=== PATIENT | female | born 1960 | race Caucasian/White ===

== ENCOUNTER 2023-08-23 16:18 | Observation (INO) ==
--- NOTE | 2023-08-23 17:57 | Emergency Department Note ---
Impression & Plan Weakness, Upper back pain, Nausea ED Provider Note NAME: CHRISTIANO HORN AGE: 62 SEX: Female INFORMANT: Patient ED PROVIDER(S): Sriram Sanchez MD CHIEF COMPLAINT: Weakness PLAN: Disposition: Admitted Outpatient prescription management: none Referral: None MEDICAL DECISION MAKING: Patient presented because of feeling weak but she also noted discomfort in her back and nausea. That reminded her of her prior cardiac event. Patient had unremarkable CBC and chemistry panel. Her ECG showed a sinus rhythm. Cardiac troponin was negative. Patient had already received aspirin prehospital. She has a nonfocal neurologic examination. I do have concerns as this could be a primary cardiac event. Patient states that she believes there may be something neurologic going on she has had some balance issues for many months but this leg weakness and constellation of other symptoms was new today. Further management the hospital is felt to be appropriate. [facility] Patient was evaluated in the ER and admitted for further management Care/management discussed with: Discussed with editorial manager Level of care consideration(s): After review of the information above and other included data, I feel the patient requires escalation of care to admission. Triage Nursing notes: reviewed and agree them. Vital Signs: reviewed and remarkable for no significant abnormalities Additional History obtained from: Patient significant other Chronic Medical/Social Conditions affecting care: CAD Prior/ Outside/ External records reviewed: none Differential Diagnosis: ACS, Infection, dehydration, metabolic abnormality, hypo/hyperglycemia, electrolyte disturbance, anemia, hypoxia, cardiac sources, intracerebral event, toxicologic, neurologic, as well as other pathologies. Diagnostics, independently interpreted by me: ECG: Twelve-lead ECG rhythm normal sinus rhythm at [address] elevation or depression. Cardiac Monitoring: Cardiac monitoring ordered by me: The patient was placed on continuous cardiac monitoring and observed. It revealed a normal sinus rhythm at 67 beats per minute without ectopy or evidence of dysrhythmia. Medical decision rules: none Imaging studies: Chest x-ray. Findings: A chest x-ray was performed and revealed no pneumothorax, effusion, infiltrate, pulmonary edema, free air under the diaphragm, or wide mediastinum. Impression: No acute disease. HPI: 62 year old Female arrives for evaluation of lower leg weakness. Noted feeling normally all day. Was walking out of the football game and suddenly felt weak in the entire lower legs. [place] like she couldn't stand by herself. Been dealing with nausea since the symptoms started. Noted slight back pain between shoulder blades. No vertigo. No lower back pain. Was given aspirin by EMS. Pt denies trauma, LOC, headache, neck pain, fevers, chills, malaise, night sweats, weight loss, history of malignancy, chest pain, breathing difficulties, abdominal pain, saddle parasthesias, bowel or bladder dysfunction, numbness, urinary symptoms, or other complaints. PAST MEDICAL HISTORY: See Below, heart disease, MS Nov 2022. PAST SURGICAL HISTORY: See Below, no cath SOCIAL HISTORY: See Below, HOME MEDICATIONS: See Below ALLERGIES: See Below VITALS: See Below PHYSICAL EXAMINATION: GENERAL: Awake, alert, well-appearing, in no distress HENT: Normocephalic, atraumatic. Oropharynx unremarkable. EYES: Normal conjunctiva. Sclera non-icteric. NECK: Inspection normal. Non-tender. Supple. No nuchal rigidity. FROM. No masses. RESPIRATORY: Clear to auscultation. No wheezes. No rales. Normal respiratory effort. CARDIAC: Normal rate. Irregular rhythm. No murmurs. No rubs. Extremities warm and well perfused. Pulses equal. No JVD. GI: Soft, non-distended. No tenderness to palpation. No rebound or guarding. No masses. RECTAL: Deferred. MUSCULOSKELETAL: Atraumatic. Chest examination reveals no tenderness. The back is symmetrical on inspection without obvious abnormality. There is no CVA tenderness to palpation. No joint edema. LOWER EXTREMITIES: Calves are equal size bilaterally and non-tender. No edema. No discoloration. NEURO: Normal sensorium. No sensory or motor deficits noted. SKIN: No rash or jaundice noted. PROCEDURES: none CRITICAL CARE: none OBSERVATION NOTE: none Past Med/Surg History Social History Smoking Status: Never smoker Preferred Language: Upper Sorbian Feels Safe at Home: Yes Allergies Allergies Allergy/AdvReac Type Severity Reaction Status Date / Time Penicillins Allergy Severe Unconscious Verified 08/24/23 00:52 polyethylene glycol 3350 Allergy Severe Unconscious Verified 08/24/23 00:52 [From Miralax] prednisone Allergy Severe Unconscious Verified 08/24/23 00:52 Home Meds Home Medications Medication Instructions Recorded Confirmed bupropion HCl 300 mg 24 hr tablet, 300 mg PO QAM 08/23/23 08/23/23 extended release dulaglutide 0.75 mg/0.5 mL 0.75 mg subcut WK 08/23/23 08/23/23 subcutaneous pen injector (Trulicity) evolocumab 420 mg/3.5 mL 420 mg subcut MONTHLY 08/23/23 08/23/23 subcutaneous wearable injector (Repatha Pushtronex) fluoxetine 80 mg PO DAILY 08/23/23 08/23/23 gabapentin 300 mg capsule 300 mg PO HS 08/23/23 08/23/23 metoprolol succinate 25 mg 25 mg PO DAILY 08/23/23 08/23/23 tablet,extended release 24 hr omeprazole 40 mg capsule,delayed 40 mg PO BID 08/23/23 08/23/23 release rosuvastatin 20 mg tablet 20 mg PO DAILY 08/23/23 08/23/23 trazodone 50 mg tablet 50 mg PO HS 08/23/23 08/23/23 Results & Data (ED) Vital Signs Vital Signs - 24 hr 08/23/23 16:27 08/23/23 18:25 08/23/23 18:35 Temperature 36.8 C Temperature Source Temporal Artery Scan Pulse Rate 79 65 Pulse Rate [Right Finger] 62 Pulse Rhythm [Right Finger] Regular Pulse Strength [Right Finger] Normal Respiratory Rate 18 20 Respiratory Effort / Characteristics Non-Labored Spontaneous Non-Labored Respiratory Depth Normal Normal Respiratory Pattern Regular Blood Pressure 129/90 Blood Pressure [Left Arm] 123/57 L Blood Pressure Mean 103 Blood Pressure Mean [Left Arm] 79 Blood Pressure Position [Left Arm] Lying Pulse Oximetry 99 96 Oxygen Delivery Method Room Air Room Air Sepsis Recent Fever Within 48 Hours No Sepsis New/Unexplained Change in Mental Status No Sepsis Action Taken by Nursing No Action Required 08/23/23 20:14 Temperature Temperature Source Pulse Rate Pulse Rate [Right Finger] 62 Pulse Rhythm [Right Finger] Regular Pulse Strength [Right Finger] Normal Respiratory Rate 20 Respiratory Effort / Characteristics Non-Labored Spontaneous Respiratory Depth Normal Respiratory Pattern Blood Pressure Blood Pressure [Left Arm] 107/59 L Blood Pressure Mean Blood Pressure Mean [Left Arm] 75 Blood Pressure Position [Left Arm] Sitting Pulse Oximetry 97 Oxygen Delivery Method Room Air Sepsis Recent Fever Within 48 Hours Sepsis New/Unexplained Change in Mental Status Sepsis Action Taken by Nursing Laboratory Data 08/23/23 18:27 08/23/23 18:27 Lab Results 08/23/23 Range/Units 18:27 WBC 5.46 (4.8-10.8) K/ul RBC 4.11 L (4.20-5.40) M/uL Hgb 12.2 (12.0-16.0) g/dl Hct 36.2 L (37.0-47.0) % MCV 88.1 (80.0-100.0) fL MCH 29.7 (25.0-34.0) pg MCHC 33.7 (32.0-36.0) g/dL RDW Std Deviation 40.6 (36.4-46.3) fL RDW Coeff of Alix 12.7 (11.5-14.5) % Plt Count 191 (130-400) K/uL MPV 9.6 (9.4-12.4) fL Immature Gran % (Auto) 0.5 % Neut % (Auto) 55.0 % Lymph % (Auto) 33.0 % [place] % (Auto) 8.4 % Eos % (Auto) 2.4 % Baso % (Auto) 0.7 % Neut # (Auto) 3.00 (1.40-6.50) K/uL Lymph # (Auto) 1.80 (1.20-3.40) K/uL [place] # (Auto) 0.46 (0.11-0.59) K/uL Eos # (Auto) 0.13 (0.00-0.50) K/uL Baso # (Auto) 0.04 (0.00-0.20) K/uL Immature Gran # (Auto) 0.03 (0.01-0.20) K/uL Sodium 138 (136-145) mmol/L Potassium 3.8 (3.5-5.1) mmol/L Chloride 105 (98-107) mmol/L Carbon Dioxide 29 (21-32) mmol/L Anion Gap 4 (3-11) BUN 17 (6-23) mg/dl Creatinine 1.11 (0.6-1.2) mg/dl Est Cr Clr Drug Dosing Not Reportable Est GFR ( Amer) 60.8 ml/min Est GFR (Non-Af Amer) 52.4 ml/min BUN/Creatinine Ratio 15.3 (10-20) Glucose 116 H (70-99(Fasting)) mg/dl Calcium 9.6 (8.6-10.3) mg/dl Magnesium 2.0 (1.7-2.4) mg/dl Total Bilirubin 0.4 (0.2-1.0) mg/dl AST 35 (13-39) U/L ALT 45 (7-52) U/L Alkaline Phosphatase 56 (34-104) U/L Troponin I High Sens 6.7 (0-14) pg/ml Total Protein 7.4 (6.0-8.3) gm/dl Albumin 4.3 (3.4-5.0) gm/dl Globulin 3.1 (2.5-4.0) gm/dl Albumin/Globulin Ratio 1.4 (0.9-2) TSH 3.689 (0.300-4.500) uIu/ml SARS-CoV-2, RNA, NAAT NEGATIVE (NEGATIVE) Imaging Data Radiologist's Impression: Chest X-Ray 08/23/23 17:58 XR chest 1V portable HISTORY: weakness COMPARISON: None. FINDINGS: The cardiac silhouette is borderline enlarged. No pleural effusions. No pneumothorax. No focal lung consolidations to suggest a pneumonia. No evidence for pulmonary edema. No acute fractures. IMPRESSION: Borderline enlargement of the cardiac silhouette. Otherwise, no acute process within the chest. ACT 112: Negative or not required by law. Electronically signed by: Cas Aguilar M.D. 08/23/2023 10:56 PM Discharge Plan Visit Data Chief Complaint: Back Injury/Pain Stated Complaint: LOW BACK PAIN, LOSS OF BALANCE, NO FALLS/INJURIES ED Provider: Sriram Sanchez Discharge Problem: Weakness, Upper back pain, Nausea Patient Disposition: Admitted As Inpatient Discharge Instructions Interventions: ED Discharge Assessment Last Done: 08/24/23 00:44
[2023-08-23 18:53] LABS: Basophils # (auto) 0.04 K/uL (0.00-0.20); Basophils % (auto) 0.7 %; Eosinophils # (auto) 0.13 K/uL (0.00-0.50); Eosinophils % (auto) 2.4 %; Hematocrit (blood only) 36.2 % (37.0-47.0); Hemoglobin 12.2 g/dl (12.0-16.0); Immature Granulocytes # (auto) 0.03 K/uL (0.01-0.20); Immature Granulocytes % (auto) 0.5 %; Mean Corpuscular Hemoglobin 29.7 pg (25.0-34.0); Mean Corpuscular Hgb Conc 33.7 g/dL (32.0-36.0); Mean Corpuscular Volume 88.1 fL (80.0-100.0); Mean Platelet Volume 9.6 fL (9.4-12.4); Monocytes # (auto) 0.46 K/uL (0.11-0.59); Monocytes % (auto) 8.4 %; Platelet Count 191 K/uL (130-400); RDW Coefficient of Variation 12.7 % (11.5-14.5); RDW Standard Deviation 40.6 fL (36.4-46.3); Red Blood Count 4.11 M/uL (4.20-5.40); White Blood Count 5.46 K/ul (4.8-10.8)
[2023-08-23 19:09] LABS: Alanine Aminotransferase 45 U/L (7-52); Albumin Globulin Ratio 1.4 (0.9-2); Albumin Level 4.3 gm/dl (3.4-5.0); Alkaline Phosphatase 56 U/L (34-104); Anion Gap 4 (3-11); Aspartate Aminotransferase 35 U/L (13-39); BUN Creatinine Ratio 15.3 (10-20); Bilirubin,Total 0.4 mg/dl (0.2-1.0); Blood Urea Nitrogen 17 mg/dl (6-23); Calcium 9.6 mg/dl (8.6-10.3); Carbon Dioxide 29 mmol/L (21-32); Chloride 105 mmol/L (98-107); Est GFR (African American) 60.8 ml/min; Est GFR (Non-African American) 52.4 ml/min; Globulin 3.1 gm/dl (2.5-4.0); Glucose 116 mg/dl (70-99(Fasting)); Potassium 3.8 mmol/L (3.5-5.1); Sodium 138 mmol/L (136-145); Total Protein 7.4 gm/dl (6.0-8.3)
[2023-08-23 19:11] LABS: Troponin I High Sensitivity 6.7 pg/ml (0-14)
[2023-08-23 19:18] LABS: Thyroid Stimulating Hormone 3.689 uIu/ml (0.300-4.500)
--- NOTE | 2023-08-23 21:10 | History & Physical Report ---
Date of Service August 23, 2023 Assessment & Plan (1) Chest pain: Plan: 62-year-old female with past med history significant for type 2 diabetes, dyslipidemia, diabetic peripheral neuropathy, history of stress-induced non-ST elevated FL, mild aortic stenosis, GERD, morbid obesity, obstructive sleep apnea, CKD stage III, depression with anxiety, history of transient global amnesia, who was at football match today and after the match was walking on the level ground she suddenly felt shaky in the legs and almost fall fell backwards but was held by her and son and she was laid down to sit on the curb and at the time for short brief time she had a pain in the between the back of the shoulder blades. Pain subsided in the ambulance. She thinks it is from anxiety. Possible chest pain Initial work-up unremarkable History of stress-induced or non-ST elevated FL in November On aspirin, statin and beta-milton We will follow serial cardiac enzymes and echo N.p.o. for now Monitor in telemetry Cardiology consult in a.m. Weakness in the legs History of peripheral neuropathy Ambulatory dysfunction We will get CT of the head Exam seems benign If any concern will get MRI and neuro consult Type 2 diabetes On trulicity We will place on insulin sliding scale Follow blood sugars and HbA1c levels Obstructive sleep apnea On CPAP nightly Depression and anxiety Continue home meds DVT prophylaxis SCDs Disposition observation med/telemetry Full code History of Present Illness Chief Complaint: Pain in the back of the shoulder blades and weakness in the legs Primary Care Provider: Mango Tamez MD 62-year-old female with past med history significant for type 2 diabetes, dyslipidemia, diabetic peripheral neuropathy, history of stress-induced non-ST elevated FL, mild aortic stenosis, GERD, morbid obesity, obstructive sleep apnea, CKD stage III, depression with anxiety, history of transient global amnesia, who was at football match today and after the match was walking on the level ground she suddenly felt shaky in the legs and almost l fell backwards but was held by her and son and she was laid down to sit on the curb and at the time for short time she had a pain in the between the back of the shoulder blades. Pain subsided in the ambulance. She thinks it is from anxiety. Yesterday also when she was at a when she was walking uphill she could not walk and she needed assistance. Currently resting comfortably and hemodynamically stable. Lying in the bed she can flex and move her legs okay. Denies any headache. Vision is okay. Has some runny nose. No cough. Eating and drinking okay. Currently no chest pain or shortness of breath. During the during the episode she felt nauseous. No abdominal pain. Normal bowel and bladder movements. In November of this year she was admitted to [facility] with altered mental status and evaluated by psychiatry for psychosis after having COVID and her SSRI was increased. At the time she was also treated as a non-ST elevated FL likely stress-induced vasospasm. At that time stress test showed normal EF without wall motion abnormality or evidence of ischemia and was started on aspirin, statin and beta-milton.. Past medical history. As mentioned above Past surgical history. Breast biopsy. Colonoscopy. EGD. EGD with endoscopic ultrasound. Ligation of oviducts. Liver biopsy. Hemorrhoid surgery. Bladder tack up. Removal of ovaries. Cholecystectomy. Total abdominal hysterectomy with removal of tubes. Social history. . Quit smoking 2006. Alcohol rarely. No drug use. Family history. Paternal aunt had breast cancer. Father had prostate cancer. Skin cancer. Mother has dementia. Diabetes. Hyperlipidemia. Thyroid disorder. Skin cancer. Sister has epilepsy, multiple sclerosis. Allergies Allergy/AdvReac Type Severity Reaction Status Date / Time Penicillins Allergy Severe Unconscious Verified 08/24/23 00:52 polyethylene glycol 3350 Allergy Severe Unconscious Verified 08/24/23 00:52 [From Miralax] prednisone Allergy Severe Unconscious Verified 08/24/23 00:52 Home Medications Medication Instructions Recorded Confirmed Type bupropion HCl 300 mg 24 hr tablet, 300 mg PO QAM 08/23/23 08/23/23 History extended release dulaglutide 0.75 mg/0.5 mL 0.75 mg subcut WK 08/23/23 08/23/23 History subcutaneous pen injector (Trulicity) evolocumab 420 mg/3.5 mL 420 mg subcut MONTHLY 08/23/23 08/23/23 History subcutaneous wearable injector (Repatha Pushtronex) fluoxetine 80 mg PO DAILY 08/23/23 08/23/23 History gabapentin 300 mg capsule 300 mg PO HS 08/23/23 08/23/23 History metoprolol succinate 25 mg 25 mg PO DAILY 08/23/23 08/23/23 History tablet,extended release 24 hr omeprazole 40 mg capsule,delayed 40 mg PO BID 08/23/23 08/23/23 History release rosuvastatin 20 mg tablet 20 mg PO DAILY 08/23/23 08/23/23 History trazodone 50 mg tablet 50 mg PO HS 08/23/23 08/23/23 History Past Med/Surg History Social History Smoking Status: Never smoker Do You Dip or Chew Tobacco: No; Hx Alcohol Use: Yes Alcohol type: beer and wine Hx Substance Use: No Preferred Language: Arabic Communication Ability: Effective Gizzard Peeler Required: No Beliefs That Will Affect Care: None Current Living Situation: Spouse Current Living Situation Comment: home with spouse Other Information That Helps Us Care for You: No Feels Safe at Home: Yes Safety Concerns: Feels Safe At This Time Assistive Devices: Glasses and Hearing Aid - Bilateral Review of Systems Review of Systems: All systems reviewed & are unremarkable except as noted in HPI & below Physical Exam Physical Exam: General- Not in distress Head- atraumatic Eyes- PERRL. ENT- oropharynx clear Neck- supple, no JVD. Lungs- clear to auscultation, no wheezing or crackles. Heart- regular rhythm; no murmur, no gallop. Abdomen- normal bowel sounds, soft, nontender, no distension. maculopapular lesion seen on the stomach Extremities- no pretibial edema, no erythema seen. Neuro- alert, oriented x 3; PERRL, no facial palsy; no dysarthria; motor 5/5 bilaterally; sensations intact, position sense intact Results & Data Results & Data Vital Signs (Past 12 Hours) Vital Signs Temp Pulse Pulse Resp BP BP Pulse Ox 08/23/23 20:14 62 20 107/59 L 97 08/23/23 18:35 62 20 123/57 L 96 08/23/23 18:25 65 08/23/23 16:27 36.8 C 79 18 129/90 99 O2 Del Method 08/23/23 20:14 Room Air 08/23/23 18:35 Room Air 08/23/23 18:25 08/23/23 16:27 Room Air Diagnostic Findings Laboratory Results WBC 5.46 K/ul (4.8-10.8) 08/23/23 18:27 RBC 4.11 M/uL (4.20-5.40) L 08/23/23: Hgb 12.2 g/dl (12.0-16.0) 08/23/23: Hct 36.2 % (37.0-47.0) L 08/23/23 MCV 88.1 fL (80.0-100.0) 08/23/23 MCH 29.7 pg (25.0-34.0) 08/23/23 MCHC 33.7 g/dL (32.0-36.0) 08/23/23 RDW Std Deviation 40.6 fL (36.4-46.3) 08/23/23 RDW Coeff of Alix 12.7 % (11.5-14.5) 08/23/23 Plt Count 191 K/uL (130-400) 08/23/23 MPV 9.6 fL (9.4-12.4) 08/23/23 Immature Gran % (Auto) 0.5 % 08/23/23 Neut % (Auto) 55.0 % 08/23/23 Lymph % (Auto) 33.0 % 08/23/23 [place] % (Auto) 8.4 % 08/23/23 Eos % (Auto) 2.4 % 08/23/23 Baso % (Auto) 0.7 % 08/23/23 Neut # (Auto) 3.00 K/uL (1.40-6.50) 08/23/23 Lymph # (Auto) 1.80 K/uL (1.20-3.40) 08/23/23 [place] # (Auto) 0.46 K/uL (0.11-0.59) 08/23/23 Eos # (Auto) 0.13 K/uL (0.00-0.50) 08/23/23 Baso # (Auto) 0.04 K/uL (0.00-0.20) 08/23/23 Immature Gran # (Auto) 0.03 K/uL (0.01-0.20) 08/23/23 18 Sodium 138 mmol/L (136-145) 08/23/23 18:27 Potassium 3.8 mmol/L (3.5-5.1) 08/23/23 18: Chloride 105 mmol/L (98-107) 08/23/23 18:27 Carbon Dioxide 29 mmol/L (21-32) 08/23/23 18: Anion Gap 4 (3-11) 08/23/23 18:27 BUN 17 mg/dl (6-23) 08/23/23 18: Creatinine 1.11 mg/dl (0.6-1.2) 08/23/23 18: Est Cr Clr Drug Dosing Not Reportable 08/23/23 18: Est GFR ( Amer) 60.8 ml/min 08/23/23 18: Est GFR (Non-Af Amer) 52.4 ml/min 08/23/23 18: BUN/Creatinine Ratio 15.3 (10-20) 08/23/23 18: Glucose 116 mg/dl (70-99(Fasting)) H 08/23/23 18: Calcium 9.6 mg/dl (8.6-10.3) 08/23/23 18: Magnesium 2.0 mg/dl (1.7-2.4) 08/23/23 18: Total Bilirubin 0.4 mg/dl (0.2-1.0) 08/23/23 18:27 AST 35 U/L (13-39) 08/23/23 18:27 ALT 45 U/L (7-52) 08/23/23 18: Alkaline Phosphatase 56 U/L (34-104) 08/23/23 18: Troponin I High Sens 6.7 pg/ml (0-14) 08/23/23 18: Total Protein 7.4 gm/dl (6.0-8.3) 08/23/23 18: Albumin 4.3 gm/dl (3.4-5.0) 08/23/23 18: Globulin 3.1 gm/dl (2.5-4.0) 08/23/23 18: Albumin/Globulin Ratio 1.4 (0.9-2) 08/23/23 18: TSH 3.689 uIu/ml (0.300-4.500) 08/23/23 18:27 SARS-CoV-2, RNA, NAAT NEGATIVE (NEGATIVE) 08/23/23 18:27 ECG Additional Comments: ECG. Normal sinus rhythm with rate of 63. No acute ST changes seen. Code Status & VTE Plan VTE Prophylaxis Plan VTE Prophylaxis will be ordered: Yes
[2023-08-23 22:36] LABS: Appearance Urine Clear (Clear); Bacteria Urine Automated Negative (Negative); Bilirubin Urine Negative (Negative); Blood Urine Negative (Negative); Color Urine Yellow; Epithelial Cell Urine Auto >30 /lpf (0-5); Glucose Urine UA Negative (Negative); Ketones Urine Negative (Negative); Leukocyte Esterase Urine Trace (Negative); Nitrite Urine Negative (Negative); Protein Urine Negative (Negative); RBC Urine Automated 0-4 /hpf (0-4); Specific Gravity Urine 1.021 (1.000-1.030); Urobilinogen Urine Negative (Negative); pH Urine 5.5 (4.5-7.5)
--- NOTE | 2023-08-23 22:58 | XRay Report ---
XR chest 1V portable HISTORY: weakness COMPARISON: None. FINDINGS: The cardiac silhouette is borderline enlarged. No pleural effusions. No pneumothorax. No fo carlos lung consolidations to suggest a pneumonia. No evidence for pulmonary edema. No acute fractures. IMPRESSION: Borderline enlargement of the cardiac silhouette. Otherwise, no acute process within the chest. ACT 112: Negative or not required by law. Electronically signed by: Cas Aguilar M.D. 08/23/2023 10:56 PM
[2023-08-24] MEDS ORDERED: GLUCAGON FOR INJ 1 MG VIAL SQ PRN (00:32)
[2023-08-24] MEDS ORDERED: NITROGLYCERIN SL 0.4 MG/TAB TAB SL PRN (00:32)
[2023-08-24] MEDS ORDERED: ACETAMINOPHEN 325 MG TAB PO PRN (00:32)
[2023-08-24] MEDS ORDERED: DEXTROSE 50% 50 ML SYRINGE IV PRN (00:32)
[2023-08-24] MEDS ORDERED: GLUCOSE 10 TAB/TUBE PO PRN (00:32)
[2023-08-24] MEDS ORDERED: GABAPENTIN 300 MG CAP PO SCH (00:32)
[2023-08-24] MEDS ORDERED: CARBOHYDRATES FOR HYPOGLYCEMIA PO PRN (00:32)
[2023-08-24] MEDS ORDERED: traZODone HCL 50 MG TAB PO SCH (00:32)
[2023-08-24] MEDS ORDERED: GLUCOSE 40% GEL 15 GM TUBE PO PRN (00:32)
[2023-08-24] MEDS: PANTOprazole 40 MG TAB PO SCH ×2 (01:32→08:33)
[2023-08-24] MEDS: INSULIN ASPART PER UNIT CHARGE SC SCH ×3 (02:10→12:17)
--- NOTE | 2023-08-24 03:58 | CT Scan Report ---
Exam(s): CT HEAD Without Contrast EXAM: CT Head Without Intravenous Contrast CLINICAL HISTORY: Reason for exam: b/l leg weakness. TECHNIQUE: Axial computed tomography images of the head/brain without intravenous contrast. CTDI is 37.95 mGy and DLP is 624.41 mGy-cm. Automated exposure control was utilized for the study. A dose lowering technique was utilized adhering to the principles of ALARA. COMPARISON: No relevant prior studies available. FINDINGS: Brain: Unremarkable. No hemorrhage. No significant white matter disease. No edema. Ventricles: Unremarkable. No ventriculomegaly. Bones/joints: Unremarkable. No acute fracture. Soft tissues: Unremarkable. Sinuses: Unremarkable as visualized. No acute sinusitis. Mastoid air cells: Unremarkable as visualized. No mastoid effusion. IMPRESSION: No evidence of acute intracranial pathology. Electronically signed by: Mar Gross MD 08/24/23 03:57 AM
[2023-08-24 06:49] LABS: Basophils # (auto) 0.03 K/uL (0.00-0.20); Basophils % (auto) 0.5 %; Eosinophils # (auto) 0.17 K/uL (0.00-0.50); Eosinophils % (auto) 3.1 %; Hematocrit (blood only) 36.1 % (37.0-47.0); Hemoglobin 12.1 g/dl (12.0-16.0); Immature Granulocytes # (auto) 0.02 K/uL (0.01-0.20); Immature Granulocytes % (auto) 0.4 %; Lymphocytes # (auto) 1.81 K/uL (1.20-3.40); Lymphocytes % (auto) 32.7 %; Mean Corpuscular Hemoglobin 29.5 pg (25.0-34.0); Mean Corpuscular Hgb Conc 33.5 g/dL (32.0-36.0); Neutrophils % (auto) 54.3 %; Platelet Count 176 K/uL (130-400); RDW Coefficient of Variation 12.7 % (11.5-14.5); RDW Standard Deviation 40.6 fL (36.4-46.3); White Blood Count 5.53 K/ul (4.8-10.8)
[2023-08-24 06:52] LABS: BUN Creatinine Ratio 16.8 (10-20); Calcium 9.5 mg/dl (8.6-10.3); Creatinine Clr Calc Pharmacy 65.5 ml/min; Est GFR (African American) 73.4 ml/min; Est GFR (Non-African American) 63.3 ml/min
[2023-08-24 07:02] LABS: Troponin I High Sensitivity 4.6 pg/ml (0-14)
[2023-08-24 07:21] LABS: Lyme Ab IgG w/WB Rflx Negative (Negative); Lyme Ab IgM w/WB Rflx Negative (Negative)
[2023-08-24] MEDS ORDERED: METOPROLOL SUCC 25MG EXT REL TAB PO SCH (09:00)
[2023-08-24] MEDS ORDERED: FLUoxetine HCL 20 MG CAP PO SCH (09:00)
[2023-08-24] MEDS ORDERED: ROSUVASTATIN CALCIUM 20 MG TAB PO SCH (09:00)
[2023-08-24] MEDS ORDERED: buPROPion XL 300 MG TABCR PO SCH (09:00)
--- NOTE | 2023-08-24 11:37 | Cardiology Consultation ---
Date of Consultation August 24, 2023 Assessment & Plan (1) Chest pain: Cardiac work-up performed is felt to be reassuring with negative high sensitive troponin x3, normal EKG x2, and stable findings on echocardiogram. Although her echocardiogram as performed at [facility] in November, describes mild aortic stenosis, there is only a very subtle change in the transvalvular velocities noted on the echocardiogram today that meets criteria for moderate aortic stenosis. I do not think this was the cause of her symptoms. I question if her symptoms were related to anxiety, she states that she was in a high anxiety state. No further cardiac work-up is felt to be indicated at present. Continue her routine outpatient cardiology follow-up as planned. Continue outpatient medications including metoprolol and rosuvastatin. Recommended further work-up for ambulatory dysfunction. Cardiology to sign off. Please call with questions or concerns. History of Present Illness Attending Physician: David Bowers MD History of Present Illness Clary Leonardo is a 62 year old female seen in cardiology consultation per the request of Dr Sal for chest discomfort. Patient [place] the [place] [employer] [place] yesterday. She states that her seat was in the top part of the stadium. When she was leaving the stadium, by the time she appr oached the first parking lot she felt like her legs gave out on her. She had difficulty with her equilibrium, and felt wobbly. She had to sit down on a curb for a while, but even after that she had difficulty walking. She had similar issues with difficulty walking up an incline at a about 8 days ago. When she was struggling to walk, she had a transient spell of fleeting chest discomfort. She states that she was very anxious when that occurred. She has had no recurrent chest discomfort and at present she feels well from a cardiac perspective, but she has ongoing concerns that she just does not feel right in her legs. The patient is followed with cardiology at [facility]. 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 She had chest pain and pain between her shoulder blades and was diagnosed with a non-ST segment elevation myocardial infarction while at [facility] in November,. Per review of records, her high-sensitivity troponin peaked at 240 PG per mL on 11/27/2022. An echocardiogram performed that day revealed subtle inferior, inferolateral hypokinesis with an ejection fraction of 60% and mild aortic stenosis, peak continuous-wave Doppler velocity across aortic valve at that time 2.9 m/s. At that time it was felt that there was perhaps a stress mediated component of her presentation. She underwent a nuclear stress test on 11/29/2022 with normal perfusion and she has interim been treated medically in the interim. With regards to her chest pain this time around. The patient states that once again came on at a time of high anxiety. EKG reveals no ischemia, and high sensitive troponin has been negative on serial measurements at 6.7, 4.6, and 3.5 PG per mL. She has had a resting echocardiogram performed today which reveals normal left ventricular systolic function, normal LVEF. Moderate aortic stenosis was pre sent with velocity just slightly higher than what was noted back in November, this time just over 3 m/s consistent with moderate rather than mild aortic stenosis. Allergies Allergy/AdvReac Type Severity Reaction Status Date / Time Penicillins Allergy Severe Unconscious Verified 08/24/23 00:52 polyethylene glycol 3350 Allergy Severe Unconscious Verified 08/24/23 00:52 [From Miralax] prednisone Allergy Severe Unconscious Verified 08/24/23 00:52 Home Medications Medication Instructions Recorded Confirmed Type bupropion HCl 300 mg 24 hr tablet, 300 mg PO QAM 08/23/23 08/23/23 History extended release dulaglutide 0.75 mg/0.5 mL 0.75 mg subcut WK 08/23/23 08/23/23 History subcutaneous pen injector (Trulicity) evolocumab 420 mg/3.5 mL 420 mg subcut MONTHLY 08/23/23 08/23/23 History subcutaneous wearable injector (Repatha Pushtronex) fluoxetine 80 mg PO DAILY 08/23/23 08/23/23 History gabapentin 300 mg capsule 300 mg PO HS 08/23/23 08/23/23 History metoprolol succinate 25 mg 25 mg PO DAILY 08/23/23 08/23/23 History tablet,extended release 24 hr omeprazole 40 mg capsule,delayed 40 mg PO BID 08/23/23 08/23/23 History release rosuvastatin 20 mg tablet 20 mg PO DAILY 08/23/23 08/23/23 History trazodone 50 mg tablet 50 mg PO HS 08/23/23 08/23/23 History Patient History Social History Smoking Status: Never smoker Do You Dip or Chew Tobacco: No; Hx Alcohol Use: Yes Alcohol type: beer and wine Hx Substance Use: No Preferred Language: Marshallese Communication Ability: Effective Hip Hop Artist Required: No Beliefs That Will Affect Care: None Current Living Situation: Spouse Current Living Situation Comment: home with spouse Other Information That Helps Us Care for You: No Feels Safe at Home: Yes Safety Concerns: Feels Safe At This Time Assistive Devices: Glasses and Hearing Aid - Bilateral Review of Systems Review of Systems: All systems reviewed & are unremarkable except as noted in HPI & below Physical Exam Constitutional: WD/WN, vitals as above Respiratory: normal respiratory effort, lungs clear to auscultation Cardiovascular: Rate/Rhythm: regular rate Heart Sounds: + murmur (2/6 systolic murmur) Extremities: no edema Gastrointestinal (Abdomen): normal bowel sounds, soft, nontender, no hepatosplenomegaly Neurologic: No focal deficit on limited exam Results & Data Vital Signs (Past 12 Hours) Vital Signs Temp Pulse Pulse Resp BP Pulse Ox O2 Del Method 08/24/23 11:17 36.9 C 64 18 117/68 96 Room Air 08/24/23 07:55 Room Air 08/24/23 07:36 37.1 C 68 18 139/72 94 Room Air 08/24/23 06:32 64 08/24/23 02:00 65 08/24/23 02:00 36.4 C L 68 14 115/61 95 Room Air 08/23/23 23:53 67 20 95 Room Air FiO2 08/24/23 11:17 08/24/23 07:55 08/24/23 07:36 08/24/23 06:32 08/24/23 02:00 08/24/23 02:00 21 08/23/23 23:53 Laboratory Results Cardiac Enzymes 08/23/23 08/24/23 08/24/23 Range/Units 18:27 05:33 10:42 AST 35 (13-39) U/L Troponin I High Sens 6.7 4.6 3.5 (0-14) pg/ml CBC 08/23/23 08/24/23 Range/Units 18:27 05:33 WBC 5.46 5.53 (4.8-10.8) K/ul RBC 4.11 L 4.10 L (4.20-5.40) M/uL Hgb 12.2 12.1 (12.0-16.0) g/dl Hct 36.2 L 36.1 L (37.0-47.0) % Plt Count 191 176 (130-400) K/uL Neut # (Auto) 3.00 3.00 (1.40-6.50) K/uL Lymph # (Auto) 1.80 1.81 (1.20-3.40) K/uL [place] # (Auto) 0.46 0.50 (0.11-0.59) K/uL Eos # (Auto) 0.13 0.17 (0.00-0.50) K/uL Baso # (Auto) 0.04 0.03 (0.00-0.20) K/uL Comprehensive Metabolic Panel 08/23/23 08/24/23 Range/Units 18:27 05:33 Sodium 138 140 (136-145) mmol/L Potassium 3.8 4.0 (3.5-5.1) mmol/L Chloride 105 106 (98-107) mmol/L Carbon Dioxide 29 28 (21-32) mmol/L BUN 17 16 (6-23) mg/dl Creatinine 1.11 0.95 (0.6-1.2) mg/dl Glucose 116 H 118 H (70-99(Fasting)) mg/dl Calcium 9.6 9.5 (8.6-10.3) mg/dl AST 35 (13-39) U/L ALT 45 (7-52) U/L Alkaline Phosphatase 56 (34-104) U/L Total Protein 7.4 (6.0-8.3) gm/dl Albumin 4.3 (3.4-5.0) gm/dl Intake and Output 08/23/23 08/24/23 08/24/23 22:59 06:59 14:59 Other: Other Intake Source NPO Weight 100.7 kg 98.3 kg Weight Measurement Method Built in Bedscale Standing Scale Diagnostic Findings EKG performed 08/23/2023 at 1821 revealed normal sinus rhythm, normal ST segments. Normal tracing. Repeat tracing performed at 720 this morning revealed sinus rhythm with normal ST segments. (1) Chest pain Chest pain type: unspecified Qualified Code(s): R07.9 - Chest pain, unspecified
--- NOTE | 2023-08-24 12:40 | Discharge Summary ---
Date of Service August 24, 2023 Admission HPI Per Admitting Provider 62-year-old female with past med history significant for type 2 diabetes, dyslipidemia, diabetic peripheral neuropathy, history of stress-induced non-ST elevated [place], mild aortic stenosis, GERD, morbid obesity, obstructive sleep apnea, CKD stage III, depression with anxiety, history of transient global amnesia, who was at football match today and after the match was walking on the level ground she suddenly felt shaky in the legs and almost l fell backwards but was held by her and son and she was laid down to sit on the curb and at the time for short time she had a pain in the between the back of the shoulder blades. Pain subsided in the ambulance. She thinks it is from anxiety. Yesterday also when she was at a when she was walking uphill she could not walk and she needed assistance. Currently resting comfortably and hemodynamically stable. Lying in the bed she can flex and move her legs okay. Denies any headache. Vision is okay. Has some runny nose. No cough. Eating and drinking okay. Currently no chest pain or shortness of breath. During the during the episode she felt nauseous. No abdominal pain. Normal bowel and bladder movements. In November of this year she was admitted to [facility] with altered mental status and evaluated by psychiatry for psychosis after having COVID and her SSRI was increased. At the time she was also treated as a non-ST elevated KY likely stress-induced vasospasm. At that time stress test showed normal EF without wall motion abnormality or evidence of ischemia and was started on aspirin, statin and beta-milton.. Past medical history. As mentioned above Past surgical history. Breast biopsy. Colonoscopy. EGD. EGD with endoscopic ultrasound. Ligation of oviducts. Liver biopsy. Hemorrhoid surgery. Bladder tack up. Removal of ovaries. Cholecystectomy. Total abdominal hysterectomy with removal of tubes. Social history. . Quit smoking 2006. Alcohol rarely. No drug use. Family history. Paternal aunt had breast cancer. Father had prostate cancer. Skin cancer. Mother has dementia. Diabetes. Hyperlipidemia. Thyroid disorder. Skin cancer. Sister has epilepsy, multiple sclerosis. Admission Exam Per Admitting Provider General- Not in distress Head- atraumatic Eyes- PERRL. ENT- oropharynx clear Neck- supple, no JVD. Lungs- clear to auscultation, no wheezing or crackles. Heart- regular rhythm; no murmur, no gallop. Abdomen- normal bowel sounds, soft, nontender, no distension. maculopapular lesion seen on the stomach Extremities- no pretibial edema, no erythema seen. Neuro- alert, oriented x 3; PERRL, no facial palsy; no dysarthria; motor 5/5 bilaterally; sensations intact, position sense intact Principal Diagnosis Ambulatory dysfunction Chest pain, ACS ruled out Discharge Exam Constitutional: WD/WN, vitals as above, NAD, sitting up in bed, pleasant, conversing easily Respiratory: normal respiratory effort, lungs clear to auscultation, no wheeze, rales, rhonchi. Normal insp/exp effort, no accessory muscle use Cardiovascular: RRR, no murmur, no edema Vessels: no JVD or carotid bruit Chest: normal inspection of chest Abdomen: normal bowel sounds, soft, nontender, no hepatosplenomegaly Musculoskeletal: no cyanosis or clubbing, extremities motor strength 5/5 Skin: no rashes, warm and dry normal turgor Neurologic: PERRL, EOMI, accommodation nl, no face palsy, no dysarthria CN's II- XI intact bilaterally and moves all extremities Psychiatric: A+Ox3, euthymic affect Discharge Data Allergies Allergy/AdvReac Type Severity Reaction Status Date / Time Penicillins Allergy Severe Unconscious Verified 08/24/23 00:52 polyethylene glycol 3350 Allergy Severe Unconscious Verified 08/24/23 00:52 [From Miralax] prednisone Allergy Severe Unconscious Verified 08/24/23 00:52 Consultations 08/23/23 20:06 ED Decision to Admit Stat 08/24/23 08:00 Consult Cardiology Routine Ordered Studies 08/24/23 00:32 CT head/brain wo con Urgent Hospital Course (1) Chest pain: 62-year-old female with past med history significant for type 2 diabetes, dyslipidemia, diabetic peripheral neuropathy, history of stress-induced non-ST elevated [place], mild aortic stenosis, GERD, morbid obesity, obstructive sleep apnea, CKD stage III, depression with anxiety, history of transient global amnesia, who was at football match presented to the hospital with ambulatory dysfunction. On presentation to the ED, patient was afebrile, normotensive and saturating well on room air. EKG showed normal sinus rhythm; no acute abnormality. High sensitive troponin negative CT head without contrast did not show any acute abnormality. Cardiology was consulted for concern of chest pain. Echocardiogram was done; EF of 55 to 60%, moderately calcified aortic valve. Patient was ambulating independently without any issues at discharge. Patient to follow-up with primary care doctor and obtain neurology referral as outpatient. Please note the above document was generated using voice recognition software. It may contain grammatical, syntax or spelling errors. Any formal questions or concerns about the content, text or information contained within the body of this dictation should be directly addressed to the provider for clarification Total Time Total Time Spent Total Time Spent (In Minutes): 35 Total Time Includes: Examination of the Patient, Discharge Planning, Medication Reconciliation, Communication With Other Providers and Other Discharge Plan Discharge Items Patient Disposition: Home - Self-Care Reason For Visit: CHEST PAIN? AMBULATORY DYSFUNCTION Discharge Diagnosis: Ambulatory dysfunction Moderate aortic stenosis Activity: Resume your previous activity Non-emergency contact: Primary Care Provider Call non-emergency contact if: you have any medication questions and your symptoms worsen Follow-up/Referrals: Mango Tamez MD [Primary Care Provider] - Diet: Regular Addtl Attending Provider Instructions: You were admitted to the hospital due to ambulatory dysfunction. CT of the head was done which did not show any acute findings. Please follow-up with your primary care doctor as scheduled. Please obtain referral with neurology to assess for ambulatory dysfunction and memory issues. You were also evaluated by cardiology during the hospitalization. Echocardiogram was done which showed normal heart function. It also showed moderate aortic stenosis. You need follow-up echocardiogram in 1 year to assess the severity of the aortic stenosis. Pending Studies at Discharge: No Stand-Alone Forms: [facility], Smoking Cessation Medications and DC Order Prescriptions: Continued trazodone 50 mg Tablet 50 mg PO HS omeprazole 40 mg Capsule,Delayed Release(Dr/Ec) 40 mg PO BID rosuvastatin 20 mg Tablet 20 mg PO DAILY bupropion HCl 300 mg Tablet Extended Release 24 Hr 300 mg PO QAM Trulicity 0.75 mg/0.5 mL Pen Injector 0.75 mg SUBCUT WK Repatha Pushtronex 420 mg/3.5 mL Wearable Injector 420 mg SUBCUT MONTHLY fluoxetine 80 mg PO DAILY gabapentin 300 mg capsule 300 mg PO HS metoprolol succinate 25 mg tablet extended release 24 hr 25 mg PO DAILY Discharge Orders: Discharge Order (Routine); Ordered 08/24/23 Ordered By: David Bowers Admission Data Admit Date/Time: 08/23/23 21:02 Attending Provider: David Bowers Admit Provider: Matt Sal Primary Care Provider: Mango Tamez Other Providers: Matt Sal; [place] Nu[place]ez Other Interventions: Discharge Summary Assessment (RN) Last Done: 08/24/23 12:21
--- NOTE | 2023-08-25 05:53 | Electrocardiogram Report ---
Test Reason : Blood Pressure : / mmHG Vent. Rate : 063 BPM Atrial Rate : 063 BPM P-R Int : 154 ms QRS Dur : 082 ms QT Int : 448 ms P-R-T Axes : 060 062 061 degrees QTc Int : 458 ms Normal sinus rhythm Normal ECG No previous ECGs available Confirmed by Broderick Villafuerte ([id number]) on 08/25/2023 5:53:44 AM Referred By: REFERRED SELF Confirmed By:Broderick Villafuerte
--- NOTE | 2023-08-25 06:11 | Electrocardiogram Report ---
Test Reason : Blood Pressure : / mmHG Vent. Rate : 067 BPM Atrial Rate : 067 BPM P-R Int : 144 ms QRS Dur : 078 ms QT Int : 452 ms P-R-T Axes : 078 071 056 degrees QTc Int : 477 ms Poor data quality, interpretation may be adversely affected Normal sinus rhythm Normal ECG When compared with ECG of 23-AUG-2023 18:21, (unconfirmed) No significant change was found Confirmed by Broderick Villafuerte ([id number]) on 08/25/2023 6:10:56 AM Referred By: REFERRED SELF Confirmed By:Broderick Villafuerte
[2023-08-25 08:47] LABS: Estimated Average Glucose 120 mg/dl; Hemoglobin A1C 5.8 % (4.5-5.6)
--- OUTSIDE RECORDS SUMMARY | 2023-08-26 22:53 | External Medical Summary | Summary of Care ---
Author Name Unknown Organization [facility] Address [address] [facility] [place] [address] Phone [phone] Care Team Providers Care Bituminous Paving Machine Operator Name Role Phone Mango Tamez MD Primary Care Provider [phone] Reason for Visit * Reason Onset Date Comments Advice 08/20/2023 Encounter Details Date Type Department Care Team (Late st Contact Info) Description 08/20/2023 Telephone Gastroenterology, [address] [address] Mykel Posada, DO [address] [place] [address] Advice Allergies Active Allergy Reactions Criticality Noted Date Comments Duloxetine Hcl 02/14/2014 hives Doxycycline Medium 05/31/2022 Advised not to take d/t psychosis episode and unsure if it created the episode or not Cephalexin Hives 02/14/2014 Lorazepam Hives Medium 07/04/2010 Polyethylene Glycol Other (Please comment) High 12/25/2018 Severe N&V, felt like her whole body was shutting down Penicillins Hives Medium 03/13/2006 Pt was told to never take, Prednisone High 05/31/2022 Psychosis episode Carbamazepine Hives Medium 07/04/2010 Valacyclovir Hcl Hives 02/14/2014 Zyprexa Hives Medium 07/04/2010 documented as of this encounter (statuses as of 08/20/2023) Medications Medication Sig Dispensed Refills Start Date End Date Status CPAP every night at bedtime. 0 Active Aspirin 81 MG Oral Tablet Chewable Take 1 Tablet by mouth in the morning. 30 Tablet 0 12/03/2022 Active Metoprolol Succinate ER 25 MG Oral Tablet Extended Release 24 Hour (toPROL XL) Take 1 Tablet by mouth in the morning. 90 Tablet 3 12/26/2022 Active Gabapentin 300 MG Oral Capsule (Neurontin)Indicat ions:DM type 2 with diabetic peripheral neuropathy (HCC) Take 1 Capsule by mouth at bedtime. 90 Capsule 1 03/31/2023 Active busPIRone HCl 10 MG Oral Tablet (Buspar) Take 1 Tablet by mouth in the morning and 1 Tablet at noon and 1 Tablet before bedtime. 90 Tablet 2 05/06/2023 Active Additional Information Patient taking differently:10 mg OralTID PRN, Reported on 07/21/2023 traZODone HCl 50 MG Oral Tablet (Desyrel)Indicatio ns:Insomnia, unspecified type Take 1 Tablet by mouth at bedtime. 30 Tablet 2 05/06/2023 Active FLUoxetine HCl 60 MG Oral TabletIndications: Recurrent major depressive disorder, remission status unspecified (HCC) Take 1 Tablet by mouth in the morning. 30 Tablet 2 05/06/2023 Active Omeprazole 40 MG Oral Capsule Delayed Release (PriLOSEC)Indicati ons:Gastroesophage al reflux disease, unspecified whether esophagitis present TAKE ONE CAPSULE TWICE A DAY 180 Capsule 3 06/30/2023 Active FreeStyle Que 14 Day [place] DeviceIndications: Hypoglycemia USE DIRECTED. 1 Each 0 07/01/2023 Active FLUoxetine HCl 20 MG Oral Capsule (PROzac)Indication s:Moderate episode of recurrent major depressive disorder (HCC) Take 1 Capsule by mouth in the morning. 0 07/17/2023 Active Repatha Pushtronex System 420 MG/3.5ML Subcutaneous Solution Cartridge (Evolocumab with Infusor)Indication s:Dyslipidemia, goal LDL below 70 Inject 420 mg under the skin every month. Administer over 5 minutes. Remove from refrigerator 45 minutes prior to injection. 10.5 mL 5 07/22/2023 Active buPROPion HCl ER (XL) 300 MG Oral Tablet Extended Release 24 Hour (Wellbutrin XL)Indications:Mod erate episode of recurrent major depressive disorder (HCC) Take 1 Tablet by mouth in the morning. 90 Tablet 0 07/21/2023 Active Azelastine HCl 0.1 % Nasal Solution (Astelin)Indicatio ns:Dysfunction of right eustachian tube Administer 1 [place] into nostril in the morning and 1 [place] before bedtime. 30 mL 12 07/21/2023 Active FreeStyle Que 2 SensorIndications: Hypoglycemia use every 2 weeks as directed 1 Each 1 07/22/2023 Active Trulicity 0.75 MG/0.5ML Subcutaneous Solution Pen-injector (Dulaglutide) Inject 0.75 mg under the skin once a week. 2 mL 5 07/22/2023 Active Rosuvastatin Calcium 20 MG Oral Tablet (Crestor)Indicatio ns:Dyslipidemia Take 1 Tablet by mouth every night at bedtime. 90 Tablet 3 08/14/2023 Active linaCLOtide 145 MCG Oral Capsule (Linzess) Take 1 Capsule by mouth daily before breakfast. 90 Capsule 0 08/20/2023 Active documented as of this encounter (statuses as of 08/20/2023) Active Problems Problem Noted Date Diagnosed Date Recurrent major depressive disorder 12/26/2022 Recurrent major depressive disorder 12/26/2022 Type 2 diabetes mellitus wit h diabetic chronic kidney disease 12/03/2022 Mild aortic stenosis 12/03/2022 Amnesia, global, transient 11/27/2022 NSTEMI (non-ST elevated myocardial infarction) 0 11/27/2022 Stage 3a chronic kidney disease 08/21/2020 Overview: Per CKD protocol - - DM type 2 with diabetic peripheral neuropathy Morbid obesity due to excess calories 11/22/2019 Dyslipidemia 04/30/2018 Fatty liver 04/21/2017 Type 2 diabetes mellitus wit h hemoglobin A1c goal of less than 7.0% 09/05/2014 Overview: ICD-10 update of inactive term Other seborrheic keratosis 07/06/2013 Atypical melanocytic Proliferation L low Back Overview: CF [id number] Skin, left lower back: Atypical predominantly junctional melanocytic proliferation. See comment. COMMENT: A dysplastic nevus with severe atypia was considered, as there is no confluence. However, there is cytologic atypia throughout and focal pagetoid scatter, therefore superficially invasive malignant melanoma to a depth of 0.27 mm is favored. There is no ulceration, regression, satellitosis, neutropism, or angiolymphatic invasion identified. There are no obvious mitoses in the sparse dermal cells. The lesion is not identified at a margin in these planes of section. History skin cancer nos nose/173.3 ADVANCE DIRECTIVE INFORMATION 03/13/2006 Overview: No, Advance Directive brochure given to patient. DM type 2 with diabetic dyslipidemia Depression with anxiety Esophageal reflux documented as of this encounter (statuses as of 08/20/2023) Resolved Problems Problem Noted Date Diagnosed Date Resolved Date Chest pain 11/27/2022 12/03/2022 COVID-19 virus infection 05/21/2022 Elevated troponin 05/21/2022 12/03/2022 Heart murmur 03/02/2021 12/03/2022 Body mass index (BMI) of 40. 0 to 44.9 in adult 01/18/2019 11/22/2019 Overview: Per Obesity protocol #1 Kidney disease, chronic, sta ge III (GFR 30-59 ml/min) 05/26/2018 08/24/2020 Overview: Per CKD protocol #1 - Body mass index (BMI) of 40. 0 to 44.9 in adult 05/27/2017 11/05/2018 Overview: ICD-10 update of inactive term Elevated liver enzymes 04/21/201712/03 HX-SKIN MALIGNANCY NEC 03/13/200609/20 Overview: History skin cancer Nose/173.3 History atypical melanocytic proliferation on left lower back/D48.5 Anxiety state 11/22/2019 documented as of this encounter (statuses as of 08/20/2023) Immunizations Name Administration Dates Next Due HEP A - Hepatitis A (Adult > 18 yrs) 02/08/2004 Hepatitis B, 20+ yrs 11/05/2004,03/13/2004,02/07 Pneumococcal Polysaccharide PPV23 (Pneumovax) 12/22/2013 SEASONAL INFLUENZA, PF, 6 M & Above, IM , (FLULAVAL or FLUZONE) 07/21/2023 Seasonal Influenza, Quadriva lent, No Preserve, IM 08/17/2021,08/13/2020,08/19/2019,08/13,08/15/2017 Seasonal Influenza, Quadriva lent, No Preserve, Peds 08/06/2022 Seasonal Influenza, Split, I IV3, With Preserve, Inj 08/15/2017,07/22/2016,08/29/2014,09/27 TDAP (age 11 and older)(Adacel) 12/22/2013 documented as of this encounter Social History Tobacco Use Types Packs/Day Years Used Date Smoking Tobacco: Former Cigarettes 1 Q uit: 05/13/2007 Smokeless Tobacco: Never Comments:05/19 Alcohol Use Standard Drinks/Week Comments Yes 0 (1 standard drink = 0.6 oz pur e alcohol) RARELY PHQ-2 Answer Date Recorded PHQ Adult Total Score 24 07/21/2023 Hunger Vital Sign Answer Date Recorded Within the past 12 months, y ou worried that your food would run out before you got the money to buy more. Never true 07/21/20 23 Within the past 12 months, t he food you bought just didn't last and you didn't have money to get more. Never true 07/21/2023 Sex and Gender Information Value Date Recorded Sex Assigned at Female 01/14/2019 1:58 PM EDT Gender Identity Female 01/14/2019 1:58 PM EDT Sexual Orientation Straight 01/14/2019 1: 58 PM EDT Job Start Date Occupation Industry Not on file Not on file Not on file documented as of this encounter Functional Status Functional Status Response Date of Assess ment Are you deaf or do you have serious difficulty h earing? No 11/27/2022 Are you blind or do you have serious difficulty seeing, even when wearing glasses? No 11/27/2022 Do you have serious difficul ty walking or climbing stairs? (5 years old or older) No 11/27/2022 Do you have difficulty dress ing or bathing? (5 years old or older) No 11/27/2022 Because of a physical, menta l, or emotional condition, do you have difficulty doing errands alone such as visiting a doctor s office or shopping? (15 years old or older) No 11/27/19 23 Cognitive Status Response Date of Assessm ent Because of a physical, menta l, or emotional condition, do you have serious difficulty concentrating, remembering, or making decisions? (5 years old or older No 11/27/2022 documented as of this encounter Miscellaneous Notes * Addendum Note - Mykel Posada DO - 08/20/2023 1:28 PM ESTAddended by: MYKEL POSADA on: 08/20/2023 01:28 PM Modules accepted: Orders * Telephone Encounter - Mykel Posada DO - 08/20/2023 1:27 PM EST The patient's symptoms are most likely result of 1 of her medications or perhaps a combination. Trulicity, trazodone, gabapentin are all known to cause bowel habit changes. I believe we would seen the patient for colon polyp surveillance but not an office setting. Perhaps we could have her see 1 of the OFFICE AIDE or PAs in the next 4-6 weeks. In the meantime we can have her try use Linzess 145 mcg daily. * Telephone Encounter - Arlene Doss RN - 08/20/2023 1:11 PM EST Called pt. States colonoscopy on 08/06/23 she has not been able to get her bowels to move well. 4 days after procedure had the urge to go but unable. She was impacted, so much that was bulging between rectum and vagina. Daughter who is a nurse had to disimpact pt and hemorrhoids bled a lot. Started Colace 2 tablets at night. Today has the urge to go again, and feels like she is impacted again. Last BM was Friday, states stools are HUGE in size. States she is allergic to Miralax and doesn't know what to do Abdominal cramping and pain today. Pt states prior to colonoscopy her bowels moved daily like clockwork. * Telephone Encounter - Jazmin Diaz OSA - 08/20/2023 12:57 PM EST Pt calling in and is still having issues following her colonoscopy in July. She would like a nurse to call her back. documented in this encounter Plan of Treatment Upcoming Encounters Date Type Department Care Team (Late st Contact Info) Description 08/26/2023 8:00 AM EST Office Visit [facility], [place] [address] [facility] [place] [address] Dann Pena DO 21 [facility] [place] [address] 10/08/2023 8:00 AM EST Laboratory Laboratory, [place] [address] [facility] [address] [place] [address] [place], Lab [address] [place] [address] [place] [address] 10/10/2023 9:40 AM EST Office Visit [facility], [place] 27 [facility] [place] [address] Mango Tamez MD 27 [facility] [place] [address] 11/26/2023 10:30 AM EST Telemedicine Cardiovascular Genetics, Axel Parekh [address] [place] [address] Re [place]dez, [place] [address] [place] [address] 02/20/2024 8:20 AM EDT Office Visit Dermatology, Erich Mercer [address] [place] [address] Dariana Oquendo PA-C [address] [place] [address] 06/15/2024 9:30 AM EDT Office Visit Cardiology Erich Alfaro [address] [place] [address] Tali Chen CRNP [address] [place] [address] Scheduled Procedures Name Priority Associated Diagnoses Date/Ti me COLONOSCOPY FLEXIBLE PROXIMAL DIAGNOSTIC Recall History of colon polyps Health Maintenance Due Date Last Done Comments DXA Scan 1960 COVID-19 Vaccine (#1) 05/14/1961 Pneumococcal Vaccine: Pediatrics (0 to 5 Years) and At-Risk Patients (6 to 64 Years) (2 - PCV) 12/22/2014 12/22/2013 Depression, Most Recent Score >= 10 (will fire each visit until score < 10) 07/22/2023 07/21/2023 Zoster Vaccines (1 of 2) 11/13/2023 Pos tponed from 2008 (Patient Declined After Education) Albumin/Creatinine Ratio 12/03/2023 023, 11/22/2021, 06/25/2021, Additional history exists Diabetic Foot Exam 12/03/2023 12/03/2022, 0 05/28/2021, 05/29/2020, Additional history exists DTaP,Tdap,and Td Vaccines (2 - Td or Tdap) 12/23/2023 12/22/2013 GFR 01/20/2024 07/21/2023, 03/13, 12/03/2022, Additional history exists HbA1c 01/20/2024 07/21/2023, 03/13, 12/03/2022, Additional history exists Mammogram 02/12/2024 02/11/2023, 01/11, 07/10/2020, Additional history exists CKD PHOS USE SMARTSET 61663 03/28/202403/13, 05/31/2022, 03/02/2021, Additional history exists Diabetic Eye Exam 07/07/2024 07/07/2023, , 01/04/2021, Additional history exists CKD HGB USE SMARTSET 46171 07/21/202407/21, 07/21/2023, 11/29/2022, Additional history exists COLONOSCOPY-EVERY 3 YRS AGES 18-100 08/06/2026 08/06/2023, 08/06/2023, 11/26/2018, Additional history exists Lipid Panel 08/14/2028 08/14/2023, 03/13, 11/27/2022, Additional history exists Hepatitis B Completed 11/05/2004, 10/2003, 02/08/2004 Influenza Vaccine (FLU shot) Completed 07/21/2023, 08/06/2022, 08/17/2021, Additional history exists GARDASIL-HPV IMMUNIZATION SERIES Aged Out No longer eligible based on patient's age to complete this topic MENINGOCOCCAL (MENACTRA/MENVEO) Aged Out No longer eligible based on patient's age to complete this topic documented as of this encounter Medical Devices Not on filedocumented as of this encounter Advance Directives Latest Code Status on File Code Status Date Activated Date Inactivated Comments Full Code 11/27/2022 11:53 AM 11/30/2022 2:40 PM This order reflects the patients wishes and were consensually agreed upon. Question Answer Comments Discussion of Advance Directives occurred with: Patient Code Status History Code Status Date Activated Date Inactivated Comments Full Code 05/21/2022 5:05 PM 05/22/2022 7:42 PM This o rder reflects the patients wishes and were consensually agreed upon. Question Answer Comments Discussion of Advance Directives occurred with: Patient Care Teams Bituminous Paving Machine Operator Relationship Specialty Start Date End Date Mango Tamez MD [address] [facility] [address] [place] [address] PCP - General Family Medicine 05/28/21 documented as of this encounter
--- OUTSIDE RECORDS SUMMARY | 2023-08-26 22:53 | External Medical Summary | Summary of Care ---
Author Name Unknown Organization [facility] Address [address] [facility] [place] [address] Phone [phone] Care Team Providers Care Cyber Special Agent Name Role Phone Mango Tamez MD Primary Care Provider [phone] Reason for Visit * Reason Onset Date Comments Advice 08/20/2023 Encounter Details Date Type Department Care Team (Late st Contact Info) Description 08/20/2023 Telephone Gastroenterology, [address] [address] Daisha Pierson, DO [address] [place] [address] Advice Allergies Active Allergy Reactions Criticality Noted [...] 3 06/30/2023 Active FreeStyle Que 14 Day [place] DeviceIndications: Hypoglycemia USE DIRECTED. 1 Each 0 [...] ns:Dysfunction of right eustachian tube Administer 1 [place] into nostril in the morning and 1 [place] before bedtime. 30 mL 12 07/21/2023 Active [...] at bedtime. 90 Tablet 3 08/14/2023 Active documented as of this encounter (statuses [...] melanocytic Proliferation L low Back Overview: CF [id number] Skin, left lower back: Atypical predominantly junctional [...] 18 yrs) 02/08/2004 Hepatitis B, 20+ yrs 11/05/2004,03/13/2004,04/28 /2004 Pneumococcal Polysaccharide PPV23 (Pneumovax) 12/22/2013 SEASONAL INFLUENZA, [...] (15 years old or older) No 11/27/19 Cognitive Status Response Date of Assessm ent Because of a physical, menta l, or emotional condition, do you have serious difficulty concentrating, remembering, or making decisions? (5 years old or older No 11/27/2022 documented as of this encounter Miscellaneous Notes * Telephone Encounter - Arlene Doss RN [...] Description 08/26/2023 8:00 AM EST Office Visit [facility], [address] [place] [address] Dann Pena DO 21 [place] [address] 10/08/2023 8:00 AM EST Laboratory Laboratory, [address] [place] [address] Francoise Garcia [address] [place] [address] 10/10/2023 9:40 AM EST Office Visit Family Practice, [place] 27 [facility] [place] [address] Mango Tamez MD 27 [facility] [place] [address] 11/26/2023 10:30 AM EST Telemedicine Cardiovascular Genetics, [facility] 132 [facility] [place] [address] Re [place], [place] [address] [place] [address] 02/20/2024 8:20 AM EDT Office Visit Dermatology, Seda HansenErich [address] [facility] 140 [place] [address] Dariana Oquendo PA-C 27 [facility] 140 [place] [address] 06/15/2024 9:30 AM EDT Office Visit Cardiology Erich Alfaro [address] [place] [address] Tali Chen CRNP [facility] [address] Scheduled Procedures Name Priority Associated Diagnoses Date/Ti [...] Additional history exists CKD PHOS USE SMARTSET 93738 03/28/202403/13, 05/31/2022, 03/02/2021, Additional history exists Diabetic Eye Exam 07/07/2024 07/07/2023, , 01/04/2021, Additional history exists CKD HGB USE SMARTSET 94452 07/21/202407/21, 07/21/2023, 11/29/2022, Additional history exists COLONOSCOPY-EVERY [...] Advance Directives occurred with: Patient Care Teams Cyber Special Agent Relationship Specialty Start Date End Date Mango Tamez MD [address] [facility] [address] [place] [address] PCP - General Family Medicine 05/28/21 documented as of this encounter
--- OUTSIDE RECORDS SUMMARY | 2023-08-26 22:53 | External Medical Summary | Summary of Care ---
Author Name Unknown Organization [facility] Address [address] [facility] [place] [address] Phone [phone] Care Team Providers Care Research Epidemiologist Name Role Phone Mango Tamez MD Primary Care Provider [phone] Reason for Visit * Reason Onset Date Comments Advice 08/20/2023 Encounter Details Date Type Department Care Team (Late st Contact Info) Description 08/20/2023 Telephone Gastroenterology, [address] [address] Mykel Posada, DO [address] [place] [address] Advice Allergies Active Allergy Reactions Criticality Noted [...] 3 06/30/2023 Active FreeStyle Que 14 Day [place] DeviceIndications: Hypoglycemia USE DIRECTED. 1 Each 0 [...] ns:Dysfunction of right eustachian tube Administer 1 [place] into nostril in the morning and 1 [place] before bedtime. 30 mL 12 07/21/2023 Active [...] melanocytic Proliferation L low Back Overview: CF [id number] Skin, left lower back: Atypical predominantly junctional [...] Encounter - Arlene Doss RN - 08/20/2023 1:52 PM EST Called pt, she states she started Repatha at the same time and wondering if that could be the issue. All other medications she has been on for a long time. Willing to try Linzess. Transferred to schedulers to schedule OV. 10/07/23 with Mercedes. * Addendum Note - Mykel Posada DO [...] could have her see 1 of the ASSEMBLER TRIM or PAs in the next 4-6 weeks. [...] Office Visit [facility], [address] [place] [address] Dann Pena, 21 [facility] [place] [address] 10/07/2023 10:30 AM EST Office Visit Gastroenterology, [facility] [address] [place] [address] Marce Colón PA-C [address] [place] [address] [place] [address] 10/08/2023 8:00 AM EST Laboratory Laboratory, [place] [address] [facility] [address] [place] [address] [place] Lab 27 [facility] 4 [place] [address] 10/10/2023 9:40 AM EST Office Visit Family Practice, [place] [address] [place] [address] Mango Tamez MD 27 [facility] [place] [address] 11/26/2023 10:30 AM EST Telemedicine Cardiovascular Genetics, [facility] [place] [address] Re [place], [place] [facility] [place] [address] 02/20/2024 8:20 AM EDT Office Visit Dermatology, Seda Erich Hansen [address] [place] [address] Dariana Oquendo PA-C [address] [place] [address] 06/15/2024 9:30 AM EDT Office Visit Cardiology Erich Alfaro [address] [place] [address] Tali Chen CRNP 400 [facility] [place] [address] Scheduled Procedures Name Priority Associated Diagnoses Date/Ti [...] Additional history exists CKD PHOS USE SMARTSET 53127 03/28/202403/13, 05/31/2022, 03/02/2021, Additional history exists Diabetic Eye Exam 07/07/2024 07/07/2023, , 01/04/2021, Additional history exists CKD HGB USE SMARTSET 47564 07/21/202407/21, 07/21/2023, 11/29/2022, Additional history exists COLONOSCOPY-EVERY 3 YRS AGES 18-100 08/06/2026 08/06/2023, 08/06/2023, 11/26/2018, Additional history exists Lipid Panel 08/14/2028 08/14/2023, 03/13, 11/27/2022, Additional history exists Hepatitis B Completed 11/05/2004, 060 10/2003, 02/08/2004 Influenza Vaccine (FLU shot) Completed [...] Advance Directives occurred with: Patient Care Teams Research Epidemiologist Relationship Specialty Start Date End Date Mango Tamez MD 27 [facility] [place] [address] PCP - General Family Medicine 05/28/21 documented as of this encounter
--- OUTSIDE RECORDS SUMMARY | 2023-08-26 22:53 | External Medical Summary | Summary of Care ---
Author Name Unknown Organization [facility] Address [address] [facility] [place] [address] Phone [phone] Care Team Providers Care Olive Grower Name Role Phone Mango Tamez MD Primary Care Provider [phone] Reason for Visit * Reason Onset Date Comments Advice 08/20/2023 Encounter Details Date Type Department Care Team (Late st Contact Info) Description 08/20/2023 Telephone Gastroenterology, [address] [address] Mykel Posada, DO [address] [place] [address] Advice Allergies Active Allergy Reactions Criticality Noted [...] 3 06/30/2023 Active FreeStyle Que 14 Day [place] DeviceIndications: Hypoglycemia USE DIRECTED. 1 Each 0 [...] ns:Dysfunction of right eustachian tube Administer 1 [place] into nostril in the morning and 1 [place] before bedtime. 30 mL 12 07/21/2023 Active [...] melanocytic Proliferation L low Back Overview: CF [id number] Skin, left lower back: Atypical predominantly junctional [...] could have her see 1 of the CORPORATE TUTOR or PAs in the next 4-6 weeks. [...] Description 08/26/2023 8:00 AM EST Office Visit [facility], [place] 27 [facility] [place] [address] Dann Pena DO 21 [facility] [place] [address] 10/08/2023 8:00 AM EST Laboratory Laboratory, [place] 27 [facility] [address] [place] [address] [place], Lab [address] [place] [address] [place] [address] 10/10/2023 9:40 AM EST Office Visit [facility], [place] 27 [facility] [place] [address] Mango Tamez MD 27 [facility] [place] [address] 11/26/2023 10:30 AM EST Telemedicine Cardiovascular Genetics, Axel Parekh [address] [place] [address] [place], [place] [address] [place] [address] 02/20/2024 8:20 AM EDT Office Visit Dermatology, Erich Mercer [address] [place] [address] Dariana Oquendo PA-C [address] [place] [address] 06/15/2024 9:30 AM EDT Office Visit Cardiology Erich Alfaro [address] [place] [address] Tali Chen CRNP [address] [place] [address] Scheduled Procedures Name Priority Associated Diagnoses Date/Ti [...] Additional history exists CKD PHOS USE SMARTSET 74048 03/28/202403/13, 05/31/2022, 03/02/2021, Additional history exists Diabetic Eye Exam 07/07/2024 07/07/2023, , 01/04/2021, Additional history exists CKD HGB USE SMARTSET 09162 07/21/202407/21, 07/21/2023, 11/29/2022, Additional history exists COLONOSCOPY-EVERY [...] Advance Directives occurred with: Patient Care Teams Olive Grower Relationship Specialty Start Date End Date Mango Tamez MD [address] [facility] [address] [place] [address] PCP - General Family Medicine 05/28/21 documented as of this encounter
--- OUTSIDE RECORDS SUMMARY | 2023-08-26 22:54 | External Medical Summary | Summary of Care ---
Author Name Unknown Organization [facility] Address [address] [facility] [address] Phone [phone] Care Team Providers Care Director Of Health Education Name Role Phone Mango Tamez MD Primary Care Provider [phone] Reason for Visit * Reason Comments Outpatient Testing Encounter Details Date Type Department Care Team (Late st Contact Info) Description 08/14/2023 12:00 PM EDT Laboratory Laboratory, [place] [address] [facility] [address] [place] [phone] [place], Lab 27 [facility] [address] [place], [place] [phone] Dyslipidemia, goal LDL below 70 Allergies Active Allergy Reactions Criticality Noted Date [...] as of this encounter (statuses as of 08/14/2023) Medications Medication Sig Dispensed Refills Start Date [...] at bedtime. 90 Capsule 1 03/31/2023 Active Rosuvastatin Calcium 40 MG Oral Tablet (Crestor)Indicatio ns:Dyslipidemia Take 1 Tablet by mouth every night at bedtime. 90 Tablet 3 04/09/2023 Active busPIRone HCl 10 MG Oral Tablet [...] 3 06/30/2023 Active FreeStyle Que 14 Day [place] DeviceIndications: Hypoglycemia USE DIRECTED. 1 Each 0 [...] ns:Dysfunction of right eustachian tube Administer 1 [place] into nostril in the morning and 1 [place] before bedtime. 30 mL 12 07/21/2023 Active FreeStyle Que 2 SensorIndications: Hypoglycemia use every 2 weeks as directed 1 Each 1 07/22/2023 Active Trulicity 0.75 MG/0.5ML Subcutaneous Solution Pen-injector (Dulaglutide) Inject 0.75 mg under the skin once a week. 2 mL 5 07/22/2023 Active documented as of this encounter (statuses as of 08/14/2023) Active Problems Problem Noted Date Diagnosed Date [...] Atypical melanocytic Proliferation L low Back Overview: [id number] Skin, left lower back: Atypical predominantly junctional [...] as of this encounter (statuses as of 08/14/2023) Resolved Problems Problem Noted Date Diagnosed Date [...] as of this encounter (statuses as of 08/14/2023) Immunizations Name Administration Dates Next Due HEP [...] No 11/27/2022 documented as of this encounter Plan of Treatment Upcoming Encounters Date Type Department Care Team (Late st Contact Info) Description 08/26/2023 8:00 AM EST Office Visit Family [facility], [place] [address] [place] [address] Dann Pena DO 21 [facility] [place] [address] 10/08/2023 8:00 AM EST Laboratory Laboratory, [place] [address] [place] [phone] [place], Lab 27 [address] [place] [address] 10/10/2023 9:40 AM EST [facility] Visit [facility], [place] [address] [place] [address] Mango Tamez MD 27 [place] [address] 11/26/2023 10:30 AM EST Telemedicine Cardiovascular Genetics, [facility] [address] [place] [address] [place], [place] [address] [place] [address] 02/20/2024 8:20 AM EDT Office Visit Dermatology, Erich Mercer [address] [place] [address] Dariana Oquendo PA-C [address] [place] [address] 06/15/2024 9:30 AM EDT Office Visit Cardiology Erich Alfaro 400 [place] [phone] Tali Chen CRNP 400 [place] [id number] Pending Results Name Type Priority Associated Diagnoses Date /Time LIPID PANEL WITH DIRECT LDL IF TG IS HIGH Lab Routine Dyslipidemia, goal LDL below 70 08/14/2023 9:29 AM EDT Scheduled Procedures Name Priority Associated Diagnoses Date/Ti [...] Additional history exists CKD PHOS USE SMARTSET 97760 03/28/202403/13, 05/31/2022, 03/02/2021, Additional history exists Diabetic Eye Exam 07/07/2024 07/07/2023, , 01/04/2021, Additional history exists CKD HGB USE SMARTSET 55386 07/21/202407/21, 07/21/2023, 11/29/2022, Additional history exists COLONOSCOPY-EVERY 3 YRS AGES 18-100 08/06/2026 08/06/2023, 08/06/2023, 11/26/2018, Additional history exists Lipid Panel 03/28/2028 03/28/2023, 11/13, 11/22/2021, Additional history exists Hepatitis B Completed 11/05/2004, [...] Not on filedocumented as of this encounter Visit Diagnoses Diagnosis Dyslipidemia, goal LDL below 70 Other and unspecified hyperlipidemia documented in this encounter Advance Directives Latest Code Status [...] Advance Directives occurred with: Patient Care Teams Director Of Health Education Relationship Specialty Start Date End Date Mango Tamez MD [address] [facility] [address] [place] [address] PCP - General Family Medicine 05/28/21 documented as of this encounter
--- OUTSIDE RECORDS SUMMARY | 2023-08-26 22:54 | External Medical Summary | Summary of Care ---
Author Name Unknown Organization [facility] Address [address] [facility] [place] [address] Phone [phone] Care Team Providers Care Single Ending Machine Operator Name Role Phone Mango Tamez MD Primary Care Provider Reason for Visit * Reason Comments Dosage Adjustment Via Phone (anticoag Cl inic) Hypercholesterolemia Encounter Details Date Type Department Care Team (Late st Contact Info) Description 08/12/2023 9:00 AM EDT Telemedicine Cardiology [place] 400 [facility] [place] [address] [place], [facility] Cardiology [address] [place] [address] Dyslipidemia, goal LDL below 70* Allergies Active Allergy Reactions Criticality Noted Date [...] as of this encounter (statuses as of 08/12/2023) Medications Medication Sig Dispensed Refills Start Date [...] 3 06/30/2023 Active FreeStyle Que 14 Day [place] DeviceIndications: Hypoglycemia USE DIRECTED. 1 Each 0 [...] ns:Dysfunction of right eustachian tube Administer 1 [place] into nostril in the morning and 1 [place] before bedtime. 30 mL 12 07/21/2023 Active FreeStyle Que 2 SensorIndications: Hypoglycemia use every 2 weeks as directed 1 Each 1 07/22/2023 Active Trulicity 0.75 MG/0.5ML Subcutaneous Solution Pen-injector (Dulaglutide) Inject 0.75 mg under the skin once a week. 2 mL 5 07/22/2023 Active documented as of this encounter (statuses as of 08/12/2023) Active Problems Problem Noted Date Diagnosed Date [...] melanocytic Proliferation L low Back Overview: CF [id number] Skin, left lower back: Atypical predominantly junctional [...] as of this encounter (statuses as of 08/12/2023) Resolved Problems Problem Noted Date Diagnosed Date [...] as of this encounter (statuses as of 08/12/2023) Immunizations Name Administration Dates Next Due HEP [...] No 11/27/2022 documented as of this encounter Patient Instructions * Patient Instructions* Riki Gregory, PHARM Student - 08/12/2023 9:23 AM EDT Get updated lab work within the next week. documented in this encounter Progress Notes * Riki Gregory PHARM Student - 08/12/2023 9:00 AM EDT PHARMACY CHRONIC DISEASE MANAGEMENT - HYPERLIPIDEMIA Patient location: HOME. I was not in a hospital or clinic location. After connecting through [employer], patient was verified with two unique identifiers. 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 Methods to assure confidentiality were taken. Patient acknowledged consent and understanding of privacy and security of the Telemedicine visit. The patient agreed to participate. HPI: Clary Leonardo is a 62 year old year old female. Referred for HLD management by Tali FARFAN . Diet review: States she is doing better overall. Exercise review: Patient reports increased physical activity overall but notes less activity with recent cold weather. 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, E78.5 Depression with anxiety F41.8 Esophageal reflux K21.9 Type 2 diabetes mellitus with hemoglobin A1c goal of less than 7.0% (HCC) E11.9 Fatty liver K76.0 Dyslipidemia E78.5 DM type 2 with diabetic peripheral neuropathy (HCC) E11.42 Morbid obesity due to excess calories (HCC) E66.01 Stage 3a chronic kidney disease N18.31 Amnesia, global, transient G45.4 NSTEMI (non-ST elevated myocardial infarction) ([facility]) I21.4 Type 2 diabetes mellitus with diabetic chronic kidney disease ([facility]) E11.22 Mild aortic stenosis I35.0 Recurrent major depressive disorder ([facility]) F33.9 Recurrent major depressive disorder ([facility]) F33.9 Review of patient's allergies indicates: Allergen Reactions Miralax [Polyethylene Glycol] Other (Please comment) Severe N&V, felt like her whole body was shutting down Prednisone Psychosis episode Doxycycline Advised not to take d/t psychosis episode and unsure if it created the episode or not Lorazepam Hives Pcn [Penicillins] Hives Pt was told to never take, Tegretol [Carbamazepine] Hives Zyprexa Hives Cymbalta [Duloxetine Hcl] hives Keflex [Cephalexin] Hives Valacyclovir Hcl Hives Objective: Lab Results Component Value Date/Time LDL CHOLESTEROL (CALCULATED) - [facility] 205 (H) 03/28/2023 09:02 AM LDL CHOLESTEROL (CALCULATED) - [facility] 108 11/27/2022 10:37 AM LDL CHOLESTEROL (CALCULATED) - [facility] 104 11/22/2021 07:33 AM LDL CHOLESTEROL (CALCULATED) - [facility] 131 (H) 10/11/2020 08:18 AM LDL CHOLESTEROL (CALCULATED) - [facility] 85 11/22/2019 08:13 AM LDL CHOLESTEROL (CALCULATED) - [facility] 155 (H) 05/17/2019 08:23 AM LDL CHOLESTEROL (DIRECT MEASURE) - [facility] NOT APPLICABLE 10/11/2020 08:18 AM LDL CHOLESTEROL (DIRECT MEASURE) - [facility] NOT APPLICABLE 11/22/2019 08:13 AM Lab Results Component Value Date/Time AST - [facility] 36 (H) 07/21/2023 03:21 PM AST - [facility] 29 03/28/2023 09:02 AM AST - [facility] 31 11/27/2022 09:31 AM AST - [facility] 59 (H) 10/11/2020 08:18 AM AST - [facility] 51 (H) 06/22/2020 08:02 AM AST - [facility] 23 11/22/2019 08:13 AM Lab Results Component Value Date/Time ALT - [facility] 45 (H) 07/21/2023 03:21 PM ALT - [facility] 37 (H) 03/28/2023 09:02 AM ALT - [facility] 33 11/27/2022 09:31 AM ALT - [facility] 56 (H) 10/11/2020 08:18 AM ALT - [facility] 56 (H) 06/22/2020 08:02 AM ALT - [facility] 36 (H) 11/22/2019 08:13 AM Lab Results Component Value Date/Time CK - [facility] 69 04/12/2008 04:05 PM Lab Results Component Value Date/Time 25-HYDROXY VITAMIN D - [facility] 44 07/21/2023 03:21 PM Lab Results Component Value Date/Time TSH - [facility] 2.49 07/21/2023 03:21 PM TSH - [facility] 1.56 07/11/2020 08:48 AM No results found for: "T4" No results found for: "MICROALBUMIN" No components found for: "[id number]" Current Hyperlipidemia Medication(s): Crestor 20 mg tablet- Take 40 mg daily ASA 81 mg daily Metoprolol Er 25 mg daily Repatha 420 mg monthly - Started 04/09/23 Assessment & Plan: 1. Uncontrolled HLD -Target LDL <55 -lipid panel ordered today, patient plans to get labs on 08/14 -Continue current regimen Patient reports eating better overall and increased physical activity. Discussed finding ways to remain active as the weather begins to get colder. Regarding medications, patient reports tolerating current dose of Repatha with limited side effects. Notes she does get a runny nose but feels it is tolerable at this time. Endorses rotation of injection sites and compliance. If patient is still not at LDL goal despite current regimen will considerezetimibe for further LDL lowering. Patient was previously on ezetimibe and stopped for an unknown reason. Patient did not get updated lipid panel prior to today's appointment. Plans to present for labs on 08/14/23. Will reach out to patient with results and next steps after updated labs. 2. Hx NSTEMI 11/2022 -Suspected to be stress induced -Stress test showed normal EF without WMA or evidence of ischemia 3. Controlled Hypertension -Goal BP <130/80 4. Controlled Type 2 DM -Goal HbA1c <7% -Trulicity recently decreased due to controlled BG values 5. Mild aortic stenosis Medication changes: Crestor 20 mg tablet- Take 40 mg daily ASA 81 mg daily Metoprolol Er 25 mg daily Repatha 420 mg monthly Labs Due: Lipid panel due today (ordered) Follow up: 1 week Riki Gregory, PHARM Student Clinical Pharmacist 9:00 AM, 08/12/23 documented in this encounter Plan of Treatment Upcoming Encounters Date Type Department Care Team (Late st Contact Info) Description 08/26/2023 8:00 AM EST Office Visit [facility], [place] 27 [facility] [place] [address] Dann Pena DO [address] [place] [address] 10/08/2023 8:00 AM EST Laboratory Laboratory, [place] 27 [facility] [address] [place] [phone] [place], Lab 27 [facility] [address] [place] [address] 10/10/2023 9:40 AM EST Office Visit [facility], [place] 27 [facility] [place] [address] Mango Tamez MD 27 [facility] [place] [address] 02/20/2024 8:20 AM EDT Office Visit Dermatology, Erich Mercer [address] [place] [address] Dariana Oquendo PA-C [address] [place] [address] 06/15/2024 9:30 AM EDT Office Visit Cardiology Erich Alfaro [address] [place] [address] Tali Chen CRNP [address] [place] [address] Scheduled Procedures Name Priority Associated Diagnoses Date/Ti [...] Additional history exists CKD PHOS USE SMARTSET 36887 03/28/202403/13, 05/31/2022, 03/02/2021, Additional history exists Diabetic Eye Exam 07/07/2024 07/07/2023, , 01/04/2021, Additional history exists CKD HGB USE SMARTSET 57036 07/21/202407/21, 07/21/2023, 11/29/2022, Additional history exists COLONOSCOPY-EVERY 3 YRS AGES 18-100 08/06/2026 08/06/2023, 08/06/2023, 11/26/2018, Additional history exists Lipid Panel 03/28/2028 03/28/2023, 11/13, 11/22/2021, Additional history exists Hepatitis B Completed 11/05/2004, 06/0 10/2003, 02/08/2004 Influenza Vaccine (FLU shot) Completed [...] Visit Diagnoses Diagnosis Dyslipidemia, goal LDL below 70- Primary Other and unspecified hyperlipidemia documented in this [...] Advance Directives occurred with: Patient Care Teams Single Ending Machine Operator Relationship Specialty Start Date End Date Mango Tamez MD [address] [facility] [address] [place] [address] PCP - General Family Medicine 05/28/21 documented as of this encounter
--- OUTSIDE RECORDS SUMMARY | 2023-08-26 22:54 | External Medical Summary | Summary of Care ---
Author Name Unknown Organization [facility] Address [address] [facility] [place] [address] Phone [phone] Care Team Providers Care Pediatrics Hospitalist Name Role Phone Mango Tamez MD Primary Care Provider [phone] Reason for Visit * Reason Onset Date Comments FYI 08/04/2023 Encounter Details Date Type Department Care Team (Late st Contact Info) Description 08/04/2023 Telephone [facility] 27 [place] [address] Mango Tamez MD 27 [place] [address] FYI Allergies Active Allergy Reactions Criticality Noted Date [...] as of this encounter (statuses as of 08/05/2023) Medications Medication Sig Dispensed Refills Start Date [...] 3 06/30/2023 Active FreeStyle Que 14 Day [place] DeviceIndications: Hypoglycemia USE DIRECTED. 1 Each 0 [...] ns:Dysfunction of right eustachian tube Administer 1 [place] into nostril in the morning and 1 [place] before bedtime. 30 mL 12 07/21/2023 Active FreeStyle Que 2 SensorIndications: Hypoglycemia use every 2 weeks as directed 1 Each 1 07/22/2023 Active Trulicity 0.75 MG/0.5ML Subcutaneous Solution Pen-injector (Dulaglutide) Inject 0.75 mg under the skin once a week. 2 mL 5 07/22/2023 Active documented as of this encounter (statuses as of 08/05/2023) Active Problems Problem Noted Date Diagnosed Date [...] melanocytic Proliferation L low Back Overview: CF [id number] Skin, left lower back: Atypical predominantly junctional [...] as of this encounter (statuses as of 08/05/2023) Resolved Problems Problem Noted Date Diagnosed Date [...] as of this encounter (statuses as of 08/05/2023) Immunizations Name Administration Dates Next Due HEP [...] encounter Miscellaneous Notes * Telephone Encounter - SAMI Sibley - 08/05/2023 9:33 AM EDT Spoke to patient, she is prepping for colonoscopy, states she will not be able to come in today or tomorrow. She did squeeze and pop it, said there was a discharge and blood, its not as sore as it was just red. She will call to back to schedule after Friday is it gets worse. * Telephone Encounter - Mango Tamez MD - 08/05/2023 9:24 AM EDT Needs evaluated * Telephone Encounter - SAMI Carter - 08/04/2023 10:16 AM EDT Patient states she has a sore on her stomach that she squeezed with pus coming out. Now there is a ring around it the size of a nickel. She states there is still possibly an infection and would like to speak with only Dr. Tamez. She would not like to come in. She thinks it may be a boil. documented in this encounter Plan of Treatment Upcoming Encounters Date Type Department Care Team (Late st Contact Info) Description 08/06/2023 9:45 AM EDT Hospital Encounter ENDO [facility], Endoscopy [address] [place] [phone] Daisha Pierson, DO [address] [place] [address] 08/06/2023 9:45 AM EDT - 08/06/2023 10:15 AM EDT Surgery ENDO [facility], Endoscopy Suite [facility] 310 [facility] [place] [address] Daisha Pierson, DO [address] [place] [address] COLONOSCOPY FLEXIBLE PROXIMAL DIAGNOSTIC 08/12/2023 9:00 AM EDT Telemedicine Cardiology [facility] [place] [address] [facility] [place] [address] [facility] 400 [facility] [place] [address] 08/26/2023 8:00 AM EST Office Visit [facility], [place] 27 [facility] [place] [address] Dann Pena DO [address] [facility] [address] [place] [address] 10/08/2023 8:00 AM EST Laboratory Laboratory, [place] 27 [facility] [address] [place] [phone] [place], Lab 27 [facility] [address] [place] [address] 10/10/2023 9:40 AM EST Office Visit [facility], [place] 27 [facility] [place] [address] Mango Tamez MD 27 [facility] [place] [address] 02/20/2024 8:20 AM EDT Office Visit Dermatology, Erich Mercer [address] [place] [address] Dariana Oquendo PA-C [address] [place] [address] 06/15/2024 9:30 AM EDT Office Visit Cardiology Erich Alfaro 400 [place] [address] Tali Chen CRNP [address] [place] [place] [address] Scheduled Procedures Name Priority Associated Diagnoses Date/Ti me COLONOSCOPY FLEXIBLE PROXIMAL DIAGNOSTIC History of colonic polyps 08/06/2023 9:45 AM EDT Health Maintenance Due Date Last Done Comments DXA Scan 1960 COVID-19 Vaccine (#1) 05[birth year]14/1961 Pneumococcal Vaccine: Pediatrics (0 to 5 Years) and At-Risk Patients (6 to 64 Years) (2 - PCV) 12/22/2014 12/22/2013 COLONOSCOPY-EVERY 3 YRS AGES 18-100 11/26/2021 11/26/2018, 11/26/2018 Depression, Most Recent Score >= 10 (will [...] Additional history exists CKD PHOS USE SMARTSET 73661 03/28/202403/13, 05/31/2022, 03/02/2021, Additional history exists DIABETES-EYE EXAM 07/07/2024 07/07/2023, , 01/04/2021, Additional history exists CKD HGB USE SMARTSET 49793 07/21/202407/21, 07/21/2023, 11/29/2022, Additional history exists Lipid Panel 03/28/2028 03/28/2023, [...] Advance Directives occurred with: Patient Care Teams Pediatrics Hospitalist Relationship Specialty Start Date End Date Mango Tamez MD [address] [facility] [address] [place] [address] PCP - General Family Medicine 05/28/21 documented as of this encounter
--- OUTSIDE RECORDS SUMMARY | 2023-08-26 22:54 | External Medical Summary | Summary of Care ---
Author Name Unknown Organization [facility] Address [address] [facility] [address] Phone [phone] Care Team Providers Care Funeral Home Location Manager Name Role Phone Mango Tamez MD Primary Care Provider [phone] Encounter Details Date Type Department Care Team (Late st Contact Info) Description 08/20/2023 [facility] [address] Daisha Pierson, DO [address] [place] [phone] Allergies Active Allergy Reactions Criticality Noted Date [...] 3 06/30/2023 Active FreeStyle Que 14 Day [place] DeviceIndications: Hypoglycemia USE DIRECTED. 1 Each 0 [...] ns:Dysfunction of right eustachian tube Administer 1 [place] into nostril in the morning and 1 [place] before bedtime. 30 mL 12 07/21/2023 Active [...] Atypical melanocytic Proliferation L low Back Overview: [id number] Skin, left lower back: Atypical predominantly junctional [...] encounter Miscellaneous Notes * Telephone Encounter - Jazmin Diaz OSA - 08/20/2023 12:57 PM EST Pt calling in and is still having issues following her colonoscopy in July. She would like a nurse to call her back. documented in this encounter Plan of Treatment Upcoming Encounters Date Type Department Care Team (Late st Contact Info) Description 08/26/2023 8:00 AM EST Office Visit [facility], [place] 27 [facility] [place] [address] Dann Pena DO 21 [facility] [place] [address] 10/08/2023 8:00 AM EST Laboratory Laboratory, [place] 27 [facility] [address] [place] [phone] [place], Lab 27 [facility] 4 [place] [address] 10/10/2023 9:40 AM EST Office Visit [facility], [place] 27 [facility] [place] [address] Mango Tamez MD 27 [facility] [place] [address] 11/26/2023 10:30 AM EST Telemedicine Cardiovascular Genetics, [facility] 132 [facility] [place] [address] [place], [place] 132 [facility] [place] [address] 02/20/2024 8:20 AM EDT Office Visit Dermatology, Seda HansenErich [address] [place] [address] Dariana Oquendo PA-C [address] [place] [address] 06/15/2024 9:30 AM EDT Office Visit Cardiology Erich Alfaro [address] [place] [address] Tali Chen CRNP [address] [place] [address] Scheduled Procedures Name Priority Associated Diagnoses Date/Ti [...] Additional history exists CKD PHOS USE SMARTSET 81929 03/28/202403/13, 05/31/2022, 03/02/2021, Additional history exists Diabetic Eye Exam 07/07/2024 07/07/2023, , 01/04/2021, Additional history exists CKD HGB USE SMARTSET 02162 07/21/202407/21, 07/21/2023, 11/29/2022, Additional history exists COLONOSCOPY-EVERY [...] Advance Directives occurred with: Patient Care Teams Funeral Home Location Manager Relationship Specialty Start Date End Date Mango Tamez MD [address] [facility] [address] [place] [address] PCP - General Family Medicine 05/28/21 documented as of this encounter
--- OUTSIDE RECORDS SUMMARY | 2023-08-26 22:54 | External Medical Summary | Summary of Care ---
Author Name Unknown Organization [facility] Address [address] [facility] [place] [address] Phone [phone] Care Team Providers Care Wig Sales Consultant Name Role Phone Mango Tamez MD Primary Care Provider [phone] Reason for Visit * Reason Onset Date Comments FYI 08/04/2023 Encounter Details Date Type Department Care Team (Late st Contact Info) Description 08/04/[address] [facility] [address] [place] [address] Mango Tamez MD [address] [place] [address] FYI Allergies Active Allergy Reactions [...] 3 06/30/2023 Active FreeStyle Que 14 Day [place] DeviceIndications: Hypoglycemia USE DIRECTED. 1 Each 0 [...] ns:Dysfunction of right eustachian tube Administer 1 [place] into nostril in the morning and 1 [place] before bedtime. 30 mL 12 07/21/2023 Active [...] melanocytic Proliferation L low Back Overview: CF [id number] Skin, left lower back: Atypical predominantly junctional [...] EDT Hospital Encounter ENDO [facility], Endoscopy [address] [place] [phone] Daisha Pierson, DO [address] [place] [address] 08/06/2023 9:45 AM EDT - 08/06/2023 10:15 AM EDT Surgery ENDO [facility], Endoscopy Suite [facility] [address] [facility] [address] Daisha Pierson, DO [address] [place] [address] COLONOSCOPY FLEXIBLE PROXIMAL DIAGNOSTIC 08/12/2023 9:00 AM EDT Telemedicine Cardiology [facility] [address] [facility] [place] [address] [facility] [address] [facility] [place] [address] 08/26/2023 8:00 AM EST Office Visit [facility], [place] 27 [facility] [place] [address] Dann Pena DO [address] [place] [address] 10/08/2023 8:00 AM EST Laboratory Laboratory, [place] 27 [facility] [address] [place] [address] [place], Lab [address] [facility] [address] [place] [address] 10/10/2023 9:40 AM EST Office Visit [facility], [place] 27 [facility] [place] [address] Mango Tamez MD 27 [facility] [place] [address] 02/20/2024 8:20 AM EDT Office Visit Dermatology, [place] [address] [place] [address] Dariana Oquendo PA-C [address] [place] [address] 06/15/2024 9:30 AM EDT Office Visit Cardiology [place] 400 [place] [address] Tali Chen CRNP [address] [place] [address] Scheduled Procedures Name Priority Associated Diagnoses Date/Ti [...] Additional history exists CKD PHOS USE SMARTSET 39955 03/28/202403/13, 05/31/2022, 03/02/2021, Additional history exists DIABETES-EYE EXAM 07/07/2024 07/07/2023, , 01/04/2021, Additional history exists CKD HGB USE SMARTSET 89914 07/21/202407/21, 07/21/2023, 11/29/2022, Additional history exists Lipid [...] Advance Directives occurred with: Patient Care Teams Wig Sales Consultant Relationship Specialty Start Date End Date Mango Tamez MD [address] [facility] [address] [place] [address] PCP - General Family Medicine 05/28/21 documented as of this encounter
--- OUTSIDE RECORDS SUMMARY | 2023-08-26 22:54 | External Medical Summary | Summary of Care ---
Author Name Unknown Organization [facility] Address [address] [place] [facility] [place] [address] Phone [phone] Care Team Providers Care Setter Up Name Role Phone Mango Tamez MD Primary Care Provider [phone] Reason for Visit * Auth/Cert Specialty Diagnoses / Procedures Referred By Reena griffin Referred To Contact Diagnoses History of colonic polyps History of colonic polyps [Z86.010] Procedures COLONOSCOPY, DIAGNOSTIC (RECTUM) COLONOSCOPY FLEXIBLE PROXIMAL DIAGNOSTIC Referral ID Status Reason Start Date Expiration Date Visits Re quested Visits Authorized [id number] Encounter Details Date Type Department Care Team (Latest Contact Info) Description 08/06/2023 9:22 AM EDT - 08/06/2023 10:48 AM EDT Hospital Encounter ENDO [facility], Endoscopy [address] [address] Daisha Pierson, DO [address] [place] [address] Colonoscopy Discharge Disposition: Home - Self Care Allergies Active Allergy Reactions Criticality Noted Date [...] as of this encounter (statuses as of 08/06/2023) Medications Medication Sig Dispensed Refills Start Date [...] A DAY 180 Capsule 3 06/30/2023 Active FLUoxetine HCl 20 MG Oral Capsule [...] ns:Dysfunction of right eustachian tube Administer 1 [place] into nostril in the morning and 1 [place] before bedtime. 30 mL 12 07/21/2023 Active Trulicity 0.75 MG/0.5ML Subcutaneous Solution Pen-injector (Dulaglutide) Inject 0.75 mg under the skin once a week. 2 mL 5 07/22/2023 Active documented as of this encounter (statuses as of 08/06/2023) Active Problems Problem Noted Date Diagnosed Date [...] Atypical melanocytic Proliferation L low Back Overview: [id number] Skin, left lower back: Atypical predominantly junctional [...] as of this encounter (statuses as of 08/06/2023) Resolved Problems Problem Noted Date Diagnosed Date [...] as of this encounter (statuses as of 08/06/2023) Immunizations Name Administration Dates Next Due HEP [...] on file documented as of this encounter Last Filed Vital Signs Vital Sign Reading Time Taken Comments Blood Pressure 131/60 08/06/2023 10:41 AM EDT Pulse 63 08/06/2023 10:41 AM EDT Temperature 35.9 C (96.6 F) 08/06/2023 10:11 AM E DT Respiratory Rate 17 08/06/2023 10:41 AM EDT Oxygen Saturation 96% 08/06/2023 10:41 AM EDT Inhaled Oxygen Concentration - - Weight 99.3 kg (219 lb) 07/30/2023 10:17 AM EDT Height 157.5 cm (5' 2") 07/30/2023 10:17 AM EDT Body Mass Index 40.06 07/30/2023 10:17 AM EDT documented in this encounter Functional Status Functional Status Response [...] No 11/27/2022 documented as of this encounter H&P Notes * Daisha Pierson, - 08/06/2023 9:50 AM EDT Endoscopy Pre-Procedure Assessment Name: Clary Leonardo Date: 08/06/2023 Time: 9:50 AM Procedure(s): Colonoscopy; with Indication(s) of colon polyp surveillance Endoscopy Pre-Procedure Assessment: Prior to the procedure, the patient is identified. The patient's history, medications and allergieshave been reviewed. The patient is competent. The risks and benefits of the proposed procedure and the planned sedation have been discussed with the patient. All questions have been answered and informed consent for the procedure has been obtained. Prior to Admission medications Medication Sig Last Dose Discont. FreeStyle Que 2 Sensor use every 2 weeks as directed Repatha Pushtronex System 420 MG/3.5ML Subcutaneous Solution Cartridge (Evolocumab with Infusor) Inject 420 mg under the skin every month. Administer over 5 minutes. Remove from refrigerator 45 minutes prior to injection. Past Month Trulicity 0.75 MG/0.5ML Subcutaneous Solution Pen-injector (Dulaglutide) Inject 0.75 mg under the skin once a week. Past Week Azelastine HCl 0.1 % Nasal Solution (Astelin) Administer 1 [place] into nostril in the morning and 1 [place] before bedtime. 08/05/2023 buPROPion HCl ER (XL) 300 MG Oral Tablet Extended Release 24 Hour (Wellbutrin XL) Take 1 Tablet by mouth in the morning. 08/05/2023 FLUoxetine HCl 20 MG Oral Capsule (PROzac) Take 1 Capsule by mouth in the morning. 08/05/2023 Omeprazole 40 MG Oral Capsule Delayed Release (PriLOSEC) TAKE ONE CAPSULE TWICE A DAY 08/05/2023 busPIRone HCl 10 MG Oral Tablet (Buspar) Take 1 Tablet by mouth in the morning and 1 Tablet at noonand 1 Tablet before bedtime. Patient taking differently: Take 1 Tablet by mouth 3 times a day as needed. 08/05/2023 FLUoxetine HCl 60 MG Oral Tablet Take 1 Tablet by mouth in the morning. 08/05/2023 traZODone HCl 50 MG Oral Tablet (Desyrel) Take 1 Tablet by mouth at bedtime. 08/05/2023 Rosuvastatin Calcium 40 MG Oral Tablet (Crestor) Take 1 Tablet by mouth every night at bedtime. 08/05/2023 Gabapentin 300 MG Oral Capsule (Neurontin) Take 1 Capsule by mouth at bedtime. 08/05/2023 Metoprolol Succinate ER 25 MG Oral Tablet Extended Release 24 Hour (toPROL XL) Take 1 Tablet by mouth in the morning. 08/05/2023 Aspirin 81 MG Oral Tablet Chewable Take 1 Tablet by mouth in the morning. 08/05/2023 PEG 3120-TTh-GkFtz-NaCl-NaSulf 236 GM Oral Solution Reconstituted Take 4,000 mL by mouth once for 1dose. Follow instructions for colonoscopy prep. GotaCopy Que 14 Day [place] Device USE DIRECTED. CPAP every night at bedtime. Fluticasone Propionate 50 MCG/ACT Nasal Suspension (Flonase) ADMINISTER 2 SPRAYS INTO EACH NOSTRIL DAILY IN THE MORNING - DO NOT START BEFORE MAY 23, 2022 Patient taking differently: Administer 1 [place] into nostril daily as needed for Allergies. Review of patient's allergies indicates: Allergen Reactions [...] hives Keflex [Cephalexin] Hives Valacyclovir Hcl Hives BP 141/88 | Pulse 65 | Temp 35.7 C (96.3 F) (Temporal Artery) | Resp 17 | Ht 1.575 m (5' 2") | Wt 99.3 kg (219 lb) | SpO2 98% | BMI 40.06 kg/m | BSA 2.08 m Physical Exam: Mental Status Examination: alert and oriented. Airway Examination: normal oropharyngeal airway and neck mobility. Respiratory Examination: clear to auscultation. CV Examination: regular rate and rhythm. ASA Grade: III Abdomen: soft This patient has undergone a preprocedural evaluation. A determination has been made to proceed with the planned procedure under [facility] procedural guidelines and the [facility] Non-Emergent, Elective Medical Services and Treatment Recommendations (published on 01-18-20). The community and hospital prevalence of COVID-19 has been discussed as well as this patient's specific risks associated with SARS-CoV-19 infection. Based upon the clinical acuity and patient-specific care considerations, this procedure is deemed a Tier II - Intermediate acuity treatment or service with either progression or the threat of progressive disease related to the delay in treatment. Not providing the service has the potential for increasing morbidity or mortality. After reviewing the risks and benefits, the patient is deemed in satisfactory condition to undergo the procedure. The anesthesia plan is to use general anesthesia. I have discussed the risks of colonoscopy to include bleeding, infection, perforation, pain, missed polyps, and need for follow-up studies. Daisha Pierson DO 08/06/2023 documented in this encounter Procedure Notes * Mango Tamez MD - 08/06/2023 9:51 AM EDTAssociated Order(s): COLONOSCOPY [facility] Patient Name: Clary Leonardo Procedure Date: 08/06/2023 9:51 AM Date of : 1960 Admit Type: Outpatient Note Status: Finalized Date of : 1960 Admit Type: Outpatient Age: 62 Room: Endo 2 Gender: Female Note Status: Finalized Procedure: Colonoscopy Indications: High risk colon cancer surveillance: Personal history of colonic polyps, Last colonoscopy: November 2018 Providers: Daisha Pierosn DO (Doctor) Referring MD: Mango Tamez Medicines: General Anesthesia Complications: No immediate complications. Estimated blood loss: Minimal. Procedure: Pre-Anesthesia Assessment: - Prior to the procedure, a History and Physical was performed, and patient medications, allergies and sensitivities were reviewed. The patient's tolerance of previous anesthesia was reviewed. - The risks and benefits of the procedure and the sedation options and risks were discussed with the patient. All questions were answered and informed consent was obtained. - Patient identification and proposed procedure were verified prior to the procedure by the physician, the nurse and the can feeder. The procedure was verified in the procedure room. - Pre-procedure physical examination revealed no contraindications to sedation. - ASA Grade Assessment: III - A patient with severe systemic disease. - After reviewing the risks and benefits, the patient was deemed in satisfactory condition to undergo the procedure in an ambulatory setting. - The anesthesia plan was to use general anesthesia. - Immediately prior to administration of medications, the patient was re- assessed for adequacy to receive sedatives. - The heart rate, respiratory rate, oxygen saturations, blood pressure, adequacy of pulmonary ventilation, and response to care were monitored throughout the procedure. - The physical status of the patient was re-assessed after the procedure. After I obtained informed consent, the scope was passed under direct vision. All instruments were visually inspected immediately before and after removal from the patient to ensure they are fully intact. Throughout the procedure, the patient's blood pressure, pulse, and oxygen saturations were monitored continuously. The [id number] Colonoscope ([id number]) was introduced through the anus and advanced to the terminal ileum. The patient tolerated the procedure well. The quality of the bowel preparation was good. The colonoscopy was somewhat difficult due to the patient's body habitus. Successful completion of the procedure was aided by applying abdominal pressure. Findings & Specimens: Hemorrhoids were found on perianal exam. The terminal ileum appeared normal. A few small-mouthed diverticula were found in the sigmoid colon. Internal hemorrhoids were found during retroflexion. The hemorrhoids were moderate. The exam was otherwise without abnormality. Impression: - Hemorrhoids found on perianal exam. - The examined portion of the ileum was normal. - Mild diverticulosis in the sigmoid colon. - Internal hemorrhoids. - The examination was otherwise normal. - No specimens collected. Recommendation: - The patient will be observed post-procedure, until all discharge criteria are met. - Resume regular diet today. - Repeat colonoscopy in 5 years for surveillance. - Return to GI office PRN. Daisha Pierson DO 08/06/2023 10:14:16 AM This report has been signed electronically. Estimated Blood Loss: Estimated blood loss was minimal. documented in this encounter Nursing Notes * Andreina Caldwell RN - 08/06/2023 10:47 AM EDT Patient is discharged under the care of : family member Report called to N/A Means of transportation: ambulatory Discharge instructions reviewed by: Nurse Special discharge instructions given for: N/A Bronchoscopy: N/A Patient verbalized understanding of discharge instructions: YES * Andreina Caldwell RN - 08/06/2023 10:31 AM EDT Reviewed discharge instructions and procedure results with pt. Med list and discharge instructions given. Verbalizes understanding and denies any other questions or concerns. Sat up at side of stretcher. * Andreina Caldwell RN - 08/06/2023 10:[address] Pierson in to discuss procedure with patient. * Andreina Caldwell RN - 08/06/2023 10:18 AM EDT HOB up to 45 degrees, PO fluids given and tolerated. * Maria G Tanner RN - 08/06/2023 10:13 AM EDT Colonoscopy with belly pressure completed. Pt joaquin procedure well. Sedated by COOK CHILI. See anesthesia record for VS and medications given. Abd soft. Airway patent. Pt to recovery on L side with HOB elevated. Report to recovery room nurse. Bedside cleaning done. * Andreina Caldwell RN - 08/06/2023 10:11 AM EDT Pt received in recovery S/P colonoscopy. Pt awake and resting on left side. Pt denies pain. Abd soft Report received from Saumya Tanner RN. VSS. Airway patent. * Mei Houser LPN - 08/06/2023 9:44 AM EDT Nursing assessment completed. Declines needs at this time. Anesthesia aware patient ready to be seen. documented in this encounter Plan of Treatment Upcoming Encounters Date Type Department Care Team (Late st Contact Info) Description 08/12/2023 9:00 AM EDT Telemedicine [place] [address] [place] [address] [place] [facility] Cardiology 400 [place] [address] 08/26/2023 8:00 AM EST Office Visit [address] [place] [address] Dann Pena DO [address] [place] [address] 10/08/2023 8:00 AM EST Laboratory Laboratory, [place] 27 [facility] [address] [place] [phone] [place], Lab 27 [facility] [address] [place] [address] 10/10/2023 9:40 AM EST Office Visit Family Practice, [place] 27 [facility] [place] [address] Mango Tamez MD 27 [facility] [place] [address] 02/20/2024 8:20 AM EDT Office Visit Dermatology, [place] 27 [facility] 140 [place] [address] Dariana Oquendo PA-C 27 [facility] 140 [place] [address] 06/15/2024 9:30 AM EDT Office Visit Cardiology [place] [address] [place] [address] Tali Chen CRNP 400 [facility] [place] [id number] Scheduled Procedures Name Priority Associated Diagnoses Date/Ti me COLONOSCOPY FLEXIBLE PROXIMAL DIAGNOSTIC History of colonic polyps 08/06/2023 9:52 AM EDT COLONOSCOPY FLEXIBLE PROXIMAL DIAGNOSTIC Recall History of [...] Additional history exists CKD PHOS USE SMARTSET 14131 03/28/202403/13, 05/31/2022, 03/02/2021, Additional history exists DIABETES-EYE EXAM 07/07/2024 07/07/2023, , 01/04/2021, Additional history exists CKD HGB USE SMARTSET 46708 07/21/202407/21, 07/21/2023, 11/29/2022, Additional history exists COLONOSCOPY-EVERY 3 YRS AGES 18-100 08/06/2026 08/06/2023, 11/26/2018, 11/26/2018 Lipid Panel 03/28/2028 03/28/2023, 11/13, 11/22/2021, Additional [...] Not on filedocumented as of this encounter Procedures Procedure Name Priority Date/Time Associated Diagnosis Comments COLONOSCOPY 08/06/2023 9:51 AM EDT documented in this encounter Results * COLONOSCOPY (08/06/2023 9:51 AM EDT) 08/06/2023 9:51 AM EDT Narrative Procedure Note Mango Tamez MD - 08/06/2023 9:51 AM EDT [facility] Patient Name: Clary Leonardo Procedure Date: 08/06/2023 9:51 AM Date of : 1960 Admit Type: Outpatient Note Status:Finalized Date of : 1960 Admit Type: Outpatient Age: 62 Room: Endo 2 Gender: Female Note Status: Finalized Procedure: Colonoscopy Indications: High risk colon cancer surveillance: Personalhistory of colonic polyps, Last colonoscopy: November 2018 Providers: Daisha Pierson DO (Doctor) Referring MD: Mango Tamez Medicines: General Anesthesia Complications: No immediate complications. Estimated blood loss:Minimal. Procedure: Pre-Anesthesia Assessment: - Prior to the procedure, a History and Physicalwas performed, and patient medications, allergies and sensitivities werereviewed. The patient's tolerance of previous anesthesia was reviewed. - The risks and benefits of the procedure and thesedation options and risks were discussed with the patient. All questions wereanswered and informed consent was obtained. - Patient identification and proposed procedurewere verified prior to the procedure by the physician, the nurse and the can feeder.The procedure was verified in the procedure room. - Pre-procedure physical examination revealed nocontraindications to sedation. - ASA Grade Assessment: III - A patient with severesystemic disease. - After reviewing the risks and benefits, thepatient was deemed in satisfactory condition to undergo the procedure in an ambulatorysetting. - The anesthesia plan was to use generalanesthesia. - Immediately prior to administration ofmedications, the patient was re-assessed for adequacy to receive sedatives. - The heart rate, respiratory rate, oxygensaturations, blood pressure, adequacy of pulmonary ventilation, and response to care weremonitored throughout the procedure. - The physical status of the patient wasre-assessed after the procedure. After I obtained informed consent, the scope waspassed under direct vision. All instruments were visually inspected immediatelybefore and after removal from the patient to ensure they are fully intact. Throughout the procedure, the patient's bloodpressure, pulse, and oxygen saturations were monitored continuously. The [id number] ([id number]) was introduced through the anus and advanced to the terminalileum. The patient tolerated the procedure well. The quality of the bowelpreparation was good. The colonoscopy was somewhat difficult due to the patient's bodyhabitus. Successful completion of the procedure was aided by applying abdominalpressure. Findings & Specimens: Hemorrhoids were found on perianal exam. The terminal ileum appeared normal. A few small-mouthed diverticula were found in the sigmoid colon. Internal hemorrhoids were found during retroflexion. The hemorrhoidswere moderate. The exam was otherwise without abnormality. Impression: - Hemorrhoids found on perianal exam. - The examined portion of the ileum was normal. - Mild diverticulosis in the sigmoid colon. - Internal hemorrhoids. - The examination was otherwise normal. - No specimens collected. Recommendation: - The patient will be observed post-procedure,until all discharge criteria are met. - Resume regular diet today. - Repeat colonoscopy in 5 years for surveillance. - Return to GI office PRN. Daisha Pierson DO 08/06/2023 10:14:16 AM This report has been signed electronically. Estimated Blood Loss: Estimated blood loss was minimal. Mango Tamez MD [facility] documented in this encounter Administered Medications Inactive Administered Medications - up to 3 most recent administrations Medication Order MAR Action Action Date Dose Rate Site isolyte-S pH 7.4 infusion Intravenous, at 75 mL/hr, Plasma-LYTE 148, isolyte-S, and isolyte-S pH 7.4 are considered equivalent - including for MAR barcode scanning., CONTINUOUS, Starting on Fri08/06/23 at 1000, Until Fri08/06/23 at 1259, Pre-Op Restarted 08/06/2023 10:08 AM EDT Continue from Pre-Op 08/06/2023 9:52 AM EDT 75 mL/hr New Bag 08/06/2023 9:45 AM EDT 75 mL/hr documented in this encounter Active and Recently Administered Medications Times are shown in EDT. Continuous Medication Order 08/04/2023 08/05/2023 08/06/2023 isolyte-S pH 7.4 infusion Intravenous, at 75 mL/hr, Plasma-LYTE 148, isolyte-S, and isolyte-S pH 7.4 are considered equivalent - including for MAR barcode scanning., CONTINUOUS, Starting on Fri08/06/23 at 1000, Until Fri08/06/23 at 1259, Pre-Op 0945 (New Bag - Prov ider: Mei Houser LPN)0952 (Continue from Pre-Op - Provider: Jack Joy CRNA)1007 (Paused - Provider: Jack Joy CRNA - Comment: Switch to gravity)1008 (Restarted - Provider: Jack Joy CRNA)1448 (Due: Stopped) documented in this encounter Advance Directives Latest [...] Advance Directives occurred with: Patient Care Teams Setter Up Relationship Specialty Start Date End Date Mango Tamez MD [address] [facility] [address] [place] [address] PCP - General Family Medicine 05/28/21 documented as of this encounter
--- OUTSIDE RECORDS SUMMARY | 2023-08-26 22:54 | External Medical Summary ---
Author Name Unknown Address Unknown Organization K01:[place] [facility] [place] [address] [facility] [place] [address] Laboratory Report Ordering Provider Test Date Status ZAIRA GOETZ 08/14/2023 09:29:49 Final Observation Date Value Abnormality Reference (Units ) Status Triglyceride 08/14/2023 09:29:49 85 <=174 ( mg/dL) Final Triglyceride Reference Range s (mg/dL):
<150 Acceptable
150-174 Borderline high
175-499 High
>=500 Very high Cholesterol 08/14/2023 09:29:49 98 <200 (mg /dL) Final Total Cholesterol Reference Ranges (mg/dL):
<200 Desirable
200-239 Borderline high
>=240 High HDL 08/14/2023 09:29:49 67 >49 (mg/dL ) Final HDL Cholesterol Reference Ra nges (mg/dL):
>=60 High (Desirable)
<50 Low (Undesirable) For Females
<40 Low (Undesirable) For Males NON-HDL CHOLESTEROL 08/14/2023 09:29:49 31 <=159 (mg/dL) Final Non-HDL Cholesterol Referenc e Range (mg/dL):
<100 Target level for high risk ASCVD patient
<130 Optimal for general population
130-159 Near optimal for general population
160-189 Borderline High
190-219 High
>=220 Very High LDL, (calculated) 08/14/2023 09:29:49 14 <= 129 (mg/dL) Final LDL Cholesterol Reference Ra nges (mg/dL):
<70 Target level for high risk ASCVD patient
<100 Optimal for general population
100-129 Near optimal for general population
130-159 Borderline high
160-189 High
>=190 Very high Performing Location [place] [facility] [place] [address] [facility] [address]
--- OUTSIDE RECORDS SUMMARY | 2023-08-26 22:54 | External Medical Summary | Summary of Care ---
Author Name Unknown Organization [facility] Address [address] [facility] [address] Phone [phone] Care Team Providers Care Chief Clinical Dietitian Name Role Phone Mango Tamez MD Primary Care Provider [phone] Encounter Details Date Type Department Care Team (Late st Contact Info) Description 08/14/2023 Telephone Cardiology [place] Michelle [place] [address] [facility] [place] [address] [facility] [address] [facility] [place] [address] Allergies Active Allergy Reactions Criticality Noted Date [...] 12/26/2022 Active Gabapentin 300 MG Oral Capsule (Neurontin)Indica tions:DM type 2 with diabetic peripheral neuropathy (HCC) [...] 07/21/2023 traZODone HCl 50 MG Oral Tablet (Desyrel)Indicati ons:Insomnia, unspecified type Take 1 Tablet by mouth at bedtime. 30 Tablet 2 05/06/2023 Active FLUoxetine HCl 60 MG Oral TabletIndications :Recurrent major depressive disorder, remission status unspecified (HCC) Take 1 Tablet by mouth in the morning. 30 Tablet 2 05/06/2023 Active Omeprazole 40 MG Oral Capsule Delayed Release (PriLOSEC)Indicat ions:Gastroesopha geal reflux disease, unspecified whether esophagitis present TAKE ONE CAPSULE TWICE A DAY 180 Capsule 3 06/30/2023 Active FreeStyle Que 14 Day [place] DeviceIndications :Hypoglycemia USE DIRECTED. 1 Each 0 07/01/2023 Active FLUoxetine HCl 20 MG Oral Capsule (PROzac)Indicatio ns:Moderate episode of recurrent major depressive disorder (HCC) Take 1 Capsule by mouth in the morning. 0 07/17/2023 Active Repatha Pushtronex System 420 MG/3.5ML Subcutaneous Solution Cartridge (Evolocumab with Infusor)Indicatio ns:Dyslipidemia, goal LDL below 70 Inject 420 mg under the skin every month. Administer over 5 minutes. Remove from refrigerator 45 minutes prior to injection. 10.5 mL 5 07/22/2023 Active buPROPion HCl ER (XL) 300 MG Oral Tablet Extended Release 24 Hour (Wellbutrin XL)Indications:Mo derate episode of recurrent major depressive disorder (HCC) Take 1 Tablet by mouth in the morning. 90 Tablet 0 07/21/2023 Active Azelastine HCl 0.1 % Nasal Solution (Astelin)Indicati ons:Dysfunction of right eustachian tube Administer 1 [place] into nostril in the morning and 1 [place] before bedtime. 30 mL 12 07/21/2023 Active FreeStyle Que 2 SensorIndications :Hypoglycemia use every 2 weeks as directed 1 Each 1 07/22/2023 Active Trulicity 0.75 MG/0.5ML Subcutaneous Solution Pen-injector (Dulaglutide) Inject 0.75 mg under the skin once a week. 2 mL 5 07/22/2023 Active Rosuvastatin Calcium 20 MG Oral Tablet (Crestor)Indicati ons:Dyslipidemia Take 1 Tablet by mouth every night at bedtime. 90 Tablet 3 08/14/2023 Active Rosuvastatin Calcium 40 MG Oral Tablet (Crestor)Indicati ons:Dyslipidemia Take 1 Tablet by mouth every night at bedtime. 90 Tablet 3 04/09/2023 3 Discontinu ed(Refill) documented as of this encounter (statuses as [...] melanocytic Proliferation L low Back Overview: CF [id number] Skin, left lower back: Atypical predominantly junctional [...] encounter Miscellaneous Notes * Telephone Encounter - Martine Storm RPh - 08/14/2023 5:06 PM EDT Reduce cresor 20 mg daily as LDL is 14 Continue repatha Myg Sent to patient MTM will sign off Remind em sent for 1 year for labs documented in this encounter Plan of Treatment Upcoming Encounters Date Type Department Care Team (Late st Contact Info) Description 08/26/2023 8:00 AM EST Office Visit [facility], [place] [address] [facility] [place] [address] Dann Pena DO [address] [facility] [address] [place] [address] 10/08/2023 8:00 AM EST Laboratory Laboratory, [place] [address] [facility] [address] [place] [phone] [place], Lab 27 [facility] [address] [place] [address] 10/10/2023 9:40 AM EST Office Visit [facility], [place] 27 [facility] [place] [address] Mango Tamez MD [address] [facility] [place] [address] 11/26/2023 10:30 AM EST Telemedicine Cardiovascular Genetics, [facility] [address] [place] [address] [place], [place] [address] [place] [address] 02/20/2024 8:20 AM EDT Office Visit Dermatology, [place] [address] [place] [address] Dariana Oquendo PA-C [address] [place] [address] 06/15/2024 9:30 AM EDT Office Visit Cardiology Jeremy ChangErich m[place]ray [address] [place] [phone] Tali Chen CRNP [address] [place] [phone] Scheduled Procedures Name Priority Associated Diagnoses Date/Ti [...] Additional history exists CKD PHOS USE SMARTSET 79700 03/28/202403/13, 05/31/2022, 03/02/2021, Additional history exists Diabetic Eye Exam 07/07/2024 07/07/2023, , 01/04/2021, Additional history exists CKD HGB USE SMARTSET 01083 07/21/202407/21, 07/21/2023, 11/29/2022, Additional history exists COLONOSCOPY-EVERY [...] as of this encounter Visit Diagnoses Diagnosis Dyslipidemia Other and unspecified hyperlipidemia documented in this [...] Advance Directives occurred with: Patient Care Teams Chief Clinical Dietitian Relationship Specialty Start Date End Date Mango Tamez MD [address] [facility] [place] [address] PCP - General Family Medicine 05/28/21 documented as of this encounter
--- OUTSIDE RECORDS SUMMARY | 2023-08-26 22:54 | External Medical Summary | Summary of Care ---
Author Name Unknown Organization [facility] Address [address] [facility] [place] [address] Phone [phone] Care Team Providers Care Anime Designer Name Role Phone Mango Tamez MD Primary Care Provider [phone] Reason for Visit * Reason Onset Date Comments Med Request 07/21/2023 NANCIE Encounter Details Date Type Department Care Team (Late st Contact Info) Description 07/21/[address] [facility], [place] [address] [place] [address] Daisha Pierson, DO [address] [place] [phone] Med Request (NANCIE) Allergies Active Allergy Reactions Criticality Noted Date [...] Dispensed Refills Start Date End Date Status FreeStyle Que 14 Day SensorIndications :Hypoglycemia Apply new sensor every 14 days 2 Each 12 3 023 Discontinued CPAP every night at bedtime. 0 Suspended Aspirin 81 MG Oral Tablet Chewable Take 1 Tablet by mouth in the morning. 30 Tablet 0 3 Suspended Additional Information Metoprolol Succinate ER 25 MG Oral Tablet Extended Release 24 Hour (toPROL XL) Take 1 Tablet by mouth in the morning. 90 Tablet 3 3 Suspended Additional Information Dulaglutide 1.5 MG/0.5ML Subcutaneous Solution Pen-injector (Trulicity)Indica tions:Type 2 diabetes mellitus with hemoglobin A1c goal of less than 7.0% (HCC) Inject 1.5 mg under the skin once a week. 2 mL 5 3 023 Discontinued Gabapentin 300 MG Oral Capsule (Neurontin)Indica tions:DM type 2 with diabetic peripheral neuropathy (HCC) Take 1 Capsule by mouth at bedtime. 90 Capsule 1 3 Suspended Additional Information Rosuvastatin Calcium 40 MG Oral Tablet (Crestor)Indicati ons:Dyslipidemia Take 1 Tablet by mouth every night at bedtime. 90 Tablet 3 3 Suspended Additional Information Repatha Pushtronex System 420 MG/3.5ML Subcutaneous Solution Cartridge (Evolocumab with Infusor)Indicatio ns:Dyslipidemia, goal LDL below 70 Inject 420 mg under the skin Every Month. Administer over 5 minutes. Remove from refrigerator 45 minutes prior to injection. 10.5 mL 5 3 023 Discontinued(Re fill) busPIRone HCl 10 MG Oral Tablet (Buspar) Take 1 Tablet by mouth in the morning and 1 Tablet at noon and 1 Tablet before bedtime. 90 Tablet 2 3 Suspended Additional Information Patient taking differently:10 mg OralTID PRN, Reported on 07/21/2023 traZODone HCl 50 MG Oral Tablet (Desyrel)Indicati ons:Insomnia, unspecified type Take 1 Tablet by mouth at bedtime. 30 Tablet 2 3 Suspended Additional Information FLUoxetine HCl 60 MG Oral TabletIndications :Recurrent major depressive disorder, remission status unspecified (HCC) Take 1 Tablet by mouth in the morning. 30 Tablet 2 3 Suspended Additional Information Omeprazole 40 MG Oral Capsule Delayed Release (PriLOSEC)Indicat ions:Gastroesopha geal reflux disease, unspecified whether esophagitis present TAKE ONE CAPSULE TWICE A DAY 180 Capsule 3 3 Suspended Additional Information FreeStyle Que 14 Day [place] DeviceIndications :Hypoglycemia USE DIRECTED. 1 Each 0 3 Suspended Additional Information FLUoxetine HCl 20 MG Oral Capsule (PROzac)Indicatio ns:Moderate episode of recurrent major depressive disorder (HCC) Take 1 Capsule by mouth in the morning. 0 3 Suspended PEG 2227-MRj-AdHet-Na Cl-NaSulf 236 GM Oral Solution Reconstituted Take 4,000 mL by mouth once for 1 dose. Follow instructions for colonoscopy prep. 4000 mL 0 3 023 buPROPion HCl ER (XL) 300 MG Oral Tablet Extended Release 24 Hour (Wellbutrin XL)Indications:Mo derate episode of recurrent major depressive disorder (HCC) Take 1 Tablet by mouth in the morning. 90 Tablet 0 3 Suspended Additional Information Azelastine HCl 0.1 % Nasal Solution (Astelin)Indicati ons:Dysfunction of right eustachian tube Administer 1 [place] into nostril in the morning and 1 [place] before bedtime. 30 mL 12 3 Suspended Additional Information documented as of this encounter (statuses as [...] Atypical melanocytic Proliferation L low Back Overview: [id number] Skin, left lower back: Atypical predominantly junctional [...] encounter Miscellaneous Notes * Telephone Encounter - Lyndsay Neff RN - 08/06/2023 10:14 AM EDT Colonoscopy is today, 08/06 * Telephone Encounter - Lyndsay Neff RN - 07/22/2023 11:10 AM EDT No answer. Left message that prep was sent to pharmacy. * Telephone Encounter - Lyndsay Neff RN - 07/21/2023 2:43 PM EDT Pended script. Please review and sign Thanks * Telephone Encounter - Justine Olmstead LPN - 07/21/2023 2:17 PM EDT Pt states she hasn't received an rx for the GOLYTELY she is to use for her colonoscopy prep. [facility]. documented in this encounter Plan of Treatment Upcoming Encounters Date Type Department Care Team (Late st Contact Info) Description 08/12/2023 9:00 AM EDT Telemedicine Cardiology [place] [address] [place] [address] [facility] [address] [place] [address] 08/26/2023 8:00 AM EST Office Visit [facility], [place] 27 [facility] [place] [address] Dann Pena DO 21 [facility] [place] [address] 10/08/2023 8:00 AM EST Laboratory Laboratory, [place] 27 [facility] [address] [place] [phone] [place], Lab 27 [facility] [address] [place] [address] 10/10/2023 9:40 AM EST Office Visit [facility], [place] 27 [facility] [place] [address] Mango Tamez MD [address] [facility] [place] [address] 02/20/2024 8:20 AM EDT Office Visit Dermatology, [place] 27 [facility] [address] [place] [address] Dariana Oquendo PA-C [address] [place] [address] 06/15/2024 9:30 AM EDT Office Visit Cardiology [place] Bhat[place] [address] [place] [address] Tali Chen CRNP [address] [place] [address] [place] [address] Scheduled Procedures Name Priority Associated Diagnoses Date/Ti [...] Additional history exists CKD PHOS USE SMARTSET 31872 03/28/202403/13, 05/31/2022, 03/02/2021, Additional history exists DIABETES-EYE EXAM 07/07/2024 07/07/2023, , 01/04/2021, Additional history exists CKD HGB USE SMARTSET 63343 07/21/202407/21, 07/21/2023, 11/29/2022, Additional history exists COLONOSCOPY-EVERY [...] Advance Directives occurred with: Patient Care Teams Anime Designer Relationship Specialty Start Date End Date Mango Tamez MD [address] [facility] [place] [address] PCP - General Family Medicine 05/28/21 documented as of this encounter
--- OUTSIDE RECORDS SUMMARY | 2023-08-26 22:54 | External Medical Summary | Summary of Care ---
Author Name Unknown Organization [facility] Address [address] [place] [address] Phone [phone] Care Team Providers Care Meter Mechanic Name Role Phone Mango Tamez MD Primary Care Provider [phone] Encounter Details Date Type Department Care Team Description 07/25/2023 Specialty Pharmacy [facility], [address], [address] [place] [id number] Medication, Mtm Specialty Refill, [address] [id number] Allergies Active Allergy Reactions Severity Noted Date Comments Duloxetine Hcl 02/14/2014 hives Doxycycline Medium 05/31/2022 Advised not to take d/t psychosis episode and unsure if it created the episode or not Cephalexin Hives 02/14/2014 Lorazepam Hives Medium 07/04/2010 Polyethylene Glycol Other (Please comment) High 12/11 Severe N&V, felt like her whole body was shutting down Penicillins Hives Medium 03/13/2006 Pt was told to never take, Prednisone High 05/31/2022 Psychosis episode Carbamazepine Hives Medium 07/04/2010 Valacyclovir Hcl Hives 02/14/2014 Zyprexa Hives Medium 07/04/2010 documented as of this encounter (statuses as of 07/25/2023) Medications Medication Sig Dispensed Refills Start Date [...] 3 06/30/2023 Active FreeStyle Que 14 Day [place] DeviceIndications: Hypoglycemia USE DIRECTED. 1 Each 0 [...] ns:Dysfunction of right eustachian tube Administer 1 [place] into nostril in the morning and 1 [place] before bedtime. 30 mL 12 07/21/2023 Active FreeStyle Que 2 SensorIndications: Hypoglycemia use every 2 weeks as directed 1 Each 1 07/22/2023 Active Trulicity 0.75 MG/0.5ML Subcutaneous Solution Pen-injector (Dulaglutide) Inject 0.75 mg under the skin once a week. 2 mL 5 07/22/2023 Active documented as of this encounter (statuses as of 07/25/2023) Active Problems Problem Noted Date Recurrent major depressive disorder 12/11 Recurrent major depressive disorder 12/11 Type 2 diabetes mellitus with diabetic c hronic kidney disease 12/03/2022 Mild aortic stenosis 12/03/2022 Amnesia, global, transient 11/27/2022 NSTEMI (non-ST elevated myocardial infar ction) 11/27/2022 Stage 3a chronic kidney disease 08/21/20 20 Overview: Per CKD protocol - - DM type 2 with diabetic peripheral neuro dawna 11/22/2019 Morbid obesity due to excess calories Dyslipidemia 04/30/2018 Fatty liver 04/21/2017 Type 2 diabetes mellitus with hemoglobin A1c goal of less than 7.0% 09/05/2014 Overview: ICD-10 update of inactive term Other seborrheic keratosis 07/06/2013 Atypical melanocytic Proliferation L low Back 07/06/2010 Overview: [id number] Skin, left lower back: Atypical predominantly junctional [...] as of this encounter (statuses as of 07/25/2023) Resolved Problems Problem Noted Date Resolved Date Chest pain 11/27/2022 12/03/2022 COVID-19 virus infection 05/21/2022 023 Elevated troponin 05/21/2022 12/03/2022 Heart murmur 03/02/2021 12/03/2022 Body mass index (BMI) of 40.0 to 44.9 in adult 0 01/18/2019 11/22/2019 Overview: Per Obesity protocol #1 Kidney disease, chronic, stage III (GFR 30-59 ml /min) 05/26/2018 08/24/2020 Overview: Per CKD protocol #1 - Body mass index (BMI) of 40.0 to 44.9 in adult 0 05/27/2017 11/05/2018 Overview: ICD-10 update of inactive term Elevated liver enzymes 04/21/2017 3 HX-SKIN MALIGNANCY NEC 03/13/2006 6 Overview: History skin cancer Nose/173.3 History atypical melanocytic proliferation on left lower back/D48.5 Anxiety state 11/22/2019 documented as of this encounter (statuses as of 07/25/2023) Immunizations Name Administration Dates Next Due HEP [...] = 0.6 oz pur e alcohol) RARELY Food Insecurity Answer Date Recorded Within the past 12 months, y ou worried that your food would run out before you got money to buy more. Never true 07/21/2023 Within the past 12 months, t he food you bought just didn't last and you didn't have money to get more. Never true 07/21/2023 Sex Assigned at Date Recorded Female 01/14/2019 1:58 PM E DT Job Start Date Occupation Industry Not on [...] No 11/27/2022 documented as of this encounter Progress Notes * ABHI Perrin - 07/25/2023 3:18 PM EDT Prescribed medication: Medication: repatha Shipment date: 07/30 Delivery method: Specialty Mail Location Medication Delivered too? Prescription Address: . [address] [place] [address] [place] [address] ABHI Perrin [facility] 07/25/2023,3:18 PM documented in this encounter Plan of Treatment Upcoming Encounters Date Type Specialty Care Team Description 08/06/2023 Hospital Encounter Endoscopy Daisha Pierson, DO [address] [place] [address] 08/06/2023 Surgery Endoscopy Daisha Pierson, DO [address] [place] [address] COLONOSCOPY FLEXIBLE PROXIMAL DIAGNOSTIC 08/12/2023 Telemedicine Cardiology Erich [facility] [place] [address] 08/26/2023 Office Visit Family Medicine Dann Pena, DO [facility] [place] [address] 10/08/2023 Laboratory Laboratory [place], Lab 27 [facility] 4 [place] [address] 10/10/2023 Office Visit Family Medicine Mango Tamez MD 27 [facility] [place] [address] 02/20/2024 Office Visit Dermatology Dariana Oquendo PA-C [address] [place] [address] 06/15/2024 Office Visit Cardiology Tali Chen, NAHEED [address] [place] [phone] Scheduled Procedures Name Priority Associated Diagnoses Date/Ti [...] Additional history exists CKD PHOS USE SMARTSET 04682 03/28/202403/13, 05/31/2022, 03/02/2021, Additional history exists DIABETES-EYE EXAM 07/07/2024 07/07/2023, , 01/04/2021, Additional history exists CKD HGB USE SMARTSET 70239 07/21/202407/21, 07/21/2023, 11/29/2022, Additional history exists Lipid Panel 03/28/2028 03/28/2023, 11/13, 11/22/2021, Additional history exists Hepatitis B Completed 11/05/2004, 0610/2003, 02/08/2004 Influenza Vaccine (FLU shot) Completed 07/21/2023, [...] Advance Directives occurred with: Patient Care Teams Meter Mechanic Relationship Specialty Start Date End Date Mango Tamez MD [address] [facility] [address] [place] [address] PCP - General Family Medicine 05/28/21 documented as of this encounter
--- OUTSIDE RECORDS SUMMARY | 2023-08-26 22:54 | External Medical Summary | Summary of Care ---
Author Name Unknown Organization [facility] Address [address] [facility] [place] [address] Phone [phone] Care Team Providers Care Industrial Eng Name Role Phone Mango Tamez MD Primary Care Provider [phone] Reason for Visit * Reason Onset Date Comments Advice 08/20/2023 Encounter Details Date Type Department Care Team (Late st Contact Info) Description 08/20/2023 Telephone Gastroenterology, [address] [address] Daisha Pierson, DO [address] [place] [address] Advice Allergies Active Allergy Reactions Criticality Noted [...] 3 06/30/2023 Active FreeStyle Que 14 Day [place] DeviceIndications: Hypoglycemia USE DIRECTED. 1 Each 0 [...] ns:Dysfunction of right eustachian tube Administer 1 [place] into nostril in the morning and 1 [place] before bedtime. 30 mL 12 07/21/2023 Active [...] melanocytic Proliferation L low Back Overview: CF [id number] Skin, left lower back: Atypical predominantly junctional [...] to Miralax and doesn't know what to day. Abdominal cramping and pain today. Pt states [...] AM EST Office Visit [facility], [address] [place] [address] Dann Pena DO 21 [place] [address] 10/08/2023 8:00 AM EST Laboratory Laboratory, [address] [place] [address] [place] [phone] Francoise Garcia [address] [place] [address] 10/10/2023 9:40 AM EST Office Visit Family [facility], [place] 27 [facility] [place] [address] Mango Tamez MD 27 [facility] [place] [address] 11/26/2023 10:30 AM EST Telemedicine Cardiovascular Genetics, [facility] 132 [facility] [place] [address] [place], [place] 132 [facility] [place] [address] 02/20/2024 8:20 AM EDT Office Visit Dermatology, Seda HansenErich [address] [facility] 140 [place] [address] Dariana Oquendo PA-C 27 [facility] 140 [place] [address] 06/15/2024 9:30 AM EDT Office Visit Cardiology Erich Alfaro [address] [place] [address] Tali Chen CRNP 400 [facility] [address] Scheduled Procedures Name Priority Associated Diagnoses Date/Ti [...] Additional history exists CKD PHOS USE SMARTSET 69492 03/28/202403/13, 05/31/2022, 03/02/2021, Additional history exists Diabetic Eye Exam 07/07/2024 07/07/2023, , 01/04/2021, Additional history exists CKD HGB USE SMARTSET 22929 07/21/202407/21, 07/21/2023, 11/29/2022, Additional history exists COLONOSCOPY-EVERY [...] Advance Directives occurred with: Patient Care Teams Industrial Eng Relationship Specialty Start Date End Date Mango Tamez MD [address] [facility] [address] [place] [address] PCP - General Family Medicine 05/28/21 documented as of this encounter
--- OUTSIDE RECORDS SUMMARY | 2023-08-26 22:54 | External Medical Summary | Summary of Care ---
Author Name Unknown Organization [facility] Address [address] [facility] [place] [address] Phone [phone] Care Team Providers Care Buffing Machine Operator Name Role Phone Mango Tamez MD Primary Care Provider [phone] Reason for Visit * Reason Onset Date Comments Test Results Lab 07/22/2023 [facility] 07/22 Encounter Details Date Type Department Care Team Description 07/22/2023 Telephone [facility] 27 [facility] [place] [address] Mango Tamez MD 27 [place] [address] Test Results Lab ([facility] 07/22) Allergies Active Allergy Reactions Severity Noted Date [...] as of this encounter (statuses as of 07/22/2023) Medications Medication Sig Dispensed Refills Start Date End Date Status CPAP every night at bedtime. 0 Active Aspirin 81 MG Oral Tablet Chewable Take 1 Tablet by mouth in the morning. 30 Tablet 0 3 Active Metoprolol Succinate ER 25 MG Oral Tablet Extended Release 24 Hour (toPROL XL) Take 1 Tablet by mouth in the morning. 90 Tablet 3 3 Active Gabapentin 300 MG Oral Capsule (Neurontin)Indicat ions:DM type 2 with diabetic peripheral neuropathy (HCC) Take 1 Capsule by mouth at bedtime. 90 Capsule 1 3 Active Rosuvastatin Calcium 40 MG Oral Tablet (Crestor)Indicatio ns:Dyslipidemia Take 1 Tablet by mouth every night at bedtime. 90 Tablet 3 3 Active busPIRone HCl 10 MG Oral Tablet (Buspar) Take 1 Tablet by mouth in the morning and 1 Tablet at noon and 1 Tablet before bedtime. 90 Tablet 2 3 Active Additional Information Patient taking differently:10 mg OralTID PRN, Reported on 07/21/2023 traZODone HCl 50 MG Oral Tablet (Desyrel)Indicatio ns:Insomnia, unspecified type Take 1 Tablet by mouth at bedtime. 30 Tablet 2 3 Active FLUoxetine HCl 60 MG Oral TabletIndications: Recurrent major depressive disorder, remission status unspecified (HCC) Take 1 Tablet by mouth in the morning. 30 Tablet 2 3 Active Omeprazole 40 MG Oral Capsule Delayed Release (PriLOSEC)Indicati ons:Gastroesophage al reflux disease, unspecified whether esophagitis present TAKE ONE CAPSULE TWICE A DAY 180 Capsule 3 3 Active FreeStyle Que 14 Day [place] DeviceIndications: Hypoglycemia USE DIRECTED. 1 Each 0 3 Active FLUoxetine HCl 20 MG Oral Capsule (PROzac)Indication s:Moderate episode of recurrent major depressive disorder (HCC) Take 1 Capsule by mouth in the morning. 0 3 Active Repatha Pushtronex System 420 MG/3.5ML Subcutaneous Solution Cartridge (Evolocumab with Infusor)Indication s:Dyslipidemia, goal LDL below 70 Inject 420 mg under the skin every month. Administer over 5 minutes. Remove from refrigerator 45 minutes prior to injection. 10.5 mL 5 3 Active PEG 4912-SRw-QbSza-NaC l-NaSulf 236 GM Oral Solution Reconstituted Take 4,000 mL by mouth once for 1 dose. Follow instructions for colonoscopy prep. 4000 mL 0 3 07/22/20 23 Active buPROPion HCl ER (XL) 300 MG Oral Tablet Extended Release 24 Hour (Wellbutrin XL)Indications:Mod erate episode of recurrent major depressive disorder (HCC) Take 1 Tablet by mouth in the morning. 90 Tablet 0 3 Active Azelastine HCl 0.1 % Nasal Solution (Astelin)Indicatio ns:Dysfunction of right eustachian tube Administer 1 [place] into nostril in the morning and 1 [place] before bedtime. 30 mL 12 3 Active FreeStyle Que 2 SensorIndications: Hypoglycemia use every 2 weeks as directed 1 Each 1 3 Active Trulicity 0.75 MG/0.5ML Subcutaneous Solution Pen-injector (Dulaglutide) Inject 0.75 mg under the skin once a week. 2 mL 5 3 Active Dulaglutide 1.5 MG/0.5ML Subcutaneous Solution Pen-injector (Trulicity)Indicat ions:Type 2 diabetes mellitus with hemoglobin A1c goal of less than 7.0% ([facility]) Inject 1.5 mg under the skin once a week. 2 mL 5 3 07/22/20 23 Discontinued documented as of this encounter (statuses as of 07/22/2023) Active Problems Problem Noted Date Recurrent major depressive disorder 12/11 Recurrent major depressive disorder 12/11 Type 2 diabetes mellitus with diabetic c hronic kidney disease 12/03/2022 Mild aortic stenosis 12/03/2022 Amnesia, global, transient 11/27/2022 NSTEMI (non-ST elevated myocardial infar ction) 11/27/2022 Stage 3a chronic kidney disease 08/21/20 Overview: Per CKD protocol - - DM type 2 with diabetic peripheral neuro dawna 11/22/2019 Morbid obesity due to excess calories Dyslipidemia 04/30/2018 Fatty liver 04/21/2017 Type 2 diabetes mellitus with hemoglobin A1c goal of less than 7.0% 09/05/2014 Overview: ICD-10 update of inactive term Other seborrheic keratosis 07/06/2013 Atypical melanocytic Proliferation L low Back 07/06/2010 Overview: [id number] Skin, left lower back: Atypical predominantly junctional [...] as of this encounter (statuses as of 07/22/2023) Resolved Problems Problem Noted Date Resolved Date [...] as of this encounter (statuses as of 07/22/2023) Immunizations Name Administration Dates Next Due HEP [...] encounter Miscellaneous Notes * Telephone Encounter - Karie Castro LPN - 07/22/2023 4:15 PM EDT Patient aware and verbalized understanding, will comply * Telephone Encounter - SAMI Byrd - 07/22/2023 4:13 PM EDT Reason for patient's call: Test results Caller was transferred to Karie at the nurse line. * Telephone Encounter - Justine Olmstead LPN - 07/22/2023 1:30 PM EDT message left for patient to call back. * Telephone Encounter - Mango Tamez MD - 07/22/2023 1:12 PM EDT Her recent labs show that her A1c is very well controlled. Given her recent episodes with hypoglycemia would recommend decreasing her Trulicity. She is currently taking 1.5 mg weekly and I would likeher to decrease to 0.75 mg weekly. New prescription was sent to her pharmacy. documented in this encounter Plan of Treatment Upcoming Encounters Date Type Specialty Care Team Description 08/06/2023 Hospital Encounter Endoscopy Daisha Pierson, DO [address] [place] [address] 08/06/2023 Surgery Endoscopy Daisha Pierson, DO [address] [place] [address] COLONOSCOPY FLEXIBLE PROXIMAL DIAGNOSTIC 08/12/2023 Telemedicine Cardiology [facility] [address] [facility] [place] [id number] 08/26/2023 Office Visit [facility] [place] [address] 10/08/2023 Laboratory Laboratory [place], Lab 27 [facility] 4 [place] [address] 10/10/2023 Office Visit Family Medicine Mango Tamez MD 27 [place] [address] 02/20/2024 Office Visit Dermatology Dariana Oquendo PA-C 27 [facility] 140 [place] [address] 06/15/2024 Office Visit Cardiology Tali Chen CRNP [address] [facility] [place] [address] Scheduled Procedures Name Priority Associated Diagnoses Date/Ti [...] Additional history exists CKD PHOS USE SMARTSET 65446 03/28/202403/13, 05/31/2022, 03/02/2021, Additional history exists DIABETES-EYE EXAM 07/07/2024 07/07/2023, , 01/04/2021, Additional history exists CKD HGB USE SMARTSET 15587 07/21/202407/21, 07/21/2023, 11/29/2022, Additional history exists Lipid [...] as of this encounter Visit Diagnoses Diagnosis Type 2 diabetes mellitus with hemoglobin A1c goal of less than 7.0% (HCC) History of colonic polyps Personal history of colonic polyps documented in this encounter Advance Directives Latest [...] Advance Directives occurred with: Patient Care Teams Buffing Machine Operator Relationship Specialty Start Date End Date Mango Tamez MD [address] [place] [address] PCP - General Family Medicine 05/28/21 documented as of this encounter
--- OUTSIDE RECORDS SUMMARY | 2023-08-26 22:55 | External Medical Summary ---
Author Name Unknown Address Unknown Organization K01[place] [facility] [place] [address] [facility] [address] Laboratory Report Ordering Provider Test Date Status ITZ STONE 07/21/2023 15:21:46 Final Observation Date Value Abnormality Reference (Units ) Status BUN 07/21/2023 15:21:46 16 6-20 (mg/dL) Final Creatinine 07/21/2023 15:21:46 1.3 Above high normal 0.5-1.0 (mg/dL) Final Glomerular filtration rate/1.73 sq M.predicted [Volume Rate/Area] in Serum, Plasma or Blood by Creatinine-based formula (CKD-EPI) 07/21/2023 15:21:46 48 Below low normal >=60 (mL/min) Final eGFR is calculated based on the CKD-EPI 2020 equation SODIUM 07/21/2023 15:21:46 139 135-146 (m mol/L) Final Potassium 07/21/2023 15:21:46 4.7 3.5-5.1 (m mol/L) Final Cl 07/21/2023 15:21:46 102 98-107 (mm ol/L) Final CO2 07/21/2023 15:21:46 28 22-32 (mmo l/L) Final Anion gap 07/21/2023 15:21:46 9 7-15 (mmol /L) Final Glucose 07/21/2023 15:21:46 105 70-120 (mg /dL) Final Albumin 07/21/2023 15:21:46 4.8 3.8-5.0 (g /dL) Final AST (Aspartate aminotransferase) 07/21/2023 15:21:46 36 Above high normal 10-35 (U/L) Final Alk Phos 07/21/2023 15:21:46 65 35-130 (U/ L) Final Bilirubin, Total 07/21/2023 15:21:46 0.3 <=1 .2 (mg/dL) Final Calcium 07/21/2023 15:21:46 9.8 8.4-10.2 ( mg/dL) Final Protein 07/21/2023 15:21:46 7.3 6.0-8.3 (g /dL) Final ALT (Alanine aminotransferase) 07/21/2023 15:21:46 45 Above high normal 10-35 (U/L) Final Performing Location [facility] [facility] [place] [address] [facility] [address]
--- OUTSIDE RECORDS SUMMARY | 2023-08-26 22:55 | External Medical Summary ---
Author Name Unknown Address Unknown Organization K01:[facility] [place] 100 [facility] [place] [address] Laboratory Report Ordering Provider Test Date Status ITZ STONE 07/21/2023 15:21:46 Final Observation Date Value Abnormality Reference (Units ) Status SYNC LEUKOCYTES IN BLOOD BY AUTOMATED COUNT 07/21/2023 15:21:46 5.98 4.00-10.80 (K/uL) Final Segs 07/21/2023 15:21:46 51.8 40.0-75.0 (%) Final Lymphs % 07/21/2023 15:21:46 35.8 18.0-42.0 (%) Final Monos 07/21/2023 15:21:46 8.4 1.0-11.0 (%) Final Eosinophils 07/21/2023 15:21:46 2.7 0.0-6.0 (%) Final Basos 07/21/2023 15:21:46 0.8 0.0-2.0 (%) Final Immature Granulocyte, Percent 07/21/2023 15:21:46 0.5 0.0-2.0 (%) Final Absolute Segs 07/21/2023 15:21:46 3.10 1.80-7.70 (K/uL) Final Lymphs, absolute 07/21/2023 15:21:46 2.14 1.00-4.80 (K/ul) Final Monos, Abs 07/21/2023 15:21:46 0.50 0.00-1.10 (K/uL) Final Eos, Abs 07/21/2023 15:21:46 0.16 0.00-0.70 (K/uL) Final Basos, Abs 07/21/2023 15:21:46 0.05 0.00-0.20 (K/uL) Final Immature Granulocytes, Number 07/21/2023 15:21:46 0.03 0.00-0.20 (K/uL) Final Performing Location LAB[facility]ATORY [facility] [place] - [address] [facility] [address]
--- OUTSIDE RECORDS SUMMARY | 2023-08-26 22:55 | External Medical Summary ---
Author Name Unknown Address Unknown Organization K01:[place] [facility] [place] [address] [place] [address] Laboratory Report Ordering Provider Test Date Status ITZ STONE 07/21/2023 15:21:46 Final Deficient: <20 ng/mL
Ins ufficient: 20-29 ng/mL
Recommended/Optimum:30-50 ng/mL

Vitamin D intoxication is rare. If suspicious of Vitamin D toxicity, evaluation of serum Calcium and PTH is recommended. Observation Date Value Abnormality Reference (Units ) Status 25-OH Vitamin D total 07/21/2023 15:21:46 44 >19 (ng/mL) Final Performing Location LABORATORY [facility] - [address] [place] [address]
--- OUTSIDE RECORDS SUMMARY | 2023-08-26 22:55 | External Medical Summary | Summary of Care ---
Author Name Unknown Organization [facility] Address [address] [facility] [place] [address] Phone [phone] Care Team Providers Care Jewel Gauger Name Role Phone Mango Tamez MD Primary Care Provider [phone] Reason for Visit * Reason Onset Date Comments Med Request 07/21/2023 NANCIE Encounter Details Date Type Department Care Team Description 07/21/2023 Telephone [facility] [place] [address] Daisha Pierson, DO [address] [place] [id number] Med Request (NANCIE) Allergies Active Allergy Reactions Severity Noted Date [...] the morning. 90 Tablet 3 3 Active Dulaglutide 1.5 MG/0.5ML Subcutaneous Solution Pen-injector (Trulicity)Indica tions:Type 2 diabetes mellitus with hemoglobin A1c goal of less than 7.0% (HCC) Inject 1.5 mg under the skin once a week. 2 mL 5 3 Active Gabapentin 300 MG Oral Capsule (Neurontin)Indica [...] 3 Active FLUoxetine HCl 60 MG Oral TabletIndications :Recurrent major depressive disorder, remission status unspecified (HCC) Take 1 Tablet by mouth in the morning. 30 Tablet 2 3 Active Omeprazole 40 MG Oral Capsule Delayed Release (PriLOSEC)Indicat ions:Gastroesopha geal reflux disease, unspecified whether esophagitis present TAKE ONE CAPSULE TWICE A DAY 180 Capsule 3 3 Active FreeStyle Que 14 Day [place] DeviceIndications :Hypoglycemia USE DIRECTED. 1 Each 0 3 Active FLUoxetine HCl 20 MG Oral Capsule (PROzac)Indicatio ns:Moderate episode of recurrent major depressive disorder (HCC) Take 1 Capsule by mouth in the morning. 0 3 Active PEG 6658-YUw-GnBya-Na Cl-NaSulf 236 GM Oral Solution Reconstituted Take 4,000 mL by mouth once for 1 dose. Follow instructions for colonoscopy prep. 4000 mL 0 3 023 Active buPROPion HCl ER (XL) 300 MG Oral Tablet Extended Release 24 Hour (Wellbutrin XL)Indications:Mo derate episode of recurrent major depressive disorder (HCC) Take 1 Tablet by mouth in the morning. 90 Tablet 0 3 Active Azelastine HCl 0.1 % Nasal Solution (Astelin)Indicati ons:Dysfunction of right eustachian tube Administer 1 [place] into nostril in the morning and 1 [place] before bedtime. 30 mL 12 3 Active FreeStyle Que 14 Day SensorIndications :Hypoglycemia Apply new sensor every 14 days 2 Each 12 3 023 Discontinued Repatha Pushtronex System 420 MG/3.5ML Subcutaneous Solution Cartridge (Evolocumab with Infusor)Indicatio ns:Dyslipidemia, goal LDL below 70 Inject 420 mg under the skin Every Month. Administer over 5 minutes. Remove from refrigerator 45 minutes prior to injection. 10.5 mL 5 3 023 Discontinued(Re fill) documented as of this encounter (statuses as [...] melanocytic Proliferation L low Back 07/06/2010 Overview: CF [id number] Skin, left lower back: Atypical predominantly junctional [...] use for her colonoscopy prep. [facility]asesend to [facility]. documented in this encounter Plan of Treatment Upcoming Encounters Date Type Specialty Care Team Description 08/06/2023 Hospital Encounter Endoscopy Daisha Pierson DO [address] [place] [address] 08/06/2023 Surgery Endoscopy Daisha Pierson DO [address] [place] [address] COLONOSCOPY FLEXIBLE PROXIMAL DIAGNOSTIC 08/12/2023 Telemedicine Cardiology [facility] Card[facility] [address] [place] [address] [place] [address] 08/26/2023 Office Visit Family Medicine Dann Pena DO [facility] [place] [address] 10/08/2023 Laboratory Laboratory [place], Lab 27 [facility] [address] 4 [place], [place] [id number] 10/10/2023 Office Visit Family Medicine Mango Tamez MD [address] [place] [address] 02/20/2024 Office Visit Dermatology Dariana Oquendo PA-C 27 [facility] [address] 140 [place] [id number] 06/15/2024 Office Visit Cardiology Tali Chen CRNP [address] [facility] [place] [phone] Scheduled Procedures Name Priority Associated Diagnoses Date/Ti [...] Additional history exists CKD PHOS USE SMARTSET 40330 03/28/202403/13, 05/31/2022, 03/02/2021, Additional history exists DIABETES-EYE EXAM 07/07/2024 07/07/2023, , 01/04/2021, Additional history exists CKD HGB USE SMARTSET 43787 07/21/202407/21, 07/21/2023, 11/29/2022, Additional history exists Lipid [...] Advance Directives occurred with: Patient Care Teams Jewel Gauger Relationship Specialty Start Date End Date Mango Tamez MD 27 [facility] [place] [address] PCP - General Family Medicine 05/28/21 documented as of this encounter
--- OUTSIDE RECORDS SUMMARY | 2023-08-26 22:55 | External Medical Summary ---
Author Name Unknown Address Unknown Organization K01:LABORATORY [facility] [place] [facility] [place] [address] Laboratory Report Ordering Provider Test Date Status ITZ STONE 07/21/2023 15:21:46 Final Observation Date Value Abnormality Reference (Units ) Status WBC, Total 07/21/2023 15:21:46 5.98 4.00-10.8 0 (K/uL) Final RBC 07/21/2023 15:21:46 4.23 3.85-5.15 (M/uL) Final Hemoglobin 07/21/2023 15:21:46 12.7 12.0-15.3 (g/dL) Final Anemia reflex testing trigge rs on a HGB < 12.0 for Females and HGB < 13.0 for Males in accordance with the WHO Anemia Guidelines
Anemia reflex testing triggers on a HGB < 12.0 for Females and HGB < 13.0 for Males in accordance with the WHO Anemia Guidelines HCT 07/21/2023 15:21:46 38.9 36.0-45.2 (%) Final MCV 07/21/2023 15:21:46 92.0 81.5-97.5 (fL) Final MCH 07/21/2023 15:21:46 30.0 27.0-34.0 (pg) Final MCHC 07/21/2023 15:21:46 32.6 32.0-36.0 (g/dL) Final RDW 07/21/2023 15:21:46 12.9 11.5-15.5 (%) Final Platelets 07/21/2023 15:21:46 215 140-400 (K /uL) Final MPV 07/21/2023 15:21:46 10.1 6.6-11.1 ( fL) Final Nucleated erythrocytes/100 leukocytes [Ratio] in Blood by Automated count 07/21/2023 15:21:46 0 <=0 (/100 WBCs) [facility] Performing Location LABORATORY [facility] - [address] [facility] [address]
--- OUTSIDE RECORDS SUMMARY | 2023-08-26 22:55 | External Medical Summary | Summary of Care ---
Author Name Unknown Organization [facility] Address [address] [facility] [place] [address] Phone [phone] Care Team Providers Care Contractor Field Hauling Name Role Phone Mango Tamez MD Primary Care Provider [phone] Reason for Visit * Reason Onset Date Comments Med Request 07/21/2023 NANCIE Encounter Details Date Type Department Care Team Description 07/21/2023 Telephone [facility] [place] [address] Daisha Pierson, DO [address] [place] [phone] Med Request (NANCIE) Allergies Active Allergy Reactions [...] Dispensed Refills Start Date End Date Status Jarvis Grey 14 Day SensorIndications:H ypoglycemia Apply new sensor every 14 days 2 Each 12 11/06/2022 Active CPAP every night at bedtime. 0 Active Aspirin 81 MG Oral Tablet Chewable Take 1 Tablet by mouth in the morning. 30 Tablet 0 12/03/2022 Active Metoprolol Succinate ER 25 MG Oral Tablet Extended Release 24 Hour (toPROL XL) Take 1 Tablet by mouth in the morning. 90 Tablet 3 12/26/2022 Active Dulaglutide 1.5 MG/0.5ML Subcutaneous Solution Pen-injector (Trulicity)Indicati ons:Type 2 diabetes mellitus with hemoglobin A1c goal of less than 7.0% (HCC) Inject 1.5 mg under the skin once a week. 2 mL 5 02/13/2023 Active Gabapentin 300 MG Oral Capsule (Neurontin)Indicati ons:DM type 2 with diabetic peripheral neuropathy (HCC) Take 1 Capsule by mouth at bedtime. 90 Capsule 1 03/31/2023 Active Rosuvastatin Calcium 40 MG Oral Tablet (Crestor)Indication s:Dyslipidemia Take 1 Tablet by mouth every night at bedtime. 90 Tablet 3 04/09/2023 Active Repatha Pushtronex System 420 MG/3.5ML Subcutaneous Solution Cartridge (Evolocumab with Infusor)Indications :Dyslipidemia, goal LDL below 70 Inject 420 mg under the skin Every Month. Administer over 5 minutes. Remove from refrigerator 45 minutes prior to injection. 10.5 mL 5 04/11/2023 Active busPIRone HCl 10 MG Oral Tablet (Buspar) Take 1 Tablet by mouth in the morning and 1 Tablet at noon and 1 Tablet before bedtime. 90 Tablet 2 05/06/2023 Active Additional Information Patient taking differently:10 mg OralTID PRN, Reported on 07/21/2023 traZODone HCl 50 MG Oral Tablet (Desyrel)Indication s:Insomnia, unspecified type Take 1 Tablet by mouth at bedtime. 30 Tablet 2 05/06/2023 Active FLUoxetine HCl 60 MG Oral TabletIndications:R ecurrent major depressive disorder, remission status unspecified (HCC) Take 1 Tablet by mouth in the morning. 30 Tablet 2 05/06/2023 Active Omeprazole 40 MG Oral Capsule Delayed Release (PriLOSEC)Indicatio ns:Gastroesophageal reflux disease, unspecified whether esophagitis present TAKE ONE CAPSULE TWICE A DAY 180 Capsule 3 06/30/2023 Active FreeStyle Que 14 Day [place] DeviceIndications:H ypoglycemia USE DIRECTED. 1 Each 0 07/01/2023 Active FLUoxetine HCl 20 MG Oral Capsule (PROzac)Indications :Moderate episode of recurrent major depressive disorder (HCC) Take 1 Capsule by mouth in the morning. 0 07/17/2023 Active PEG 9312-MTh-ReVqi-NaCl -NaSulf 236 GM Oral Solution Reconstituted Take 4,000 mL by mouth once for 1 dose. Follow instructions for colonoscopy prep. 4000 mL 0 07/22/2023 Active buPROPion HCl ER (XL) 300 MG Oral Tablet Extended Release 24 Hour (Wellbutrin XL)Indications:Mode rate episode of recurrent major depressive disorder (HCC) Take 1 Tablet by mouth in the morning. 90 Tablet 0 07/21/2023 Active Azelastine HCl 0.1 % Nasal Solution (Astelin)Indication s:Dysfunction of right eustachian tube Administer 1 [place] into nostril in the morning and 1 [place] before bedtime. 30 mL 12 07/21/2023 Active documented as of this encounter (statuses [...] Proliferation L low Back 07/06/2010 Overview: CF [id number] Skin, left lower back: Atypical predominantly junctional [...] use for her colonoscopy prep. Pleasesend to [facility]. documented in this encounter Plan of Treatment Upcoming Encounters Date Type Specialty Care Team Description 08/06/2023 Hospital Encounter Endoscopy Daisha Pierson DO [address] [place] [address] 08/06/2023 Surgery Endoscopy Daisha Pierson DO [address] [place] [address] COLONOSCOPY FLEXIBLE PROXIMAL DIAGNOSTIC 08/12/2023 Telemedicine Cardiology [facility] [place] [address] 08/26/2023 Office Visit Family Medicine Dann Pena DO [address] [place] [address] 10/08/2023 Laboratory Laboratory [place], Lab 27 [facility] [address] [place] [address] 10/10/2023 Office Visit Family Medicine Mango Tamez MD [address] [facility] [place] [address] 02/20/2024 Office Visit Dermatology Dariana Oquendo PA-C [address] [place] [address] 06/15/2024 Office Visit Cardiology Tali Chen CRNP 400 [facility] [place] [phone] Scheduled Procedures Name Priority Associated Diagnoses Date/Ti [...] Additional history exists CKD PHOS USE SMARTSET 48228 03/28/202403/13, 05/31/2022, 03/02/2021, Additional history exists DIABETES-EYE EXAM 07/07/2024 07/07/2023, , 01/04/2021, Additional history exists CKD HGB USE SMARTSET 94735 07/21/202407/21, 07/21/2023, 11/29/2022, Additional history exists Lipid [...] Advance Directives occurred with: Patient Care Teams Contractor Field Hauling Relationship Specialty Start Date End Date Mango Tamez MD 27 [facility] [place] [address] PCP - General Family Medicine 05/28/21 documented as of this encounter
--- OUTSIDE RECORDS SUMMARY | 2023-08-26 22:55 | External Medical Summary | Summary of Care ---
Author Name Unknown Organization [facility] Address [address] [facility] [place] [address] Phone [phone] Care Team Providers Care Criminalist Technician Name Role Phone Mango Tamez MD Primary Care Provider [phone] Reason for Visit * Reason Onset Date Comments Medication Refill 07/21/2023 Repatha Encounter Details Date Type Department Care Team Description 07/21/2023 Refill [facility], [place] [address] [facility] [place] [address] Mango Tamez MD 27 [place] [address] Dyslipidemia, goal LDL below 70* Allergies Active Allergy Reactions Severity Noted Date [...] 02/13/2023 Active Gabapentin 300 MG Oral Capsule (Neurontin)Indica [...] 3 06/30/2023 Active FreeStyle Que 14 Day [place] DeviceIndications :Hypoglycemia USE DIRECTED. 1 Each 0 [...] ons:Dysfunction of right eustachian tube Administer 1 [place] into nostril in the morning and 1 [place] before bedtime. 30 mL 12 07/21/2023 Active Repatha Pushtronex System 420 MG/3.5ML Subcutaneous Solution Cartridge (Evolocumab with Infusor)Indicatio ns:Dyslipidemia, goal LDL below 70 Inject 420 mg under the skin Every Month. Administer over 5 minutes. Remove from refrigerator 45 minutes prior to injection. 10.5 mL 5 04/11/2023 3 Discontinu ed(Refill) documented as of this [...] Proliferation L low Back 07/06/2010 Overview: CF [id number] Skin, left lower back: Atypical predominantly junctional [...] encounter Miscellaneous Notes * Telephone Encounter - NAHEED Jenkins - 07/22/2023 9:14 AM EDTSigned Prescriptions: Disp Refills Repatha Pushtronex System 420 MG/3.5ML Sub*10.5 mL5 Sig: Inject 420 mg under the skin Every Month. Administer over 5 minutes. Remove from refrigerator 45 minutes prior to injection. Authorizing Provider: GINGER CHEN * Telephone Encounter - Justine Olmstead LPN - 07/21/2023 2:10 PM EDT Pending Prescriptions: Disp Refills Repatha Pushtronex System 420 MG/3.5ML Rajput*10.5 mL5 Sig: Inject 420 mg under the skin Every Month. Administer over 5 minutes. Remove from refrigerator 45 minutes prior to injection. 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 ([facility]) E11.22 Mild aortic stenosis I35.0 Recurrent major depressive disorder ([facility]) F33.9 Recurrent major depressive disorder (HCC) F33.9 Labs: Lab Results Component Value Date/Time CREAT GFR 0.91 04/21/2017 08:52 AM CREATININE - [facility] 1.2 (H) 03/28/2023 09:02 AM CREATININE - [facility] 1.1 (H) 10/11/2020 08:18 AM CREATININE, RANDOM URINE - [facility] 81 12/03/2022 12:19 PM CREATININE, RANDOM URINE - [facility] 138 06/22/2020 09:40 AM Lab Results Component Value Date/Time POTASSIUM - [facility] 5.0 03/28/2023 09:02 AM POTASSIUM - [facility] 4.7 10/11/2020 08:18 AM Lab Results Component Value Date/Time TSH - [facility] 2.41 12/03/2022 01:53 PM TSH - [facility] 1.56 07/11/2020 08:48 AM Lab Results Component Value Date/Time LDL CHOLESTEROL (CALCULATED) - [facility] 205 (H) 03/28/2023 09:02 AM LDL CHOLESTEROL (CALCULATED) - [facility] 108 11/27/2022 10:37 AM LDL CHOLESTEROL (CALCULATED) - [facility] 131 (H) 10/11/2020 08:18 AM LDL CHOLESTEROL (CALCULATED) - [facility] 85 11/22/2019 08:13 AM LDL CHOLESTEROL (DIRECT MEASURE) - [facility] NOT APPLICABLE 10/11/2020 08:18 AM LDL CHOLESTEROL (DIRECT MEASURE) - [facility] NOT APPLICABLE 11/22/2019 08:13 AM Lab Results Component Value Date/Time ALT - [facility] 37 (H) 03/28/2023 09:02 AM ALT - [facility] 56 (H) 10/11/2020 08:18 AM No results found for: HBA1C Justine boss LPN documented in this encounter Plan of Treatment Upcoming Encounters Date Type Specialty Care Team Description 08/06/2023 Hospital Encounter Endoscopy Daisha Pierson, DO [address] [place] [address] 08/06/2023 Surgery Endoscopy Daisha Pierson, DO [address] [place] [address] COLONOSCOPY FLEXIBLE PROXIMAL DIAGNOSTIC 08/12/2023 Telemedicine Cardiology [facility] [address] [facility] [address] 08/26/2023 Office Visit Family Medicine Dann Pena, [address] [place] [address] 10/08/2023 Laboratory Laboratory [place], Lab [address] [facility] [address] [place] [address] 10/10/2023 Office Visit Family Medicine Mango Tamez MD 27 [facility] [place] [address] 02/20/2024 Office Visit Dermatology Dariana Oquendo PA-C 27 [facility] [address] [place] [address] 06/15/2024 Office Visit Cardiology Ginger Chen CRNP 400 [facility] [place] [phone] Scheduled Procedures Name Priority Associated Diagnoses Date/Ti [...] Additional history exists CKD PHOS USE SMARTSET 27427 03/28/202403/13, 05/31/2022, 03/02/2021, Additional history exists DIABETES-EYE EXAM 07/07/2024 07/07/2023, , 01/04/2021, Additional history exists CKD HGB USE SMARTSET 11795 07/21/202407/21, 07/21/2023, 11/29/2022, Additional history exists Lipid Panel 03/28/2028 03/28/2023, 11/13, 11/22/2021, Additional history exists Hepatitis B Completed 11/05/2004, 06/10/2003, 02/08/2004 Influenza Vaccine (FLU shot) Completed 07/21/2023, [...] below 70- Primary Other and unspecified hyperlipidemia History of colonic polyps Personal history of [...] Advance Directives occurred with: Patient Care Teams Criminalist Technician Relationship Specialty Start Date End Date Mango Tamez MD [address] [place] [address] PCP - General Family Medicine 05/28/21 documented as of this encounter
--- OUTSIDE RECORDS SUMMARY | 2023-08-26 22:55 | External Medical Summary | Summary of Care ---
Author Name Unknown Organization [facility] Address [address] [facility] [place] [address] Phone [phone] Care Team Providers Care Header Dock Name Role Phone Mango Tamez MD Primary Care Provider [phone] Reason for Visit * Reason Onset Date Comments Med Request 07/21/2023 NANCIE Encounter Details Date Type Department Care Team Description 07/21/2023 Telephone [facility] [address] [facility] [place] [address] Daisha Pierson, DO [address] [place] [id number] Med Request (NANCIE) Allergies Active Allergy Reactions [...] 3 3 Active FreeStyle Que 14 Day [place] DeviceIndications :Hypoglycemia USE DIRECTED. 1 Each 0 3 Active FLUoxetine HCl 20 MG Oral Capsule (PROzac)Indicatio ns:Moderate episode of recurrent major depressive disorder (HCC) Take 1 Capsule by mouth in the morning. 0 3 Active PEG 1197-MBg-IzJje-Na Cl-NaSulf 236 GM Oral Solution Reconstituted Take [...] ons:Dysfunction of right eustachian tube Administer 1 [place] into nostril in the morning and 1 [place] before bedtime. 30 mL 12 3 Active [...] Proliferation L low Back 07/06/2010 Overview: CF [id number] Skin, left lower back: Atypical predominantly junctional [...] use for her colonoscopy prep. [facility]. documented in this encounter Plan of Treatment Upcoming Encounters Date Type Specialty Care Team Description 08/06/2023 Hospital Encounter Endoscopy Daisha Pierson, DO [address] [place] [address] 08/06/2023 Surgery Endoscopy Daisha Pierson, DO [address] [place] [address] COLONOSCOPY FLEXIBLE PROXIMAL DIAGNOSTIC 08/12/2023 Telemedicine Cardiology [facility] Cardiology [address] [place], [place] [address] [address] 08/26/2023 Office Visit Family Medicine Dann Pena DO [address] [place] [address] 10/08/2023 [place] [facility] 4 [place], [place] [id number] 10/10/2023 Office Visit Family Medicine Mango Tamez MD 27 [facility] [place] [address] 02/20/2024 Office Visit Dermatology Dariana Oquendo PA-C 27 [facility] 140 [place] [address] 06/15/2024 Office Visit Cardiology Tali Chen CRNP 400 [facility] [place] [address] Scheduled Procedures Name Priority Associated Diagnoses Date/Ti [...] Additional history exists CKD PHOS USE SMARTSET 04796 03/28/202403/13, 05/31/2022, 03/02/2021, Additional history exists DIABETES-EYE EXAM 07/07/2024 07/07/2023, , 01/04/2021, Additional history exists CKD HGB USE SMARTSET 44437 07/21/202407/21, 07/21/2023, 11/29/2022, Additional history exists Lipid [...] Advance Directives occurred with: Patient Care Teams Header Dock Relationship Specialty Start Date End Date Mango Tamez MD [address] [place] [address] PCP - General Family Medicine 05/28/21 documented as of this encounter
--- OUTSIDE RECORDS SUMMARY | 2023-08-26 22:55 | External Medical Summary ---
Author Name Unknown Address Unknown Organization K01[place] [place] [address] [facility] [address] Laboratory Report Ordering Provider Test Date Status ITZ STONE 07/21/2023 15:21:46 Final Observation Date Value Abnormality Reference (Units ) Status HbA1C 07/21/2023 15:21:46 5.8 Above high normal 4. 0-5.6 (%) Final The use of HbA1c to monitor glycemic status is based on normal hemoglobin and HbA composition. This test should not be used in patients with abnormal hemoglobin that affects the half life of the red blood cell or the in vivo glycation rates. Glucose, estimated average 07/21/2023 15:21:46 120 <126 (mg/dL) Final [place]forming Location [facility] [place] [address] [facility] [address]
--- OUTSIDE RECORDS SUMMARY | 2023-08-26 22:55 | External Medical Summary | Summary of Care ---
Author Name Unknown Organization [facility] Address [address] [facility] [place] [address] Phone [phone] Care Team Providers Care College Intern Name Role Phone Chase Tamez MD Primary Care Provider [phone] Reason for Visit * Reason Comments eRx-Medication Refill Encounter Details Date Type Department Care Team Description 07/22/2023 Refill Family [facility], [place] [address] [facility] [place] [address] Amna Riggins MD 27 [place] [address] Hypoglycemia Allergies Active Allergy Reactions Severity Noted Date [...] 3 3 Active FreeStyle Que 14 Day [place] DeviceIndications :Hypoglycemia USE DIRECTED. 1 Each 0 3 Active FLUoxetine HCl 20 MG Oral Capsule (PROzac)Indicatio ns:Moderate episode of recurrent major depressive disorder (HCC) Take 1 Capsule by mouth in the morning. 0 3 Active PEG 4068-QDd-OtKez-Na Cl-NaSulf 236 GM Oral Solution Reconstituted Take [...] ons:Dysfunction of right eustachian tube Administer 1 [place] into nostril in the morning and 1 [place] before bedtime. 30 mL 12 3 Active FreeStyle Que 2 SensorIndications :Hypoglycemia use every 2 weeks as directed 1 Each 1 3 Active FreeStyle Que 14 Day SensorIndications [...] Proliferation L low Back 07/06/2010 Overview: CF [id number] Skin, left lower back: Atypical predominantly junctional [...] encounter Miscellaneous Notes * Telephone Encounter - Chase Tamez MD - 07/22/2023 9:05 AM EDTSigned Prescriptions: Disp Refills FreeStyle Que 2 Sensor 1 Each 1 Sig: use every 2 weeks as directed Authorizing Provider: CHASE TAMEZ * Telephone Encounter - Christine Werner MED ASSIST - 07/22/2023 8:58 AM EDT Pending Prescriptions: Disp Refills FreeStyle Que 2 Sensor 1 Each 1 Sig: use every 2 weeks as directed * Telephone Encounter - Christine Werner MED ASSIST - 07/22/2023 8:57 AM EDT Did you pend patient's preferred pharmacy and medication before forwarding?yes Pharmacy: [facility] [address] [place] Pending Prescriptions: Disp Refills FreeStyle Que 2 Sensor [Pharmacy Med Na*1 Each 1 Sig: use every 2 weeks as directed Last Visit: 07/21/2023 (in office), 02/13/2023 (telemedicine) Next Visit: 08/26/2023 If no future appointments scheduled, and last appointment is greater than a year ago, please schedule patient for a follow-up appointment Last date the medication was ordered: 11/06/2022 Is this request for a controlled substance?No Urine Drug Screen: Results for orders placed or performed during the hospital encounter of 11/27/22 TOXICOLOGY, URINE SCREEN W/O CONFIRMATION Result Value Amphetamine Negative Benzodiazepines Negative Cannabinoids Negative Cocaine Metabolite Negative Fentanyl Negative Hydrocodone / Hydromorphone Negative Methadone Metabolite Negative Morphine / Codeine Negative Oxycodone / Oxymorphone Negative Narrative Cutoff Concentrations: Drug Level Amphetamines 500 ng/mL Benzodiazepines 100 ng/mL Cannabinoids 50 ng/mL Cocaine Metabolite 150 ng/mL Fentanyl 1 ng/mL Hydrocodone / Hydromorphone 300 ng/mL Methadone Metabolite 100 ng/mL Morphine / Codeine 300 ng/mL Oxycodone / Oxymorphone 100 ng/mL Screening results are presumptive and can only be used for medical purposes. Confirmatory testing is available upon request. Patient Phone Numbers Labs: Lab Results Component Value Date/Time CREAT 1.3 (H) 07/21/2023 03:21 PM CREAT 1.1 (H) 10/11/2020 08:18 AM POTASSIUM 4.7 07/21/2023 03:21 PM POTASSIUM 4.7 10/11/2020 08:18 AM TSH 2.49 07/21/2023 03:21 PM TSH 1.56 07/11/2020 08:48 AM LDLCALC 205 (H) 03/28/2023 09:02 AM LDLCALC 131 (H) 10/11/2020 08:18 AM LDLDIRECT NOT APPLICABLE 10/11/2020 08:18 AM ALT 45 (H) 07/21/2023 03:21 PM ALT 56 (H) 10/11/2020 08:18 AM HGBA1C 5.8 (H) 07/21/2023 03:21 PM HGBA1C 7.4 (H) 10/11/2020 08:18 AM documented in this encounter Plan of Treatment Upcoming Encounters Date Type Specialty Care Team Description 08/06/2023 Hospital Encounter Endoscopy Daisha Pierson, DO [address] [place] [address] 08/06/2023 Surgery Endoscopy Daisha Pierson, DO [address] [place] [address] COLONOSCOPY FLEXIBLE PROXIMAL DIAGNOSTIC 08/12/2023 Telemedicine Cardiology [facility] [place] [facility] [address] [place] [address] 08/26/2023 Office Visit Family Medicine Dann Pena DO [facility] [place] [address] 10/08/2023 Laboratory Laboratory [place], Lab 27 [facility] [address] [place] [address] 10/10/2023 Office Visit Family Medicine Chase Tamez MD 27 [facility] [place] [address] 02/20/2024 Office Visit Dermatology Dariana Oquendo PA-C [address] [place] [address] 06/15/2024 Office Visit [facility] [phone] Scheduled Procedures Name Priority Associated Diagnoses Date/Ti [...] Additional history exists CKD PHOS USE SMARTSET 59832 03/28/202403/13, 05/31/2022, 03/02/2021, Additional history exists DIABETES-EYE EXAM 07/07/2024 07/07/2023, , 01/04/2021, Additional history exists CKD HGB USE SMARTSET 95752 07/21/202407/21, 07/21/2023, 11/29/2022, Additional history exists Lipid [...] as of this encounter Visit Diagnoses Diagnosis Hypoglycemia Hypoglycemia, unspecified History of colonic polyps Personal history of [...] Advance Directives occurred with: Patient Care Teams College Intern Relationship Specialty Start Date End Date Chase Tamez MD [address] [facility] [address] [place] [address] PCP - General Family Medicine 05/28/21 documented as of this encounter
--- OUTSIDE RECORDS SUMMARY | 2023-08-26 22:55 | External Medical Summary | Summary of Care ---
Author Name Unknown Organization [facility] Address [address] [address] Phone [phone] Care Team Providers Care Repairer Welding Equipment Name Role Phone Mango Tamez MD Primary Care Provider [phone] Reason for Visit * Reason Onset Date Comments Fatigue Pt states her sy mptoms started approx 2 weeks and is wondering if it has something to do with the season change because she states every time the seasons change it seems to be this way. Agitated increased Blocked Ear Pt states she ge ts pain in her right ear but has tinnitus in both and just feels like her equilibrium is off and states her judgement of distance is off. She said this has been going on for the last month or more. Memory Problems Pt states she edmonds s a horrible time remembering things and ends up doing several tasks without completing them at times. Medication Administration 07/21/2023 Flu an d/or Pneumo Inj Blood Sugar Problem Pt states he r BS has been running low. She said 56 was the lowest and has been in the 60s at times. She said the highest has been around 110-113 Encounter Details Date Type Department Care Team Description 07/21/2023 Office Visit [facility] Radha Jiang [address] [facility] [place] [address] Mango Tamez MD [address] [facility] [place] [phone] Moderate episode of recurrent major depressive disorder (HCC)*; Memory changes; Dysfunction of right eustachian tube; Type 2 diabetes mellitus with hemoglobin A1c goal of less than 7.0% ([facility]); Type 2 diabetes mellitus with stage 3a chronic kidney disease, without long-term current use of insulin ([facility]); SAMI on CPAP; Need for prophylactic vaccination and inoculation against influenza Allergies Active Allergy Reactions Severity Noted Date [...] as of this encounter (statuses as of 07/21/2023) Medications Medication Sig Dispensed Refills Start Date [...] hemoglobin A1c goal of less than 7.0% ([facility]) Inject 1.5 mg under the skin once [...] 3 06/30/2023 Active FreeStyle Que 14 Day [place] DeviceIndications :Hypoglycemia USE DIRECTED. 1 Each 0 07/01/2023 Active FLUoxetine HCl 20 MG Oral Capsule (PROzac)Indicatio ns:Moderate episode of recurrent major depressive disorder (HCC) Take 1 Capsule by mouth in the morning. 0 07/17/2023 Active buPROPion HCl ER (XL) 300 MG Oral Tablet Extended Release 24 Hour (Wellbutrin XL)Indications:Mo derate episode of recurrent major depressive disorder (HCC) Take 1 Tablet by mouth in the morning. 90 Tablet 0 07/21/2023 Active Azelastine HCl 0.1 % Nasal Solution (Astelin)Indicati ons:Dysfunction of right eustachian tube Administer 1 [place] into nostril in the morning and 1 [place] before bedtime. 30 mL 12 07/21/2023 Active buPROPion HCl ER (XL) 150 MG Oral Tablet Extended Release 24 Hour (Wellbutrin XL) Take 1 Tablet by mouth in the morning. 30 Tablet 2 05/06/2023 3 Discontinu ed(Refill) documented as of this encounter (statuses as of 07/21/2023) Active Problems Problem Noted Date Recurrent major [...] Proliferation L low Back 07/06/2010 Overview: CF [id number] Skin, left lower back: Atypical predominantly junctional [...] as of this encounter (statuses as of 07/21/2023) Resolved Problems Problem Noted Date Resolved Date [...] as of this encounter (statuses as of 07/21/2023) Immunizations Name Administration Dates Next Due HEP [...] Sign Reading Time Taken Comments Blood Pressure 126/80 07/21/2023 2:19 PM EDT Pulse 61 07/21/2023 2:19 PM EDT Temperature 36.7 C (98 F) 07/21/2023 2:19 PM EDT Respiratory Rate 16 07/21/2023 2:19 PM EDT Oxygen Saturation 96% 07/21/2023 2:19 PM EDT Inhaled Oxygen Concentration - - Weight 99.6 kg (219 lb 9.6 oz) 07/21/2023 2:19 P M EDT Height 157.5 cm (5' 2") 07/21/2023 2:19 PM EDT Body Mass Index 40.17 07/21/2023 2:19 PM EDT documented in this encounter Functional Status [...] this encounter Patient Instructions * Patient Instructions* Justine Olmstead LPN - 07/21/2023 2:13 PM EDT ~~PATIENT INSTRUCTIONS FOR FLU SHOT~~ Possible side effects of influenza vaccine, (flu shot), are usually mild and include: 1. Soreness or redness at injection site 2. Low grade fever 3. Body aches You may use Tylenol/Acetaminophen as needed for these symptoms. LET YOUR DOCTOR KNOW IMMEDIATELY IF YOU HAVE DIFFICULTY BREATHING OR SWALLOWING, EXPERIENCE ITCHINGOF FEET OR HANDS, HAVE SWELLING OF EYES, FACE OR INSIDE OF NOSE. documented in this encounter Progress Notes * Mango Tamez MD - 07/21/2023 2:39 PM EDT Images from the original note were not included. History of Present Illness Clary Leonardo is a 62 year old female that presents for Fatigue (Pt states her symptoms started approx 2 weeks and is wondering if it has something to do with the season change because she states every time the seasons change it seems to be this way. ), Agitated (increased), Blocked Ear (Pt statesshe gets pain in her right ear but has tinnitus in both and just feels like her equilibrium is off a nd states her judgement of distance is off. She said this has been going on for the last month or more.), Memory Problems (Pt states she has a horrible time remembering things and ends up doing several tasks without completing them at times. ), Medication Administration (Flu and/or Pneumo Inj), andBlood Sugar Problem (Pt states her BS has been running low. She said 56 was the lowest and has beenin the 60s at times. She said the highest has been around 110-113) Patient presents with multiple complaints: Depression/anxiety Has been worsening over the last 2 weeks States that she usually gets worse during season changes in the fall and spring She notes that she has no desire to do anything and has no ambition to do anything - also states that she is "mean and grouchy" - she is easily irritable - has trouble concentrating and remembering things She did try therapy in the past but did not like this He is not taking her BuSpar Hypoglycemia: Started a few weeks ago with having lower sugars - states that her monitor would go off At time she would feel hypoglycemic and at other times she would not She also notes that she was not eating well during this time She feels that over the last few days it has even out Right ear pain: Intermittent issue that has been ongoing for the last 6 months Associated with feeling unbalanced - states that she runs into doors all the time Also endorses ringing in her ears Current Outpatient Medications Medication Instructions aspirin 81 mg, Oral, Daily(AM) buPROPion XL (WELLBUTRIN XL) 150 mg, Oral, Daily(AM) busPIRone (BUSPAR) 10 mg, Oral, TID(AM/NOON/HS) CPAP QHS Dulaglutide (TRULICITY) 1.5 mg, Subcutaneous, QWEEK FLUoxetine (PROZAC) 20 mg, Oral, Daily(AM) FLUoxetine HCl 60 mg, Oral, Daily(AM) InsightsStyle Que 14 Day [place] Device USE DIRECTED. InsightsStyle Que 14 Day Sensor Apply new sensor every 14 days Gabapentin (NEURONTIN) 300 mg, Oral, HS metoprolol succinate XL (TOPROL XL) 25 mg, Oral, Daily(AM) Omeprazole 40 MG Oral Capsule Delayed Release (PriLOSEC) TAKE ONE CAPSULE TWICE A DAY Repatha Pushtronex System 420 mg, Subcutaneous, QMONTH, Administer over 5 minutes. Remove from refrigerator 45 minutes prior to injection. rosuvastatin (CRESTOR) 40 mg, Oral, QHS traZODone (DESYREL) 50 mg, Oral, HS Physical Exam Vitals: 07/21/23 1419 Temp: 36.7 C (98 F) Pulse: 61 Resp: 16 SpO2: 96% BP: 126/80 BMI: 40.16 BP Readings from Last 3 Encounters: 07/21/23 126/80 06/02/23 106/68 03/31/23 110/68 Wt Readings from Last 3 Encounters: 07/21/23 99.6 kg (219 lb 9.6 oz) 06/02/23 99.8 kg (220 lb) 03/31/23 99.8 kg (220 lb) Physical Exam Constitutional: General: She is not in acute distress. Appearance: Normal appearance. HENT: Head: Normocephalic and atraumatic. Eyes: General: No scleral icterus. Right eye: No discharge. Left eye: No discharge. Extraocular Movements: Extraocular movements intact. Conjunctiva/sclera: Conjunctivae normal. Cardiovascular: Rate and Rhythm: Normal rate and regular rhythm. Heart sounds: Normal heart sounds. No murmur heard. No friction rub. No gallop. Pulmonary: Effort: Pulmonary effort is normal. No respiratory distress. Breath sounds: Normal breath sounds. No wheezing, rhonchi or rales. Musculoskeletal: Cervical back: Normal range of motion. No rigidity. Right lower leg: No edema. Left lower leg: No edema. Skin: General: Skin is warm and dry. Neurological: Mental Status: She is alert. Psychiatric: Mood and Affect: Mood normal. Behavior: Behavior normal. I have reviewed the following results: Lipid Panel, Hemoglobin A1C, and BMP Assessment and Plan Moderate episode of recurrent major depressive disorder (HCC) She is not been taking BuSpar and will hold at this time Increase Wellbutrin from 150 mg to 300 mg daily Continue Prozac 80 mg daily - buPROPion HCl ER (XL) 300 MG Oral Tablet Extended Release 24 Hour (Wellbutrin XL); Take 1 Tablet by mouth in the morning. - CBC WITH WBC DIFFERENTIAL AND ANEMIA REFLEX WORKUP; Future - COMPREHENSIVE METABOLIC PANEL; Future - 25-HYDROXY VITAMIN D; Future - TSH WITH FREE T4 IF INDICATED; Future Memory changes - CBC WITH WBC DIFFERENTIAL AND ANEMIA REFLEX WORKUP; Future - COMPREHENSIVE METABOLIC PANEL; Future - HEMOGLOBIN A1C; Future - 25-HYDROXY VITAMIN D; Future - TSH WITH FREE T4 IF INDICATED; Future Dysfunction of right eustachian tube - Azelastine HCl 0.1 % Nasal Solution (Astelin); Administer 1 [place] into nostril in the morning and1 [place] before bedtime. Type 2 diabetes mellitus with hemoglobin A1c goal of less than 7.0% ([facility]) If A1c is under 6 consider decreasing Trulicity to prevent other hypoglycemic events - CBC WITH WBC DIFFERENTIAL AND ANEMIA REFLEX WORKUP; Future - COMPREHENSIVE METABOLIC PANEL; Future - HEMOGLOBIN A1C; Future Type 2 diabetes mellitus with stage 3a chronic kidney disease, without long-term current use of insulin (HCC) - CBC WITH WBC DIFFERENTIAL AND ANEMIA REFLEX WORKUP; Future - COMPREHENSIVE METABOLIC PANEL; Future - HEMOGLOBIN A1C; Future SAMI on CPAP Need for prophylactic vaccination and inoculation against influenza - INFLUENZA VACC, QUAD, PF, 6 MONTHS & UP, 0.5 ML, IM Wrap-Up Follow Up: Return in about 4 weeks (around 08/18/2023) for Routine. | For: Routine | Check-out note:Labs today Needs to get neuropsych testing done that was ordered by psychiatry 4-6 week fu with residents on my day * Justine Olmstead LPN - 07/21/2023 2:12 PM EDT PRE - ADMINISTRATION DOCUMENTATION Are you experiencing any cold symptoms or fever? No Have you had Guillain-Bandana Syndrome (an illness that causes paralysis) within the last 6 weeks? No Have you had the flu shot in the past? YES Have you ever had a reaction to the flu shot? No Justine boss LPN, 07/21/2023 2:12 PM Immunization Administration Documentation Time Out Procedure Performed: Yes Patient Identified (Ask Name/Date of ): Yes Does the patient have a fever greater than 101 degrees today? No Patient allergic to latex? No VFC Stock: No Immunization(s) verified: Yes, Immunization Name: Flu, VIS Sheet(s) given: Yes Verified Side and Site: Yes Verified Shot(s) with Parent(s)/Patient: Yes documented in this encounter Nursing Notes * Justine Olmstead LPN - 07/21/2023 2:19 PM EDT Chief Complaint Patient presents with Fatigue Pt states her symptoms started approx 2 weeks and is wondering if it has something to do with the season change because she states every time the seasons change it seems to be this way. Agitated increased Blocked Ear Pt states she gets pain in her right ear but has tinnitus in both and just feels like her equilibrium is off and states her judgement of distance is off. She said this has been going on for the last month or more. Memory Problems Pt states she has a horrible time remembering things and ends up doing several tasks without completing them at times. Medication Administration Flu and/or Pneumo Inj Blood Sugar Problem Pt states her BS has been running low. She said 56 was the lowest and has been in the 60s at times.She said the highest has been around 110-113 documented in this encounter Plan of Treatment Upcoming Encounters Date Type Specialty Care Team Description 08/06/2023 Hospital Encounter Endoscopy Daisha Pierson, DO [address] [place] [address] 08/06/2023 Surgery Endoscopy Daisha Pierson, DO [address] [place] [address] COLONOSCOPY FLEXIBLE PROXIMAL DIAGNOSTIC 08/12/2023 Telemedicine Cardiology [facility] [address] [facility] [place] [id number] 08/26/2023 Office Visit Family Medicine Dann Pena, [address] [facility] [place] [address] 10/08/2023 Laboratory Laboratory [place], Lab [address] [facility] 4 [place] [address] 10/10/2023 Office Visit Family Medicine Mango Tamez MD [address] [place] [address] 02/20/2024 Office Visit Dermatology Dariana Oquendo PA-C [address] [place] [address] 06/15/2024 Office Visit Cardiology Tali Chen CRNP [address] [facility] [place] [address] Pending Results Name Type Priority Associated Diagnoses Date /Time CBC WITH WBC DIFFERENTIAL AND ANEMIA REFLEX WORKUP Lab Routine Type 2 diabetes mellitus with hemoglobin A1c goal of less than 7.0% (HCC) Type 2 diabetes mellitus with stage 3a chronic kidney disease, without long-term current use of insulin (HCC) Moderate episode of recurrent major depressive disorder (HCC) 07/21/2023 3:21 PM EDT COMPREHENSIVE METABOLIC PANEL Lab Routine Type 2 diabetes mellitus with hemoglobin A1c goal of less than 7.0% (HCC) Type 2 diabetes mellitus with stage 3a chronic kidney disease, without long-term current use of insulin (HCC) Moderate episode of recurrent major depressive disorder (HCC) 07/21/2023 3:21 PM EDT HEMOGLOBIN A1C Lab Routine Type 2 diabetes mellitus with hemoglobin A1c goal of less than 7.0% (HCC) Type 2 diabetes mellitus with stage 3a chronic kidney disease, without long-term current use of insulin (HCC) 07/21/2023 3:21 PM EDT 25-HYDROXY VITAMIN D Lab Routine Moderate episode of recurrent major depressive disorder (HCC) 07/21/2023 3:21 PM EDT TSH WITH FREE T4 IF INDICATED Lab Routine Moderate episode of recurrent major depressive disorder (HCC) 07/21/2023 3:21 PM EDT Scheduled Orders Name Type Priority Associated Diagnoses Orde r Schedule CBC WITH WBC DIFFERENTIAL AND ANEMIA REFLEX WORKUP Lab Routine Type 2 diabetes mellitus with hemoglobin A1c goal of less than 7.0% (HCC) Type 2 diabetes mellitus with stage 3a chronic kidney disease, without long-term current use of insulin (HCC) Moderate episode of recurrent major depressive disorder (HCC) Memory changes Expected: 07/21/2023 (Approximate), Expires: 07/21/2024 COMPREHENSIVE METABOLIC PANEL Lab Routine Type 2 diabetes mellitus with hemoglobin A1c goal of less than 7.0% (HCC) Type 2 diabetes mellitus with stage 3a chronic kidney disease, without long-term current use of insulin (HCC) Moderate episode of recurrent major depressive disorder (HCC) Memory changes Expected: 07/21/2023 (Approximate), Expires: 07/20/2024 HEMOGLOBIN A1C Lab Routine Type 2 diabetes mellitus with hemoglobin A1c goal of less than 7.0% (HCC) Type 2 diabetes mellitus with stage 3a chronic kidney disease, without long-term current use of insulin (HCC) Memory changes Expected: 07/21/2023 (Approximate), Expires: 07/20/2024 25-HYDROXY VITAMIN D Lab Routine Moderate episode of recurrent major depressive disorder (HCC) Memory changes Expected: 07/21/2023 (Approximate), Expires: 07/21/2024 TSH WITH FREE T4 IF INDICATED Lab Routine Moderate episode of recurrent major depressive disorder (HCC) Memory changes Expected: 07/21/2023 (Approximate), Expires: 07/20/2024 Scheduled Procedures Name Priority Associated Diagnoses Date/Ti [...] fire each visit until score < 10) 05/07/2023 05/06/2023 GFR 09/27/2023 03/28/2023, 11/14, 11/29/2022, Additional history exists HbA1c 09/27/2023 03/28/2023, 11/14, 11/27/2022, Additional history exists Zoster Vaccines (1 of 2) 11/13/2023 Pos tponed from 2008 (Patient Declined After Education) CKD HGB USE SMARTSET 94696 11/29/202311/29, 11/28/2022, 11/27/2022, Additional history exists Albumin/Creatinine Ratio 12/03/2023 023, 11/22/2021, 06/25/2021, Additional history exists Diabetic Foot Exam 12/03/2023 12/03/2022, 0 05/28/2021, 05/29/2020, Additional history exists DTaP,Tdap,and Td Vaccines (2 - Td or Tdap) 12/23/2023 12/22/2013 Mammogram 02/12/2024 02/11/2023, 01/11, 07/10/2020, Additional history exists CKD PHOS USE SMARTSET 11367 03/28/202403/13, 05/31/2022, 03/02/2021, Additional history exists DIABETES-EYE EXAM 07/07/2024 07/07/2023, , 01/04/2021, Additional history exists Lipid Panel 03/28/2028 03/28/2023, [...] as of this encounter Visit Diagnoses Diagnosis Moderate episode of recurrent major depressive disorder (HCC)- Primary Memory changes Memory loss Dysfunction of right eustachian tube Dysfunction of Eustachian tube Type 2 diabetes mellitus with hemoglobin A1c goal of less than 7.0% (HCC) Type 2 diabetes mellitus with stage 3a chronic kidney disease, without long-term current use of insulin (HCC) SAMI on CPAP Obstructive sleep apnea (adult) (pediatric) Need for prophylactic vaccination and inoculation against influenza History of colonic polyps Personal history of [...] Advance Directives occurred with: Patient Care Teams Repairer Welding Equipment Relationship Specialty Start Date End Date Mango Tamez MD [address] [place] [address] PCP - General Family Medicine 05/28/21 documented as of this encounter
--- OUTSIDE RECORDS SUMMARY | 2023-08-26 22:55 | External Medical Summary | Summary of Care ---
Author Name Unknown Organization [facility] Address [address] [facility] [facility] [address] Phone [phone] Care Team Providers Care Bomb Squad Officer Name Role Phone Mango Tamez MD Primary Care Provider [phone] Reason for Visit * Reason Comments Outpatient Testing Encounter Details Date Type Department Care Team Description 07/21/2023 Laboratory Laboratory, [place] [address] [facility] [address] [id number] [place], Lab [address] [facility] [address] [place], [place] [id number] Type 2 diabetes mellitus with hemoglobin A1c goal of less than 7.0% ([facility]); Type 2 diabetes mellitus with stage 3a chronic kidney disease, without long-term current use of insulin ([facility]); Moderate episode of recurrent major depressive disorder ([facility]) Allergies Active Allergy Reactions Severity Noted Date [...] End Date Status FreeStyle Que 14 Day SensorIndications: Hypoglycemia Apply new sensor every 14 days 2 [...] 02/13/2023 Active Gabapentin 300 MG Oral Capsule (Neurontin)Indicat [...] 3 06/30/2023 Active FreeStyle Que 14 Day [place] DeviceIndications: Hypoglycemia USE DIRECTED. 1 Each 0 07/01/2023 Active FLUoxetine HCl 20 MG Oral Capsule (PROzac) [...] ns:Dysfunction of right eustachian tube Administer 1 [place] into nostril in the morning and 1 [place] before bedtime. 30 mL 12 07/21/2023 Active [...] melanocytic Proliferation L low Back 07/06/2010 Overview: [id number] Skin, left lower back: Atypical predominantly junctional [...] Pierson, DO [address] [place] [address] 08/06/2023 Surgery Endoscopy Daisha Pierson, DO [address] [place] [address] COLONOSCOPY FLEXIBLE PROXIMAL DIAGNOSTIC 08/12/[address] [facility] Card[facility] [address] [facility] [place] [address] 08/26/2023 Office Visit Family Medicine Dann Pena DO [address] [facility] [place] [address] 10/08/2023 Laboratory Laboratory [place], Lab [address] [facility] [address] [place] [address] 10/10/2023 Office Visit Family Medicine Mango Tamez MD [address] [facility] [place] [address] 02/20/2024 Office Visit Dermatology Dariana Oquendo PA-C [address] [place] [address] 06/15/2024 Office Visit Cardiology Tali Chen CRNP [address] [facility] [place] [address] Pending Results Name Type Priority Associated Diagnoses [...] depressive disorder (HCC) 07/21/2023 3:21 PM EDT ANEMIA CBC Lab Routine Type 2 diabetes mellitus with hemoglobin A1c goal of less than 7.0% (HCC) Type 2 diabetes mellitus with stage 3a chronic kidney disease, without long-term current use of insulin (HCC) Moderate episode of recurrent major depressive disorder (HCC) 07/21/2023 3:21 PM EDT DIFFERENTIAL, AUTOMATED Lab Routine Type 2 diabetes mellitus with hemoglobin A1c goal of less than 7.0% (HCC) Type 2 diabetes mellitus with stage 3a chronic kidney disease, without long-term current use of insulin (HCC) Moderate episode of recurrent major depressive disorder (HCC) 07/21/2023 3:21 PM EDT ANEMIA REFLEX CHEMISTRY HOLD Lab Routine Type 2 diabetes mellitus with hemoglobin A1c goal of less than 7.0% (HCC) Type 2 diabetes mellitus with stage 3a chronic kidney disease, without long-term current use of insulin (HCC) Moderate episode of recurrent major depressive disorder (HCC) 07/21/2023 3:21 PM EDT Scheduled Procedures Name Priority Associated Diagnoses [...] Declined After Education) CKD HGB USE SMARTSET 98130 11/29/202311/29, 11/28/2022, 11/27/2022, Additional history exists Albumin/Creatinine Ratio 12/03/2023 023, 11/22/2021, 06/25/2021, Additional history exists Diabetic Foot Exam 12/03/2023 12/03/2022, 0 05/28/2021, 05/29/2020, Additional history exists DTaP,Tdap,and Td Vaccines (2 - Td or Tdap) 12/23/2023 12/22/2013 Mammogram 02/12/2024 02/11/2023, 01/11, 07/10/2020, Additional history exists CKD PHOS USE SMARTSET 13228 03/28/202403/13, 05/31/2022, 03/02/2021, Additional history exists DIABETES-EYE [...] episode of recurrent major depressive disorder (HCC) History of colonic polyps Personal history [...] Advance Directives occurred with: Patient Care Teams Bomb Squad Officer Relationship Specialty Start Date End Date Mango Tamez MD [address] [place] [address] PCP - General Family Medicine 05/28/21 documented as of this encounter
--- OUTSIDE RECORDS SUMMARY | 2023-08-26 22:56 | External Medical Summary | Summary of Care ---
Author Name Unknown Organization [facility] Address [address] [place] [address] Phone [phone] Care Team Providers Care Fuel Efficient Aircraft Designer Name Role Phone Mango Tamez MD Primary Care Provider [phone] Encounter Details Date Type Department Care Team Description 04/11/2023 Specialty Pharmacy [facility], [address], [address] [place] [address] Medication, [facility], [address] [address] Allergies Active Allergy Reactions Severity Noted Date [...] as of this encounter (statuses as of 07/03/2023) Medications Medication Sig Dispensed Refills Start Date End Date Status Jarvis Que 14 Day SensorIndication s:Hypoglycemia Apply new sensor every 14 days 2 Each 12 3 Active CPAP every night at bedtime. 0 Active Aspirin 81 MG Oral Tablet Chewable Take 1 Tablet by mouth in the morning. 30 Tablet 0 3 Active Metoprolol Succinate ER 25 MG Oral Tablet Extended Release 24 Hour (toPROL XL) Take 1 Tablet by mouth in the morning. 90 Tablet 3 3 Active Dulaglutide 1.5 MG/0.5ML Subcutaneous Solution Pen-injector (Trulicity)Indic ations:Type 2 diabetes mellitus with hemoglobin A1c goal of less than 7.0% (HCC) Inject 1.5 mg under the skin once a week. 2 mL 5 3 Active Gabapentin 300 MG Oral Capsule (Neurontin)Indic ations:DM type 2 with diabetic peripheral neuropathy (HCC) Take 1 Capsule by mouth at bedtime. 90 Capsule 1 3 Active Rosuvastatin Calcium 40 MG Oral Tablet (Crestor)Indicat ions:Dyslipidemi a Take 1 Tablet by mouth every night at bedtime. 90 Tablet 3 3 Active Repatha Pushtronex System 420 MG/3.5ML Subcutaneous Solution Cartridge (Evolocumab with Infusor)Indicati ons:Dyslipidemia , goal LDL below 70 Inject 420 mg under the skin Every Month. Administer over 5 minutes. Remove from refrigerator 45 minutes prior to injection. 10.5 mL 5 3 Active FreeStyle Que 14 Day [place] DeviceIndication s:Hypoglycemia Use as directed. 1 Each 0 1 07/01/20 23 Discontinued Fluticasone Propionate 50 MCG/ACT Nasal Suspension (Flonase) ADMINISTER 2 SPRAYS INTO EACH NOSTRIL DAILY IN THE MORNING - DO NOT START BEFORE MAY 23, 2022 94 mL 3 2 05/22/20 23 Additional Information Patient taking differently: 1 Era Nasal DAILY PRN, Allergies, Reported on 11/27/2022 Omeprazole 40 MG Oral Capsule Delayed Release (PriLOSEC)Indica tions:Gastroesop hageal reflux disease, unspecified whether esophagitis present Take 1 Capsule by mouth in the morning and 1 Capsule before bedtime. 180 Capsule 3 3 06/30/20 23 Discontinued busPIRone HCl 10 MG Oral Tablet (Buspar)Indicati ons:Depression with anxiety Take 1 Tablet by mouth in the morning and 1 Tablet at noon and 1 Tablet in the evening and 1 Tablet before bedtime. 120 Tablet 0 3 05/06/20 23 Discontinued(Re fill) buPROPion HCl ER (XL) 150 MG Oral Tablet Extended Release 24 Hour (Wellbutrin XL)Indications:D epression with anxiety Take 1 Tablet by mouth in the morning. 30 Tablet 0 3 05/06/20 23 Discontinued(Re fill) FLUoxetine HCl 60 MG Oral TabletIndication s:Depression with anxiety,Recurren t major depressive disorder, remission status unspecified ([facility]) Take 1 Tablet by mouth in the morning. 30 Tablet 0 3 05/06/20 23 Discontinued(Re fill) traZODone HCl 50 MG Oral Tablet (Desyrel)Indicat ions:Insomnia, unspecified type Take 1 Tablet by mouth at bedtime. 30 Tablet 0 3 05/06/20 23 Discontinued(Re fill) documented as of this encounter (statuses as of 07/03/2023) Active Problems Problem Noted Date Recurrent major [...] Proliferation L low Back 07/06/2010 Overview: CF [id number] Skin, left lower back: Atypical predominantly junctional [...] as of this encounter (statuses as of 07/03/2023) Resolved Problems Problem Noted Date Resolved Date [...] as of this encounter (statuses as of 07/03/2023) Immunizations Name Administration Dates Next Due HEP A - Hepatitis A (Adult > 18 yrs) 02/08/2004 Hepatitis B, 20+ yrs 11/05/2004,03/13/2004,02/07 Pneumococcal Polysaccharide PPV23 (Pneumovax) 12/22/2013 Seasonal Influenza, Quadriva lent, No Preserve, IM [...] got money to buy more. Never true 12/03/2022 Within the past 12 months, t he food you bought just didn't last and you didn't have money to get more. Never true 12/03/2022 Sex Assigned at Date Recorded Female 01/14/2019 [...] as of this encounter Progress Notes * Siddhartha York RPh - 04/16/2023 3:48 PM EDT [facility] Prescribed medication: Medication: Repatha pushtronex Shipment date: 04/24 Delivery method: Specialty Mail Location Medication Delivered too? Home Address: [address] [place] [address] [place] [address] Siddhartha York RPh [facility] 04/16/2023,3:51 PM documented in this encounter Plan of Treatment Upcoming Encounters Date Type Specialty Care Team Description 07/07/2023 Nurse Only Ancillary Nurse Shirley Jung [address] [facility] [place] [address] 08/06/2023 Hospital Encounter Endoscopy Daisha Pierson, DO [address] [place] [address] 08/06/2023 Surgery Endoscopy Daisha Pierson, DO [address] [place] [address] COLONOSCOPY FLEXIBLE PROXIMAL DIAGNOSTIC 08/12/2023 Telemedicine Cardiology [facility] [address] [place] [address] [place] [address] 10/08/2023 Laboratory Laboratory Francoise [place] [address] [facility] 4 [place] [address] 10/10/2023 Office Visit Family Medicine Mango Tamez MD [address] [place] [address] [address] 02/20/2024 Office Visit Dermatology Dariana Oquendo PA-C [address] [place] [address] 06/15/2024 Office Visit Cardiology Tali Chen CRNP [address] [facility] [place] [address] Scheduled Procedures Name Priority Associated Diagnoses Date/Ti me COLONOSCOPY FLEXIBLE PROXIMAL DIAGNOSTIC History of colonic polyps 08/06/2023 9:45 AM EDT Health Maintenance Due Date Last Done Comments DXA Scan 1960 COVID-19 Vaccine (#1) 05/14/1961 Zoster Vaccines (1 of 2) 2008 Pneumococcal Vaccine: Pediatrics (0 to 5 Years) and At-Risk Patients (6 to 64 Years) (2 - PCV) 12/22/2014 12/22/2013 COLONOSCOPY-EVERY 3 YRS AGES 18-100 11/26/2021 11/26/2018, 11/26/2018 Depression, Most Recent Score >= 10 (will fire each visit until score < 10) 05/07/2023 05/06/2023 Influenza Vaccine (FLU shot) (#1) 2023 08/06/2022, 08/17/2021, 08/13/2020, Additional history exists DIABETES-EYE EXAM 07/04/2023 07/04/2022, , 05/21/2018, Additional history exists GFR 09/27/2023 03/28/2023, 11/14, 11/29/2022, Additional history exists HbA1c 09/27/2023 03/28/2023, 11/14, 11/27/2022, Additional history exists CKD HGB USE SMARTSET 72535 11/29/202311/29, 11/28/2022, 11/27/2022, Additional history exists Albumin/Creatinine Ratio 12/03/2023 023, 11/22/2021, 06/25/2021, Additional history exists Diabetic Foot Exam 12/03/2023 12/03/2022, 0 05/28/2021, 05/29/2020, Additional history exists DTaP,Tdap,and Td Vaccines (2 - Td or Tdap) 12/23/2023 12/22/2013 Mammogram 02/12/2024 02/11/2023, 01/11, 07/10/2020, Additional history exists CKD PHOS USE SMARTSET 43984 03/28/202403/13, 05/31/2022, 03/02/2021, Additional history exists Lipid Panel 03/28/2028 03/28/2023, 11/13, 11/22/2021, Additional history exists Hepatitis B Completed 11/05/2004, 10/2003, 02/08/2004 GARDASIL-HPV IMMUNIZATION SERIES Aged Out No longer [...] Advance Directives occurred with: Patient Care Teams Fuel Efficient Aircraft Designer Relationship Specialty Start Date End Date Mango Tamez MD [address] [place] [address] PCP - General Family Medicine 05/28/21 documented as of this encounter
--- OUTSIDE RECORDS SUMMARY | 2023-08-26 22:56 | External Medical Summary | Summary of Care ---
Author Name Unknown Organization [facility] Address [address] [facility] [place] [address] Phone [phone] Care Team Providers Care Business Office Specialist Name Role Phone Mango Tamez MD Primary Care Provider [phone] Reason for Visit * Reason Onset Date Comments Precert In Process 04/09/2023 29 [place] [facility] REP ATHA Precert Approved 04/09/2023 REPATHA Encounter Details Date Type Department Care Team Description 04/09/2023 Telephone Cardiology SpanglerErich Bhatia [address] [place] [address] Martine Storm, [facility] [address] [place] [id number] Precert In Process (29 [place] [facility] REPATHA ); P... Allergies Active Allergy Reactions Severity Noted Date [...] as of this encounter (statuses as of 04/11/2023) Medications Medication Sig Dispensed Refills Start Date End Date Status FreeStyle Que 14 Day [place] DeviceIndications :Hypoglycemia Use as directed. 1 Each 0 08/10/2021 Active Fluticasone Propionate 50 MCG/ACT Nasal Suspension (Flonase) ADMINISTER 2 SPRAYS INTO EACH NOSTRIL DAILY IN THE MORNING - DO NOT START BEFORE MAY 23, 2022 94 mL 3 05/22/2022 3 Active Additional Information Patient taking differently: 1 Temple Nasal DAILY PRN, Allergies, Reported on 11/27/2022 FreeStyle Que 14 Day SensorIndications :Hypoglycemia Apply [...] at bedtime. 90 Capsule 1 03/31/2023 Active Omeprazole 40 MG Oral Capsule Delayed Release (PriLOSEC)Indicat ions:Gastroesopha geal reflux disease, unspecified whether esophagitis present Take 1 Capsule by mouth in the morning and 1 Capsule before bedtime. 180 Capsule 3 03/31/2023 Active busPIRone HCl 10 MG Oral Tablet (Buspar)Indicatio ns:Depression with anxiety Take 1 Tablet by mouth in the morning and 1 Tablet at noon and 1 Tablet in the evening and 1 Tablet before bedtime. 120 Tablet 0 03/31/2023 Active buPROPion HCl ER (XL) 150 MG Oral Tablet Extended Release 24 Hour (Wellbutrin XL)Indications:De pression with anxiety Take 1 Tablet by mouth in the morning. 30 Tablet 0 03/31/2023 Active FLUoxetine HCl 60 MG Oral TabletIndications :Depression with anxiety,Recurrent major depressive disorder, remission status unspecified (HCC) Take 1 Tablet by mouth in the morning. 30 Tablet 0 03/31/2023 Active traZODone HCl 50 MG Oral Tablet (Desyrel)Indicati ons:Insomnia, unspecified type Take 1 Tablet by mouth at bedtime. 30 Tablet 0 03/31/2023 Active Repatha Pushtronex System 420 MG/3.5ML Subcutaneous Solution Cartridge (Evolocumab with Infusor)Indicatio ns:Dyslipidemia, goal LDL below 70 Inject 420 mg under the skin Every Month. Administer over 5 minutes. Remove from refrigerator 45 minutes prior to injection. 3 Each 5 04/11/2023 Active Rosuvastatin Calcium 20 MG Oral Tablet (Crestor)Indicati ons:Dyslipidemia Take 2 Tablets by mouth every night at bedtime. 180 Tablet 1 02/21/2023 3 Discontinu ed(Refill) documented as of this encounter (statuses as of 04/11/2023) Active Problems Problem Noted Date Recurrent major [...] Proliferation L low Back 07/06/2010 Overview: CF [id number] Skin, left lower back: Atypical predominantly junctional [...] as of this encounter (statuses as of 04/11/2023) Resolved Problems Problem Noted Date Resolved Date [...] as of this encounter (statuses as of 04/11/2023) Immunizations Name Administration Dates Next Due HEP [...] shopping? (15 years old or older) No 02/15/20 23 Cognitive Status Response Date of Assessm ent Because of a physical, menta l, or emotional condition, do you have serious difficulty concentrating, remembering, or making decisions? (5 years old or older No 11/27/2022 documented as of this encounter Miscellaneous Notes * Addendum Note - Carlos Mcneil [facility] - 04/11/2023 9:34 AM EDTAddended by: CARLOS MCNEIL on: 04/11/2023 09:34 AM Modules accepted: Orders * Telephone Encounter - Carlos Mcneil [facility] - 04/11/2023 9:25 AM EDT Repatha 420 mg prior authorization approved on 04/10/23 by [facility]: 04/10/23 - 10/12/99> indefinite? Per [facility]: can fill the Repatha for a $5 copay with manufacture discount card. Per Pharmacy Reimbursement Department: no further copay supportrequired. Repatha prescription sent to [facility]. Sent [employer] message to patient to inform of above. * Telephone Encounter - Martine Storm [facility] - 04/09/2023 10:30 AM EDT PCSK-9 Inhibitor Prior-Authorization Request Medication/Disease State Information: PCSK9 inhibitor needing prior auth: Repatha 420 mg monthly Diagnosis: ASCVD, Hyperlipidemia Quantity (30 or 90 day): 90 day Failed or Intolerant to or Contraindicated: none LDL Goal: < 55 mg/dL Pre-Treatment LDL: 205 mg/dL Date: 03/28/23 Current therapy: Crestor 40 mg daily Trial of max tolerated dose of Statin and Ezetimibe: no; not on zetia as this will not be enough to bring LDL to goal Submit my note from today 04/09 as supporting documentation Lipid Panel Results: Results for orders placed or performed in visit on 03/02/21 LIPID PANEL WITHOUT DIRECT LDL Result Value Ref Range Triglycerides 150 <=174 mg/dL Cholesterol 187 <200 mg/dL HDL Cholesterol 55 >49 mg/dL Non-HDL Cholesterol 132 <=159 mg/dL LDL Cholesterol 102 <=129 mg/dL Results for orders placed or performed in visit on 03/28/23 LIPID PANEL WITH DIRECT LDL IF TG IS HIGH Result Value Ref Range Triglycerides 130 <=174 mg/dL Cholesterol 289 (H) <200 mg/dL HDL Cholesterol 58 >49 mg/dL Non-HDL Cholesterol 231 (H) <=159 mg/dL LDL Cholesterol 205 (H) <=129 mg/dL Route referral message to [facility] [[id number]]. Please submit to BOTH primary insurance and secondary insurance (ex PACE/PACENET) if applicable. documented in this encounter Plan of Treatment Upcoming Encounters Date Type Specialty Care Team Description 04/29/2023 Telemedicine Psychiatry Liliana Anderson CRNP [address] [place] [address] 06/02/2023 Office Visit Cardiology Tali Chen CRNP [address] [facility] [place] [address] 07/07/2023 Nurse Only Ancillary Nurse Shirley Jung 21 [place] [address] 08/06/2023 Hospital Encounter Endoscopy Daisha Pierson DO [address] [place] [address] 08/06/2023 Surgery Endoscopy Daisha Pierson, DO [address] [place] [address] COLONOSCOPY FLEXIBLE PROXIMAL DIAGNOSTIC 08/12/2023 Telemedicine Cardiology [facility] [address] [facility] [place] [address] 10/08/2023 Laboratory Laboratory [facility] [address] [place] [address] 10/10/2023 Office Visit Family Medicine Mango Tamez MD [address] [place] [address] [address] 02/20/2024 Office Visit Dermatology Dariana Oquendo PA-C [address] [place] [address] Scheduled Procedures Name Priority Associated Diagnoses Date/Ti me COLONOSCOPY FLEXIBLE PROXIMAL DIAGNOSTIC History of colonic polyps 08/06/2023 10:00 AM EDT Health Maintenance Due Date Last Done Comments COVID-19 Vaccine (#1) 05/14/1961 Pneumococcal Vaccine: Pediatrics (0 to 5 Years) and At-Risk Patients (6 to 64 Years) (2 - PCV) 12/22/2014 12/22/2013 COLONOSCOPY-EVERY 3 YRS AGES 18-100 11/26/2021 11/26/2018, 11/26/2018 DXA Scan 05/13/2023 Postponed from 1958 (Patient Declined After Education) Zoster Vaccines (1 of 2) 05/13/2023 Pos tponed from 2008 (Patient Declined After Education) DIABETES-EYE EXAM 07/04/2023 07/04/2022, , 05/21/2018, Additional history exists GFR 09/27/2023 03/28/2023, 11/14, 11/29/2022, Additional history exists HbA1c 09/27/2023 03/28/2023, 11/14, 11/27/2022, Additional history exists CKD HGB USE SMARTSET 43323 11/29/202311/29, 11/28/2022, 11/27/2022, Additional history exists Albumin/Creatinine Ratio 12/03/2023 023, 11/22/2021, 06/25/2021, Additional history exists DIABETES-FOOT EXAM 12/03/2023 12/03/2022, 0 05/28/2021, 05/29/2020, Additional history exists Depression Screening, Annual for Pts 12 and Over 12/03/2023 12/03/2022 DTaP,Tdap,and Td Vaccines (2 - Td or Tdap) 12/23/2023 12/22/2013 Mammogram 02/12/2024 02/11/2023, 01/11, 07/10/2020, Additional history exists CKD PHOS USE SMARTSET 67040 03/28/202403/13, 05/31/2022, 03/02/2021, Additional history exists Lipid Panel 03/28/2028 03/28/2023, 11/13, 11/22/2021, Additional history exists Hepatitis B Completed 11/05/2004, 10/2003, 02/08/2004 Influenza Vaccine (FLU shot) Completed 08/06/2022, 08/17/2021, 08/13/2020, Additional history exists GARDASIL-HPV IMMUNIZATION SERIES Aged [...] Advance Directives occurred with: Patient Care Teams Business Office Specialist Relationship Specialty Start Date End Date Mango Tamez MD [address] [place] [address] PCP - General Family Medicine 05/28/21 documented as of this encounter
--- OUTSIDE RECORDS SUMMARY | 2023-08-26 22:56 | External Medical Summary | Summary of Care ---
Author Name Unknown Organization [facility] Address [address] [facility] [address] Phone [phone] Care Team Providers Care Channel Installer Name Role Phone Mango Tmaez MD Primary Care Provider [phone] Reason for Visit * Reason Comments Eye Exam Encounter Details Date Type Department Care Team Description 07/07/2023 Nurse Only Ancillary, [place] [address] [facility], [address] [place] [address] [place], Nurse, RN [address] [facility] 4 [place] [address] Eye Exam Allergies Active Allergy Reactions Severity Noted Date [...] as of this encounter (statuses as of 07/10/2023) Medications Medication Sig Dispensed Refills Start Date End Date Status Jarvis Grey 14 Day SensorIndications: Hypoglycemia Apply new sensor [...] to injection. 10.5 mL 5 04/11/2023 Active buPROPion HCl ER (XL) 150 MG Oral Tablet Extended Release 24 Hour (Wellbutrin XL) Take 1 Tablet by mouth in the morning. 30 Tablet 2 05/06/2023 Active busPIRone HCl 10 MG Oral Tablet (Buspar) Take 1 Tablet by mouth in the morning and 1 Tablet at noon and 1 Tablet before bedtime. 90 Tablet 2 05/06/2023 Active traZODone HCl 50 MG Oral Tablet (Desyrel)Indicatio [...] 3 06/30/2023 Active FreeStyle Que 14 Day [place] DeviceIndications: Hypoglycemia USE DIRECTED. 1 Each 0 07/01/2023 Active documented as of this encounter (statuses as of 07/10/2023) Active Problems Problem Noted Date Recurrent major [...] Proliferation L low Back 07/06/2010 Overview: CF [id number] Skin, left lower back: Atypical predominantly junctional [...] as of this encounter (statuses as of 07/10/2023) Resolved Problems Problem Noted Date Resolved Date [...] as of this encounter (statuses as of 07/10/2023) Immunizations Name Administration Dates Next Due HEP [...] Pierson, DO [address] [place] [address] 08/06/2023 Surgery Endoscopy Daisha Pierson, DO [address] [place] [address] COLONOSCOPY FLEXIBLE PROXIMAL DIAGNOSTIC 08/12/2023 Telemedicine Cardiology [facility] [address] [facility] [place] [address] 10/08/2023 Laboratory Laboratory [place], Lab [address] [facility] [address] [place] [address] 10/10/2023 Office Visit Family Medicine Mango Tamez MD [address] [place] [address] 02/20/2024 Office Visit Dermatology Dariana Oquendo PA-C [address] [facility] [address] [place] [address] 06/15/2024 Office Visit Cardiology Tali Chen CRNP [address] [facility] [place] [address] Scheduled Procedures Name Priority Associated Diagnoses Date/Ti [...] 2023 08/06/2022, 08/17/2021, 08/13/2020, Additional history exists GFR 09/27/2023 03/28/2023, /10/2022, 11/29/2022, Additional history exists HbA1c 09/27/2023 03/28/2023, 11/14, 11/27/2022, Additional history exists CKD HGB USE SMARTSET 54144 11/29/202311/29, 11/28/2022, 11/27/2022, Additional history exists Albumin/Creatinine Ratio 12/03/2023 023, 11/22/2021, 06/25/2021, Additional history exists Diabetic Foot Exam 12/03/2023 12/03/2022, 0 05/28/2021, 05/29/2020, Additional history exists DTaP,Tdap,and Td Vaccines (2 - Td or Tdap) 12/23/2023 12/22/2013 Mammogram 02/12/2024 02/11/2023, 01/11, 07/10/2020, Additional history exists CKD PHOS USE SMARTSET 16536 03/28/202403/13, 05/31/2022, 03/02/2021, Additional history exists DIABETES-EYE [...] Procedure Name Priority Date/Time Associated Diagnosis Comments TELEMEDICINE DIABETIC EYE Routine 07/07/2023 Screening for diabetic retinopathy documented in this encounter Results * TELEMEDICINE DIABETIC EYE (07/07/2023) 07/07/2023 Mango Tamez MD DIGITAL PHOTOGRAPHY documented in this encounter Visit Diagnoses Diagnosis Screening for diabetic retinopathy- Primary Screening for other eye conditions History of colonic polyps Personal history of [...] Advance Directives occurred with: Patient Care Teams Channel Installer Relationship Specialty Start Date End Date Mango Tamez MD [address] [facility] [place] [address] PCP - General Family Medicine 05/28/21 documented as of this encounter
--- OUTSIDE RECORDS SUMMARY | 2023-08-26 22:56 | External Medical Summary | Summary of Care ---
Author Name Unknown Organization [facility] Address [address] [place] [address] Phone [phone] Care Team Providers Care Rn Progressive Care Unit Name Role Phone Mango Tamez MD Primary Care Provider [phone] Encounter Details Date Type Department Care Team Description 04/29/2023 [facility] [address] [place] [address] Liliana Anderson CRNP [address] [place] [address] No diagnosis on [place] I* Allergies Active Allergy Reactions Severity Noted Date [...] as of this encounter (statuses as of 04/29/2023) Medications Medication Sig Dispensed Refills Start Date End Date Status Siriayle Que 14 Day [place] DeviceIndications: Hypoglycemia Use as directed. 1 Each 0 08/10/2021 Active Fluticasone Propionate 50 MCG/ACT Nasal Suspension (Flonase) ADMINISTER 2 SPRAYS INTO EACH NOSTRIL DAILY IN THE MORNING - DO NOT START BEFORE MAY 23, 2022 94 mL 3 05/22/2022 3 Active Additional Information Patient taking differently: 1 [place] Nasal DAILY PRN, Allergies, Reported on 11/27/2022 FreeStyle Que 14 Day SensorIndications: Hypoglycemia Apply [...] al reflux disease, unspecified whether esophagitis present Take 1 Capsule by mouth in the morning and 1 Capsule before bedtime. 180 Capsule 3 03/31/2023 Active busPIRone HCl 10 MG Oral Tablet (Buspar)Indication s:Depression with anxiety Take 1 Tablet by mouth in the morning and 1 Tablet at noon and 1 Tablet in the evening and 1 Tablet before bedtime. 120 Tablet 0 03/31/2023 Active buPROPion HCl ER (XL) 150 MG Oral Tablet Extended Release 24 Hour (Wellbutrin XL)Indications:Dep ression with anxiety Take 1 Tablet by mouth in the morning. 30 Tablet 0 03/31/2023 Active FLUoxetine HCl 60 MG Oral TabletIndications: Depression with anxiety,Recurrent major depressive disorder, remission status unspecified (HCC) Take 1 Tablet by mouth in the morning. 30 Tablet 0 03/31/2023 Active traZODone HCl 50 MG Oral Tablet (Desyrel)Indicatio ns:Insomnia, unspecified type Take 1 Tablet by mouth at bedtime. 30 Tablet 0 03/31/2023 Active Rosuvastatin Calcium 40 MG Oral [...] to injection. 10.5 mL 5 04/11/2023 Active documented as of this encounter (statuses as of 04/29/2023) Active Problems Problem Noted Date Recurrent major [...] melanocytic Proliferation L low Back 07/06/2010 Overview: [id number] Skin, left lower back: Atypical predominantly junctional [...] as of this encounter (statuses as of 04/29/2023) Resolved Problems Problem Noted Date Resolved Date [...] as of this encounter (statuses as of 04/29/2023) Immunizations Name Administration Dates Next Due HEP [...] as of this encounter Progress Notes * NAHEED Luna - 04/29/2023 10:22 AM EDT Patient arrived 15 minutes late to appointment, rescheduled for 05/06/23 at 8AM documented in this encounter Plan of Treatment Upcoming Encounters Date Type Specialty Care Team Description 05/06/2023 Telemedicine Psychiatry Liliana Anderson CRNP [address] [place] [address] 06/02/2023 Office Visit Cardiology Tali Chen CRNP [address] [facility] [place] [id number] 07/07/2023 Nurse Only Ancillary Nurse Shirley Jung [address] [facility] [place] [address] 08/06/2023 Hospital Encounter Endoscopy Daisha Pierson, DO [address] [place] [address] 08/06/2023 Surgery Endoscopy Daisha Pierson, DO [address] [place], [place] [address] COLONOSCOPY FLEXIBLE PROXIMAL DIAGNOSTIC 08/12/2023 Telemedicine Cardiology [facility] [address] [facility] [place] [address] 10/08/2023 Laboratory Laboratory [facility] [address] [address] [place] [id number] 10/10/2023 Office Visit Family Medicine Mango Tamez MD [address] [facility] [place] [address] 02/20/2024 Office Visit Dermatology Dariana Oquendo PA-C [address] [place] [address] Scheduled Procedures Name Priority Associated Diagnoses Date/Ti [...] tponed from 2008 (Patient Declined After Education) Influenza Vaccine (FLU shot) (#1) 2023 08/06/2022, 08/17/2021, 08/13/2020, Additional history exists DIABETES-EYE EXAM 07/04/2023 07/04/2022, , 05/21/2018, Additional history exists GFR 09/27/2023 03/28/2023, 11/14, 11/29/2022, Additional history exists HbA1c 09/27/2023 03/28/2023, 11/14, 11/27/2022, Additional history exists CKD HGB USE SMARTSET 14429 11/29/202311/29, 11/28/2022, 11/27/2022, Additional history exists Albumin/Creatinine Ratio 12/03/2023 023, 11/22/2021, 06/25/2021, Additional history exists DIABETES-FOOT EXAM 12/03/2023 12/03/2022, 0 05/28/2021, 05/29/2020, Additional history exists Depression Screening, Annual for Pts 12 and Over 12/03/2023 12/03/2022 DTaP,Tdap,and Td Vaccines (2 - Td or Tdap) 12/23/2023 12/22/2013 Mammogram 02/12/2024 02/11/2023, 01/11, 07/10/2020, Additional history exists CKD PHOS USE SMARTSET 30077 03/28/202403/13, 05/31/2022, 03/02/2021, Additional history exists Lipid [...] as of this encounter Visit Diagnoses Diagnosis No diagnosis on [place] I- Primary Observation of other suspected mental condition History of colonic polyps Personal history of [...] Advance Directives occurred with: Patient Care Teams Rn Progressive Care Unit Relationship Specialty Start Date End Date Mango Tamez MD [address] [facility] [address] [place] [address] PCP - General Family Medicine 05/28/21 documented as of this encounter
--- OUTSIDE RECORDS SUMMARY | 2023-08-26 22:56 | External Medical Summary | Summary of Care ---
Author Name Unknown Organization [facility] Address [address] [place] [address] Phone [phone] Care Team Providers Care Assistant Corporate Controller Name Role Phone Mango Tamez MD Primary Care Provider [phone] Encounter Details Date Type Department Care Team Description 07/14/2023 Orders Only Outcomes Research Department [address] [place] [address] Jyoti Reddy CHRA My[facility] Research Other*[id number] Allergies Active Allergy Reactions Severity Noted Date [...] as of this encounter (statuses as of 07/14/2023) Medications Medication Sig Dispensed Refills Start Date [...] hemoglobin A1c goal of less than 7.0% ([facility]) Inject 1.5 mg under the skin once a week. 2 mL 5 02/13/2023 Active Gabapentin 300 MG Oral Capsule (Neurontin)Indicat ions:DM type 2 with diabetic peripheral neuropathy ([facility]) Take 1 Capsule by mouth at bedtime. [...] Recurrent major depressive disorder, remission status unspecified ([facility]) Take 1 Tablet by mouth in the morning. 30 Tablet 2 05/06/2023 Active Omeprazole 40 MG Oral Capsule Delayed Release (PriLOSEC)Indicati ons:Gastroesophage al reflux disease, unspecified whether esophagitis present TAKE ONE CAPSULE TWICE A DAY 180 Capsule 3 06/30/2023 Active FreeStyle Que 14 Day [place] DeviceIndications: Hypoglycemia USE DIRECTED. 1 Each 0 07/01/2023 Active documented as of this encounter (statuses as of 07/14/2023) Active Problems Problem Noted Date Recurrent major [...] Proliferation L low Back 07/06/2010 Overview: CF [id number] Skin, left lower back: Atypical predominantly junctional [...] as of this encounter (statuses as of 07/14/2023) Resolved Problems Problem Noted Date Resolved Date [...] as of this encounter (statuses as of 07/14/2023) Immunizations Name Administration Dates Next Due HEP [...] Pierson, DO [address] [place] [address] 08/06/2023 Surgery Endoscopy Daisha Pierson, DO [address] [place] [address] COLONOSCOPY FLEXIBLE PROXIMAL DIAGNOSTIC 08/12/2023 Telemedicine Cardiology [facility] [address] [place] [address] [place] [address] 10/08/2023 Laboratory Laboratory [place], Lab [address] [facility] [address] [place], [place] [phone] 10/10/2023 Office Visit Family Medicine Mango Tamez MD [address] [facility] [place] [address] 02/20/2024 Office Visit Dermatology Dariana Oquendo PA-C [address] [place] [phone] 06/15/2024 Office Visit Cardiology Tali Chen CRNP [address] [facility] [place] [id number] Scheduled Orders Name Type Priority Associated Diagnoses Orde r Schedule MYCODE SUBSEQUENT ADULT Lab Routine MyCode Research Other*[id number] Every 6 Months for 2 Occurrences starting 07/14/2023 until 08/02/2024 Scheduled Procedures Name Priority Associated Diagnoses Date/Ti [...] 08/13/2020, Additional history exists GFR 09/27/2023 03/28/2023, 11/14, 11/29/2022, Additional history exists HbA1c 09/27/2023 03/28/2023, 11/14, 11/27/2022, Additional history exists CKD HGB USE SMARTSET 02008 11/29/202311/29, 11/28/2022, 11/27/2022, Additional history exists Albumin/Creatinine Ratio 12/03/2023 023, 11/22/2021, 06/25/2021, Additional history exists Diabetic Foot Exam 12/03/2023 12/03/2022, 0 05/28/2021, 05/29/2020, Additional history exists DTaP,Tdap,and Td Vaccines (2 - Td or Tdap) 12/23/2023 12/22/2013 Mammogram 02/12/2024 02/11/2023, 01/11, 07/10/2020, Additional history exists CKD PHOS USE SMARTSET 29349 03/28/202403/13, 05/31/2022, 03/02/2021, Additional history exists DIABETES-EYE [...] as of this encounter Visit Diagnoses Diagnosis My[facility] Research Other*[id number] History of colonic polyps Personal history of [...] Advance Directives occurred with: Patient Care Teams Assistant Corporate Controller Relationship Specialty Start Date End Date Mango Tamez MD [address] [place] [address] PCP - General Family Medicine 05/28/21 documented as of this encounter
--- OUTSIDE RECORDS SUMMARY | 2023-08-26 22:56 | External Medical Summary | Summary of Care ---
Author Name Unknown Organization [facility] Address [address] [facility] [address] Phone [phone] Care Team Providers Care Associate Professor Of Chemistry Name Role Phone Mango Tamez MD Primary Care Provider [phone] Reason for Visit * Reason Comments Follow Up Rm 2 Encounter Details Date Type Department Care Team Description 06/02/2023 [address] [place] [address] [place] [address] Tali Chen CRNP [address] [place] [address] NSTEMI (non-ST elevation myocardial infarction) ([facility])*; HTN, goal below 130/80; Dyslipidemia, goal LDL below 70; SAMI (obstructive sleep apnea); Mild aortic stenosis Allergies Active Allergy Reactions Severity Noted Date [...] as of this encounter (statuses as of 06/02/2023) Medications Medication Sig Dispensed Refills Start Date End Date Status FreeStyle Que 14 Day [place] DeviceIndications: Hypoglycemia Use as directed. 1 Each 0 08/10/2021 Active FreeStyle Que 14 Day SensorIndications: Hypoglycemia Apply [...] before bedtime. 180 Capsule 3 03/31/2023 Active Rosuvastatin Calcium 40 MG Oral [...] the morning. 30 Tablet 2 05/06/2023 Active documented as of this encounter (statuses as of 06/02/2023) Active Problems Problem Noted Date Recurrent major [...] melanocytic Proliferation L low Back 07/06/2010 Overview: [id number] Skin, left lower back: Atypical predominantly junctional [...] as of this encounter (statuses as of 06/02/2023) Resolved Problems Problem Noted Date Resolved Date [...] as of this encounter (statuses as of 06/02/2023) Immunizations Name Administration Dates Next Due HEP [...] Sign Reading Time Taken Comments Blood Pressure 106/68 06/02/2023 8:38 AM EDT Pulse 68 06/02/2023 8:38 AM EDT Temperature - - Respiratory Rate 16 06/02/2023 8:38 AM EDT Oxygen Saturation - - Inhaled Oxygen Concentration - - Weight 99.8 kg (220 lb) 06/02/2023 8:38 AM EDT Height 157.5 cm (5' 2") 06/02/2023 8:38 AM EDT Body Mass Index 40.24 06/02/2023 8:38 AM EDT documented in this encounter Functional [...] of this encounter Progress Notes * NAHEED Jenkins - 06/02/2023 8:50 AM EDT 06/02/2023 Cardiology Follow Up Primary [employer] Artillery Radar Operator: Dr. Perdomo Evaluated by Dr. Dejesus during Hospitalization Cardiac Problems: 1.Hx NSTEMI 11/2022 -suspected to be stress induced 2.Obesity 3.Mild Aortic Stenosis 4.SAMI on CPAP 5.Hypertension 6.DM 2 7.Dyslipidemia HPI: Clary Leonardo is a 62 year old female who was admitted to [facility] 11/27- 11/30/22 with altered mental status. Evaluated by psychology for psychosis after having COVID. SSRI was increased and she wasinstructed to follow up as an outpatinet with psych. Treated as an NSTEMI likely stress induced vasospam. Stress test showed normal EF without WMA or evidence of ischemia. Started on ASA, Statin, andBB. Here for today for Cardiology follow up. Reports she is no longer working since her stress induced NSTEMI. Officially will be retired in November 2023. Has a lot of anxiety. Gets short of breath with exertion. Has occasional lightheadedness. She is interested in genetic screening. Lives at home with her . Is able to complete all ADLs independently. REVIEW OF SYSTEMS: See HPI for pertinent positives. All others negative other than those noted in the HPI. CONSTITUTIONAL: No change in weight, No weakness, No fatigue and No fevers, No sweats or chills. PULMONARY: No cough, sputum, or hemoptysis, No wheezing, No shortness or breath and No recent change in breathing. CARDIOVASCULAR: No chest pain, + dyspnea on exertion, No edema, No palpitations and No syncope. GASTROINTESTINAL: No abdominal pain, No change in bowel habits, No significant heartburn, No nausea, No vomiting, No diarrhea, No constipation, No blood in stools or black tarry stools. No dysphagia. HEMATOLOGIC: No abnormal bleeding and No bruising. NEUROLOGICAL: Normal balance, No headaches and No weakness. Review of patient's allergies indicates: Allergen Reactions [...] hives Keflex [Cephalexin] Hives Valacyclovir Hcl Hives Current Outpatient Medications Medication Sig Dispense Refill CPAP every night at bedtime. Aspirin 81 MG Oral Tablet Chewable Take 1 Tablet by mouth in the morning. 30 Tablet 0 Metoprolol Succinate ER 25 MG Oral Tablet Extended Release 24 Hour (toPROL XL) Take 1 Tablet by mouth in the morning. 90 Tablet 3 Gabapentin 300 MG Oral Capsule (Neurontin) Take 1 Capsule by mouth at bedtime. 90 Capsule 1 Omeprazole 40 MG Oral Capsule Delayed Release (PriLOSEC) Take 1 Capsule by mouth in the morning and1 Capsule before bedtime. 180 Capsule 3 Rosuvastatin Calcium 40 MG Oral Tablet (Crestor) Take 1 Tablet by mouth every night at bedtime. 90 Tablet 3 Repatha Pushtronex System 420 MG/3.5ML Subcutaneous Solution Cartridge (Evolocumab with Infusor) Inject 420 mg under the skin Every Month. Administer over 5 minutes. Remove from refrigerator 45 minutes prior to injection. 10.5 mL 5 buPROPion HCl ER (XL) 150 MG Oral Tablet Extended Release 24 Hour (Wellbutrin XL) Take 1 Tablet by mouth in the morning. 30 Tablet 2 busPIRone HCl 10 MG Oral Tablet (Buspar) Take 1 Tablet by mouth in the morning and 1 Tablet at noonand 1 Tablet before bedtime. 90 Tablet 2 traZODone HCl 50 MG Oral Tablet (Desyrel) Take 1 Tablet by mouth at bedtime. 30 Tablet 2 FLUoxetine HCl 60 MG Oral Tablet Take 1 Tablet by mouth in the morning. 30 Tablet 2 FreeStyle Que 14 Day [place] Device Use as directed. 1 Each 0 FreeStyle Que 14 Day Sensor Apply new sensor every 14 days 2 Each 12 Dulaglutide 1.5 MG/0.5ML Subcutaneous Solution Pen-injector (Trulicity) Inject 1.5 mg under the skin once a week. 2 mL 5 No current facility-administered medications for this visit. Past Medical History: Diagnosis Date Anxiety state, unspecified COVID-19 08/2020 and again April 2022 Depressive disorder, not elsewhere classified DM type 2, goal A1c below 7 Dyslipidemia, goal to be determined Esophageal reflux Heart murmur 03/02/2021 Neuropathy OTHER nonalcoholic steatohepatitis Shingles 10/13/2010 Family History Problem Relation Age of Onset Cancer Father PROSTATE Other (skin cancer) Father Thyroid Disorder Mother Diabetes Mother Other (skin cancer) Mother Other (HYPERLIPIDEMIA) Mother Other (DEMENTIA) Mother Other (skin cancer) Grandfather (Paternal) Other (MULTIPLE SCLEROSIS) Sister Other (EPILEPSY) Sister No Past Hx Brother No Past Hx Son No Past Hx Son Breast Cancer Aunt (Paternal) Social History Socioeconomic History Marital status: Spouse name: Nikos Number of children: 2 Occupational History 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 Tobacco Use Smoking status: Former Packs/day: 1.00 Types: Cigarettes Quit date: 05/13/2007 Years since quittin.0 Smokeless tobacco: Never Tobacco comments: 05/19 Vaping Use Vaping Use: Never used Substance and Sexual Activity Alcohol use: Yes Comment: RARELY Drug use: No Other Topics Concern Caffeine Concern Yes Comment: 2 CUPS OF REG COFFEE Exercise Yes Comment: SPORADIC Social History Narrative LIVES WITH SPOUSE, HOBBIES-MEET Social Determinants of Health Food Insecurity: No Food Insecurity Worried About Running Out of Food in the Last Year: Never true Ran Out of Food in the Last Year: Never true OBJECTIVE/PHYSICAL EXAMINATION: BP 106/68 | Pulse 68 | Resp 16 | Ht 1.575 m (5' 2") | Wt 99.8 kg (220 lb) | BMI 40.24 kg/m | BSA 2.09 m General: No acute distress. A+Ox3. HEENT: Normocephalic. Atraumatic. PERRL. EOMI. Conjunctiva and sclera clear. NECK: +b/l carotid bruits. No JVD. Carotid upstrokes are brisk. Heart: RRR. S1 and S2 noted. +1-2/6 systolic murmur. No rubs or gallops. PMI non displaced. Lungs: Clear to auscultation. No wheezes.No rhonchi. No rales. Abdomen: Normal bowel sounds. Soft. Nontender. No masses or organomegaly. No abdominal bruits. Extremities: No edema. No clubbing or cyanosis. Pulses: radial=2/4, posterior tibial=2/4, dorsalis pedis = 2/4. NEURO: No focal deficits. PSYCH: Appropriate affect and insight. DATA Labs & Imaging Reviewed Below: Nuclear Stress Test 11/29/2022 This is a normal study. Lexiscan nuclear cardiac stress test negative for ischemia. Post stress perfusion is normal. The LV ejection fraction is calculated at 62%. Gated SPECT images reveals normal myocardial thickening and wall motion. Echocardiogram 11/27/2022 Calculated LV ejection Fraction = 60% (three dimensional volumes). There is mild hypokinesis of the inferior and inferolateral wall segments. Mild aortic valve stenosis is present. Mild mitral regurgitation is present. No pericardial effusion is noted. Normal IVC size and collapsability with inspiration indicates a normal right atrial pressure of 3 mmHg. ASSESSMENT/PLAN: 62 year old year old female 1. NSTEMI (non-ST elevation myocardial infarction) (HCC) -Nuclear stress test was normal. Likely stress induced/vasospam. -No further episodes of chest pain. -Continue aspirin 81 mg daily -Continue Metoprolol succinate 25 mg daily. 2. HTN, goal below 130/80 -Well controlled without antihypertensive medications. -Could benefit from low dose YUVAL/ARB due to her DM 2 3. Dyslipidemia, goal LDL below 70 -Uncontrolled, LDL 205 -Following with [facility] pharmacy -Started Repatha on 04/09/23 -Continue Crestor 40 mg daily 4. SAMI (obstructive sleep apnea) -Compliant with CPAP therapy 5. Mild aortic stenosis -Stable. Asymptomatic DISPOSITION: Follow up in 1 year or if symptoms worsen/fail to improve. All questions were answered to the patients satisfaction. Patient advised to report to ED with any and all emergencies. The patient agrees to the above plan and will call with additional questions or concerns. NAHEED Jenkins Cardiology [address] [place] [address] [place] [address] [place] [address] I spent a total of 38 minutes on the date of service in preparation, delivery, and documentation ofthe care provided to Clary Leonardo excluding any time spent in the performance of separately billed services. This chart was completed in part utilizing [employer] Speech Voice Recognition Software. Grammatical errors, random word insertions, pronoun errors, and incomplete sentences are an occasional consequence of this system due to software limitations, ambient noise, and hardware issues. Any formal questions or concerns about the content, text, or information contained within the body of this dictation should be directly addressed to the provider for clarification. documented in this encounter Nursing Notes * CARLITOS Glass - 06/02/2023 8:40 AM EDT Patient was identified by name and date of . Examination Room: 2 Name: Clary Leonardo Date of : (1960). Reason for Visit: ret visit Interim Hospitalization(s): no Problems/Concerns: balance issues, bruising Chest Pain/SOB: no Medications reviewed and are up to date via: Qu[employer]er is a way you can talk to your provider online through e-mail. Would you like to sign up? I can activate it for you? ALREADY ACTIVE Do you have video visit capabilities (email and smart phone)? No. Would you be interested in 6 or 12 return visit being scheduled as a video visit if the provider approves? No Patient was instructed to not get up on the exam table/exam chair until directed and assisted by their provider; patient is to remain seated in the chair/ wheelchair/ exam table/ exam chair for fall prevention and safety reasons. Patient is aware to have assistance to step down off exam table/exam chair with personnel. Patient voiced full comprehension of instructions. CARLITOS Miguel documented in this encounter Plan of Treatment Upcoming Encounters Date Type Specialty Care Team Description 07/07/2023 Nurse Only Ancillary Nurse Shirley Jung [address] [place] [address] 08/06/2023 Hospital Encounter Endoscopy Daisha Pierson, DO [address] [facility] [place] [place] [address] 08/06/2023 Surgery Endoscopy Daisha Pierson, DO [address] [place] [address] COLONOSCOPY FLEXIBLE PROXIMAL DIAGNOSTIC 08/12/2023 Telemedicine Cardiology [facility] Cardiology [address] [facility] [place] [address] 10/08/2023 Laboratory Laboratory [place], Lab 27 [facility] [address] [place] [address] 10/10/2023 Office Visit Family Medicine Mango Tamez MD [facility] [place] [address] 02/20/2024 Office Visit Dermatology Dariana Oquendo PA-C [address] [place] [address] 06/15/2024 Office Visit Cardiology Tali Chen CRNP [address] [facility] [place] [address] Scheduled Procedures Name Priority Associated Diagnoses Date/Ti [...] Additional history exists CKD HGB USE SMARTSET 04312 11/29/202311/29, 11/28/2022, 11/27/2022, Additional history exists Albumin/Creatinine Ratio 12/03/2023 023, 11/22/2021, 06/25/2021, Additional history exists DIABETES-FOOT EXAM 12/03/2023 12/03/2022, 0 05/28/2021, 05/29/2020, Additional history exists DTaP,Tdap,and Td Vaccines (2 - Td or Tdap) 12/23/2023 12/22/2013 Mammogram 02/12/2024 02/11/2023, 01/11, 07/10/2020, Additional history exists CKD PHOS USE SMARTSET 74719 03/28/202403/13, 05/31/2022, 03/02/2021, Additional history exists Lipid [...] as of this encounter Visit Diagnoses Diagnosis NSTEMI (non-ST elevation myocardial infarction) (HCC)- Primary Acute myocardial infarction, subendocardial infarction, episode of care unspecified HTN, goal below 130/80 Unspecified essential hypertension Dyslipidemia, goal LDL below 70 Other and unspecified hyperlipidemia SAMI (obstructive sleep apnea) Obstructive sleep apnea (adult) (pediatric) Mild aortic stenosis Aortic valve disorders History of colonic polyps Personal history of [...] Advance Directives occurred with: Patient Care Teams Associate Professor Of Chemistry Relationship Specialty Start Date End Date Mango Tamez MD [address] [place] [address] PCP - General Family Medicine 05/28/21 documented as of this encounter
--- OUTSIDE RECORDS SUMMARY | 2023-08-26 22:56 | External Medical Summary | Summary of Care ---
Author Name Unknown Organization [facility] Address [address] [place] [address] Phone [phone] Care Team Providers Care Fisher Weir Name Role Phone Mango Tamez MD Primary Care Provider [phone] Reason for Visit * Reason Comments Medication Management Encounter Details Date Type Department Care Team Description [facility]06[facility]2023 [facility] [address], [place] [id number] Liliana Anderson CRNP [address] [place] [address] Recurrent major depressive disorder, remission status unspecified (HCC)*; Insomnia, unspecified type; GISELLA (generalized anxiety disorder) Allergies Active Allergy Reactions Severity Noted Date [...] as of this encounter (statuses as of 05/06/2023) Medications Medication Sig Dispensed Refills Start Date End Date Status FreeStyle Que 14 Day New Church DeviceIndications :Hypoglycemia Use as directed. 1 Each 0 08/10/2021 Active Fluticasone Propionate 50 MCG/ACT Nasal Suspension (Flonase) ADMINISTER 2 SPRAYS INTO EACH NOSTRIL DAILY IN THE MORNING - DO NOT START BEFORE MAY 23, 2022 94 mL 3 05/22/2022 3 Active Additional Information Patient taking differently: 1 [place] Nasal DAILY PRN, Allergies, Reported on 11/27/2022 [...] Tablet before bedtime. 120 Tablet 0 03/31/2023 3 Discontinu ed(Refill) buPROPion HCl ER (XL) 150 MG Oral Tablet Extended Release 24 Hour (Wellbutrin XL)Indications:De pression with anxiety Take 1 Tablet by mouth in the morning. 30 Tablet 0 03/31/2023 3 Discontinu ed(Refill) FLUoxetine HCl 60 MG Oral TabletIndications :Depression with anxiety,Recurrent major depressive disorder, remission status unspecified (HCC) Take 1 Tablet by mouth in the morning. 30 Tablet 0 03/31/2023 3 Discontinu ed(Refill) traZODone HCl 50 MG Oral Tablet (Desyrel)Indicati ons:Insomnia, unspecified type Take 1 Tablet by mouth at bedtime. 30 Tablet 0 03/31/2023 3 Discontinu ed(Refill) documented as of this encounter (statuses as of 05/06/2023) Active Problems Problem Noted Date Recurrent major [...] Proliferation L low Back 07/06/2010 Overview: CF [id number] Skin, left lower back: Atypical predominantly junctional [...] as of this encounter (statuses as of 05/06/2023) Resolved Problems Problem Noted Date Resolved Date [...] as of this encounter (statuses as of 05/06/2023) Immunizations Name Administration Dates Next Due HEP [...] encounter Progress Notes * NAHEED Luna - 05/06/2023 8:28 AM EDT [facility] [address] [place] [address] Dept. Treatment Summary Admission Date: 02/18/23 transfer Date: 05/06/23 Reason for Treatment:depression Modalities Utilized: Medication Management Diagnosis: Generalized Anxiety Disorder and Major Depression, recurrent episode PROGRESS IN TREATMENT: fair transfer WAS: planned REASON FOR transfer: Provider leaving [facility]; transferring patient to another provider or patient discontinuing treatment Treatment Recommendations: 1. Wellbutrin XL 150mg daily 2. Prozac 60mg daily- On ASA therapy- prescribed Prilosec 40mg BID 3. Trazodone 50mg HS 4. Buspar 10mg TID Follow Up Plan (include next provider if known): 1. to be transferred to new psychiatric provider- financial writer leaving [facility] 2. Outside therapy referral provided during intake Additional Comments:PMHx DM2, Dyslipidemia, NSTEMI, obesity, fatty liver, CKD- stage 3, amnesia - Referred patient for neuropsych testing for short-term memory concerns- rule out neurocognitive impairment NAHEED Whaley 05/06/2023 * NAHEED Luna - 05/06/2023 8:02 AM EDT OUTPATIENT PSYCHIATRY RETURN VISIT DIVISION OF PSYCHIATRY [place] [address] Name: Clary Leonardo : 1960 Date and Time Patient was Seen: 05/06/2023 at 8:02 AM After connecting through [employer], patient was verified with two unique identifiers. Patient (or authorized legal sales representative publications) was then informed that this was a Telemedicine visit and that the exam was being conducted confidentially over secure lines. My office door was closed. No one else was in the room with me. Patient acknowledged consent and understanding of privacy and security of the Telemedicine visit and gave permission to have a telemedicine presenter stay in the room in order to assist with the history and to conduct the exam as needed. I informed the patient that I have reviewed their record in [email or web address] and presented the opportunity for them to ask any questions regarding the visit today. The patient agreed to participate. Additional telemed for psych required: Provider reviewed elements of Outpatient Services Description including limits of confidentiality, how to contact the department, risks and benefits of treatment and consent for treatment. Patient isunable to sign acknowledgment receiving form. Signature will be obtained when Covid 19 crisis has passed and in person services resume. For [facility] members, Encounter Form unable to be signed, signature exempt - Telehealth, and will beobtained when Covid 19 crisis has passed and in person services resume. Treatment plan signature page document signatures may be marked "signature exempt - Telehealth" with a provider policy to obtain signatures as soon as possible after the COVID-19 crisis has passed and in person services resume. Start Time: 8A Stop Time: 8:30A Total direct [id number] time: 13 minutes Physical Location of patient: For patient verified using 2 identifiers. Confirmed patient is in a private location located within the [facility]. Patient verbally consented to tele-psychiatry consultation. CC: depression INTERVAL HISTORY: Pt reports good adherence with medication and denies side effects. Pt reports anxiety improved and mood otherwise "doing Okay." Mentions taking naps throughout the day, increase in appetite. Discussed sleep hygiene measures and incorporating walks into daily routine. Recent stressor of caring for elderly mother. Pt denies SI. No manic symptoms, psychotic symptoms, AH, VH or HI elicited. [place]UMBIA-SUICIDE SEVERITY RATING SCALE Frequent Screener Ask questions that are bold and underlined Since Last Contact (Shahid with an X) YES NO Have you actually had thoughts about killing yourself? x If YES, ask the following questions. If NO, go directly to the last question Have you been thinking about how you might do this? Have you had these thoughts and had some intention of acting on them? E.g. I thought about taking an overdose, but I never made a specific plan as to when where or how I would actually do it.and I would never go through with it. Have you started to work out or worked out the details of how to kill yourself? Do you intend to carry out this plan? As opposed to I have the thoughts, but I definitely will not do anything about them. Have you done anything, started to do anything, or prepared to do anything to end your life? Examples: Collected pills, obtained a gun, gave away valuables, wrote a will or suicide note, took out pills but didn't swallow any, held a gun but changed your mind or it was grabbed from your hand,went to the roof but didn't jump; or actually took pills, tried to shoot yourself, cut yourself, tried to hang yourself, etc. x Low Risk 1. Complete or review crisis plan with patient 2. Discuss risk/protective factors and reasons for living Moderate Risk 3. Complete or review crisis plan with patient 4. Discuss risk/protective factors and reasons for living 5. Discuss removal of means 6. High Risk 7. Maintain 1 to 1 monitoring until assessment is completed 8. Evaluate for higher level of care (Inpatient or PHP) 9. Consultation with Emergency Services as appropriate 10. If patient not admitted: Complete or review crisis plan with patient Discuss risk/protective factors and reasons for living Advise removal of means Consider family or collateral contact to promote safety Schedule follow up care consistent with assessment ALLERGIES Review of patient's allergies indicates: Allergen Reactions [...] hives Keflex [Cephalexin] Hives Valacyclovir Hcl Hives CURRENT MEDICATIONS: Current Outpatient Medications Medication Sig Dispense Refill FreeStyle Que 14 Day New Church Device Use as directed. 1 Each 0 Fluticasone Propionate 50 MCG/ACT Nasal Suspension (Flonase) ADMINISTER 2 SPRAYS INTO EACH NOSTRIL DAILY IN THE MORNING - DO NOT START BEFORE MAY 23, 2022 (Patient taking differently: Administer 1 [place] into nostril daily as needed for Allergies.) 94 mL 3 FreeStyle Que 14 Day Sensor Apply new sensor every 14 days 2 Each 12 CPAP every night at bedtime. Aspirin 81 MG Oral Tablet Chewable Take 1 Tablet by mouth in the morning. 30 Tablet 0 Metoprolol Succinate ER 25 MG Oral Tablet Extended Release 24 Hour (toPROL XL) Take 1 Tablet bymouth in the morning. 90 Tablet 3 Dulaglutide 1.5 MG/0.5ML Subcutaneous Solution Pen-injector ([employer]) Inject 1.5 mg under theskin once a week. 2 mL 5 Gabapentin 300 MG Oral Capsule (Neurontin) Take 1 Capsule by mouth at bedtime. 90 Capsule 1 Omeprazole 40 MG Oral Capsule Delayed Release (PriLOSEC) Take 1 Capsule by mouth in the morningand 1 Capsule before bedtime. 180 Capsule 3 busPIRone HCl 10 MG Oral Tablet (Buspar) Take 1 Tablet by mouth in the morning and 1 Tablet at noon and 1 Tablet in the evening and 1 Tablet before bedtime. 120 Tablet 0 buPROPion HCl ER (XL) 150 MG Oral Tablet Extended Release 24 Hour (Wellbutrin XL) Take 1 Tabletby mouth in the morning. 30 Tablet 0 FLUoxetine HCl 60 MG Oral Tablet Take 1 Tablet by mouth in the morning. 30 Tablet 0 traZODone HCl 50 MG Oral Tablet (Desyrel) Take 1 Tablet by mouth at bedtime. 30 Tablet 0 Rosuvastatin Calcium 40 MG Oral Tablet (Crestor) Take 1 Tablet by mouth every night at bedtime.90 Tablet 3 Repatha Pushtronex System 420 MG/3.5ML Subcutaneous Solution Cartridge (Evolocumab with Infusor) Inject 420 mg under the skin Every Month. Administer over 5 minutes. Remove from refrigerator 45 minutes prior to injection. 10.5 mL 5 No current facility-administered medications for this visit. RECENT LABS/IMAGING: No results found for this or any previous visit (from the past 672 hour(s)). VITALS There were no vitals filed for this visit. Wt Readings from Last 3 Encounters: 03/31/23 99.8 kg (220 lb) 12/26/22 100.2 kg (220 lb 12.8 oz) 12/03/22 99.7 kg (219 lb 14.4 oz) There is no height or weight on file to calculate BMI. CURRENT MEDICATIONS: Current Outpatient Medications Medication Sig Dispense Refill FreeStyle Que 14 Day New Church Device Use as directed. 1 Each 0 Fluticasone Propionate 50 MCG/ACT Nasal Suspension (Flonase) ADMINISTER 2 SPRAYS INTO EACH NOSTRIL DAILY IN THE MORNING - DO NOT START BEFORE MAY 23, 2022 (Patient taking differently: Administer 1 [place] into nostril daily as needed for Allergies.) 94 mL 3 FreeStyle Que 14 Day Sensor Apply new sensor every 14 days 2 Each 12 CPAP every night at bedtime. Aspirin 81 MG Oral Tablet Chewable Take 1 Tablet by mouth in the morning. 30 Tablet 0 Metoprolol Succinate ER 25 MG Oral Tablet Extended Release 24 Hour (toPROL XL) Take 1 Tablet bymouth in the morning. 90 Tablet 3 Dulaglutide 1.5 MG/0.5ML Subcutaneous Solution Pen-injector (Trulicity) Inject 1.5 mg under theskin once a week. 2 mL 5 Gabapentin 300 MG Oral Capsule (Neurontin) Take 1 Capsule by mouth at bedtime. 90 Capsule 1 Omeprazole 40 MG Oral Capsule Delayed Release (PriLOSEC) Take 1 Capsule by mouth in the morningand 1 Capsule before bedtime. 180 Capsule 3 busPIRone HCl 10 MG Oral Tablet (Buspar) Take 1 Tablet by mouth in the morning and 1 Tablet at noon and 1 Tablet in the evening and 1 Tablet before bedtime. 120 Tablet 0 buPROPion HCl ER (XL) 150 MG Oral Tablet Extended Release 24 Hour (Wellbutrin XL) Take 1 Tabletby mouth in the morning. 30 Tablet 0 FLUoxetine HCl 60 MG Oral Tablet Take 1 Tablet by mouth in the morning. 30 Tablet 0 traZODone HCl 50 MG Oral Tablet (Desyrel) Take 1 Tablet by mouth at bedtime. 30 Tablet 0 Rosuvastatin Calcium 40 MG Oral Tablet (Crestor) Take 1 Tablet by mouth every night at bedtime.90 Tablet 3 Repatha Pushtronex System 420 MG/3.5ML Subcutaneous Solution Cartridge (Evolocumab with Infusor) Inject 420 mg under the skin Every Month. Administer over 5 minutes. Remove from refrigerator 45 minutes prior to injection. 10.5 mL 5 No current facility-administered medications for this visit. FAMILY HISTORY: Family History Problem Relation Age of Onset Cancer Father PROSTATE Other (skin cancer) Father Thyroid Disorder Mother Diabetes Mother Other (skin cancer) Mother Other (HYPERLIPIDEMIA) Mother Other (DEMENTIA) Mother Other (skin cancer) Grandfather (Paternal) Other (MULTIPLE SCLEROSIS) Sister Other (EPILEPSY) Sister No Past Hx Brother No Past Hx Son No Past Hx Son Breast Cancer Aunt (Paternal) PAST MEDICAL HISTORY: Past Medical History: Diagnosis Date Anxiety state, unspecified COVID-19 08/2020 and again April 2022 Depressive disorder, not elsewhere classified DM type 2, goal A1c below 7 Dyslipidemia, goal to be determined Esophageal reflux Heart murmur 03/02/2021 Neuropathy OTHER nonalcoholic steatohepatitis Shingles 10/13/2010 SUMMARY OF/CHANGES TO PAST PSYCHIATRIC, MEDICAL, FAMILY, OR SOCIAL HISTORY: See interval history MEDICAL REVIEW OF SYSTEMS: Constitutional: (-) fever chills sweats or weight loss Eyes: (-) negative, no amaurosis fugax, pain, blurred vision, or redness Cardiovascular: (-) negative: no chest pain, dyspnea, syncope, or palpitations Pulmonary: (-) negative: no cough, wheezing, or shortness of breath Abdominal/GI: (-) negative: no pain, heartburn, dysphagia, bleeding, change in bowel habits, nauseaor vomiting Musculoskeletal: (-) negative: no pain Endocrine: (-) negative: no weight change, heat or cold intolerance, polyuria Skin: (-) negative: no rash or new or changing moles Neurology: (+) memory concerns MENTAL STATUS EVALUATION: Appearance: age-appropriate and casually dressed Muscle strength and tone: no abnormal involuntary movements noticeable Gait and Station: not assessed, patient seen via teleconference Behavior: appropriate within the milieu, cooperative and pleasant Speech: normal, rate, tone and volume Mood: "good" Affect: type - euthymic; range - constricted; lability - no Associations: intact Thought Process: logical Abstract Reasoning: intact Thought Content: denies suicidal ideations, homicidal ideations, auditory hallucinations, visual hallucinations, delusions, impulsivity to act out or preoccupation with violence Orientation: alert and oriented to person, place, time and situation Attention span/concentration as evidenced by: ability to sustain attention to examiner - intact Insight: good Judgment: good ASSESSMENT AND PLAN: 62 year old female, , employed part-time, has 2 adult children. PMHx DM2, Dyslipidemia, NSTEMI, obesity, fatty liver, CKD-stage 3, amnesia. Psychiatric hx lifelonganxiety, depression. No PPH. No hx SI/SA. Currently prescribed Buspar 10mg BID, Prozac 60mg daily, Wellbutrin XL 150mg HS, Hydroxyzine 10mg HS. Referred by PCP to [facility] Psychiatry for depression. Since COVID infection in May 2022, reports apathy, emotional blunting and persistent short-term memory impairment. 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 Denies feelings guilt/shame. Denies decrease in interests, engaging in outdoor activities. Reports having supportive family and is reason for living. Denies wish to , denies SI. Describes anxiety as excessive worries r/t family's welfare, decrease in concentration, restlessness, irritability, difficulty sleep and muscle tension that are chronic in nature and occur most days. Endorses weekly panic symptoms that occur when patient idle "I need to stay busy," reports intense anxiety, chest pain, palpitations. Endorses vague paranoia when under severe emotional distress. Denies overt AVH. Over last several months, patient reports difficulty remembering current plans, losing wallet. Oriented to self, age, current month/day of week/year, place and season. Current president. Can't recall former President. Able to recall where patient grew, remembers where patient met . Can do 2/7 serial sevens, abstract intact. 3/3 immediate recall. 1/3 delayed recall. Presentation consistent for recurrent MDD-moderate; GISELLA w/panic sx. Psychoeducation provided regarding risks for anticholinergic SE and risk for cognitive impairment with long-term Atarax use. Patient agreeable to DC Atarax. On follow up, responding to trazodone 50mg reporting improvement in depression and insomnia. On follow up, anxiety improved with increase in Buspar TID and moodotherwise "doing Okay." Mentions taking naps throughout the day, increase in appetite. Discussed sleep hygiene measures and incorporating walks into daily routine. Recent stressor of caring for elderly mother. Declined further medication adjustments at this time. ASSESSMENT AND PLAN: 1. Moderate episode of recurrent major depressive disorder (HCC) 2. GISELLA (generalized anxiety disorder) Continue Wellbutrin XL 150mg daily Prozac 60mg daily- On ASA therapy- prescribed Prilosec 40mg BID trazodone 50mg HS Buspar 10mg TID 11/27/22 ECG NSR QTc 467 Medications: Patient understood the risks, benefits, side-effects and potential complications of current psychiatric medications and gave informed consent to be prescribed psychiatric medicationsas described above. 2. Laboratory tests: None 3. Therapy: continue to offer psychotherapy as an adjunct to evaluation and management and prescription of psychiatric medications. Outside therapy referral provided during intake 4. RTC: to be transferred to new psychiatric provider- financial writer joi [facility] 5. Referrals- Neuropsych testing Treatment options and alternatives reviewed with patient who agrees with the above plan. Information about current medications was provided to the patient including reasons why medications are being used. Patient understood the risks, benefits, side-effects, and potential complications associated with changes in medications being proposed (both medications being started, and medications being discontinued or having dose changed). Patient is making an informed medical decision to follow the recommendations outlined in this note. Directed pt to call with any questions or concerns, worsening symptoms and/or ask for earlier appointment. Greater than 50% of the time was spent counseling or coordinating the care of the patient Risk assessment was performed. This is a patient being treated for chronic mental health conditionsand/or substance use disorder as characterized above; at the time of this visit, there was no indication that this patient was either a risk to self, others, or gravely disabled by symptoms of a mental illness or substance use disorder. At the time of this evaluation, pt did not appear to be an acute risk to self or others, there were enough protective factors in place, and it was deemed safe andappropriate to continue with treatment on an outpatient basis with return to clinic in the timeframe described above. We reviewed previous crisis plan should he/she experience worsening of symptoms before next follow-up appointment, including being aware of what resources to use according to the urgency and severityof symptoms. Clary Leonardo was able to verbalize understanding of the steps necessary to obtain help between appointments should be needed, from requesting a phone call, to requesting an appointment sooner, including reaching clinic after hours, accessing our system, and accessing emergency mental health and medical services, either at a local emergency department or by activating mobile crisis teams and EMS. Time Spent on Visit: 30 minutes Billing code: [id number] Outpatient Adult Psychiatry Treatment Plan Treatment plan was developed on 03/18/23, treatment will continue to focus on goals below; Treatment update will occur when clinically indicated or by 11/01/2023. 1. Patient's goals captured in patient's words: "to feel like myself again" 2. Crisis Planning: What I can do if I ever experience a crisis (much worse symptoms, severe distress or thoughts of self-harm): Exercise/Walk, Talking to loved one or friend or trusted person, Find solutions and Distraction on computer/TV 3. People I can call in the event of a crisis: Family Member: adult children and Spouse/partner/significant other: 2. Additional resources I can utilize if the previous steps are ineffective (e.g: ED, hotlines): Suicide and Crisis Lifeline - 988, [employer] access to crisis numbers and [place] Hotlines for Help 3. Patient/Family Received Copy of Treatment Plan: Patient has access to [facility] 4. Signature Obtained on Treatment Plan: Treatment plan developed with patient and/or family duringtelemedicine/telephonic visit. No treatment plan signature page was signed. Will obtain signatures once sessions resume in clinic. 5. Expected family or significant other involvement: Not applicable 6. Patient strengths and facilitating factors to care:Recognizes need for change, Seeking help, Goal Oriented, Attempting to realize ones potential, Has hobbies, Good support system, Access to housing, Steady employment, Knowledge of medications, Cooperative, Good physical health and Able to care for own personal hygiene Patient Identified Needs/Goals Interventions/Type of Service Duration of Treatment Frequency of Treatment Objective/ Discharge Criteria Problem/Need1: Medication Mangement Medication Management 3 year Monthly PHQ<5, GISELLA<5, CSSRS in low risk range and Achieved maintenance treatment phase at full therapeutic dosage for 6-12 months Please choose a method to track patient's improvement based on clinical assessment: PHQ-9 Adult Data GISELLA-7 Data [place] Suicide Screen Labs/Outcomes 12/03/2022 05/06/2023 Labs/Outcomes PHQ Score 0 17 PHQ Score Description No Depression Moderately Severe Depression GAD7 Score 16 12 NAHEED Whaley [facility] 05/06/2023 documented in this encounter Plan of Treatment Upcoming Encounters Date Type Specialty Care Team Description 06/02/2023 [facility] [address] [facility] [id number] 07/07/2023 Nurse Only Ancillary Nurse Shirley Jung [address] [facility] [place] [address] 08/06/2023 Hospital Encounter Endoscopy Daisha Pierson, DO [address] [place] [address] 08/06/2023 Surgery Endoscopy Daisha Pierson, DO [address] [place] [address] COLONOSCOPY FLEXIBLE PROXIMAL DIAGNOSTIC 08/12/2023 Telemedicine Cardiology [facility] [address] [facility] [place] [address] 10/08/2023 Laboratory Laboratory Francoise Garcia [address] [facility] [address] [place] [address] 10/10/2023 Office Visit Family Medicine Mango Tamez MD [address] [facility] [place] [id number] 02/20/2024 Office Visit Dermatology Dariana Oquendo PA-C [address] [place] [address] Scheduled Procedures Name Priority Associated Diagnoses Date/Ti [...] Additional history exists CKD HGB USE SMARTSET 52616 11/29/202311/29, 11/28/2022, 11/27/2022, Additional history exists Albumin/Creatinine Ratio 12/03/2023 023, 11/22/2021, 06/25/2021, Additional history exists DIABETES-FOOT EXAM 12/03/2023 12/03/2022, 0 05/28/2021, 05/29/2020, Additional history exists Depression Screening, Annual for Pts 12 and Over 12/03/2023 12/03/2022 DTaP,Tdap,and Td Vaccines (2 - Td or Tdap) 12/23/2023 12/22/2013 Mammogram 02/12/2024 02/11/2023, 01/11, 07/10/2020, Additional history exists CKD PHOS USE SMARTSET 53136 03/28/202403/13, 05/31/2022, 03/02/2021, Additional history exists Lipid [...] as of this encounter Visit Diagnoses Diagnosis Recurrent major depressive disorder, remission status unspecified (HCC)- Primary Insomnia, unspecified type GISELLA (generalized anxiety disorder) Generalized anxiety disorder History of colonic polyps Personal history of [...] Advance Directives occurred with: Patient Care Teams Fisher Weir Relationship Specialty Start Date End Date Mango Tamez MD [address] [facility] [address] [place] [address] PCP - General Family Medicine 05/28/21 documented as of this encounter
--- OUTSIDE RECORDS SUMMARY | 2023-08-26 22:56 | External Medical Summary | Summary of Care ---
Author Name Unknown Organization [facility] Address [address] [place] [address] Phone [phone] Care Team Providers Care It Instructor Name Role Phone Mango Tamez MD Primary Care Provider [phone] Reason for Visit * Reason Onset Date Comments Appointment 05/13/2023 Encounter Details Date Type Department Care Team Description 05/13/2023 Telephone Psychiatry, [place] [address] [place] [address] Services, [facility] [address] [place] [address] Appointment Allergies Active Allergy Reactions Severity Noted Date [...] as of this encounter (statuses as of 05/13/2023) Medications Medication Sig Dispensed Refills Start Date End Date Status FreeStyle Que 14 Day [place] DeviceIndications: Hypoglycemia Use as directed. 1 Each 0 08/10/2021 Active Fluticasone Propionate 50 MCG/ACT Nasal Suspension (Flonase) ADMINISTER 2 SPRAYS INTO EACH NOSTRIL DAILY IN THE MORNING - DO NOT START BEFORE MAY 23, 2022 94 mL 3 05/22/2022 3 Active Additional Information Patient taking differently: 1 [place] Nasal DAILY PRN, Allergies, Reported on 11/27/2022 [...] as of this encounter (statuses as of 05/13/2023) Active Problems Problem Noted Date Recurrent major [...] Proliferation L low Back 07/06/2010 Overview: CF [id number] Skin, left lower back: Atypical predominantly junctional [...] as of this encounter (statuses as of 05/13/2023) Resolved Problems Problem Noted Date Resolved Date [...] as of this encounter (statuses as of 05/13/2023) Immunizations Name Administration Dates Next Due HEP [...] Miscellaneous Notes * Telephone Encounter - SAMI Chappell - 05/13/2023 1:48 PM EDT Outbound call to patient to schedule new patient appointment with Dr. Lucrecia Yanes (transfer from Liliana Anderson). Can be scheduled into hold spots on Dr. Yanes's schedule starting in May. LMOM, provided call back number. SAMI Chappell documented in this encounter Plan of Treatment Upcoming Encounters Date Type Specialty Care Team Description 06/02/2023 Office Visit Cardiology Tali Chen CRNP [address] [facility] [place] [id number] 07/07/2023 Nurse Only Ancillary Nurse Shirley Jung 21 [place] [address] 08/06/2023 Hospital Encounter Endoscopy Daisha Pierson, DO [address] [place] [address] 08/06/2023 Surgery Endoscopy Daisha Pierson, DO [address] [place] [address] COLONOSCOPY FLEXIBLE PROXIMAL DIAGNOSTIC 08/12/2023 Telemedicine [facility]iology [facility] [address] [place] [address] 10/08/2023 Laboratory Laboratory [facility] [address] [address] [place] [id number] 10/10/2023 Office Visit Family Medicine Mango Tamez MD [address] [place] [address] 02/20/2024 Office Visit Dermatology Dariana Oquendo PA-C 27 [place] [address] Scheduled Procedures Name Priority Associated Diagnoses Date/Ti [...] visit until score < 10) 05/07/2023 05/06/2023 DXA Scan 05/13/2023 Postponed from 1958 (Patient [...] Additional history exists CKD HGB USE SMARTSET 91315 11/29/202311/29, 11/28/2022, 11/27/2022, Additional history exists Albumin/Creatinine Ratio 12/03/2023 023, 11/22/2021, 06/25/2021, Additional history exists DIABETES-FOOT EXAM 12/03/2023 12/03/2022, 0 05/28/2021, 05/29/2020, Additional history exists DTaP,Tdap,and Td Vaccines (2 - Td or Tdap) 12/23/2023 12/22/2013 Mammogram 02/12/2024 02/11/2023, 01/11, 07/10/2020, Additional history exists CKD PHOS USE SMARTSET 15891 03/28/202403/13, 05/31/2022, 03/02/2021, Additional history exists Lipid Panel 03/28/2028 03/28/2023, 11/13, 11/22/2021, Additional history exists Hepatitis B Completed 11/05/2004, 0610/2003, 02/08/2004 GARDASIL-HPV IMMUNIZATION SERIES Aged Out No [...] Advance Directives occurred with: Patient Care Teams It Instructor Relationship Specialty Start Date End Date Mango Tamez MD [address] [place] [address] PCP - General Family Medicine 05/28/21 documented as of this encounter
--- OUTSIDE RECORDS SUMMARY | 2023-08-26 22:56 | External Medical Summary | Summary of Care ---
Author Name Unknown Organization [facility] Address [address] [facility] [place] [address] Phone [phone] Care Team Providers Care Solar Energy Technician Name Role Phone Mango Tamez MD Primary Care Provider [phone] Reason for Visit * Reason Onset Date Comments Scan To Read 07/07/2023 Dm eye exam Encounter Details Date Type Department Care Team Description 07/07/2023 Telephone [facility], [place] [address] [place] [address] Mango Tamez MD 27 [place] [address] Scan To Read (Dm eye exam) Allergies Active Allergy Reactions Severity Noted Date [...] as of this encounter (statuses as of 07/19/2023) Medications Medication Sig Dispensed Refills Start Date [...] 3 06/30/2023 Active FreeStyle Que 14 Day [place] DeviceIndications: Hypoglycemia USE DIRECTED. 1 Each 0 07/01/2023 Active documented as of this encounter (statuses as of 07/19/2023) Active Problems Problem Noted Date Recurrent major [...] Proliferation L low Back 07/06/2010 Overview: CF [id number] Skin, left lower back: Atypical predominantly junctional [...] as of this encounter (statuses as of 07/19/2023) Resolved Problems Problem Noted Date Resolved Date [...] as of this encounter (statuses as of 07/19/2023) Immunizations Name Administration Dates Next Due HEP [...] encounter Miscellaneous Notes * Telephone Encounter - Rosalino Walden MD - 07/07/2023 11:50 AM EDT Retinal Scan Imaging Clary Leonardo [id number] Retinal Scan Interpretation: There is no retinopathy in both eyes Diabetes Retinal Imaging Care Plan: The retinal scan results are normal - I will forward this encounter to the Ophthalmology DM Letter Pool [[id number]], they will send a normal retinal scan letter to the patient, and the patient will be seen back for a yearly scan. Rosalino Walden MD 07/07/2023 11:50 AM * Telephone Encounter - Staic Hines LPN - 07/07/2023 8:38 AM EDT A Diabetic Telemed Eye image was taken and requires your interpretation for Dr Tamez. Please checkclaire mon for image. Patient prefers to be seen at [facility] if a follow-up appointment is needed. documented in this encounter Plan of Treatment Upcoming Encounters Date Type Specialty Care Team Description 07/21/2023 Office Visit Family Mango Irizarry MD [address] [facility] [place] [address] 08/06/2023 Hospital Encounter Endoscopy Daisha Pierson, DO [address] [place] [address] 08/06/2023 Surgery Endoscopy Daisha Pierson, DO [address] [place] [address] COLONOSCOPY FLEXIBLE PROXIMAL DIAGNOSTIC 08/12/2023 Telemedicine Cardiology [facility] Cardiology [address] [place] [address] [place] [address] 10/08/2023 Laboratory Laboratory [facility] 27 [facility] [address] [place] [address] 10/10/2023 Office Visit Family Mango Irizarry MD 27 [place] [address] 02/20/2024 Office Visit Dermatology Dariana Oquendo PA-C [address] [place] [address] 06/15/2024 Office Visit Cardiology Tali Chen CRNP [address] [facility] [place] [address] Scheduled Procedures Name Priority Associated Diagnoses Date/Ti [...] Additional history exists CKD HGB USE SMARTSET 70446 11/29/202311/29, 11/28/2022, 11/27/2022, Additional history exists Albumin/Creatinine Ratio 12/03/2023 023, 11/22/2021, 06/25/2021, Additional history exists Diabetic Foot Exam 12/03/2023 12/03/2022, 0 05/28/2021, 05/29/2020, Additional history exists DTaP,Tdap,and Td Vaccines (2 - Td or Tdap) 12/23/2023 12/22/2013 Mammogram 02/12/2024 02/11/2023, 01/11, 07/10/2020, Additional history exists CKD PHOS USE SMARTSET 00676 03/28/202403/13, 05/31/2022, 03/02/2021, Additional history exists DIABETES-EYE [...] Advance Directives occurred with: Patient Care Teams Solar Energy Technician Relationship Specialty Start Date End Date Mango Tamez MD [address] [facility] [address] [place] [address] PCP - General Family Medicine 05/28/21 documented as of this encounter
--- OUTSIDE RECORDS SUMMARY | 2023-08-26 22:56 | External Medical Summary | Summary of Care ---
Author Name Unknown Organization [facility] Address [address] [facility] [place] [address] Phone [phone] Care Team Providers Care Air Motor Repairer Name Role Phone Mango Tamez MD Primary Care Provider [phone] Reason for Visit * Reason Comments eRx-Medication Refill Encounter Details Date Type Department Care Team Description 06/30/2023 Refill Family Practice, [place] [facility] [place] [address] Navjot Gutierrez MD [address] [facility] [place] [address] Gastroesophageal reflux disease, unspecified whether esophagitis present Allergies Active Allergy Reactions Severity Noted Date [...] as of this encounter (statuses as of 06/30/2023) Medications Medication Sig Dispensed Refills Start Date End Date Status FreeStyle Que 14 Day [place] DeviceIndications :Hypoglycemia Use as directed. 1 Each 0 1 Active FreeStyle Que 14 Day SensorIndications :Hypoglycemia [...] to injection. 10.5 mL 5 3 Active buPROPion HCl ER (XL) 150 MG Oral Tablet Extended Release 24 Hour (Wellbutrin XL) Take 1 Tablet by mouth in the morning. 30 Tablet 2 3 Active busPIRone HCl 10 MG Oral Tablet (Buspar) Take 1 Tablet by mouth in the morning and 1 Tablet at noon and 1 Tablet before bedtime. 90 Tablet 2 3 Active traZODone HCl 50 MG Oral Tablet [...] A DAY 180 Capsule 3 3 Active Omeprazole 40 MG Oral Capsule Delayed Release (PriLOSEC)Indicat ions:Gastroesopha geal reflux disease, unspecified whether esophagitis present Take 1 Capsule by mouth in the morning and 1 Capsule before bedtime. 180 Capsule 3 3 06/30/20 23 Discontinued documented as of this encounter (statuses as of 06/30/2023) Active Problems Problem Noted Date Recurrent major [...] melanocytic Proliferation L low Back 07/06/2010 Overview: [id number] Skin, left lower back: Atypical predominantly junctional [...] as of this encounter (statuses as of 06/30/2023) Resolved Problems Problem Noted Date Resolved Date [...] as of this encounter (statuses as of 06/30/2023) Immunizations Name Administration Dates Next Due HEP [...] encounter Miscellaneous Notes * Telephone Encounter - Terrance Andrew PA-C - 06/30/2023 12:14 PM EDT Signed Prescriptions: Disp Refills Omeprazole 40 MG Oral Capsule Delayed Rele*180 Ca*3 Sig: TAKE ONE CAPSULE TWICE A DAY Authorizing Provider: TERRANCE ANDREW * Telephone Encounter - Tyrese Sanz LPN - 06/30/2023 10:12 AM EDTPending Prescriptions: Disp Refills Omeprazole 40 MG Oral Capsule Delayed Rele*180 Ca*3 Sig: TAKE ONE CAPSULE TWICE A DAY * Telephone Encounter - Tyrese Sanz LPN - 06/30/2023 10:11 AM EDT Did you pend patient's preferred pharmacy and medication before forwarding?yes Pharmacy: [facility] [address] [address] Pending Prescriptions: Disp Refills Omeprazole 40 MG Oral Capsule Delayed Rel*180 Ca*1 Sig: TAKE ONE CAPSULE TWICE A DAY Last Visit: 03/31/2023 (in office), 02/13/2023 (telemedicine) Next Visit: 10/10/2023 If no future appointments scheduled, and last appointment is greater than a year ago, please schedule patient for a follow-up appointment Last date the medication was ordered: 03/31/23 Is this request for a controlled substance?No [...] Labs: Lab Results Component Value Date/Time CREAT 1.2 (H) 03/28/2023 09:02 AM CREAT 1.1 (H) 10/11/2020 08:18 AM POTASSIUM 5.0 03/28/2023 09:02 AM POTASSIUM 4.7 10/11/2020 08:18 AM TSH 2.41 12/03/2022 01:53 PM TSH 1.56 07/11/2020 08:48 AM LDLCALC 205 (H) 03/28/2023 09:02 AM LDLCALC 131 (H) 10/11/2020 08:18 AM LDLDIRECT NOT APPLICABLE 10/11/2020 08:18 AM ALT 37 (H) 03/28/2023 09:02 AM ALT 56 (H) 10/11/2020 08:18 AM HGBA1C 5.9 (H) 03/28/2023 09:02 AM HGBA1C 7.4 (H) 10/11/2020 08:18 AM documented in this encounter Plan of Treatment Upcoming Encounters Date Type Specialty Care Team Description 07/07/2023 Nurse Only Ancillary Nurse [facility] 21 [place] [phone] 08/06/2023 Hospital Encounter Endoscopy Daisha Pierson, DO [address] [place] [address] 08/06/2023 Surgery Endoscopy Daisha Pierson, DO [address] [place] [address] COLONOSCOPY FLEXIBLE PROXIMAL DIAGNOSTIC 08/12/2023 Telemedicine [facility]iology [facility] Card[facility] [address] [facility] [place] [address] 10/08/2023 Laboratory Laboratory [place], Lab 27 [facility] [address] [place] [address] 10/10/2023 Office Visit Family Medicine Mango Tamez MD 27 [facility] [place] [address] 02/20/2024 Office Visit Dermatology Dariana Oquendo PA-C [facility] [place] [address] 06/15/2024 Office Visit Cardiology Tali Chen CRNP 400 [facility] [place] [address] Scheduled Procedures Name Priority Associated Diagnoses Date/Ti [...] Additional history exists CKD HGB USE SMARTSET 20502 11/29/202311/29, 11/28/2022, 11/27/2022, Additional history exists Albumin/Creatinine Ratio 12/03/2023 023, 11/22/2021, 06/25/2021, Additional history exists Diabetic Foot Exam 12/03/2023 12/03/2022, 0 05/28/2021, 05/29/2020, Additional history exists DTaP,Tdap,and Td Vaccines (2 - Td or Tdap) 12/23/2023 12/22/2013 Mammogram 02/12/2024 02/11/2023, 01/11, 07/10/2020, Additional history exists CKD PHOS USE SMARTSET 69568 03/28/202403/13, 05/31/2022, 03/02/2021, Additional history exists Lipid [...] as of this encounter Visit Diagnoses Diagnosis Gastroesophageal reflux disease, unspecified whether esophagitis present History of colonic polyps Personal history of [...] Advance Directives occurred with: Patient Care Teams Air Motor Repairer Relationship Specialty Start Date End Date Mango Tamez MD [address] [facility] [address] [place] [address] PCP - General Family Medicine 05/28/21 documented as of this encounter
--- OUTSIDE RECORDS SUMMARY | 2023-08-26 22:56 | External Medical Summary | Summary of Care ---
Author Name Unknown Organization [facility] Address [address] [facility] [address] Phone [phone] Care Team Providers Care Tie Binder Name Role Phone Mango Tamez MD Primary Care Provider [phone] Reason for Visit * Reason Onset Date Comments Precert In Process 04/09/2023 29 [place] [facility] REP ATHA Precert Approved 04/09/2023 REPATHA Encounter Details Date Type Department Care Team Description 04/09/2023 Telephone [place] [address] [place] [address] Martine Storm, [facility] 21 [place] [phone] Precert In Process (29 [place] [facility] REPATHA [...] as of this encounter (statuses as of 04/16/2023) Medications Medication Sig Dispensed Refills Start Date End Date Status FreeStyle Que 14 Day [place] DeviceIndications :Hypoglycemia Use as directed. 1 Each 0 08/10/2021 Active Fluticasone Propionate 50 MCG/ACT Nasal Suspension (Flonase) ADMINISTER 2 SPRAYS INTO EACH NOSTRIL DAILY IN THE MORNING - DO NOT START BEFORE MAY 23, 2022 94 mL 3 05/22/2022 3 Active Additional Information Patient taking differently: 1 [place] Nasal DAILY PRN, Allergies, Reported on 11/27/2022 [...] to injection. 10.5 mL 5 04/11/2023 Active Rosuvastatin Calcium 20 MG Oral Tablet (Crestor)Indicati ons:Dyslipidemia Take 2 Tablets by mouth every night at bedtime. 180 Tablet 1 02/21/2023 3 Discontinu ed(Refill) documented as of this encounter (statuses as of 04/16/2023) Active Problems Problem Noted Date Recurrent major [...] Proliferation L low Back 07/06/2010 Overview: CF [id number] Skin, left lower back: Atypical predominantly junctional [...] as of this encounter (statuses as of 04/16/2023) Resolved Problems Problem Noted Date Resolved Date [...] as of this encounter (statuses as of 04/16/2023) Immunizations Name Administration Dates Next Due HEP [...] Notes * Addendum Note - Carlos Mcneil [facility] - 04/11/2023 9:34 AM EDTAddended by: CARLOS MCNEIL on: 04/11/2023 09:34 AM Modules accepted: Orders * Telephone Encounter - Carlos Mcneil [facility] - 04/11/2023 9:25 AM EDT Repatha 420 mg prior authorization approved on 04/10/23 by [facility]: 04/10/23 - 10/12/99> indefinite? Per [facility]: can fill the Repatha for a $5 copay with manufacture discount card. Per Pharmacy Reimbursement Department: no further copay supportrequired. Repatha prescription sent to [facility]. Sent [employer] message to patient to inform of above. * Telephone Encounter - Martine Storm [facility] - 04/09/2023 10:30 AM EDT PCSK-9 Inhibitor [...] mg/dL Route referral message to [facility] [place] [[id number]]. Please submit to BOTH primary insurance and secondary insurance (ex PACE/PACENET) if applicable. documented in this encounter Plan of Treatment Upcoming Encounters Date Type Specialty Care Team Description 04/29/2023 Telemedicine Psychiatry Liliana Anderson CRNP [address] [place] [address] 06/02/2023 Office Visit Cardiology Tali Chen CRNP 400 [facility] [place] [address] 07/07/2023 Nurse Only Ancillary Nurse Shirley Jung 21 [place] [address] 08/06/2023 Hospital Encounter Endoscopy Daisha Pierson DO [address] [place] [address] 08/06/2023 Surgery Endoscopy Daisha Pierson DO [address] [place] [address] COLONOSCOPY FLEXIBLE PROXIMAL DIAGNOSTIC 08/12/2023 Telemedicine [facility]iology [facility] 400 [facility] [place] [address] 10/08/2023 Laboratory Laboratory [facility] Lab 27 [facility] [place] [address] [place] [address] 10/10/2023 Office Visit Family Medicine Mango Tamez MD [address] [place] [address] 02/20/2024 Office Visit Dermatology Dariana Oquendo PA-C 27 [place] [address] Scheduled Procedures Name Priority Associated Diagnoses Date/Ti [...] Additional history exists CKD HGB USE SMARTSET 36927 11/29/202311/29, 11/28/2022, 11/27/2022, Additional history exists Albumin/Creatinine Ratio 12/03/2023 023, 11/22/2021, 06/25/2021, Additional history exists DIABETES-FOOT EXAM 12/03/2023 12/03/2022, 0 05/28/2021, 05/29/2020, Additional history exists Depression Screening, Annual for Pts 12 and Over 12/03/2023 12/03/2022 DTaP,Tdap,and Td Vaccines (2 - Td or Tdap) 12/23/2023 12/22/2013 Mammogram 02/12/2024 02/11/2023, 01/11, 07/10/2020, Additional history exists CKD PHOS USE SMARTSET 13693 03/28/202403/13, 05/31/2022, 03/02/2021, Additional history exists Lipid [...] Advance Directives occurred with: Patient Care Teams Tie Binder Relationship Specialty Start Date End Date Mango Tamez MD [address] [place] [address] PCP - General Family Medicine 05/28/21 documented as of this encounter
--- OUTSIDE RECORDS SUMMARY | 2023-08-26 22:56 | External Medical Summary | Summary of Care ---
Author Name Unknown Organization [facility] Address [address] [place] [address] Phone [phone] Care Team Providers Care Mold Cleaning And Storage Supervisor Name Role Phone Mango Tamez MD Primary Care Provider Encounter Details Date Type Department Care Team Description 04/11/2023 Specialty Pharmacy [facility], [address] [place] [address] Medication, [facility], [address] [address] Allergies Active Allergy Reactions Severity Noted Date [...] End Date Status Jarvis Que 14 Day [place] DeviceIndications: Hypoglycemia Use as directed. 1 Each 0 08/10/2021 Active Fluticasone Propionate 50 MCG/ACT Nasal Suspension (Flonase) ADMINISTER 2 SPRAYS INTO EACH NOSTRIL DAILY IN THE MORNING - DO NOT START BEFORE MAY 23, 2022 94 mL 3 05/22/2022 3 Active Additional Information Patient taking differently: 1 [place] Nasal DAILY PRN, Allergies, Reported on 11/27/2022 [...] melanocytic Proliferation L low Back 07/06/2010 Overview: [id number] Skin, left lower back: Atypical predominantly junctional [...] this encounter Progress Notes * Siddhartha York [facility] - 04/16/2023 3:48 PM EDT [facility] Prescribed medication: Medication: Repatha pushtronex Shipment date: 04/24 Delivery method: Specialty Mail Location Medication Delivered too? Home Address: [address] [place] [address] Siddhartha York RPh [facility] 04/16/2023,3:51 PM documented in this encounter Plan of Treatment Upcoming Encounters Date Type Specialty Care Team Description 04/29/2023 Telemedicine Psychiatry Liliana Anderson CRNP [address] [place] [address] 06/02/2023 Office Visit Cardiology Tali Chen CRNP 400 [facility] [place] [id number] 07/07/2023 Nurse Only Ancillary Nurse Shirley Jung 21 [facility] [place] [id number] 08/06/2023 Hospital Encounter Endoscopy Daisha Pierson, DO [address] [place] [address] 08/06/2023 Surgery Endoscopy Daisha Pierson, DO [address] [place] [address] COLONOSCOPY FLEXIBLE PROXIMAL DIAGNOSTIC 08/12/2023 Telemedicine Cardiology [facility] 400 [facility] [place] [id number] 10/08/2023 Laboratory Laboratory [facility] [address] [facility] [place] [address] 10/10/2023 Office Visit Family Medicine Mango Tamez MD [address] [address] 02/20/2024 Office Visit Dermatology Darinaa Oquendo PA-C 27 [place] [address] Scheduled Procedures Name Priority Associated Diagnoses Date/Ti [...] Additional history exists CKD HGB USE SMARTSET 66261 11/29/202311/29, 11/28/2022, 11/27/2022, Additional history exists Albumin/Creatinine Ratio 12/03/2023 023, 11/22/2021, 06/25/2021, Additional history exists DIABETES-FOOT EXAM 12/03/2023 12/03/2022, 0 05/28/2021, 05/29/2020, Additional history exists Depression Screening, Annual for Pts 12 and Over 12/03/2023 12/03/2022 DTaP,Tdap,and Td Vaccines (2 - Td or Tdap) 12/23/2023 12/22/2013 Mammogram 02/12/2024 02/11/2023, 01/11, 07/10/2020, Additional history exists CKD PHOS USE SMARTSET 73886 03/28/202403/13, 05/31/2022, 03/02/2021, Additional history exists Lipid [...] Advance Directives occurred with: Patient Care Teams Mold Cleaning And Storage Supervisor Relationship Specialty Start Date End Date Mango Tamez MD [address] [facility] [address] [place] [address] PCP - General Family Medicine 05/28/21 documented as of this encounter
--- OUTSIDE RECORDS SUMMARY | 2023-08-26 22:56 | External Medical Summary | Summary of Care ---
Author Name Unknown Organization [facility] Address [address] [facility] [place] [address] Phone [phone] Care Team Providers Care Cooling Tower Operator Name Role Phone Mango Tamez MD Primary Care Provider [phone] Reason for Visit * Reason Comments eRx-Medication Refill Encounter Details Date Type Department Care Team Description 07/01/2023 Refill Family [facility], [place] [address] [facility] [place] [address] Navjot Gutierrez MD [address] [facility] [place] [address] Hypoglycemia Allergies Active Allergy Reactions Severity [...] as of this encounter (statuses as of 07/01/2023) Medications Medication Sig Dispensed Refills Start Date End Date Status Jarvis Grey 14 Day SensorIndications :Hypoglycemia Apply new sensor [...] 3 3 Active FreeStyle Que 14 Day [place] DeviceIndications :Hypoglycemia USE DIRECTED. 1 Each 0 3 Active FreeStyle Que 14 Day [place] DeviceIndications :Hypoglycemia Use as directed. 1 Each 0 1 07/01/20 23 Discontinued documented as of this encounter (statuses as of 07/01/2023) Active Problems Problem Noted Date Recurrent major [...] melanocytic Proliferation L low Back 07/06/2010 Overview: [id number] Skin, left lower back: Atypical predominantly junctional [...] as of this encounter (statuses as of 07/01/2023) Resolved Problems Problem Noted Date Resolved Date [...] as of this encounter (statuses as of 07/01/2023) Immunizations Name Administration Dates Next Due HEP [...] encounter Miscellaneous Notes * Telephone Encounter - Amna Lebron MD - 07/01/2023 11:01 AM EDTSigned Prescriptions: Disp Refills FreeStyle Que 14 Day [place] Device 1 Each 0 Sig: USE DIRECTED. Authorizing Provider: AMNA LEBRON * Telephone Encounter - Christine Werner, [facility] - 07/01/2023 10:42 AM EDT Pending Prescriptions: Disp Refills FreeStyle Que 14 Day [place] Device [Phar*1 Each 0 Sig: Use as directed. * Telephone Encounter - Christine Werner [facility] - 07/01/2023 10:42 AM EDT Did you pend patient's preferred pharmacy and medication before forwarding?yes Pharmacy: [facility] [address] [place] [address] [place] Pending Prescriptions: Disp Refills FreeStyle Que 14 Day [place] Device [Pha*1 Each 0 Sig: USE DIRECTED. Last Visit: 03/31/2023 (in office), 02/13/2023 (telemedicine) Next Visit: 10/10/2023 If no future appointments scheduled, and last appointment is greater than a year ago, please schedule patient for a follow-up appointment Last date the medication was ordered: 08/10/2021 Is this request for a controlled substance?No [...] Nurse Only Ancillary Nurse Erich [facility] [address] [facility] [place] [address] 08/06/2023 Hospital Encounter Endoscopy Daisha Pierson, DO [address] [place] [address] 08/06/2023 Surgery Endoscopy Daisha Pierson, DO [address] [place] [address] COLONOSCOPY FLEXIBLE PROXIMAL DIAGNOSTIC 08/12/2023 Telemedicine Cardiology [facility] [address] [facility] [place] [address] 10/08/2023 Laboratory Laboratory [place], Lab [address] [facility] [address] [place] [address] 10/10/2023 Office Visit Family Medicine Mango Tamez MD [address] [place] [address] 02/20/2024 Office Visit Dermatology Dariana Oquendo PA-C [address] [place] [address] 06/15/2024 Office Visit Cardiology Tali Chen CRNP [address] [place] [address] Scheduled Procedures Name Priority Associated Diagnoses Date/Ti [...] Additional history exists CKD HGB USE SMARTSET 27618 11/29/202311/29, 11/28/2022, 11/27/2022, Additional history exists Albumin/Creatinine Ratio 12/03/2023 023, 11/22/2021, 06/25/2021, Additional history exists Diabetic Foot Exam 12/03/2023 12/03/2022, 0 05/28/2021, 05/29/2020, Additional history exists DTaP,Tdap,and Td Vaccines (2 - Td or Tdap) 12/23/2023 12/22/2013 Mammogram 02/12/2024 02/11/2023, 01/11, 07/10/2020, Additional history exists CKD PHOS USE SMARTSET 34645 03/28/202403/13, 05/31/2022, 03/02/2021, Additional history exists Lipid [...] Advance Directives occurred with: Patient Care Teams Cooling Tower Operator Relationship Specialty Start Date End Date Mango Tamez MD [address] [place] [address] PCP - General Family Medicine 05/28/21 documented as of this encounter
--- OUTSIDE RECORDS SUMMARY | 2023-08-26 22:57 | External Medical Summary | Summary of Care ---
Author Name Unknown Organization [facility] Address [address] [facility] [place] [address] Phone [phone] Care Team Providers Care Legal Stenographer Name Role Phone Mango Tamez MD Primary Care Provider [phone] Reason for Visit * Reason Comments Outpatient Testing Encounter Details Date Type Department Care Team Description 03/28/2023 Laboratory Laboratory, [place] [address] [facility] [address] [place] [id number] [place], Lab 27 [facility] 4 [place] [id number] Hospital discharge follow-up; NSTEMI (non-ST elevation myocardial infarction) ([facility]); HTN, goal below 130/80; Dyslipidemia, goal LDL below 70; SAMI (obstructive sleep apnea); Mild aortic stenosis; Type 2 diabetes mellitus with hemoglobin A1c goal of less than 7.0% ([facility]); Stage 3a chronic kidney disease Allergies Active Allergy Reactions Severity Noted Date [...] as of this encounter (statuses as of 03/28/2023) Medications Medication Sig Dispensed Refills Start Date End Date Status FreeStyle Que 14 Day [place] DeviceIndications: Hypoglycemia Use as directed. 1 Each 0 08/10/2021 Active Fluticasone Propionate 50 MCG/ACT Nasal Suspension (Flonase) ADMINISTER 2 SPRAYS INTO EACH NOSTRIL DAILY IN THE MORNING - DO NOT START BEFORE MAY 23, 2022 94 mL 3 05/22/2022 05/22/2023 Active Additional Information Patient taking differently: 1 Hooks Nasal DAILY PRN, Allergies, Reported on 11/27/2022 buPROPion HCl ER (XL) 150 MG Oral Tablet Extended Release 24 Hour (Wellbutrin XL)Indications:Dep ression with anxiety,Memory loss Take 1 Tablet by mouth in the morning. 90 Tablet 1 10/15/2022 Active Gabapentin 300 MG Oral Capsule (Neurontin)Indicat ions:DM type 2 with diabetic peripheral neuropathy (HCC) Take 1 Capsule by mouth at bedtime. 90 Capsule 1 10/15/2022 Active FreeStyle Que 14 Day SensorIndications: Hypoglycemia Apply new sensor every 14 days 2 Each 12 11/06/2022 Active CPAP every night at bedtime. 0 Active Aspirin 81 MG Oral Tablet Chewable Take 1 Tablet by mouth in the morning. 30 Tablet 0 12/03/2022 Active FLUoxetine HCl 60 MG Oral TabletIndications: Anxiety state,Recurrent major depressive disorder, remission status unspecified (HCC) Take 1 Tablet by mouth in the morning. 30 Tablet 3 12/26/2022 Active Metoprolol Succinate ER 25 MG Oral Tablet Extended Release 24 Hour (toPROL XL) Take 1 Tablet by mouth in the morning. 90 Tablet 3 12/26/2022 Active Omeprazole 40 MG Oral Capsule Delayed Release (PriLOSEC) TAKE ONE CAPSULE TWICE A DAY 180 Capsule 0 01/24/2023 Active Dulaglutide 1.5 MG/0.5ML Subcutaneous Solution Pen-injector (Trulicity)Indicat ions:Type 2 diabetes mellitus with hemoglobin A1c goal of less than 7.0% ([facility]) Inject 1.5 mg under the skin once a week. 2 mL 5 02/13/2023 Active Rosuvastatin Calcium 20 MG Oral Tablet (Crestor)Indicatio ns:Dyslipidemia Take 2 Tablets by mouth every night at bedtime. 180 Tablet 1 02/21/2023 Active busPIRone HCl 10 MG Oral Tablet (Buspar) Take 1 Tablet by mouth in the morning and 1 Tablet at noon and 1 Tablet before bedtime. 90 Tablet 0 03/18/2023 Active traZODone HCl 50 MG Oral Tablet (Desyrel) Take 1 Tablet by mouth at bedtime. 30 Tablet 0 03/18/2023 Active documented as of this encounter (statuses as of 03/28/2023) Active Problems Problem Noted Date Recurrent major [...] Proliferation L low Back 07/06/2010 Overview: CF [id number] Skin, left lower back: Atypical predominantly junctional [...] as of this encounter (statuses as of 03/28/2023) Resolved Problems Problem Noted Date Resolved Date [...] as of this encounter (statuses as of 03/28/2023) Immunizations Name Administration Dates Next Due HEP [...] Encounters Date Type Specialty Care Team Description 03/31/2023 [facility] Visit [facility] [place] [address] 04/08/2023 Telemedicine Psychiatry Liliana Anderson CRNP [address] [place] [address] 06/02/2023 Office Visit [facility]iology [facility] [phone] 07/07/2023 Nurse Only Ancillary Nurse Shirley [facility] 21 [place] [phone] 08/06/2023 Hospital Encounter Endoscopy Daisha Pierson, DO [address] [place] [address] 08/06/2023 Surgery Endoscopy Daisha Pierson, DO [address] [place] [address] COLONOSCOPY FLEXIBLE PROXIMAL DIAGNOSTIC 02/20/2024 Office Visit Dermatology Dariana Oquendo PA-C [address] [facility] [place] [phone] Pending Results Name Type Priority Associated Diagnoses Date /Time LIPID PANEL WITH DIRECT LDL IF TG IS HIGH Lab Routine Hospital discharge follow-up NSTEMI (non-ST elevation myocardial infarction) ([facility]) HTN, goal below 130/80 Dyslipidemia, goal LDL below 70 SAMI (obstructive sleep apnea) Mild aortic stenosis 03/28/2023 9:02 AM EDT HEMOGLOBIN A1C Lab Routine Type 2 diabetes mellitus with hemoglobin A1c goal of less than 7.0% ([facility]) 03/28/2023 9:02 AM EDT COMPREHENSIVE METABOLIC PANEL Lab Routine Type 2 diabetes mellitus with hemoglobin A1c goal of less than 7.0% ([facility]) 03/28/2023 9:02 AM EDT PHOSPHORUS Lab Routine Stage 3a chronic kidney disease 03/28/2023 9:02 AM EDT Scheduled Procedures Name Priority Associated [...] from 2008 (Patient Declined After Education) CKD PHOS USE SMARTSET 26215 05/31/202305/13, 03/02/2021, 11/22/2019, Additional history exists GFR 06/02/2023 12/03/2022, 11/13, 11/28/2022, Additional history exists HbA1c 06/02/2023 12/03/2022, 11/13, 11/22/2021, Additional history exists DIABETES-EYE EXAM 07/04/2023 07/04/2022, , 05/21/2018, Additional history exists CKD HGB USE SMARTSET 75005 11/29/202311/29, 11/28/2022, 11/27/2022, Additional history exists Albumin/Creatinine Ratio 12/03/2023 023, 11/22/2021, 06/25/2021, Additional history exists DIABETES-FOOT EXAM 12/03/2023 12/03/2022, 0 05/28/2021, 05/29/2020, Additional history exists Depression Screening, Annual for Pts 12 and Over 12/03/2023 12/03/2022 DTaP,Tdap,and Td Vaccines (2 - Td or Tdap) 12/23/2023 12/22/2013 Mammogram 02/12/2024 02/11/2023, 01/11, 07/10/2020, Additional history exists Lipid Panel 11/27/2027 11/27/2022, 11/13, 03/02/2021, Additional history exists Hepatitis B Completed 11/05/2004, [...] as of this encounter Visit Diagnoses Diagnosis Hospital discharge follow-up Other follow-up examination NSTEMI (non-ST elevation myocardial infarction) (HCC) Acute myocardial infarction, subendocardial infarction, episode of care unspecified HTN, goal below 130/80 Unspecified essential hypertension Dyslipidemia, goal LDL below 70 Other and unspecified hyperlipidemia SAMI (obstructive sleep apnea) Obstructive sleep apnea (adult) (pediatric) Mild aortic stenosis Aortic valve disorders Type 2 diabetes mellitus with hemoglobin A1c goal of less than 7.0% (HCC) Stage 3a chronic kidney disease History of colonic polyps Personal history of [...] Advance Directives occurred with: Patient Care Teams Legal Stenographer Relationship Specialty Start Date End Date Mango Tamez MD [address] [facility] [address] [place] [address] PCP - General Family Medicine 05/28/21 documented as of this encounter
--- OUTSIDE RECORDS SUMMARY | 2023-08-26 22:57 | External Medical Summary ---
Author Name Unknown Address Unknown Organization K01:[facility] [place] [address] [facility] [address] Laboratory Report Ordering Provider Test Date Status ITZ STONE 03/28/2023 09:02:26 Final Observation Date Value Abnormality Reference (Units ) Status HbA1C 03/28/2023 09:02:26 5.9 Above high normal 4. 0-5.6 (%) Final The use of HbA1c to monitor glycemic status is based on normal hemoglobin and HbA composition. This test should not be used in patients with abnormal hemoglobin that affects the half life of the red blood cell or the in vivo glycation rates. Glucose, estimated average 03/28/2023 09:02:26 123 <126 (mg/dL) Final Performing Location [facility] [place] - [address] [facility] [address]
--- OUTSIDE RECORDS SUMMARY | 2023-08-26 22:57 | External Medical Summary | Summary of Care ---
Author Name Unknown Organization [facility] Address [address] [place] [address] Phone [phone] Care Team Providers Care Health Plan Manager Name Role Phone Mango Tamez MD Primary Care Provider [phone] Reason for Referral * Evaluate & Treat - Unlimited Visits (Within 30 days (routine)) - Authorized Specialty Diagnoses / Procedures Referred By Reena griffin Referred To Contact Medical Genetics / Hematology Oncology Diagnoses Dyslipidemia, goal LDL below 70 [facility] [address] Referral ID Status Reason Start Date Expiration Date Visits Requested Visits Authorized [id number] Authorized Specialty Services Required 04/09/2023 999 999 Question Answer Referral Priority Within 30 days (routine) Is this referral request related to one of the following genetics sub-specialties? If unsure of category, use Medical Genetics Ask-A-Doc. Cardiovascular Will this information impact decision on implantable cardiac defibrillator placement, surgical decision making, or medication management? No Is there a positive family history? Yes How are they related to your patient? mother, father, "everyone" had high cholesterol What is their diagnosis? Hyperlipidemia What was their age of diagnosis? unknown Comments Pt would like testing for FH if affordable. She has a strong family history, prior NSTEMI and LDL >200 on a statin Reason for Visit * Reason Comments Dosage Adjustment In Person (Anticoag Cl inic) Hyperlipidemia * Evaluate & Treat - Unlimited Visits (Within 30 days (routine)) - Authorized Specialty Diagnoses / Procedures Referred By Contac t Referred To Contact Pharmacist / Pharmacy Diagnoses Dyslipidemia, goal LDL below 70 Mecca Chen CRNP [address] [place] [address] Referral ID Status Reason Start Date Expiration Date Visits Requested Visits Authorized [id number] Authorized Specialty Services Required 03/31/2023 99 99 Encounter Details Date Type Department Care Team Description 04/09/2023 Office Visit Cardiology Erich Alfaro [address] [place] [id number] [facility] [address] [place] [id number] Dyslipidemia, goal LDL below 70* Allergies Active [...] as of this encounter (statuses as of 04/09/2023) Medications Medication Sig Dispensed Refills Start Date End Date Status Siriayle Que 14 Day [place] DeviceIndications: Hypoglycemia Use as directed. 1 Each 0 08/10/2021 Active Fluticasone Propionate 50 MCG/ACT Nasal Suspension (Flonase) ADMINISTER 2 SPRAYS INTO EACH NOSTRIL DAILY IN THE MORNING - DO NOT START BEFORE MAY 23, 2022 94 mL 3 05/22/2022 05/22/2023 Active Additional Information Patient taking differently: 1 [place] Nasal DAILY PRN, Allergies, Reported on 11/27/2022 FreeStyle Que 14 Day SensorIndications: Hypoglycemia Apply new sensor every 14 days 2 Each 11/06/2022 Active CPAP every night at bedtime. [...] at bedtime. 180 Tablet 1 02/21/2023 Active Gabapentin 300 MG Oral Capsule (Neurontin)Indicat [...] at bedtime. 30 Tablet 0 03/31/2023 Active documented as of this encounter (statuses as of 04/09/2023) Active Problems Problem Noted Date Recurrent major [...] Proliferation L low Back 07/06/2010 Overview: CF [id number] Skin, left lower back: Atypical predominantly junctional [...] as of this encounter (statuses as of 04/09/2023) Resolved Problems Problem Noted Date Resolved Date [...] as of this encounter (statuses as of 04/09/2023) Immunizations Name Administration Dates Next Due HEP [...] this encounter Patient Instructions * Patient Instructions* Martine Storm RPh - 04/09/2023 9:57 AM EDT Start small exercise program, try for 2 days per week Check on dose of Crestor (rosuvastatin) and call me or send me a Exabre message START Repatha 420 mg once monthly once approved by insurance I will order genetic testing [phone] ex [phone] Martine Storm Pharm D Clinical Pharmacist Cardiology 04/09/2023,10:07 AM) documented in this encounter Progress Notes * Martine Storm RPh - 04/09/2023 9:49 AM EDT PHARMACY CHRONIC DISEASE MANAGEMENT - HYPERLIPIDEMIA HPI: Clary Leonardo is a 62 year old year old female. Referred for HLD management by mecca FARFAN. Previous medication use: zetia?--on in 2006 stopped for unknown reason History of statin intolerance: no Statin names, doses, frequency tried and outcome: none Any contraindications to HLD medications: none Current medications which can be contributing: none Family history of HLD: yes; "everyone" mother, father, nieces Current genetic disorder diagnosis: no Smoking history: not discussed Alcohol use: 1 drink 1 day per week Diagnosis of diabetes: yes Clinical ASCVD/Risk Score: The 10-year ASCVD risk score (Conrado MAGALLANES, et al., 2019) is: 11.3% Values used to calculate the score: Age: 62 years Sex: Female Is Non- : No Diabetic: Yes Tobacco smoker: No Systolic Blood Pressure: 110 mmHg Is BP treated: Yes HDL Cholesterol: 58 mg/dL Total Cholesterol: 289 mg/dL Diet review: Ice cream as a snack (sugar fee) 1% milk--doesn't drink a lot Does eat a lot of eggs Recently brought low fat cheeses Has own beef Exercise review: things around the house; gardening; would like to start walking Patient Active Problem List Diagnosis Code ADVANCE DIRECTIVE INFORMATION Atypical melanocytic Proliferation L low Back D48.5 Other seborrheic keratosis L82.1 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) E11.69, E78.5 Depression with anxiety F41.8 Esophageal reflux K21.9 Type 2 diabetes mellitus with hemoglobin A1c goal of less than 7.0% (HCC) E11.9 Fatty liver K76.0 Dyslipidemia E78.5 DM type 2 with diabetic peripheral neuropathy (HCC) E11.42 Morbid obesity due to excess calories (HCC) E66.01 Stage 3a chronic kidney disease N18.31 Amnesia, global, transient G45.4 NSTEMI (non-ST elevated myocardial infarction) (HCC) I21.4 Type 2 diabetes mellitus with diabetic chronic kidney disease (HCC) E11.22 Mild aortic stenosis I35.0 Recurrent major depressive disorder (HCC) F33.9 Recurrent major depressive disorder (HCC) F33.9 Review of patient's allergies indicates: Allergen [...] Results Component Value Date/Time AST - [facility] 29 03/28/2023 09:02 AM AST - [facility] 31 11/27/2022 09:31 AM AST - [facility] 41 (H) 01/31/2022 12:03 AM AST - [facility] 59 (H) 10/11/2020 08:18 AM AST - [facility] 51 (H) 06/22/2020 08:02 AM AST - [facility] 23 11/22/2019 08:13 AM Lab Results Component Value Date/Time ALT - [facility] 37 (H) 03/28/2023 09:02 AM ALT - [facility] 33 11/27/2022 09:31 AM ALT - [facility] 41 (H) 01/31/2022 12:03 AM ALT - [facility] 56 (H) 10/11/2020 08:18 AM ALT - [facility] 56 (H) 06/22/2020 08:02 AM ALT - [facility] 36 (H) 11/22/2019 08:13 AM Lab Results Component Value Date/Time CK - [facility] 69 04/12/2008 04:05 PM Lab Results Component Value Date/Time 25-HYDROXY VITAMIN D - [facility] 29 12/03/2022 01:53 PM Lab Results Component Value Date/Time TSH - [facility] 2.41 12/03/2022 01:53 PM TSH - [facility] 1.56 07/11/2020 08:48 AM Hemoglobin AIC Results: Lab Results Component Value Date/Time HEMOGLOBIN A1C - [facility] 5.9 (H) 03/28/2023 09:02 AM HEMOGLOBIN A1C - [facility] 6.0 (H) 12/03/2022 01:53 PM HEMOGLOBIN A1C - [facility] 6.2 (H) 11/27/2022 01:30 PM HEMOGLOBIN A1C - [facility] 7.4 (H) 10/11/2020 08:18 AM HEMOGLOBIN A1C - [facility] 7.0 (H) 06/22/2020 08:02 AM HEMOGLOBIN A1C - [facility] 7.1 (H) 11/22/2019 08:17 AM Current Hyperlipidemia Medication(s): Crestor 20 mg tablet- Take 40 mg daily ASA 81 mg daily Metoprolol Er 25 mg daily Assessment & Plan: 1. Uncontrolled HLD -Target LDL <55 -Start Repatha 420 mg every 2 weeks -lipid panel 3 months -Genetics referral placed -TE sent to [facility] for [place] Reviewed most recent lipid panel results with patient; discussed each component of lipid panel and optimal levels of such components (i.e. TG,HDL-chol,LDL-chol). Lengthy discussion with patient regarding diet. Counseled patient to reduce dietary intake of fats,especially trans-fat. Counseled patient to limit dietary cholesterol intake to less than 200mg daily. Counseled patient to consume a dietary pattern that emphasized intake of vegetables, fruits, and whole-grains; includes low-fat dairy products, poultry, fish, legumes, non-tropical vegetable oils, and nuts; and limit intake of sweets, sugar-sweetened beverages, cheeses, fried foods and red meats. Counseled patient to engage in aerobic physical activity at least 3 to 4 sessions weekly, lasting on average 40 minutes per session and involving pxgeylvf-[id number] intensity physical activity. Regarding medications, pt is currently on Crestor and tolerating well. Uncertain if taking 20 or 40mg daily. She will let me know via myG which dose. Next step is typically adding zetia, but this would only lower LDL by 20-30% which would not get patient to goal. Instead, will start PCSK9. Pt prefers monthly option Educated patient on Repatha. Instructed patient to take 420 mg SQ monthly. Reviewed subcutaneous injection technique. Do not shake. If refrigerated, allow to stand at room temperature for at least 30-45 minutes. Administer into areas of abdomen except for 2 inches from the navel. May also administer in thigh, or upper arm. Do not administer other injectable drugs at the same injection site. Rotate injection site with each injection. Instructed patient to monitor for hypersensitivity reactions. Educated the patient on common adverse reactions such as nasopharyngitis. Instructed patient to store in the refrigerator until ready to use, however, it may be kept at room temperature for 30 days. For missed doses, instructed patient to administer dose within 7 days from the missed dose and resumeoriginal schedule. If an fllwj-[id number] dose is not administered within 7 days, wait until the next dose on the original schedule. If a once-monthly dose is not administered within 7 days, administer the dose and start a new schedule based on this date. Of note, pt has strong family hx and would like to be referred to genetics for FH. She does have children which high cholesterol. 2. Hx NSTEMI 11/2022 -suspected to be stress induced -Stress test showed normal EF without WMA or evidence of ischemia 3. Controlled Hypertension -Goal BP <130/80 4. Controlled Type 2 DM -Goal HbA1c <7% -On trulicity 5. Mild aortic stenosis Medication changes: Crestor 20 mg tablet- Take 40 mg daily ASA 81 mg daily Metoprolol Er 25 mg daily START Repatha 420 mg monthly Labs Due: Lipid panel (ordered)---remind me sent Follow up: 4 months Martine Storm RPh Clinical Pharmacist 9:49 AM, 04/09/23 documented in this encounter Plan of Treatment Upcoming Encounters Date Type Specialty Care Team Description 04/29/2023 Telemedicine Psychiatry Liliana Anderson CRNP [address] [place] [address] 06/02/2023 Office Visit Cardiology Mecca Chen CRNP [address] [facility] [place] [address] 07/07/2023 Nurse Only Ancillary Nurse Shirley Jung [address] [facility] [place] [address] 08/06/2023 Hospital Encounter Endoscopy Daisha Pierson, DO [address] [place], [place] [address] 08/06/2023 Surgery Endoscopy Daisha Pierson, DO [address] [place], [place] [address] COLONOSCOPY FLEXIBLE PROXIMAL DIAGNOSTIC 08/12/2023 Telemedicine Cardiology [facility] Cardiology [address] [facility] [place] [address] 10/08/2023 Laboratory Laboratory [facility] [address] [place] [address] 10/10/2023 Office Visit Family Medicine Mango Tamez MD [facility] [place] [address] 02/20/2024 Office Visit Dermatology Dariana Oquendo PA-C [address] [facility] [place] [address] Scheduled Orders Name Type Priority Associated Diagnoses Orde r Schedule LIPID PANEL WITH DIRECT LDL IF TG IS HIGH Lab Routine Dyslipidemia, goal LDL below 70 Expected: 07/10/2023 (Approximate), Expires: 10/09/2023 Scheduled Procedures Name Priority Associated Diagnoses Date/Ti me COLONOSCOPY FLEXIBLE PROXIMAL DIAGNOSTIC History of colonic polyps 08/06/2023 10:00 AM EDT Scheduled Referrals Name Type Priority Associated Diagnoses Orde r Schedule GENETICS REFERRAL OP Referral Within 30 days (routine) Dyslipidemia, goal LDL below 70 Ordered: 04/09/2023 Health Maintenance Due Date Last Done Comments [...] Additional history exists CKD HGB USE SMARTSET 86537 11/29/202311/29, 11/28/2022, 11/27/2022, Additional history exists Albumin/Creatinine Ratio 12/03/2023 023, 11/22/2021, 06/25/2021, Additional history exists DIABETES-FOOT EXAM 12/03/2023 12/03/2022, 0 05/28/2021, 05/29/2020, Additional history exists Depression Screening, Annual for Pts 12 and Over 12/03/2023 12/03/2022 DTaP,Tdap,and Td Vaccines (2 - Td or Tdap) 12/23/2023 12/22/2013 Mammogram 02/12/2024 02/11/2023, 01/11, 07/10/2020, Additional history exists CKD PHOS USE SMARTSET 14320 03/28/202403/13, 05/31/2022, 03/02/2021, Additional history exists Lipid [...] Advance Directives occurred with: Patient Care Teams Health Plan Manager Relationship Specialty Start Date End Date Mango Tamez MD [address] [place] [address] PCP - General Family Medicine 05/28/21 documented as of this encounter
--- OUTSIDE RECORDS SUMMARY | 2023-08-26 22:57 | External Medical Summary | Summary of Care ---
Author Name Unknown Organization [facility] Address [address] [place] [address] Phone [phone] Care Team Providers Care Pulp Press Tender Name Role Phone Mango Tamez MD Primary Care Provider [phone] Reason for Referral * Evaluate & Treat - Unlimited Visits (Within 30 days (routine)) - Authorized Specialty Diagnoses / Procedures Referred By Reena griffin Referred To Contact Pharmacist / Pharmacy Diagnoses Dyslipidemia, goal LDL below 70 Tali Chen CRNP [address] [place] [address] Referral ID Status Reason Start Date Expiration Date Visits Requested Visits Authorized [id number] Authorized Specialty Services Required 03/31/2023 99 99 Question Answer Referral Priority Within 30 days (routine) Department: Specialist Specialty: Cardio Reason for Referral: Lipids Comments Pharmacist Medication Therapy Management: Minimum frequency patient should be seen in person for medication management: as appropriate per clinical condition and patient status By my signature, I understand that my patient Clary Leonardo will have her medication therapy managed by the [facility] Medication Therapy Disease Management Clinic ([facility]) per established policies, procedures, and protocols. I also certify that this referral may serve as an initiation of service for the management of drug therapy in the above noted patient. [facility] providers will be responsible for scheduling patient visits, obtaining appropriate laboratory studies, and adjusting medication management therapy per patient's need, in addition to those roles spelled out in the clinic policy, procedures, and drug management protocols. I understand that the service provided by the [facility] Clinic is voluntary and have informed patient that they can refuse the service at their discretion. I am aware that the [facility] will provide me with a copy of the patient encounter via my [employer]. I authorize the [facility] to carry out these activities on my behalf. I consider this program to be a necessary part of the patient's medical care. Tali Chen * Evaluate & Treat - Unlimited Visits (Within 10 days (routine)) - Authorized Specialty Diagnoses / Procedures Referred By Contosito t Referred To Contact Medical Genetics / Hematology Oncology Diagnoses Dyslipidemia, goal LDL below 70 Mabel Azevedo CRNP [address] [place] [address] Referral ID Status Reason Start Date Expiration Date Visits Requested Visits Authorized [id number] Authorized Specialty Services Required 03/31/2023 999 999 Question Answer Referral Priority Within 10 days (routine) Is this referral request related to one of the following genetics sub-specialties? If unsure of category, use Medical Genetics Ask-A-Doc. Cardiovascular Will this information impact decision on implantable cardiac defibrillator placement, surgical decision making, or medication management? No Is there a positive family history? No Comments HLD Reason for Visit * Reason Onset Date Comments Test Results 03/31/2023 Encounter Details Date Type Department Care Team Description 03/31/2023 Telephone Cardiology Erich Alfaro [address] [place] [address] Tali Chen CRNP [address] [place] [address] Test Results Allergies Active Allergy Reactions Severity Noted Date [...] as of this encounter (statuses as of 03/31/2023) Medications Medication Sig Dispensed Refills Start Date End Date Status FreeStyle Que 14 Day [place] DeviceIndications: Hypoglycemia Use as directed. 1 Each 0 08/10/2021 Active Fluticasone Propionate 50 MCG/ACT Nasal Suspension (Flonase) ADMINISTER 2 SPRAYS INTO EACH NOSTRIL DAILY IN THE MORNING - DO NOT START BEFORE MAY 23, 2022 94 mL 3 05/22/2022 05/22/2023 Active Additional Information Patient taking differently: 1 [place] Nasal DAILY PRN, Allergies, Reported on 11/27/2022 [...] as of this encounter (statuses as of 03/31/2023) Active Problems Problem Noted Date Recurrent major [...] melanocytic Proliferation L low Back 07/06/2010 Overview: [id number] Skin, left lower back: Atypical predominantly junctional [...] as of this encounter (statuses as of 03/31/2023) Resolved Problems Problem Noted Date Resolved Date [...] as of this encounter (statuses as of 03/31/2023) Immunizations Name Administration Dates Next Due HEP [...] Telephone Encounter - Martine Storm RPh - 03/31/2023 11:44 AM EDT Cardiology Appointment Request Please schedule the following visits: Department & Provider: Cardiology [facility] [[id number]] & [facility] Cardio [place] [[id number]] Patient to be scheduled for visit type: Dosage Adj In Person [[id number]] Reason for visit: Lipid Co-Management Length of visit: 40 minutes (new visit) Time Frame: within next 30 days Please route this encounter back to pharmacist if unable to schedule patient after 3 attempts. * Telephone Encounter - NAHEED Baltazar - 03/31/2023 11:00 AM EDT Genetics referral also placed- please assist with scheduling. Cardiology Pre-Cert Request Medication/Disease State Information: Medication: PCSK9i - Medication choice per pharmacist. . Referral for pharmacist for: Pharmacist Co-Management Diagnosis (including ICD-10): ASCVD- CAD: I25.10 and Hyperlipidemia: E78.5 Medication(s) Tried/Failed/Contraindicated: Max statin See corresponding visit note(s) for additional supporting clinical information. Office Information: Prescriber: NAHEED Zhao Route to Cardiology Pharmacist Pool [phone]. *Do not send prescription at this time. Pre-cert will be completed prior to sending prescription* * Telephone Encounter - Lily Aguilar RN - 03/31/2023 10:18 AM EDT Pt notified of results. She was fasting for the labs and she is taking the Rosuvastatin as prescribed. She is agreeable to MTM referral. Please place order. Lily Aguilar RN * Telephone Encounter - Lily Aguilar RN - 03/31/2023 10:17 AM EDT ----- Message from NAHEED Baltazar sent at 03/31/2023 8:21 AM EDT ----- Results reviewed in coverage of NAHEED Zhao. LDL significantly elevated in the 200s. Given history of NSTEMI-LDL should be below 70. Patient is already on rosuvastatin 40 mg daily. Please ensure compliance. If patient is taking this medication appropriately recommend Cardio MTM clinic for possible PCSK9 inhibitor. Genetic testing may also be warranted. documented in this encounter Plan of Treatment Upcoming Encounters Date Type Specialty Care Team Description 04/08/2023 Telemedicine Psychiatry Liliana Anderson CRNP [address] [place] [address] 06/02/2023 [facility] Visit [facility] [phone] 07/07/2023 Nurse Only Ancillary Nurse Erich Fp 21 [facility] [place] [address] 08/06/2023 Hospital Encounter Endoscopy Daisha Pierson, DO [address] [place] [address] 08/06/2023 Surgery Endoscopy Daisha Pierson, DO [address] [place] [address] COLONOSCOPY FLEXIBLE PROXIMAL DIAGNOSTIC 10/08/2023 Laboratory Laboratory [place] [address] [address] [place] [address] 10/10/2023 Office Visit Family Medicine Mango Tamez MD [address] [place] [phone] 02/20/2024 Office Visit Dermatology Dariana Oquendo PA-C [address] [place] [address] Scheduled Procedures Name Priority Associated Diagnoses Date/Ti me COLONOSCOPY FLEXIBLE PROXIMAL DIAGNOSTIC History of colonic polyps 08/06/2023 10:00 AM EDT Scheduled Referrals Name Type Priority Associated Diagnoses Orde r Schedule GENETICS REFERRAL OP Referral Within 10 d ays (routine) Dyslipidemia, goal LDL below 70 Ordered: 03/31/2023 PHARMACIST MEDS THERAPY MGMT REFERRAL OP Referral Within 30 days (routine) Dyslipidemia, goal LDL below 70 Ordered: 03/31/2023 Health Maintenance Due Date Last Done Comments [...] Additional history exists CKD HGB USE SMARTSET 51452 11/29/202311/29, 11/28/2022, 11/27/2022, Additional history exists Albumin/Creatinine Ratio 12/03/2023 023, 11/22/2021, 06/25/2021, Additional history exists DIABETES-FOOT EXAM 12/03/2023 12/03/2022, 0 05/28/2021, 05/29/2020, Additional history exists Depression Screening, Annual for Pts 12 and Over 12/03/2023 12/03/2022 DTaP,Tdap,and Td Vaccines (2 - Td or Tdap) 12/23/2023 12/22/2013 Mammogram 02/12/2024 02/11/2023, 01/11, 07/10/2020, Additional history exists CKD PHOS USE SMARTSET 41939 03/28/202403/13, 05/31/2022, 03/02/2021, Additional history exists Lipid Panel 03/28/2028 03/28/2023, 11/13, 11/22/2021, Additional history exists Hepatitis B Completed 11/05/2004, 0610/2003, 02/08/2004 Influenza Vaccine (FLU shot) Completed 08/06/2022, [...] Advance Directives occurred with: Patient Care Teams Pulp Press Tender Relationship Specialty Start Date End Date Mango Tamez MD [address] [facility] [place] [address] PCP - General Family Medicine 05/28/21 documented as of this encounter
--- OUTSIDE RECORDS SUMMARY | 2023-08-26 22:57 | External Medical Summary | Summary of Care ---
Author Name Unknown Organization [facility] Address [address] [facility] [place] [address] Phone [phone] Care Team Providers Care Brake Repair Mechanic Name Role Phone Mango Tamez MD Primary Care Provider [phone] Encounter Details Date Type Department Care Team Description 04/09/2023 Telephone Cardiology [place] Bhatia [address] [place] [address] [facility] 21 [facility] [place] [address] Allergies Active Allergy Reactions Severity Noted Date [...] End Date Status FreeStyle Que 14 Day [place] DeviceIndications: Hypoglycemia Use as directed. 1 Each 0 08/10/2021 Active Fluticasone Propionate 50 MCG/ACT Nasal Suspension (Flonase) ADMINISTER 2 SPRAYS INTO EACH NOSTRIL DAILY IN THE MORNING - DO NOT START BEFORE MAY 23, 2022 94 mL 3 05/22/2022 05/22/2023 Active Additional Information Patient taking differently: 1 [place] Nasal DAILY PRN, Allergies, Reported on 11/27/2022 [...] melanocytic Proliferation L low Back 07/06/2010 Overview: [id number] Skin, left lower back: Atypical predominantly junctional [...] Miscellaneous Notes * Telephone Encounter - Martine Storm, [facility] - 04/09/2023 10:30 AM EDT PCSK-9 Inhibitor [...] mg/dL Route referral message to CARDIOLOGY PHARMACIST VIDALIA [[id number]]. Please submit to BOTH primary insurance and secondary insurance (ex PACE/PACENET) if applicable. documented in this encounter Plan of Treatment Upcoming Encounters Date Type Specialty Care Team Description 04/29/2023 Telemedicine Psychiatry Liliana Anderson CRNP [facility] [address] 06/02/2023 Office Visit Cardiology Tali Chen CRNP [address] [place] [address] 07/07/2023 Nurse Only Ancillary Nurse Shirley Jung 21 [place] [address] 08/06/2023 Hospital Encounter Endoscopy Daisha Pierson DO [address] [place] [address] 08/06/2023 Surgery Endoscopy Daisha Pierson, [address] [place] [address] COLONOSCOPY FLEXIBLE PROXIMAL DIAGNOSTIC 08/12/2023 Telemedicine Cardiology Erich [facility] Cardiology [address] [place] [id number] 10/08/2023 Laboratory Laboratory [place], Lab 27 [facility] 4 [place] [address] 10/10/2023 Office Visit Family Medicine Mango Tamez MD 27 [facility] [place] [address] 02/20/2024 Office Visit Dermatology Dariana Oquendo PA-C [address] [place] [address] Scheduled Procedures Name Priority Associated Diagnoses Date/Ti [...] Additional history exists CKD HGB USE SMARTSET 32565 11/29/202311/29, 11/28/2022, 11/27/2022, Additional history exists Albumin/Creatinine Ratio 12/03/2023 023, 11/22/2021, 06/25/2021, Additional history exists DIABETES-FOOT EXAM 12/03/2023 12/03/2022, 0 05/28/2021, 05/29/2020, Additional history exists Depression Screening, Annual for Pts 12 and Over 12/03/2023 12/03/2022 DTaP,Tdap,and Td Vaccines (2 - Td or Tdap) 12/23/2023 12/22/2013 Mammogram 02/12/2024 02/11/2023, 01/11, 07/10/2020, Additional history exists CKD PHOS USE SMARTSET 17324 03/28/202403/13, 05/31/2022, 03/02/2021, Additional history exists Lipid [...] Advance Directives occurred with: Patient Care Teams Brake Repair Mechanic Relationship Specialty Start Date End Date Mango Tamez MD [address] [address] [place] [address] PCP - General Family Medicine 05/28/21 documented as of this encounter
--- OUTSIDE RECORDS SUMMARY | 2023-08-26 22:57 | External Medical Summary | Summary of Care ---
Author Name Unknown Organization [facility] Address [address] [place] [address] Phone [phone] Care Team Providers Care Joggle Press Operator Name Role Phone Mango Tamez MD Primary Care Provider [phone] Reason for Visit * Reason Onset Date Comments Referral 03/31/2023 Encounter Details Date Type Department Care Team Description 03/31/2023 Telephone [facility] [address] [place] [address] [facility] Referral Allergies Active Allergy Reactions Severity Noted Date [...] End Date Status FreeStyle Que 14 Day [place] DeviceIndications: Hypoglycemia Use as directed. 1 Each 0 08/10/2021 Active Fluticasone Propionate 50 MCG/ACT Nasal Suspension (Flonase) ADMINISTER 2 SPRAYS INTO EACH NOSTRIL DAILY IN THE MORNING - DO NOT START BEFORE MAY 23, 2022 94 mL 3 05/22/2022 05/22/2023 Active Additional Information Patient taking differently: 1 [place] Nasal DAILY PRN, Allergies, Reported on 11/27/2022 [...] hemoglobin A1c goal of less than 7.0% ([facility]) Inject 1.5 mg under the skin [...] Proliferation L low Back 07/06/2010 Overview: CF [id number] Skin, left lower back: Atypical predominantly junctional [...] encounter Miscellaneous Notes * Telephone Encounter - Vickie Hanson, [place] - 03/31/2023 10:37 AM EDT Provider: Mango Tamez MD Department: [facility] sent referral- struggling with depression and anxiety, is taking meds and they are helping. Low tolerance when others are angry, increases anxiety. Has not started counseling. No SI/HI I call [phone] ([employer]) and review referral. She reports that since she had COVID she has increased anxiety. Sent INN and copay info to: [email or web address]. No other needs, referral closed documented in this encounter Plan of Treatment Upcoming Encounters Date Type Specialty Care Team Description 04/08/2023 Telemedicine Psychiatry Liliana Anderson CRNP 100 [place] [address] 06/02/2023 Office Visit Cardiology Tali Chen CRNP 400 [facility] [place] [id number] 07/07/2023 Nurse Only Ancillary Nurse Shirley Jung 21 [place] [id number] 08/06/2023 Hospital Encounter Endoscopy Daisha Pierson, DO [address] [place] [address] 08/06/2023 Surgery Endoscopy Daisha Pierson, DO [address] [place] [address] COLONOSCOPY FLEXIBLE PROXIMAL DIAGNOSTIC 10/08/2023 Laboratory Laboratory [place], Lab [address] [place] [id number] 10/10/2023 Office Visit Family Medicine Mango Tamez MD 27 [facility] [place] [address] 02/20/2024 Office Visit Dermatology Dariana Oquendo PA-C [address] [place] [phone] Scheduled Procedures Name Priority Associated Diagnoses Date/Ti [...] Additional history exists CKD HGB USE SMARTSET 69046 11/29/202311/29, 11/28/2022, 11/27/2022, Additional history exists Albumin/Creatinine Ratio 12/03/2023 023, 11/22/2021, 06/25/2021, Additional history exists DIABETES-FOOT EXAM 12/03/2023 12/03/2022, 0 05/28/2021, 05/29/2020, Additional history exists Depression Screening, Annual for Pts 12 and Over 12/03/2023 12/03/2022 DTaP,Tdap,and Td Vaccines (2 - Td or Tdap) 12/23/2023 12/22/2013 Mammogram 02/12/2024 02/11/2023, 01/11, 07/10/2020, Additional history exists CKD PHOS USE SMARTSET 38365 03/28/202403/13, 05/31/2022, 03/02/2021, Additional history exists Lipid [...] Advance Directives occurred with: Patient Care Teams Joggle Press Operator Relationship Specialty Start Date End Date Mango Tamez MD [address] [place] [address] PCP - General Family Medicine 05/28/21 documented as of this encounter
--- OUTSIDE RECORDS SUMMARY | 2023-08-26 22:57 | External Medical Summary | Summary of Care ---
Author Name Unknown Organization [facility] Address [address] [facility] [place] [address] Phone [phone] Care Team Providers Care Game Warden Name Role Phone Mango Tamez MD Primary Care Provider [phone] Reason for Visit * Reason Onset Date Comments Precert In Process 04/09/2023 29 [place] P REP ATHA Encounter Details Date Type Department Care Team Description 04/09/2023 Telephone Cardiology [place] [facility] [place] [address] [facility] 21 [place] [phone] Precert In Process (29 [place] [facility] REPATHA ) Allergies Active Allergy Reactions Severity Noted Date [...] as of this encounter (statuses as of 04/10/2023) Medications Medication Sig Dispensed Refills Start Date End Date Status FreeStyle Que 14 Day [place] DeviceIndications :Hypoglycemia Use as directed. 1 Each 0 08/10/2021 Active Fluticasone Propionate 50 MCG/ACT Nasal Suspension (Flonase) ADMINISTER 2 SPRAYS INTO EACH NOSTRIL DAILY IN THE MORNING - DO NOT START BEFORE MAY 23, 2022 94 mL 3 05/22/2022 3 Active Additional Information Patient taking differently: 1 [place] Nasal DAILY PRN, Allergies, Reported on 11/27/2022 [...] 30 Tablet 0 03/31/2023 Active Rosuvastatin Calcium 20 MG Oral Tablet (Crestor)Indicati ons:Dyslipidemia Take 2 Tablets by mouth every night at bedtime. 180 Tablet 1 02/21/2023 3 Discontinue d(Refill) documented as of this encounter (statuses as of 04/10/2023) Active Problems Problem Noted Date Recurrent major [...] Proliferation L low Back 07/06/2010 Overview: CF [id number] Skin, left lower back: Atypical predominantly junctional [...] as of this encounter (statuses as of 04/10/2023) Resolved Problems Problem Noted Date Resolved Date [...] as of this encounter (statuses as of 04/10/2023) Immunizations Name Administration Dates Next Due HEP [...] Notes * Telephone Encounter - Martine Storm [facility] - 04/09/2023 10:30 AM EDT PCSK-9 [...] mg/dL Route referral message to CARDIOLOGY PHARMACIST CROSBY [[id number]]. Please submit to BOTH primary insurance and secondary insurance (ex PACE/PACENET) if applicable. documented in this encounter Plan of Treatment Upcoming Encounters Date Type Specialty Care Team Description 04/29/2023 Telemedicine Psychiatry Liliana Anderson CRNP 100 [facility] [place] [address] 06/02/2023 Office Visit Cardiology Tali Chen CRNP [address] [place] [address] 07/07/2023 Nurse Only Ancillary Nurse Shirley Jung 21 [place] [address] 08/06/2023 Hospital Encounter Endoscopy Daisha Pierson, DO [address] [place] [address] 08/06/2023 Surgery Endoscopy Daisha Pierson, DO [address] [place] [address] COLONOSCOPY FLEXIBLE PROXIMAL DIAGNOSTIC 08/12/2023 Telemedicine Cardiology Erich [facility] [place] [address] 10/08/2023 Laboratory Laboratory [place], Lab [address] [place] [address] [place] [address] 10/10/2023 Office Visit Family Medicine Mango Tamez MD 27 [facility] [place] [address] 02/20/2024 Office Visit Dermatology Dariana Oquendo PA-C [address] [place] [address] Scheduled Procedures Name Priority Associated Diagnoses Date/Ti [...] Additional history exists CKD HGB USE SMARTSET 66610 11/29/202311/29, 11/28/2022, 11/27/2022, Additional history exists Albumin/Creatinine Ratio 12/03/2023 023, 11/22/2021, 06/25/2021, Additional history exists DIABETES-FOOT EXAM 12/03/2023 12/03/2022, 0 05/28/2021, 05/29/2020, Additional history exists Depression Screening, Annual for Pts 12 and Over 12/03/2023 12/03/2022 DTaP,Tdap,and Td Vaccines (2 - Td or Tdap) 12/23/2023 12/22/2013 Mammogram 02/12/2024 02/11/2023, 01/11, 07/10/2020, Additional history exists CKD PHOS USE SMARTSET 26682 03/28/202403/13, 05/31/2022, 03/02/2021, Additional history exists Lipid [...] Advance Directives occurred with: Patient Care Teams Game Warden Relationship Specialty Start Date End Date Mango Tamez MD 27 [facility] [place] [address] PCP - General Family Medicine 05/28/21 documented as of this encounter
--- OUTSIDE RECORDS SUMMARY | 2023-08-26 22:57 | External Medical Summary | Summary of Care ---
Author Name Unknown Organization [facility] Address [address] [facility] [place] [address] Phone [phone] Care Team Providers Care Starch Crab Name Role Phone Mango Tamez MD Primary Care Provider Reason for Visit * Reason Onset Date Comments Precert In Process 04/09/2023 29 [place] [employer] [facility] [employer] [facility] REP ATHA Precert Approved 04/09/2023 REPATHA Encounter Details Date Type Department Care Team Description 04/09/2023 Telephone Cardiology [place] B[place]ia [address] [place] [address] Martine Storm, [facility] 21 [place] [phone] Precert In Process (29 [place] [facility] REPATHA [...] End Date Status FreeStyle Que 14 Day [place] DeviceIndications :Hypoglycemia Use as directed. 1 Each 0 08/10/2021 Active Fluticasone Propionate 50 MCG/ACT Nasal Suspension (Flonase) ADMINISTER 2 SPRAYS INTO EACH NOSTRIL DAILY IN THE MORNING - DO NOT START BEFORE MAY 23, 2022 94 mL 3 05/22/2022 3 Active Additional Information Patient taking differently: 1 [place] Nasal DAILY PRN, Allergies, Reported on 11/27/2022 [...] melanocytic Proliferation L low Back 07/06/2010 Overview: [id number] Skin, left lower back: Atypical predominantly junctional [...] Telephone Encounter - Martine Storm RPh - 04/09/2023 10:30 AM EDT PCSK-9 Inhibitor [...] mg/dL Route referral message to CARDIOLOGY PHARMACIST POOL [[id number]]. Please submit to BOTH primary insurance and secondary insurance (ex PACE/PACENET) if applicable. documented in this encounter Plan of Treatment Upcoming Encounters Date Type Specialty Care Team Description 04/29/2023 Telemedicine Psychiatry Liliana Anderson CRNP 100 [facility] [place] [address] 06/02/2023 Office Visit Cardiology Tali Chen CRNP 400 [place] [address] 07/07/2023 Nurse Only Ancillary Nurse Shirley Jung 21 [place] [address] 08/06/2023 Hospital Encounter Endoscopy Daisha Pierson, DO [address] [place] [address] 08/06/2023 Surgery Endoscopy Daisha Pierson, DO [address] [place] [address] COLONOSCOPY FLEXIBLE PROXIMAL DIAGNOSTIC 08/12/2023 Telemedicine Cardiology Erich [facility] Cardiology 400 [facility] [place] [address] 10/08/2023 Laboratory Laboratory [place], Lab [address] [place] [address] [place] [address] 10/10/2023 Office Visit Family Medicine Mango Tamez MD 27 [facility] [place] [address] 02/20/2024 Office Visit Dermatology Dariana Oquendo PA-C [address] [place] [address] Scheduled Procedures Name Priority Associated Diagnoses Date/Ti [...] Additional history exists CKD HGB USE SMARTSET 01896 11/29/202311/29, 11/28/2022, 11/27/2022, Additional history exists Albumin/Creatinine Ratio 12/03/2023 023, 11/22/2021, 06/25/2021, Additional history exists DIABETES-FOOT EXAM 12/03/2023 12/03/2022, 0 05/28/2021, 05/29/2020, Additional history exists Depression Screening, Annual for Pts 12 and Over 12/03/2023 12/03/2022 DTaP,Tdap,and Td Vaccines (2 - Td or Tdap) 12/23/2023 12/22/2013 Mammogram 02/12/2024 02/11/2023, 01/11, 07/10/2020, Additional history exists CKD PHOS USE SMARTSET 79923 03/28/202403/13, 05/31/2022, 03/02/2021, Additional history exists Lipid [...] Advance Directives occurred with: Patient Care Teams Starch Crab Relationship Specialty Start Date End Date Mango Tamez MD [address] [place] [address] PCP - General Family Medicine 05/28/21 documented as of this encounter
--- OUTSIDE RECORDS SUMMARY | 2023-08-26 22:57 | External Medical Summary | Summary of Care ---
Author Name Unknown Organization [facility] Address [address] [place] [address] Phone [phone] Care Team Providers Care Network Engineer Administrator Name Role Phone Mango Tamez MD Primary Care Provider Reason for Visit * Reason Onset Date Comments Medication Refill 03/31/2023 Encounter Details Date Type Department Care Team Description 03/31/2023 Refill [facility] [address] [place] [address] Bassem Alcaraz CRNP [address] [place] [address] Depression with anxiety; Recurrent major depressive disorder, remission status unspecified (HCC); Insomnia, unspecified type Allergies Active Allergy Reactions Severity Noted Date [...] as of this encounter (statuses as of 04/02/2023) Medications Medication Sig Dispensed Refills Start Date End Date Status FreeStyle Que 14 Day [place] DeviceIndications :Hypoglycemia Use as directed. 1 Each 0 08/10/2021 Active Fluticasone Propionate 50 MCG/ACT Nasal Suspension (Flonase) ADMINISTER 2 SPRAYS INTO EACH NOSTRIL DAILY IN THE MORNING - DO NOT START BEFORE MAY 23, 2022 94 mL 3 05/22/2022 3 Active Additional Information Patient taking differently: 1 [place] Nasal DAILY PRN, Allergies, Reported on 11/27/2022 [...] 02/21/2023 Active Gabapentin 300 MG Oral Capsule (Neurontin)Indica [...] at bedtime. 30 Tablet 0 03/31/2023 Active buPROPion HCl ER (XL) 150 MG Oral Tablet Extended Release 24 Hour (Wellbutrin XL)Indications:De pression with anxiety Take 1 Tablet by mouth in the morning. 90 Tablet 1 03/31/2023 3 Discontinue d(Refill) busPIRone HCl 10 MG Oral Tablet (Buspar)Indicatio ns:Depression with anxiety Take 1 Tablet by mouth in the morning and 1 Tablet at noon and 1 Tablet before bedtime. 270 Tablet 1 03/31/2023 3 Discontinue d(Refill) FLUoxetine HCl 60 MG Oral TabletIndications :Depression with anxiety,Recurrent major depressive disorder, remission status unspecified (HCC) Take 1 Tablet by mouth in the morning. 90 Tablet 1 03/31/2023 3 Discontinue d(Refill) traZODone HCl 50 MG Oral Tablet (Desyrel)Indicati ons:Insomnia, unspecified type Take 1 Tablet by mouth at bedtime. 90 Tablet 1 03/31/2023 3 Discontinue d(Refill) documented as of this encounter (statuses as of 04/02/2023) Active Problems Problem Noted Date Recurrent major [...] Proliferation L low Back 07/06/2010 Overview: CF [id number] Skin, left lower back: Atypical predominantly junctional [...] as of this encounter (statuses as of 04/02/2023) Resolved Problems Problem Noted Date Resolved Date [...] as of this encounter (statuses as of 04/02/2023) Immunizations Name Administration Dates Next Due HEP [...] Miscellaneous Notes * Telephone Encounter - NAHEED Luna - 03/31/2023 9:44 AM EDTSigned Prescriptions: Disp Refills busPIRone HCl 10 MG Oral Tablet (Buspar) 120 Ta*0 Sig: Take 1 Tablet by mouth in the morning and 1 Tablet at noon and 1 Tablet in the evening and 1 Tablet before bedtime. Authorizing Provider: BASSEM ALCARAZ buPROPion HCl ER (XL) 150 MG Oral Tablet E*30 Tab*0 Sig: Take 1 Tablet by mouth in the morning. Authorizing Provider: BASSEM ALCARAZ FLUoxetine HCl 60 MG Oral Tablet 30 Tab*0 Sig: Take 1 Tablet by mouth in the morning. Authorizing Provider: BASSEM ALCARAZ traZODone HCl 50 MG Oral Tablet (Desyrel) 30 Tab*0 Sig: Take 1 Tablet by mouth at bedtime. Authorizing Provider: BASSEM ALCARAZ * Telephone Encounter - Justine Olmstead LPN - 03/31/2023 8:31 AM EDT Pt here for appt and requesting refills be sent for next month so they are ready at that time and not delayed. documented in this encounter Plan of Treatment Upcoming Encounters Date Type Specialty Care Team Description 04/08/2023 Telemedicine Psychiatry Bassem Alcaraz CRNP [address] [place], [place] [phone] 04/09/2023 Office Visit Cardiology Erich [facility] Cardiology [address] [place], [place] [phone] 06/02/2023 Office Visit Cardiology Tali Chen CRNP 400 [place], [place] [phone] 07/07/2023 Nurse Only Ancillary Nurse Shirley Jung [address] [place] [address] 08/06/2023 Hospital Encounter Endoscopy Daisha Pierson, DO [address] [place] [address] 08/06/2023 Surgery Endoscopy Daisha Pierson, DO [address] [place] [address] COLONOSCOPY FLEXIBLE PROXIMAL DIAGNOSTIC 10/08/2023 Laboratory Laboratory [place], Lab 27 [facility] 4 [place] [phone] 10/10/2023 Office Visit Family Medicine Mango Tamez MD 27 [facility] [place] [address] 02/20/2024 Office Visit Dermatology Dariana Oquendo PA-C 27 [place] [address] Scheduled Procedures Name Priority Associated Diagnoses Date/Ti [...] Additional history exists CKD HGB USE SMARTSET 10365 11/29/202311/29, 11/28/2022, 11/27/2022, Additional history exists Albumin/Creatinine Ratio 12/03/2023 023, 11/22/2021, 06/25/2021, Additional history exists DIABETES-FOOT EXAM 12/03/2023 12/03/2022, 0 05/28/2021, 05/29/2020, Additional history exists Depression Screening, Annual for Pts 12 and Over 12/03/2023 12/03/2022 DTaP,Tdap,and Td Vaccines (2 - Td or Tdap) 12/23/2023 12/22/2013 Mammogram 02/12/2024 02/11/2023, 01/11, 07/10/2020, Additional history exists CKD PHOS USE SMARTSET 17986 03/28/202403/13, 05/31/2022, 03/02/2021, Additional history exists Lipid [...] as of this encounter Visit Diagnoses Diagnosis Depression with anxiety Dysthymic disorder Recurrent major depressive disorder, remission status unspecified (HCC) Insomnia, unspecified type History of colonic polyps Personal history of [...] Advance Directives occurred with: Patient Care Teams Network Engineer Administrator Relationship Specialty Start Date End Date Mango Tamez MD [address] [facility] [place] [address] PCP - General Family Medicine 05/28/21 documented as of this encounter
--- OUTSIDE RECORDS SUMMARY | 2023-08-26 22:57 | External Medical Summary | Summary of Care ---
Author Name Unknown Organization [facility] Address [address] [facility] [place] [address] Phone [phone] Care Team Providers Care Whistle Punk Name Role Phone Chase Tamez MD Primary Care Provider [phone] Reason for Referral * Evaluate & Treat - Unlimited Visits (Within 10 days (routine)) - Authorized Specialty Diagnoses / Procedures Referred By Contosito griffin Referred To Contact Rand Sewer Diagnoses Depression with anxiety Recurrent major depressive disorder, remission status unspecified (HCC) Chase Tamez MD [address] [facility] [place] [id number] Referral ID Status Reason Start Date Expiration Date Visits Requested Visits Authorized [id number] Authorized Specialty Services Required 03/31/2023 999 999 Question Answer Referral Priority Within 10 days (routine) Role Behavioral Health Rand SewerBioinformatics Support Specialist Health Rand Sewer Referral Reason Depression (PHQ-9>10), Anxiety (GISELLA-7>10) Reason for Visit * Reason Comments Routine Exam 3 mo Encounter Details Date Type Department Care Team Description 03/31/2023 Office Visit Radha Krueger [address] [address] Chase Tamez MD [address] [place] [place] [phone] Type 2 diabetes mellitus with hemoglobin A1c goal of less than 7.0% ([facility])*; DM type 2 with diabetic peripheral neuropathy ([facility]); DM type 2 with diabetic dyslipidemia ([facility]); Dyslipidemia; Depression with anxiety; Recurrent major depressive disorder, remission status unspecified ([facility]); Gastroesophageal reflux disease, unspecified whether esophagitis present; Insomnia, unspecified type Allergies Active Allergy Reactions [...] End Date Status FreeStyle Que 14 Day [place] DeviceIndication s:Hypoglycemia Use as directed. 1 Each 0 1 Active Fluticasone Propionate 50 MCG/ACT Nasal Suspension (Flonase) ADMINISTER 2 SPRAYS INTO EACH NOSTRIL DAILY IN THE MORNING - DO NOT START BEFORE MAY 23, 2022 94 mL 3 2 05/22/20 23 Active Additional Information Patient taking differently: 1 [place] Nasal DAILY PRN, Allergies, Reported on 11/27/2022 FreeStyle Que 14 Day SensorIndication s:Hypoglycemia Apply new [...] A1c goal of less than 7.0% ([facility]) Inject 1.5 mg under the skin once a week. 2 mL 5 3 Active Rosuvastatin Calcium 20 MG Oral Tablet (Crestor)Indicat ions:Dyslipidemi a Take 2 Tablets by mouth every night at bedtime. 180 Tablet 1 3 Active Gabapentin 300 MG Oral Capsule (Neurontin)Indic ations:DM type 2 with diabetic peripheral neuropathy (HCC) Take 1 Capsule by mouth at bedtime. 90 Capsule 1 3 Active Omeprazole 40 MG Oral Capsule Delayed Release (PriLOSEC)Indica tions:Gastroesop hageal reflux disease, unspecified whether esophagitis present Take 1 Capsule by mouth in the morning and 1 Capsule before bedtime. 180 Capsule 3 3 Active buPROPion HCl ER (XL) 150 MG Oral Tablet Extended Release 24 Hour (Wellbutrin XL)Indications:D epression with anxiety,Memory loss Take 1 Tablet by mouth in the morning. 90 Tablet 1 3 03/31/20 23 Discontinued(Ref ill) Gabapentin 300 MG Oral Capsule (Neurontin)Indic ations:DM type 2 with diabetic peripheral neuropathy (HCC) Take 1 Capsule by mouth at bedtime. 90 Capsule 1 3 03/31/20 23 Discontinued(Ref ill) FLUoxetine HCl 60 MG Oral TabletIndication s:Anxiety state,Recurrent major depressive disorder, remission status unspecified ([facility]) Take 1 Tablet by mouth in the morning. 30 Tablet 3 3 03/31/20 23 Discontinued(Ref ill) Omeprazole 40 MG Oral Capsule Delayed Release (PriLOSEC) TAKE ONE CAPSULE TWICE A DAY 180 Capsule 0 3 03/31/20 23 Discontinued(Ref ill) busPIRone HCl 10 MG Oral Tablet (Buspar) Take 1 Tablet by mouth in the morning and 1 Tablet at noon and 1 Tablet before bedtime. 90 Tablet 0 3 03/31/20 23 Discontinued(Ref ill) traZODone HCl 50 MG Oral Tablet (Desyrel) Take 1 Tablet by mouth at bedtime. 30 Tablet 0 3 03/31/20 23 Discontinued(Ref ill) buPROPion HCl ER (XL) 150 MG Oral Tablet Extended Release 24 Hour (Wellbutrin XL)Indications:D epression with anxiety Take 1 Tablet by mouth in the morning. 90 Tablet 1 3 03/31/20 23 Discontinued busPIRone HCl 10 MG Oral Tablet (Buspar)Indicati ons:Depression with anxiety Take 1 Tablet by mouth in the morning and 1 Tablet at noon and 1 Tablet before bedtime. 270 Tablet 1 3 03/31/20 23 Discontinued traZODone HCl 50 MG Oral Tablet (Desyrel)Indicat ions:Insomnia, unspecified type Take 1 Tablet by mouth at bedtime. 90 Tablet 1 3 03/31/20 23 Discontinued FLUoxetine HCl 60 MG Oral TabletIndication s:Depression with anxiety,Recurren t major depressive disorder, remission status unspecified (HCC) Take 1 Tablet by mouth in the morning. 90 Tablet 1 3 03/31/20 23 Discontinued buPROPion HCl ER (XL) 150 MG Oral Tablet Extended Release 24 Hour (Wellbutrin XL)Indications:D epression with anxiety Take 1 Tablet by mouth in the morning. 90 Tablet 1 3 03/31/20 23 Discontinued(Ref ill) busPIRone HCl 10 MG Oral Tablet (Buspar)Indicati ons:Depression with anxiety Take 1 Tablet by mouth in the morning and 1 Tablet at noon and 1 Tablet before bedtime. 270 Tablet 1 3 03/31/20 23 Discontinued(Ref ill) FLUoxetine HCl 60 MG Oral TabletIndication s:Depression with anxiety,Recurren t major depressive disorder, remission status unspecified (HCC) Take 1 Tablet by mouth in the morning. 90 Tablet 1 3 03/31/20 23 Discontinued(Ref ill) traZODone HCl 50 MG Oral Tablet (Desyrel)Indicat ions:Insomnia, unspecified type Take 1 Tablet by mouth at bedtime. 90 Tablet 1 3 03/31/20 23 Discontinued(Ref ill) documented as of this encounter (statuses as [...] Proliferation L low Back 07/06/2010 Overview: CF [id number] Skin, left lower back: Atypical predominantly junctional [...] 1 Q uit: 05/13/2007 Smokeless Tobacco: Never Tobacco Cessation:Counseling Given: Not Answered Comments:05/19 Alcohol Use Standard Drinks/Week Comments Yes [...] Sign Reading Time Taken Comments Blood Pressure 110/68 03/31/2023 8:10 AM EDT Pulse 65 03/31/2023 8:10 AM EDT Temperature 35.9 C (96.6 F) 03/31/2023 8:10 AM ED T Respiratory Rate 16 03/31/2023 8:10 AM EDT Oxygen Saturation 95% 03/31/2023 8:10 AM EDT Inhaled Oxygen Concentration - - Weight 99.8 kg (220 lb) 03/31/2023 8:10 AM EDT Height 157.5 cm (5' 2") 03/31/2023 8:10 AM EDT Body Mass Index 40.24 03/31/2023 8:10 AM EDT documented in this encounter Functional [...] as of this encounter Progress Notes * Chase Tamez MD - 03/31/2023 8:15 AM EDT Images from the original note were not included. Brief Clinical History Ms. Leonardo is a 62 year old woman last seen in Family Medicine 3 months ago (12-26-22). She has h/o acute UT, chronic diabetic complication, CKD stage 3, depression, 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), DM type 2 with diabetic peripheral neuropathy (HCC), morbid obesity, Morbid obesity due toexcess calories (HCC), NSTEMI (non-ST elevated myocardial infarction) (HCC), Recurrent major depressive disorder (HCC), Stage 3a chronic kidney disease (HCC), and Type 2 diabetes mellitus with diabetic chronic kidney disease (HCC). History of Present Illness Clary Leonardo is a 62 year old female that presents for Routine Exam (3 mo) Patient presents for routine exam. she continues to struggle with her depression and anxiety. She is working with psychiatry and states that the medications do help until she is around anything Difficult and stressful. She can not tolerate when other people are angry. She notes that whenever she is around these situations she does worsening anxiety and panic attacks She can not tolerate stress. She has not yet returned to work dueto this. She is not yet started any counseling /therapy. Denies any SI or HI in regards to her diabetes she states that her sugars are well controlled. She has noted that sometimes when she does not eat because she she gets "too busy" that she will have lows. Current Outpatient Medications Medication Instructions aspirin 81 mg, Oral, Daily(AM) buPROPion XL (WELLBUTRIN XL) 150 mg, Oral, Daily(AM) busPIRone (BUSPAR) 10 mg, Oral, TID(AM/NOON/HS) CPAP QHS Dulaglutide (TRULICITY) 1.5 mg, Subcutaneous, QWEEK FLUoxetine HCl 60 mg, Oral, Daily(AM) Fluticasone Propionate 50 MCG/ACT Nasal Suspension (Flonase) ADMINISTER 2 SPRAYS INTO EACH NOSTRIL DAILY IN THE MORNING - DO NOT START BEFORE MAY 23, 2022 FreeStyle Que 14 Day [place] Device Does Not Apply FreeStyle Que 14 Day Sensor Apply new sensor every 14 days Gabapentin (NEURONTIN) 300 mg, Oral, HS metoprolol succinate XL (TOPROL XL) 25 mg, Oral, Daily(AM) Omeprazole 40 MG Oral Capsule Delayed Release (PriLOSEC) TAKE ONE CAPSULE TWICE A DAY rosuvastatin (CRESTOR) 40 mg, Oral, QHS traZODone (DESYREL) 50 mg, Oral, HS Physical Exam Vitals: 03/31/23 0810 Temp: 35.9 C (96.6 F) Pulse: 65 Resp: 16 SpO2: 95% BP: 110/68 BMI: 40.23 BP Readings from Last 3 Encounters: 03/31/23 110/68 12/26/22 122/82 12/03/22 118/64 Wt Readings from Last 3 Encounters: 03/31/23 99.8 kg (220 lb) 12/26/22 100.2 kg (220 lb 12.8 oz) 12/03/22 99.7 kg (219 lb 14.4 oz) Physical Exam Constitutional: General: She is not in acute distress. Appearance: Normal appearance. She is obese. HENT: Head: Normocephalic and atraumatic. Eyes: General: [...] normal. I have reviewed the following results: CMP, Lipid Panel and Hemoglobin A1C Assessment and Plan Type 2 diabetes mellitus with hemoglobin A1c goal of less than 7.0% (HCC) A1C is well controlled She will work on not skipping meals Continue Trulicity at 1.5 mg weekly - HEMOGLOBIN A1C; Future - CBC; Future - COMPREHENSIVE METABOLIC PANEL; Future DM type 2 with diabetic peripheral neuropathy (HCC) med refilled - Gabapentin 300 MG Oral Capsule (Neurontin); Take 1 Capsule by mouth at bedtime. 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) continue Crestor - LIPID PANEL WITH DIRECT LDL IF TG IS HIGH; Future Dyslipidemia - LIPID PANEL WITH DIRECT LDL IF TG IS HIGH; Future Depression with anxiety Recurrent major depressive disorder, remission status unspecified ([facility] Insomnia, unspecified type continue follow-up with psychiatry provided her with phone number of counselor from her last Psychology TeleMed visit - She states that she was unaware that she needed to reach out to them and so she will do so now she is currently on BuSpar, Wellbutrin, fluoxetine, trazadone that is managed by Psychiatry Beh CM referral placed - RETURN TO WORK OR SCHOOL - CBC; Future - COMPREHENSIVE METABOLIC PANEL; Future Gastroesophageal reflux disease, unspecified whether esophagitis present Stable - med refilled - Omeprazole 40 MG Oral Capsule Delayed Release (PriLOSEC); Take 1 Capsule by mouth in the morning and 1 Capsule before bedtime. - CBC; Future - COMPREHENSIVE METABOLIC PANEL; Future Wrap-Up Follow Up: Return in about 6 months (around 09/30/2023) for Routine. | For: Routine | Check-out note: Labs 2 days before next appt documented in this encounter Nursing Notes * Justine Olmstead LPN - 03/31/2023 8:02 AM EDT Chief Complaint Patient presents with Routine Exam 3 mo Pt states she has no new concerns just the continuing ones she said nothing has really changed. documented in this encounter Miscellaneous Notes * Addendum Note - Chase Tamez MD - 03/31/2023 9:55 AM EDTAddended by: CHASE TAMEZ on: 03/31/2023 09:55 AM Modules accepted: Orders documented in this encounter Plan of Treatment Upcoming Encounters Date Type Specialty Care Team Description 04/08/2023 Telemedicine Psychiatry Liliana Anderson CRNP [address] [facility] [address] 06/02/2023 Office Visit Cardiology Tali Chen CRNP [address] [place] [address] 07/07/2023 Nurse Only Ancillary Nurse Shirley [place] [address] [facility] [place] [address] 08/06/2023 Hospital Encounter Endoscopy Daisha Pierson, DO [address] [place] [address] 08/06/2023 Surgery Endoscopy Daisha Pierson, DO [address] [place] [address] COLONOSCOPY FLEXIBLE PROXIMAL DIAGNOSTIC 10/08/2023 Laboratory Laboratory [place], Lab [address] [facility] [address] [place] [address] 10/10/2023 Office Visit Family Medicine Chase Tamez MD [address] [facility] [place] [id number] 02/20/2024 Office Visit Dermatology Dariana Oquendo PA-C [address] [facility] [place] [address] Scheduled Orders Name Type Priority Associated Diagnoses Orde r Schedule HEMOGLOBIN A1C Lab Routine Type 2 diabetes mellitus with hemoglobin A1c goal of less than 7.0% (HCC) Expected: 09/30/2023 (Approximate), Expires: 03/30/2024 CBC Lab Routine Depression with anxiety Recurrent major depressive disorder, remission status unspecified (HCC) Type 2 diabetes mellitus with hemoglobin A1c goal of less than 7.0% (HCC) Gastroesophageal reflux disease, unspecified whether esophagitis present Expected: 09/30/2023 (Approximate), Expires: 03/30/2024 COMPREHENSIVE METABOLIC PANEL Lab Routine Depression with anxiety Recurrent major depressive disorder, remission status unspecified (HCC) Type 2 diabetes mellitus with hemoglobin A1c goal of less than 7.0% (HCC) Gastroesophageal reflux disease, unspecified whether esophagitis present Expected: 09/30/2023 (Approximate), Expires: 03/30/2024 LIPID PANEL WITH DIRECT LDL IF TG IS HIGH Lab Routine Dyslipidemia 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) Expected: 09/30/2023, Expires: 03/31/2024 Scheduled Procedures Name Priority Associated Diagnoses Date/Ti me COLONOSCOPY FLEXIBLE PROXIMAL DIAGNOSTIC History of colonic polyps 08/06/2023 10:00 AM EDT Scheduled Referrals Name Type Priority Associated Diagnoses Orde r Schedule POPULATION HEALTH REFERRAL OP Referral Within 10 days (routine) Depression with anxiety Recurrent major depressive disorder, remission status unspecified (HCC) Ordered: 03/31/2023 Health Maintenance Due Date Last [...] Additional history exists CKD HGB USE SMARTSET 93470 11/29/202311/29, 11/28/2022, 11/27/2022, Additional history exists Albumin/Creatinine Ratio 12/03/2023 023, 11/22/2021, 06/25/2021, Additional history exists DIABETES-FOOT EXAM 12/03/2023 12/03/2022, 0 05/28/2021, 05/29/2020, Additional history exists Depression Screening, Annual for Pts 12 and Over 12/03/2023 12/03/2022 DTaP,Tdap,and Td Vaccines (2 - Td or Tdap) 12/23/2023 12/22/2013 Mammogram 02/12/2024 02/11/2023, 01/11, 07/10/2020, Additional history exists CKD PHOS USE SMARTSET 20835 03/28/202403/13, 05/31/2022, 03/02/2021, Additional history exists Lipid [...] hemoglobin A1c goal of less than 7.0% (HCC)- Primary DM type 2 with diabetic peripheral neuropathy (HCC) Type II or unspecified type diabetes mellitus with neurological manifestations, not stated as uncontrolled 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) Type II or unspecified type diabetes mellitus with other specified manifestations, not stated as uncontrolled Dyslipidemia Other and unspecified hyperlipidemia Depression with anxiety Dysthymic disorder Recurrent major depressive disorder, remission status unspecified (HCC) Gastroesophageal reflux disease, unspecified whether esophagitis present Insomnia, unspecified type History of colonic polyps [...] Advance Directives occurred with: Patient Care Teams Whistle Punk Relationship Specialty Start Date End Date Chase Tamez MD [address] [place] [address] PCP - General Family Medicine 05/28/21 documented as of this encounter
--- OUTSIDE RECORDS SUMMARY | 2023-08-26 22:57 | External Medical Summary ---
Author Name Unknown Address Unknown Organization K01:[facility]ATORY [facility] - [address] [facility] [place] [address] Laboratory Report Ordering Provider Test Date Status ITZ STONE 03/28/2023 09:02:26 Final Observation Date Value Abnormality Reference (Units ) Status BUN 03/28/2023 09:02:26 12 6-20 (mg/dL) Final Creatinine 03/28/2023 09:02:26 1.2 Above high normal 0.5-1.0 (mg/dL) Final Glomerular filtration rate/1.73 sq M.predicted [Volume Rate/Area] in Serum, Plasma or Blood by Creatinine-based formula (CKD-EPI) 03/28/2023 09:02:26 53 Below low normal >=60 (mL/min) Final eGFR is calculated based on the CKD-EPI 2020 equation SODIUM 03/28/2023 09:02:26 139 135-146 (m mol/L) Final Potassium 03/28/2023 09:02:26 5.0 3.5-5.1 (m mol/L) Final Cl 03/28/2023 09:02:26 102 98-107 (mm ol/L) Final CO2 03/28/2023 09:02:26 27 22-32 (mmo l/L) Final Anion gap 03/28/2023 09:02:26 10 7-15 (mmol /L) Final Glucose 03/28/2023 09:02:26 107 70-120 (mg /dL) Final Albumin 03/28/2023 09:02:26 4.4 3.8-5.0 (g /dL) Final AST (Aspartate aminotransferase) 03/28/2023 09:02:26 29 10-35 (U/L) Fin al Alk Phos 03/28/2023 09:02:26 65 35-130 (U/ L) Final Bilirubin, Total 03/28/2023 09:02:26 0.4 <=1 .2 (mg/dL) Final Calcium 03/28/2023 09:02:26 9.6 8.4-10.2 ( mg/dL) Final Protein 03/28/2023 09:02:26 7.0 6.0-8.3 (g /dL) Final ALT (Alanine aminotransferase) 03/28/2023 09:02:26 37 Above high normal 10-35 (U/L) Final Performing Location LAB[facility]ORY [facility] - [address] [facility] [place] [address]
--- OUTSIDE RECORDS SUMMARY | 2023-08-26 22:57 | External Medical Summary ---
Author Name Unknown Address Unknown Organization K01:[facility] - [address] [place] [address] Laboratory Report Ordering Provider Test Date Status ITZ STONE 03/28/2023 09:02:26 Final Observation Date Value Abnormality Reference (Units ) Status Phosphate 03/28/2023 09:02:26 4.3 2.5-4.8 (m g/dL) Final Performing Location [facility]ATORY [facility] - [address] [place] [address]
--- OUTSIDE RECORDS SUMMARY | 2023-08-26 22:57 | External Medical Summary | Summary of Care ---
Author Name Unknown Organization [facility] Address [address] [place] [address] Phone [phone] Care Team Providers Care Nutrition Partner Name Role Phone Mango Tamez MD Primary Care Provider [phone] Reason for Visit * Reason Comments Medication Management Encounter Details Date Type Department Care Team Description 04/08[facility]23 [facility] [address], [place] [id number] Liliana Anderson CRNP [address] [place] [address] Recurrent major depressive disorder, remission status unspecified (HCC)*; Moderate episode of recurrent major depressive disorder (HCC) Allergies Active Allergy Reactions Severity Noted Date [...] as of this encounter (statuses as of 04/08/2023) Medications Medication Sig Dispensed Refills Start Date End Date Status FreeStyle Que 14 Day [place] DeviceIndications: Hypoglycemia Use as directed. 1 Each 0 08/10/2021 Active Fluticasone Propionate 50 MCG/ACT Nasal Suspension (Flonase) ADMINISTER 2 SPRAYS INTO EACH NOSTRIL DAILY IN THE MORNING - DO NOT START BEFORE MAY 23, 2022 94 mL 3 05/22/2022 05/22/2023 Active Additional Information Patient taking differently: 1 [place] Nasal DAILY PRN, Allergies, Reported on 11/27/2022 [...] as of this encounter (statuses as of 04/08/2023) Active Problems Problem Noted Date Recurrent major [...] melanocytic Proliferation L low Back 07/06/2010 Overview: [id number] Skin, left lower back: Atypical predominantly junctional [...] as of this encounter (statuses as of 04/08/2023) Resolved Problems Problem Noted Date Resolved Date [...] as of this encounter (statuses as of 04/08/2023) Immunizations Name Administration Dates Next Due HEP [...] encounter Progress Notes * NAHEED Luna - 04/08/2023 2:25 PM EDT OUTPATIENT PSYCHIATRY [place] [facility] [place] [address] Name: Clary Leonardo : 1960 Date and Time Patient was Seen: 04/08/2023 at 2:25 PM After connecting through televideo, patient was verified with two unique identifiers. 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 Start Time: 2:30P Stop Time: 3P Total direct [id number] time: 5 minutes Physical Location of patient: For patient verified using 2 identifiers. Confirmed patient is in a private location located within the [facility]. Patient verbally consented to tele-psychiatry consultation. CC: depression INTERVAL HISTORY: Pt reports good adherence with medication and denies side effects. Pt reports continued improvementin sleep and decrease in emotional blunting with trazodone. Reports improvement in anxiety since Buspar increased. Adequate sleep/appetite. Denies recent stressors. Pt denies SI. No manic symptoms, psychotic [...] Current Outpatient Medications Medication Sig Dispense Refill Isentropice 14 Day [place] Device Use as directed. 1 Each 0 Fluticasone Propionate 50 MCG/ACT Nasal Suspension (Flonase) ADMINISTER 2 SPRAYS INTO EACH NOSTRIL DAILY IN THE MORNING - DO NOT START BEFORE MAY 23, 2022 (Patient taking differently: Administer 1 [place] into nostril daily as needed for Allergies.) [...] 3 Dulaglutide 1.5 MG/0.5ML Subcutaneous Solution Pen-injector (Affaredelgiorno) Inject 1.5 mg under theskin once a week. 2 mL 5 Rosuvastatin Calcium 20 MG Oral Tablet (Crestor) Take 2 Tablets by mouth every night at bedtime. 180 Tablet 1 Gabapentin 300 MG Oral Capsule (Neurontin) Take [...] by mouth at bedtime. 30 Tablet 0 No current facility-administered medications for this visit. RECENT LABS/IMAGING: Recent Results (from the past 672 hour(s)) LIPID PANEL WITH DIRECT LDL IF TG IS HIGH Collection Time: 03/28/23 9:02 AM Result Value Ref Range Triglycerides 130 <=174 mg/dL Cholesterol 289 (H) <200 mg/dL HDL Cholesterol 58 >49 mg/dL Non-HDL Cholesterol 231 (H) <=159 mg/dL LDL Cholesterol 205 (H) <=129 mg/dL HEMOGLOBIN A1C Collection Time: 03/28/23 9:02 AM Result Value Ref Range Hemoglobin A1C 5.9 (H) 4.0 - 5.6 % Estimated Average Glucose 123 <126 mg/dL COMPREHENSIVE METABOLIC PANEL Collection Time: 03/28/23 9:02 AM Result Value Ref Range BUN 12 6 - 20 mg/dL Creatinine 1.2 (H) 0.5 - 1.0 mg/dL Estimated Glomerular Filtration Rate 53 (L) >=60 mL/min Sodium 139 135 - 146 mmol/L Potassium 5.0 3.5 - 5.1 mmol/L Chloride 102 98 - 107 mmol/L CO2 27 22 - 32 mmol/L Anion Gap 10 7 - 15 mmol/L Glucose 107 70 - 120 mg/dL Albumin 4.4 3.8 - 5.0 g/dL AST 29 10 - 35 U/L Alkaline Phosphatase 65 35 - 130 U/L Bilirubin, Total 0.4 <=1.2 mg/dL Calcium 9.6 8.4 - 10.2 mg/dL Protein 7.0 6.0 - 8.3 g/dL ALT 37 (H) 10 - 35 U/L PHOSPHORUS Collection Time: 03/28/23 9:02 AM Result Value Ref Range Phosphorus 4.3 2.5 - 4.8 mg/dL VITALS There were no vitals filed for this visit. Wt Readings from Last 3 Encounters: 03/31/23 99.8 kg (220 lb) 12/26/22 100.2 kg (220 lb 12.8 oz) 12/03/22 99.7 kg (219 lb 14.4 oz) There is no height or weight on file to calculate BMI. CURRENT MEDICATIONS: Current Outpatient Medications Medication Sig Dispense Refill FreeStyle Que 14 Day [place] Device Use as directed. 1 Each 0 Fluticasone Propionate 50 MCG/ACT Nasal Suspension (Flonase) ADMINISTER 2 SPRAYS INTO EACH NOSTRIL DAILY IN THE MORNING - DO NOT START BEFORE MAY 23, 2022 (Patient taking differently: Administer 1 [place] into nostril daily as needed for Allergies.) [...] theskin once a week. 2 mL 5 Rosuvastatin Calcium 20 MG Oral Tablet (Crestor) Take 2 Tablets by mouth every night at bedtime. 180 Tablet 1 Gabapentin 300 MG Oral Capsule (Neurontin) Take [...] by mouth at bedtime. 30 Tablet 0 No current facility-administered medications for this visit. [...] Hydroxyzine 10mg HS. Referred by PCP to [facility] for depression. Since COVID infection in May 2022, reports apathy, emotional blunting and persistent short-term memory impairment. 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 [...] 50mg reporting improvement in depression and insomnia. Anxiety improved with increase in Buspar TID. ASSESSMENT AND PLAN: 1. Moderate episode of [...] therapy referral provided during intake 4. RTC: in 3 week(s) 5. Referrals- Neuropsych testing Treatment options and [...] Spent on Visit: 30 minutes Billing code: 58595 Outpatient Adult Psychiatry Treatment Plan Treatment plan was developed on 03/18/23, treatment will continue to focus on goals below; Treatment update will occur when clinically indicated or by 10/04/2023. 1. Patient's goals captured in patient's words: [...] hotlines): Suicide and Crisis Lifeline - 988, [employer] access to crisis numbers and Advisity Hotlines for Help 3. Patient/Family Received Copy of Treatment Plan: Patient has access to [facility] 4. Signature Obtained on Treatment Plan: Treatment [...] clinical assessment: PHQ-9 Adult Data GISELLA-7 Data [place] Suicide Screen NAHEED Wh[facility] 04/08/2023 documented in this encounter Plan of Treatment Upcoming Encounters Date Type Specialty Care Team Description 04/09/2023 Office Visit [facility] [address] [facility] [place] [id number] 04/29/2023 Telemedicine Psychiatry Liliana Anderson CRNP [address] [place] [address] 06/02/2023 [facility] Visit [facility] [address] 07/07/2023 Nurse Only Ancillary Nurse Erich [address] [facility] [place] [address] 08/06/2023 Hospital Encounter Endoscopy Daisha Pierson, DO [address] [place] [address] 08/06/2023 Surgery Endoscopy Daisha Pierson, DO [address] [place] [address] COLONOSCOPY FLEXIBLE PROXIMAL DIAGNOSTIC 10/08/2023 Laboratory Laboratory [place], Lab [address] [place] [address] 10/10/2023 Office Visit Family Medicine Mango Tamez MD [address] [place] [address] 02/20/2024 Office Visit Dermatology Dariana Oquendo PA-C [address] [place] [address] Scheduled Procedures Name Priority Associated Diagnoses Date/Ti [...] Additional history exists CKD HGB USE SMARTSET 11268 11/29/202311/29, 11/28/2022, 11/27/2022, Additional history exists Albumin/Creatinine Ratio 12/03/2023 023, 11/22/2021, 06/25/2021, Additional history exists DIABETES-FOOT EXAM 12/03/2023 12/03/2022, 0 05/28/2021, 05/29/2020, Additional history exists Depression Screening, Annual for Pts 12 and Over 12/03/2023 12/03/2022 DTaP,Tdap,and Td Vaccines (2 - Td or Tdap) 12/23/2023 12/22/2013 Mammogram 02/12/2024 02/11/2023, 01/11, 07/10/2020, Additional history exists CKD PHOS USE SMARTSET 61081 03/28/202403/13, 05/31/2022, 03/02/2021, Additional history exists Lipid [...] depressive disorder, remission status unspecified (HCC)- Primary Moderate episode of recurrent major depressive disorder [...] Advance Directives occurred with: Patient Care Teams Nutrition Partner Relationship Specialty Start Date End Date Mango Tamez MD [address] [facility] [place] [address] PCP - General Family Medicine 05/28/21 documented as of this encounter
--- OUTSIDE RECORDS SUMMARY | 2023-08-26 22:57 | External Medical Summary | Summary of Care ---
Author Name Unknown Organization [facility] Address [address] [place] [address] Phone [phone] Care Team Providers Care Chemical Engineering Intern Name Role Phone Mango Tamez MD Primary Care Provider [phone] Reason for Referral * Evaluate & Treat - Unlimited Visits (Within 30 days (routine)) - Authorized Specialty Diagnoses / Procedures Referred By Reena griffin Referred To Contact Pharmacist / Pharmacy Diagnoses Dyslipidemia, goal LDL below 70 Tali Chen CRNP [address] [place] [address] Referral ID Status Reason Start Date Expiration Date Visits Requested Visits Authorized [id number] Authorized Specialty Services Required 03/31/2023 99 99 [...] have her medication therapy managed by the [facility] Medication Therapy Disease Management [facility] ([facility]) per established policies, procedures, and protocols. I also certify that this referral may serve as an initiation of service for the management of drug therapy in the above noted patient. [facility] providers will be responsible for scheduling patient visits, obtaining appropriate laboratory studies, and adjusting medication management therapy per patient's need, in addition to those roles spelled out in the clinic policy, procedures, and drug management protocols. I understand that the service provided by the [facility] Clinic is voluntary and have informed patient that they can refuse the service at their discretion. I am aware that the [facility] will provide me with a copy of the patient encounter via my [email or web address]. I authorize the [facility] to carry out these activities on my [...] Mabel Azevedo CRNP [address] [place] [address] Referral ID Status Reason Start Date Expiration Date Visits Requested Visits Authorized [id number] Authorized Specialty Services Required 03/31/2023 999 999 [...] Telephone Cardiology Erich Alfaro [address] [place] [address] Tali Chen CRNP [address] [place] [address] Test Results Allergies Active Allergy Reactions Severity [...] End Date Status FreeStyle Que 14 Day [place] DeviceIndications: Hypoglycemia Use as directed. 1 Each 0 08/10/2021 Active Fluticasone Propionate 50 MCG/ACT Nasal Suspension (Flonase) ADMINISTER 2 SPRAYS INTO EACH NOSTRIL DAILY IN THE MORNING - DO NOT START BEFORE MAY 23, 2022 94 mL 3 05/22/2022 05/22/2023 Active Additional Information Patient taking differently: 1 [place] Nasal DAILY PRN, Allergies, Reported on 11/27/2022 [...] melanocytic Proliferation L low Back 07/06/2010 Overview: [id number] Skin, left lower back: Atypical predominantly junctional [...] Miscellaneous Notes * Telephone Encounter - SAMI Richards - 03/31/2023 3:31 PM EDT Contacted pt, scheduled MTM appt for 04/09/23. * Telephone Encounter - Martine Storm RPh - 03/31/2023 11:44 AM EDT Cardiology Appointment Request Please schedule the following visits: Department & Provider: Cardiology [facility] [[id number]] & [facility]io [place] [[id number]] Patient to be scheduled for visit type: Dosage Adj In Person [[id number]] Reason for visit: Lipid Co-Management Length of [...] NAHEED Zhao Route to Cardiology Pharmacist Pool [id number]. *Do not send prescription at this time. Pre-cert will be completed prior to sending prescription* * Telephone Encounter - Lily Aguilar RN - 03/31/2023 10:18 AM EDT Pt notified of results. She was fasting for the labs and she is taking the Rosuvastatin as prescribed. She is agreeable to [place] referral. Please place order. Lily Aguilar RN [...] Telemedicine Psychiatry Liliana Anderson CRNP [address] [place] [address] 04/09/2023 Office Visit [facility] [address] [place] [id number] 06/02/2023 Office Visit Cardiology [facility] [id number] 07/07/2023 Nurse Only Ancillary Nurse Shirley [facility] [address] [place] [address] 08/06/2023 Hospital Encounter Endoscopy Daisha Pierson, DO [address] [place] [address] 08/06/2023 Surgery Endoscopy Daisha Pierson, DO [address] [place] [address] COLONOSCOPY FLEXIBLE PROXIMAL DIAGNOSTIC 10/08/2023 Laboratory Laboratory [place], Lab [address] [facility] 4 [place] [phone] 10/10/2023 Office Visit Family Medicine Mango Tamez MD 27 [facility] [place] [phone] 02/20/2024 Office Visit Dermatology Dariana Oquendo PA-C [address] [facility] [place] [address] Scheduled Procedures Name Priority Associated Diagnoses Date/Ti [...] Additional history exists CKD HGB USE SMARTSET 79090 11/29/202311/29, 11/28/2022, 11/27/2022, Additional history exists Albumin/Creatinine Ratio 12/03/2023 023, 11/22/2021, 06/25/2021, Additional history exists DIABETES-FOOT EXAM 12/03/2023 12/03/2022, 0 05/28/2021, 05/29/2020, Additional history exists Depression Screening, Annual for Pts 12 and Over 12/03/2023 12/03/2022 DTaP,Tdap,and Td Vaccines (2 - Td or Tdap) 12/23/2023 12/22/2013 Mammogram 02/12/2024 02/11/2023, 01/11, 07/10/2020, Additional history exists CKD PHOS USE SMARTSET 64642 03/28/202403/13, 05/31/2022, 03/02/2021, Additional history exists Lipid [...] Advance Directives occurred with: Patient Care Teams Chemical Engineering Intern Relationship Specialty Start Date End Date Mango Tamez MD [address] [facility] [address] [place] [address] PCP - General Family Medicine 05/28/21 documented as of this encounter
--- OUTSIDE RECORDS SUMMARY | 2023-08-26 22:57 | External Medical Summary ---
Author Name Unknown Address Unknown Organization K01:[facility] [place] - [address] [facility] [address] [place] [address] Laboratory Report Ordering Provider Test Date Status JOHAN MILES 03/28/2023 09:02:26 Final Observation Date Value Abnormality Reference (Units ) Status Triglyceride 03/28/2023 09:02:26 130 <=174 ( mg/dL) Final Triglyceride Reference Range s (mg/dL):
<150 Acceptable
150-174 Borderline high
175-499 High
>=500 Very high Cholesterol 03/28/2023 09:02:26 289 Above high normal <200 (mg/dL) Final Total Cholesterol Reference Ranges (mg/dL):
<200 Desirable
200-239 Borderline high
>=240 High HDL 03/28/2023 09:02:26 58 >49 (mg/dL ) Final HDL Cholesterol Reference Ra nges (mg/dL):
>=60 High (Desirable)
<50 Low (Undesirable) For Females
<40 Low (Undesirable) For Males NON-HDL CHOLESTEROL 03/28/2023 09:02:26 231 Above high normal <=159 (mg/dL) Final Non-HDL Cholesterol Referenc e Range (mg/dL):
<100 Target level for high risk ASCVD patient
<130 Optimal for general population
130-159 Near optimal for general population
160-189 Borderline High
190-219 High
>=220 Very High LDL, (calculated) 03/28/2023 09:02:26 205 Above high n ormal <=129 (mg/dL) Final LDL Cholesterol Reference Ra nges (mg/dL):
<70 Target level for high risk ASCVD patient
<100 Optimal for general population
100-129 Near optimal for general population
130-159 Borderline high
160-189 High
>=190 Very high Performing Location [facility] [place] - [address] [facility] [address]
--- OUTSIDE RECORDS SUMMARY | 2023-08-26 22:57 | External Medical Summary | Summary of Care ---
Author Name Unknown Organization [facility] Address [address] [facility] [place] [address] Phone [phone] Care Team Providers Care Repairer Sash And Door Name Role Phone Mango Tamez MD Primary Care Provider [phone] Reason for Visit * Reason Comments Routine Exam 3 mo Encounter Details Date Type Department Care Team Description 03/[facility] [address] [place] [address] Mango Tamez MD [address] [facility] [place] [address] Type 2 diabetes mellitus with hemoglobin A1c goal of less than 7.0% ([facility])*; DM type 2 with diabetic peripheral neuropathy ([facility]); DM type 2 with diabetic dyslipidemia ([facility]); Dyslipidemia; Depression with anxiety; Recurrent major depressive disorder, remission status unspecified ([facility]); Gastroesophageal reflux disease, unspecified whether esophagitis present; [...] End Date Status FreeStyle Que 14 Day [place] DeviceIndication s:Hypoglycemia Use as directed. 1 Each 0 1 Active Fluticasone Propionate 50 MCG/ACT Nasal Suspension (Flonase) ADMINISTER 2 SPRAYS INTO EACH NOSTRIL DAILY IN THE MORNING - DO NOT START BEFORE MAY 23, 2022 94 mL 3 2 05/22/20 23 Active Additional Information Patient taking differently: 1 [place] Nasal DAILY PRN, Allergies, Reported on 11/27/2022 [...] state,Recurrent major depressive disorder, remission status unspecified ([facility]) Take 1 Tablet by mouth [...] t major depressive disorder, remission status unspecified ([facility]) Take 1 Tablet by mouth [...] t major depressive disorder, remission status unspecified ([facility]) Take 1 Tablet by mouth [...] melanocytic Proliferation L low Back 07/06/2010 Overview: [id number] Skin, left lower back: Atypical predominantly junctional [...] as of this encounter Progress Notes * Mango Tamez MD - 03/31/2023 8:15 AM EDT Images from the original note were not included. Brief Clinical History Ms. Leonardo is a 62 year old woman last seen in Family Medicine 3 months ago (12-26-22). She has h/o acute [place], chronic diabetic complication, CKD stage 3, depression, DM type 2 with diabetic dyslipidemia ([facility]), DM type 2 with diabetic peripheral neuropathy ([facility]), morbid obesity, Morbid obesity due toexcess calories ([facility]), NSTEMI (non-ST elevated myocardial infarction) ([facility]), Recurrent major depressive disorder ([facility]), Stage 3a chronic kidney disease ([facility]), and Type 2 diabetes mellitus with diabetic chronic kidney disease ([facility]). History of Present Illness Clary Leonardo is [...] DO NOT START BEFORE MAY 23, 2022 [email or web address] Que 14 Day [place] Device Does Not Apply Happy Hour Pale 14 Day Sensor Apply new sensor every [...] Recurrent major depressive disorder, remission status unspecified (HCC Insomnia, unspecified type continue follow-up with psychiatry provided her with phone number of counselor from her last Psychology TeleMed visit - She states that she was unaware that she needed to reach out to them and so she will do so now she is currently on BuSpar, Wellbutrin, fluoxetine, trazadone that is managed by Psychiatry - RETURN TO WORK OR SCHOOL - [...] has really changed. documented in this encounter Plan of Treatment Upcoming Encounters Date Type Specialty Care Team Description 04/08/2023 Telemedicine Psychiatry Liliana Anderson CRNP [address] [place] [address] 06/02/2023 Office Visit Cardiology Tali Chen CRNP [address] [place] [phone] 07/07/2023 Nurse Only Ancillary Nurse [facility] [place] [phone] 08/06/2023 Hospital Encounter Endoscopy Daisha Pierson, DO [address] [place] [address] 08/06/2023 Surgery Endoscopy Daisha Pierson, DO [address] [place], [place] [address] COLONOSCOPY FLEXIBLE PROXIMAL DIAGNOSTIC 10/08/2023 Laboratory Laboratory [place] [facility] [address] [facility] 4 [place] [phone] 10/10/2023 Office Visit Family Medicine Mango Tamez MD [address] [facility] [place] [phone] 02/20/2024 Office Visit Dermatology Dariana Oquendo PA-C [address] [place] [phone] Scheduled Orders Name Type Priority Associated Diagnoses [...] Additional history exists CKD HGB USE SMARTSET 59243 11/29/202311/29, 11/28/2022, 11/27/2022, Additional history exists Albumin/Creatinine Ratio 12/03/2023 023, 11/22/2021, 06/25/2021, Additional history exists DIABETES-FOOT EXAM 12/03/2023 12/03/2022, 0 05/28/2021, 05/29/2020, Additional history exists Depression Screening, Annual for Pts 12 and Over 12/03/2023 12/03/2022 DTaP,Tdap,and Td Vaccines (2 - Td or Tdap) 12/23/2023 12/22/2013 Mammogram 02/12/2024 02/11/2023, 01/11, 07/10/2020, Additional history exists CKD PHOS USE SMARTSET 10496 03/28/202403/13, 05/31/2022, 03/02/2021, Additional history exists Lipid [...] Directives occurred with: Patient Care Teams Repairer Sash And Door Relationship Specialty Start Date End Date Mango Tamez MD [address] [place] [address] PCP - General Family Medicine 05/28/21 documented as of this encounter
--- OUTSIDE RECORDS SUMMARY | 2023-08-26 22:58 | External Medical Summary | Summary of Care ---
Author Name Unknown Organization [facility] [address] [facility] [address] Phone [phone] Care Team Providers Care Linux Solaris Administrator Name Role Phone Mango Tamez MD Primary Care Provider [phone] Reason for Visit * Reason Onset Date Comments Medical Questions 03/03/2023 Encounter Details Date Type Department Care Team Description 03/03/2023 Telephone Cardiology [place] Bhatia [address] [place] [address] Tali Chen CRNP [address] [facility] [place] [address] Medical Questions Allergies Active Allergy Reactions Severity Noted Date [...] as of this encounter (statuses as of 03/03/2023) Medications Medication Sig Dispensed Refills Start Date End Date Status FreeStyle Que 14 Day [place] DeviceIndications: Hypoglycemia Use as directed. 1 Each 0 08/10/2021 Active Fluticasone Propionate 50 MCG/ACT Nasal Suspension (Flonase) ADMINISTER 2 SPRAYS INTO EACH NOSTRIL DAILY IN THE MORNING - DO NOT START BEFORE MAY 23, 2022 94 mL 3 05/22/2022 05/22/2023 Active Additional Information Patient taking differently: 1 [place] Nasal DAILY PRN, Allergies, Reported on 11/27/2022 [...] the morning. 90 Tablet 3 12/26/2022 Active busPIRone HCl 10 MG Oral Tablet (Buspar)Indication s:Anxiety state Take 1 Tablet by mouth in the morning and 1 Tablet in the evening. 60 Tablet 5 12/26/2022 Active hydrOXYzine HCl 10 MG Oral Tablet (Atarax)Indication s:Anxiety state Take 1 Tablet by mouth every 6 hours as needed for Anxiety. 40 Tablet 2 12/26/2022 Active Omeprazole 40 MG Oral Capsule Delayed Release (PriLOSEC) TAKE ONE CAPSULE TWICE A DAY 180 Capsule 0 01/24/2023 Active Dulaglutide 1.5 MG/0.5ML Subcutaneous Solution Pen-injector (Trulicity)Indicat ions:Type 2 diabetes mellitus with hemoglobin A1c goal of less than 7.0% (HCC) Inject 1.5 mg under the skin once a week. 2 mL 5 02/13/2023 Active traZODone HCl 50 MG Oral Tablet (Desyrel) Take 1 Tablet by mouth at bedtime. 30 Tablet 0 02/18/2023 Active Rosuvastatin Calcium 20 MG Oral Tablet (Crestor)Indicatio ns:Dyslipidemia Take 2 Tablets by mouth every night at bedtime. 180 Tablet 1 02/21/2023 Active documented as of this encounter (statuses as of 03/03/2023) Active Problems Problem Noted Date Recurrent major [...] Proliferation L low Back 07/06/2010 Overview: CF [id number] Skin, left lower back: Atypical predominantly junctional [...] as of this encounter (statuses as of 03/03/2023) Resolved Problems Problem Noted Date Resolved Date [...] as of this encounter (statuses as of 03/03/2023) Immunizations Name Administration Dates Next Due HEP [...] encounter Miscellaneous Notes * Telephone Encounter - Esme Galindo LPN - 03/03/2023 1:44 PM EDT Pt notified via phone and states understanding. * Telephone Encounter - NAHEED Jenkins - 03/03/2023 9:23 AM EDT Hello, You have been on Metoprolol since November. You would have experienced side effects during that time. I do not feel this is related to the metoprolol. You could try taking this medication at bedtime ifit is making feel tired. NAHEED Jenkins * Telephone Encounter - Lily Aguilar RN - 03/03/2023 8:51 AM EDT Pt calling with concerns that she may be having side effects from the metoprolol. Has been experiencing dizziness, fatigue, weakness, and nausea since December. Feels this is related to the metoprolol after reading the side effects. States that she tried eliminating some of her psych meds for a few days to see if it would make herfeel better and this did not work. Please advise. Lily Aguilar RN documented in this encounter Plan of Treatment Upcoming Encounters Date Type Specialty Care Team Description 03/18/2023 Telemedicine Psychiatry Liliana Anderson CRNP [address] [place] [address] 03/28/2023 Laboratory Laboratory [place], Lab [address] [facility] [address] [place] [address] 03/31/2023 Office Visit Family Medicine Mango Tamez MD [address] [facility] [place] [address] 04/02/2023 Telemedicine Pharmacy Pharmacist, [facility] [address] [place] [address] 04/29/2023 Hospital Encounter Endoscopy Daisha Pierson, DO [address] [place] [address] 04/29/2023 Surgery Endoscopy Daisha Pierson, DO [address] [place] [address] COLONOSCOPY FLEXIBLE PROXIMAL DIAGNOSTIC 06/02/2023 Office Visit Cardiology Tali Chen, SUPERINTENDENT MENAGERIE [address] [facility] [place] [id number] 07/07/2023 Nurse Only [facility]illary Nurse [facility] [phone] 02/20/2024 Office Visit Dermatology Dariana Oquendo PA-C [address] [place] [phone] Scheduled Procedures Name Priority Associated Diagnoses Date/Ti me COLONOSCOPY FLEXIBLE PROXIMAL DIAGNOSTIC History of colonic polyps 04/29/2023 11:45 AM EDT Health Maintenance Due Date Last [...] Declined After Education) CKD PHOS USE SMARTSET 98946 05/31/202305/13, 03/02/2021, 11/22/2019, Additional history exists GFR - Renal Function 06/02/2023 12/03/2022, 11/29/2022, 11/28/2022, Additional history exists HgA1C 06/02/2023 12/03/2022, 11/13, 11/22/2021, Additional history exists DIABETES-EYE EXAM 07/04/2023 07/04/2022, , 05/21/2018, Additional history exists CKD HGB USE SMARTSET 61621 11/29/202311/29, 11/28/2022, 11/27/2022, Additional history exists Albumin/Creatinine [...] Advance Directives occurred with: Patient Care Teams Linux Solaris Administrator Relationship Specialty Start Date End Date Mango Tamez MD [address] [facility] [place] [address] PCP - General Family Medicine 05/28/21 documented as of this encounter
--- OUTSIDE RECORDS SUMMARY | 2023-08-26 22:58 | External Medical Summary | Summary of Care ---
Author Name Unknown Organization [facility] Address [address] [place] [address] Phone [phone] Care Team Providers Care Fiberglass Autobody Repairer Name Role Phone Mango Tamez MD Primary Care Provider [phone] Reason for Visit * Reason Comments Medication Management Encounter Details Date Type Department Care Team Description 03/18[facility]2023 [facility] [address] [place], [place] [address] Liliana Anderson CRNP [address] [place] [address] Moderate episode of recurrent major depressive disorder (HCC)*; GISELLA (generalized anxiety disorder) Allergies Active Allergy [...] as of this encounter (statuses as of 03/18/2023) Medications Medication Sig Dispensed Refills Start Date End Date Status FreeStyle Que 14 Day [place] DeviceIndications :Hypoglycemia Use as directed. 1 Each 0 08/10/2021 Active Fluticasone Propionate 50 MCG/ACT Nasal Suspension (Flonase) ADMINISTER 2 SPRAYS INTO EACH NOSTRIL DAILY IN THE MORNING - DO NOT START BEFORE MAY 23, 2022 94 mL 3 05/22/2022 3 Active Additional Information Patient taking differently: 1 Porter Nasal DAILY PRN, Allergies, Reported on 11/27/2022 buPROPion HCl ER (XL) 150 MG Oral Tablet Extended Release 24 Hour (Wellbutrin XL)Indications:De pression with anxiety,Memory loss Take 1 Tablet by mouth in the morning. 90 Tablet 1 10/15/2022 Active Gabapentin 300 MG Oral Capsule (Neurontin)Indica tions:DM type 2 with diabetic peripheral neuropathy (HCC) Take 1 Capsule by mouth at bedtime. 90 Capsule 1 10/15/2022 Active FreeStyle Que 14 Day SensorIndications :Hypoglycemia Apply new sensor every 14 days 2 Each 12 11/06/2022 Active CPAP every night at bedtime. 0 Active Aspirin 81 MG Oral Tablet Chewable Take 1 Tablet by mouth in the morning. 30 Tablet 0 12/03/2022 Active FLUoxetine HCl 60 MG Oral TabletIndications :Anxiety state,Recurrent major depressive disorder, remission status unspecified [...] at bedtime. 30 Tablet 0 03/18/2023 Active busPIRone HCl 10 MG Oral Tablet (Buspar)Indicatio ns:Anxiety state Take 1 Tablet by mouth in the morning and 1 Tablet in the evening. 60 Tablet 5 12/26/2022 3 Discontinue d(Medicatio n/Dose Changed) hydrOXYzine HCl 10 MG Oral Tablet (Atarax)Indicatio ns:Anxiety state Take 1 Tablet by mouth every 6 hours as needed for Anxiety. 40 Tablet 2 12/26/2022 3 Discontinue d(Medicatio n List Clean Up) traZODone HCl 50 MG Oral Tablet (Desyrel) Take 1 Tablet by mouth at bedtime. 30 Tablet 0 02/18/2023 3 Discontinue d(Refill) documented as of this encounter (statuses as of 03/18/2023) Active Problems Problem Noted Date Recurrent major [...] melanocytic Proliferation L low Back 07/06/2010 Overview: [id number] Skin, left lower back: Atypical predominantly junctional [...] as of this encounter (statuses as of 03/18/2023) Resolved Problems Problem Noted Date Resolved Date [...] as of this encounter (statuses as of 03/18/2023) Immunizations Name Administration Dates Next Due HEP [...] as of this encounter Progress Notes * Liliana Richmondshazia Anderson, NAHEED - 03/18/2023 2:38 PM EDT OUTPATIENT PSYCHIATRY RETURN VISIT DIVISION OF PSYCHIATRY [place] [address] Name: Clary Leonardo : 1960 Date and Time Patient was Seen: 03/18/2023 at 2:38 PM After connecting through televideo, patient was verified with two unique identifiers. Patient (or authorized legal maintenance representative) was then informed that this was [...] that I have reviewed their record in [facility] and presented the opportunity for them to [...] and in person services resume. Start Time: 2:40P Stop Time: 3P Total direct [id number] time: 10 minutes Physical Location of patient: For patient verified using 2 identifiers. Confirmed patient is in a private location located within the [facility]. Patient verbally consented to tele-psychiatry consultation. CC: depression INTERVAL HISTORY: Pt reports good adherence with medication and denies side effects. Pt reports improvement in sleep and decrease in emotional blunting with trazodone. Reports recent increase in anxiety, taking additional dose of Buspar in afternoon. Pt denies SI. No manic symptoms, psychotic [...] Sig Dispense Refill FreeStyle Que 14 Day [place] Device Use as directed. 1 Each 0 Fluticasone Propionate 50 MCG/ACT Nasal Suspension (Flonase) ADMINISTER 2 SPRAYS INTO EACH NOSTRIL DAILY IN THE MORNING - DO NOT START BEFORE MAY 23, 2022 (Patient taking differently: Administer 1 Porter into nostril daily as needed for Allergies.) 94 mL 3 buPROPion HCl ER (XL) 150 MG Oral Tablet Extended Release 24 Hour (Wellbutrin XL) Take 1 Tabletby mouth in the morning. 90 Tablet 1 Gabapentin 300 MG Oral Capsule (Neurontin) Take 1 Capsule by mouth at bedtime. 90 Capsule 1 FreeStyle Que 14 Day Sensor Apply new sensor every 14 days 2 Each 12 CPAP every night at bedtime. Aspirin 81 MG Oral Tablet Chewable Take 1 Tablet by mouth in the morning. 30 Tablet 0 FLUoxetine HCl 60 MG Oral Tablet Take 1 Tablet by mouth in the morning. 30 Tablet 3 Metoprolol Succinate ER 25 MG Oral Tablet Extended Release 24 Hour (toPROL XL) Take 1 Tablet bymouth in the morning. 90 Tablet 3 busPIRone HCl 10 MG Oral Tablet (Buspar) Take 1 Tablet by mouth in the morning and 1 Tablet in the evening. 60 Tablet 5 hydrOXYzine HCl 10 MG Oral Tablet (Atarax) Take 1 Tablet by mouth every 6 hours as needed for Anxiety. 40 Tablet 2 Omeprazole 40 MG Oral Capsule Delayed Release (PriLOSEC) TAKE ONE CAPSULE TWICE A DAY 180 Capsule 0 Dulaglutide 1.5 MG/0.5ML Subcutaneous Solution Pen-injector (TrulicJoin The Wellness Team) Inject 1.5 mg under theskin once a week. 2 mL 5 traZODone HCl 50 MG Oral Tablet (Desyrel) Take 1 Tablet by mouth at bedtime. 30 Tablet 0 Rosuvastatin Calcium 20 MG Oral Tablet (Crestor) Take 2 Tablets by mouth every night at bedtime. 180 Tablet 1 No current facility-administered medications for this visit. RECENT LABS/IMAGING: No results found for this or any previous visit (from the past 672 hour(s)). VITALS There were no vitals filed for this visit. Wt Readings from Last 3 Encounters: 12/26/22 100.2 kg (220 lb 12.8 oz) 12/03/22 99.7 kg (219 lb 14.4 oz) 12/03/22 100.2 kg (221 lb) There is no height or weight on file to calculate BMI. CURRENT MEDICATIONS: Current Outpatient Medications Medication Sig Dispense Refill FreeStyle Que 14 Day [place] Device Use as directed. 1 Each 0 Fluticasone Propionate 50 MCG/ACT Nasal Suspension (Flonase) ADMINISTER 2 SPRAYS INTO EACH NOSTRIL DAILY IN THE MORNING - DO NOT START BEFORE MAY 23, 2022 (Patient taking differently: Administer 1 Porter into nostril daily as needed for Allergies.) 94 mL 3 buPROPion HCl ER (XL) 150 MG Oral Tablet Extended Release 24 Hour (Wellbutrin XL) Take 1 Tabletby mouth in the morning. 90 Tablet 1 Gabapentin 300 MG Oral Capsule (Neurontin) Take 1 Capsule by mouth at bedtime. 90 Capsule 1 FreeStyle Que 14 Day Sensor Apply new sensor every 14 days 2 Each 12 CPAP every night at bedtime. Aspirin 81 MG Oral Tablet Chewable Take 1 Tablet by mouth in the morning. 30 Tablet 0 FLUoxetine HCl 60 MG Oral Tablet Take 1 Tablet by mouth in the morning. 30 Tablet 3 Metoprolol Succinate ER 25 MG Oral Tablet Extended Release 24 Hour (toPROL XL) Take 1 Tablet bymouth in the morning. 90 Tablet 3 busPIRone HCl 10 MG Oral Tablet (Buspar) Take 1 Tablet by mouth in the morning and 1 Tablet in the evening. 60 Tablet 5 hydrOXYzine HCl 10 MG Oral Tablet (Atarax) Take 1 Tablet by mouth every 6 hours as needed for Anxiety. 40 Tablet 2 Omeprazole 40 MG Oral Capsule Delayed Release (PriLOSEC) TAKE ONE CAPSULE TWICE A DAY 180 Capsule 0 Dulaglutide 1.5 MG/0.5ML Subcutaneous Solution Pen-injector ([employer]ting [employer] Information) Inject 1.5 mg under theskin once a week. 2 mL 5 traZODone HCl 50 MG Oral Tablet (Desyrel) Take 1 Tablet by mouth at bedtime. 30 Tablet 0 Rosuvastatin Calcium 20 MG Oral Tablet (Crestor) Take 2 Tablets by mouth every night at bedtime. 180 Tablet 1 No current facility-administered medications for this visit. [...] Speech: normal, rate, tone and volume Mood: anxious Affect: type - dysthymic; range - constricted; lability - no Associations: [...] Hydroxyzine 10mg HS. Referred by PCP to [facility] for depression. Since COVID infection in May 2022, reports apathy, emotional blunting and persistent short-term memory impairment. Patient states "I just don't feel like a whole person." Reports lifelong depressive episodes described as depressed mood, anhedonia, insomnia w/timing adjuster awakening, fluctuating appetite, hopelessness impacting daily life. [...] 50mg reporting improvement in depression and insomnia. Increasing frequency of Buspar for recent increase in anxiety. Agreeable to referral for Neuropsych testing- concern for cognitive impairment. ASSESSMENT AND PLAN: 1. Moderate episode of recurrent major depressive disorder (HCC) 2. GISELLA (generalized anxiety disorder) Continue Wellbutrin XL 150mg daily Prozac 60mg daily- On ASA therapy- prescribed Prilosec 40mg BID trazodone 50mg HS Increase Buspar 10mg TID 11/27/22 ECG NSR QTc [...] Spent on Visit: 30 minutes Billing code: [id number] Outpatient Adult Psychiatry Treatment Plan Treatment plan was developed on 03/18/23, treatment will continue to focus on goals below; Treatment update will occur when clinically indicated or by 09/13/2023. 1. Patient's goals captured in patient's words: [...] hotlines): Suicide and Crisis Lifeline - 988, Cheers In access to crisis numbers and Click Contact Hotlines for Help 3. Patient/Family Received Copy of Treatment Plan: Patient has access to ByAllAccounts 4. Signature Obtained on Treatment Plan: Treatment [...] clinical assessment: PHQ-9 Adult Data GISELLA-7 Data [place] Suicide Screen NAHEED [facility] 03/18/2023 documented in this encounter Plan of Treatment Upcoming Encounters Date Type Specialty Care Team Description 03/28/2023 Laboratory Laboratory [facility] [address] [facility] Tyrone Sal [address] [place] [address] 03/31/2023 Office Visit Family Medicine Mango Tamez MD [address] [facility] [place] [address] 04/02/2023 Telemedicine Pharmacy Pharmacist2, [facility] [address] [place] [address] 04/08/2023 Telemedicine Psychiatry Liliana Anderson CRNP [address] [place] [address] 06/02/2023 Office Visit Cardiology Tali Chen CRNP 400 [facility] [place] [phone] 07/07/2023 Nurse Only Ancillary Nurse Shirley Jung 21 [facility] [place] [phone] 08/06/2023 Hospital Encounter Endoscopy Daisha Pierson, DO [address] [place] [address] 08/06/2023 Surgery Endoscopy Daisha Pierson DO [address] [place] [address] COLONOSCOPY FLEXIBLE PROXIMAL DIAGNOSTIC 02/20/2024 Office Visit Dermatology Dariana Oquendo PA-C [address] [place] [phone] Scheduled Procedures Name Priority Associated Diagnoses Date/Ti [...] Declined After Education) CKD PHOS USE SMARTSET 83709 05/31/202305/13, 03/02/2021, 11/22/2019, Additional history exists GFR 06/02/2023 12/03/2022, 11/13, 11/28/2022, Additional history exists HbA1c 06/02/2023 12/03/2022, 11/13, 11/22/2021, Additional history exists DIABETES-EYE EXAM 07/04/2023 07/04/2022, , 05/21/2018, Additional history exists CKD HGB USE SMARTSET 72370 11/29/202311/29, 11/28/2022, 11/27/2022, Additional history exists Albumin/Creatinine [...] of recurrent major depressive disorder (HCC)- Primary GISELLA (generalized anxiety disorder) Generalized anxiety disorder [...] Advance Directives occurred with: Patient Care Teams Fiberglass Autobody Repairer Relationship Specialty Start Date End Date Mango Tamez MD [address] [place] [address] PCP - General Family Medicine 05/28/21 documented as of this encounter
== END 2023-08-24 13:11 | disposition home or self-care (01) ==
LOC: EDINP 16:18 → ED 16:18 → 2N 08-24 00:44